=== PATIENT | male | born 1935 | race Caucasian/White ===

== ENCOUNTER → 2016-03-06 | Outpatient (CLI) | payer MEDICARE ==
[~2016-03-06] MED LIST: ASPI81; CLOP75; LIPI80TA16
[2016-03-06 12:04] LABS: BASOPHIL % 0.5 % (0.0-2.0); EOSINOPHIL # 0.1 TH/MM3 (0-0.4); EOSINOPHIL % 1.6 % (0.0-4.0); HEMATOCRIT 49.4 % (39.0-51.0); HEMO FLAGS DIFF FINAL; MEAN CELL VOLUME 90.6 FL (80.0-100.0); MEAN CORPUSCULAR HEMOGLOBIN 30.2 PG (27.0-34.0); MEAN CORPUSCULAR HGB CONC 33.4 % (32.0-36.0); MONO % 7.3 % (0.0-8.0); NEUT % 51.6 % (16.0-70.0); PLATELET COUNT 203 TH/MM3 (150-450); RED BLOOD COUNT 5.46 MIL/MM3 (4.50-5.90); RED CELL DISTRIBUTION WIDTH 15.2 % (11.6-17.2); WHITE BLOOD COUNT 7.8 TH/MM3 (4.0-11.0)
== END ==
LOC: ELAB 10:41
PROVIDERS: ATTEND Ophthalmology
DX: Z01.812 Encounter for preprocedural laboratory examination (principal)
CPT/HCPCS: 36415; 85025

== ENCOUNTER → 2016-04-21 | Outpatient (CLI) | payer MEDICARE ==
[2016-04-21 12:08] LABS: AUTOMATED NEUTROPHIL # 4.3 TH/MM3 (1.8-7.7); BASOPHIL % 0.5 % (0.0-2.0); EOSINOPHIL # 0.1 TH/MM3 (0-0.4); HEMATOCRIT 46.3 % (39.0-51.0); HEMO FLAGS DIFF FINAL; LYMPH % 28.3 % (9.0-44.0); MEAN CELL VOLUME 90.7 FL (80.0-100.0); MEAN CORPUSCULAR HEMOGLOBIN 31.1 PG (27.0-34.0); MEAN CORPUSCULAR HGB CONC 34.3 % (32.0-36.0); MONO % 8.7 % (0.0-8.0); NEUT % 60.5 % (16.0-70.0); PLATELET COUNT 216 TH/MM3 (150-450); RED CELL DISTRIBUTION WIDTH 14.3 % (11.6-17.2); WHITE BLOOD COUNT 7.1 TH/MM3 (4.0-11.0)
[2016-04-21 12:21] LABS: APTT (PATIENT) 28.2 SEC (24.3-30.1); INTERNATIONAL NORMALIZED RATIO 0.9 RATIO; PROTHROMBIN TIME - PATIENT 10.3 SEC (9.8-11.6)
== END ==
LOC: ELAB 11:01
PROVIDERS: ATTEND Ophthalmology
DX: H25.12 Age-related nuclear cataract, left eye (principal); Z01.818 Encounter for other preprocedural examination
CPT/HCPCS: 36415; 85025; 85610; 85730

== ENCOUNTER → 2016-07-29 | Outpatient (CLI) | payer MEDICARE ==
[2016-07-29 11:58] LABS: HEMATOCRIT 44.2 % (39.0-51.0); MEAN CELL VOLUME 90.6 FL (80.0-100.0); MEAN CORPUSCULAR HEMOGLOBIN 29.2 PG (27.0-34.0); MEAN CORPUSCULAR HGB CONC 32.2 % (32.0-36.0); PLATELET COUNT 190 TH/MM3 (150-450); RED BLOOD COUNT 4.88 MIL/MM3 (4.50-5.90); RED CELL DISTRIBUTION WIDTH 13.3 % (11.6-17.2); REVIEW FLAG FINAL; WHITE BLOOD COUNT 6.8 TH/MM3 (4.0-11.0)
== END ==
LOC: ELAB 09:29
PROVIDERS: ATTEND Family Medicine
DX: R04.0 Epistaxis (principal)
CPT/HCPCS: 36415; 85027

== ENCOUNTER → 2016-09-22 | Outpatient (CLI) | payer MEDICARE ==
[2016-09-22 12:34] LABS: AUTOMATED NEUTROPHIL # 3.8 TH/MM3 (1.8-7.7); BASOPHIL % 0.6 % (0.0-2.0); EOSINOPHIL # 0.1 TH/MM3 (0-0.4); EOSINOPHIL % 1.7 % (0.0-4.0); HEMATOCRIT 46.8 % (39.0-51.0); HEMO FLAGS DIFF FINAL; LYMPHOCYTE # 2.6 TH/MM3 (1.0-4.8); MEAN CELL VOLUME 90.5 FL (80.0-100.0); MEAN CORPUSCULAR HEMOGLOBIN 30.4 PG (27.0-34.0); MEAN CORPUSCULAR HGB CONC 33.6 % (32.0-36.0); MONO % 6.9 % (0.0-8.0); NEUT % 53.8 % (16.0-70.0); PLATELET COUNT 207 TH/MM3 (150-450); RED BLOOD COUNT 5.17 MIL/MM3 (4.50-5.90); RED CELL DISTRIBUTION WIDTH 13.6 % (11.6-17.2)
[2016-09-22 12:46] LABS: ANION GAP 4 MEQ/L (5-15); AST (GOT) 17 U/L (15-37); BICARBONATE 31.8 MEQ/L (21.0-32.0); BLOOD UREA NITROGEN 11 MG/DL (7-18); CHLORIDE 104 MEQ/L (98-107); GLOMERULAR FILTRATION RATE 63 ML/MIN (>89); GLUCOSE,FASTING 84 MG/DL (74-99); SODIUM (NA) 140 MEQ/L (136-145)
[2016-09-22 12:47] LABS: ALT (GPT) 18 U/L (12-78)
[2016-09-22 12:50] LABS: ALKALINE PHOSPHATASE 88 U/L (45-117); TOTAL BILIRUBIN ADULT 0.6 MG/DL (0.2-1.0)
[2016-09-22 14:00] LABS: WESTERGREN SEDIMENTATION RATE 5 mm/hr (0-20)
== END ==
LOC: ELAB 10:14
PROVIDERS: ATTEND Family Medicine
DX: I25.9 Chronic ischemic heart disease, unspecified (principal); M06.4 Inflammatory polyarthropathy; I10 Essential (primary) hypertension; M51.37 Other intervertebral disc degeneration, lumbosacral region
CPT/HCPCS: 36415; 80053; 85025; 85652

== ENCOUNTER → 2016-12-29 | Outpatient (CLI) | payer MEDICARE ==
[2016-12-29 12:00] LABS: ALT (GPT) 19 U/L (12-78); ANION GAP 6 MEQ/L (5-15); AST (GOT) 19 U/L (15-37); BICARBONATE 32.1 MEQ/L (21.0-32.0); BLOOD UREA NITROGEN 10 MG/DL (7-18); CHLORIDE 104 MEQ/L (98-107); GLOMERULAR FILTRATION RATE 71 ML/MIN (>89); GLUCOSE,FASTING 88 MG/DL (74-99); POTASSIUM 4.1 MEQ/L (3.5-5.1); SODIUM (NA) 142 MEQ/L (136-145)
[2016-12-29 12:03] LABS: ALKALINE PHOSPHATASE 86 U/L (45-117); HDL CHOLESTEROL 59.7 MG/DL (40.0-60.0); LDL CHOLESTEROL 127 MG/DL (0-99); TOTAL BILIRUBIN ADULT 0.8 MG/DL (0.2-1.0)
== END ==
LOC: ELAB 08:29
PROVIDERS: ATTEND Internal Medicine Cardiovascular Disease
DX: Z79.899 Other long term (current) drug therapy (principal); Z13.220 Encounter for screening for lipoid disorders
CPT/HCPCS: 36415; 80053; 80061

== ENCOUNTER → 2017-01-22 | Outpatient (CLI) | payer MEDICARE ==
[2017-01-22 08:59] LABS: AUTOMATED NEUTROPHIL # 3.3 TH/MM3 (1.8-7.7); BASOPHIL % 0.5 % (0.0-2.0); EOSINOPHIL # 0.2 TH/MM3 (0-0.4); EOSINOPHIL % 2.7 % (0.0-4.0); HEMATOCRIT 48.9 % (39.0-51.0); HEMO FLAGS DIFF FINAL; LYMPH % 41.1 % (9.0-44.0); LYMPHOCYTE # 2.9 TH/MM3 (1.0-4.8); MEAN CELL VOLUME 90.1 FL (80.0-100.0); MEAN CORPUSCULAR HEMOGLOBIN 30.3 PG (27.0-34.0); MEAN CORPUSCULAR HGB CONC 33.6 % (32.0-36.0); MONO % 7.9 % (0.0-8.0); NEUT % 47.8 % (16.0-70.0); PLATELET COUNT 193 TH/MM3 (150-450); RED BLOOD COUNT 5.43 MIL/MM3 (4.50-5.90); RED CELL DISTRIBUTION WIDTH 14.6 % (11.6-17.2)
[2017-01-22 09:33] LABS: WESTERGREN SEDIMENTATION RATE 1 mm/hr (0-20)
[2017-01-22 10:11] LABS: ANION GAP 4 MEQ/L (5-15); AST (GOT) 19 U/L (15-37); BICARBONATE 32.2 MEQ/L (21.0-32.0); BLOOD UREA NITROGEN 12 MG/DL (7-18); CHLORIDE 107 MEQ/L (98-107); GLOMERULAR FILTRATION RATE 60 ML/MIN (>89); GLUCOSE,FASTING 88 MG/DL (74-99); POTASSIUM 3.9 MEQ/L (3.5-5.1); SODIUM (NA) 143 MEQ/L (136-145)
[2017-01-22 10:25] LABS: ALKALINE PHOSPHATASE 93 U/L (45-117); ALT (GPT) 22 U/L (12-78); HDL CHOLESTEROL 65.9 MG/DL (40.0-60.0); LDL CHOLESTEROL 132 MG/DL (0-99); THYROXINE (T4) 5.7 MCG/DL (4.5-12.1); TOTAL BILIRUBIN ADULT 0.7 MG/DL (0.2-1.0)
== END ==
LOC: ELAB 07:25
PROVIDERS: ATTEND Family Medicine
DX: R53.83 Other fatigue (principal); I25.9 Chronic ischemic heart disease, unspecified; M06.4 Inflammatory polyarthropathy
CPT/HCPCS: 36415; 80053; 80061; 84436; 84443; 85025; 85652

== ENCOUNTER → 2017-02-16 | Outpatient (CLI) | payer MEDICARE ==
[2017-02-16 09:32] LABS: ALBUMIN 3.1 GM/DL (3.4-5.0); AST (GOT) 19 U/L (15-37); BICARBONATE 31.5 MEQ/L (21.0-32.0); BLOOD UREA NITROGEN 12 MG/DL (7-18); CALCIUM 8.7 MG/DL (8.5-10.1); CHLORIDE 104 MEQ/L (98-107); CHOLESTEROL 183 MG/DL (120-200); CREATININE 1.14 MG/DL (0.60-1.30); GLOMERULAR FILTRATION RATE 62 ML/MIN (>89); GLUCOSE,FASTING 90 MG/DL (74-99); SODIUM (NA) 140 MEQ/L (136-145)
[2017-02-16 09:36] LABS: ALKALINE PHOSPHATASE 84 U/L (45-117); ALT (GPT) 16 U/L (12-78); CHOLESTEROL/ HDL RATIO 4.05 RATIO; HDL CHOLESTEROL 45.1 MG/DL (40.0-60.0); LDL CHOLESTEROL 119 MG/DL (0-99); TOTAL BILIRUBIN ADULT 0.5 MG/DL (0.2-1.0); TOTAL PROTEIN 6.2 GM/DL (6.4-8.2); TRIGLYCERIDES 95 MG/DL (42-150)
[2017-02-16 09:38] LABS: AUTOMATED NEUTROPHIL # 4.5 TH/MM3 (1.8-7.7); BASOPHIL % 0.4 % (0.0-2.0); EOSINOPHIL # 0.1 TH/MM3 (0-0.4); HEMATOCRIT 47.3 % (39.0-51.0); HEMOGLOBIN 15.8 GM/DL (13.0-17.0); LYMPH % 27.6 % (9.0-44.0); MEAN CELL VOLUME 90.9 FL (80.0-100.0); MEAN CORPUSCULAR HEMOGLOBIN 30.4 PG (27.0-34.0); MEAN CORPUSCULAR HGB CONC 33.5 % (32.0-36.0); MEAN PLATELET VOLUME 9.3 FL (7.0-11.0); MONO % 10.2 % (0.0-8.0); MONOCYTE # 0.7 TH/MM3 (0-0.9); NEUT % 60.8 % (16.0-70.0); PLATELET COUNT 176 TH/MM3 (150-450); RED BLOOD COUNT 5.21 MIL/MM3 (4.50-5.90); RED CELL DISTRIBUTION WIDTH 14.4 % (11.6-17.2); WHITE BLOOD COUNT 7.4 TH/MM3 (4.0-11.0)
== END ==
LOC: ELAB 07:43
DX: I10 Essential (primary) hypertension (principal); I25.2 Old myocardial infarction; I25.10 Atherosclerotic heart disease of native coronary artery without angina pectoris; I73.9 Peripheral vascular disease, unspecified; E78.5 Hyperlipidemia, unspecified
CPT/HCPCS: 36415; 80053; 80061; 85025

== ENCOUNTER → 2017-05-05 | Outpatient (CLI) | payer MEDICARE ==
[2017-05-05 14:09] LABS: BASOPHIL % 0.7 % (0.0-2.0); EOSINOPHIL # 0.2 TH/MM3 (0-0.4); HEMATOCRIT 48.1 % (39.0-51.0); HEMOGLOBIN 15.9 GM/DL (13.0-17.0); LYMPH % 37.9 % (9.0-44.0); LYMPHOCYTE # 2.4 TH/MM3 (1.0-4.8); MEAN CELL VOLUME 91.2 FL (80.0-100.0); MEAN CORPUSCULAR HEMOGLOBIN 30.3 PG (27.0-34.0); MEAN CORPUSCULAR HGB CONC 33.2 % (32.0-36.0); MEAN PLATELET VOLUME 9.7 FL (7.0-11.0); MONO % 9.8 % (0.0-8.0); MONOCYTE # 0.6 TH/MM3 (0-0.9); NEUT % 48.6 % (16.0-70.0); PLATELET COUNT 200 TH/MM3 (150-450); RED BLOOD COUNT 5.27 MIL/MM3 (4.50-5.90); RED CELL DISTRIBUTION WIDTH 14.3 % (11.6-17.2); WHITE BLOOD COUNT 6.3 TH/MM3 (4.0-11.0)
[2017-05-05 14:26] LABS: ALBUMIN 3.2 GM/DL (3.4-5.0); AST (GOT) 19 U/L (15-37); BICARBONATE 31.3 MEQ/L (21.0-32.0); BLOOD UREA NITROGEN 11 MG/DL (7-18); CALCIUM 8.9 MG/DL (8.5-10.1); CHLORIDE 107 MEQ/L (98-107); CREATININE 0.98 MG/DL (0.60-1.30); GLOMERULAR FILTRATION RATE 74 ML/MIN (>89); GLUCOSE,FASTING 85 MG/DL (74-99); SODIUM (NA) 144 MEQ/L (136-145)
[2017-05-05 14:31] LABS: ALKALINE PHOSPHATASE 83 U/L (45-117); ALT (GPT) 17 U/L (12-78); CHOLESTEROL 196 MG/DL (120-200); CHOLESTEROL/ HDL RATIO 4.13 RATIO; HDL CHOLESTEROL 47.4 MG/DL (40.0-60.0); LDL CHOLESTEROL 130 MG/DL (0-99); TOTAL BILIRUBIN ADULT 0.6 MG/DL (0.2-1.0); TOTAL PROTEIN 6.3 GM/DL (6.4-8.2); TRIGLYCERIDES 91 MG/DL (42-150)
== END ==
LOC: ELAB 08:46
PROVIDERS: ATTEND Family Medicine
DX: I25.9 Chronic ischemic heart disease, unspecified (principal); E78.2 Mixed hyperlipidemia; K21.9 Gastro-esophageal reflux disease without esophagitis; I48.0 Paroxysmal atrial fibrillation; M51.37 Other intervertebral disc degeneration, lumbosacral region
CPT/HCPCS: 36415; 80053; 80061; 85025

== ENCOUNTER 2017-12-21 08:40 | Inpatient (IN) ==
[2017-12-21] MEDS ORDERED: Iohexol 350 MG/ML 100 ML Vial (for Cath Lab) IVCONTRAST ONE (08:41)
[2017-12-21] MEDS ORDERED: Heparin 10,000 UNITS/10 ML Vial (for IV use) IV.PUSH STA (08:48)
[2017-12-21] MEDS ORDERED: Heparin/NS PF Inj 1,500 ML ONE (08:55)
--- NOTE | 2017-12-21 08:59 | XR ---
EXAM DATE: 12/21/2017 8:56 AM EST AGE/SEX: 82 years / Male INDICATIONS: Stemi-alert. CLINICAL DATA: This is the patient's initial encounter. Patient reports that signs and symptoms have been present for 1 day and indicates a pain score of Nonresponsive. MEDICAL/SURGICAL HISTORY: Non-responsive. CABG. COMPARISON: No prior exams available for comparison. FINDINGS: The patient is post median sternotomy. The heart is mildly enlarged. There are chronic interstitial c hanges within the pulmonary parenchyma. There is no pneumothorax or overt congestive failure. The bony structures are intact. CONCLUSION: Chronic interstitial changes. The patient is post median sternotomy. Electronically signed by: Wil Lang MD 12/21/2017 8:58 AM EST
[2017-12-21 09:05] LABS: Baso % (Auto) 0.5 % (0.0-2.0); Eos # (Auto) 0.1 th/mm3 (0.0-0.4); Eos % (Auto) 1.3 % (0.0-4.0); Hematocrit 41.4 % (39.0-51.0); Hemoglobin 13.7 gm/dL (13.0-17.0); Lymph # (Auto) 3.6 th/mm3 (1.0-4.8); Lymph % (Auto) 36.7 % (9.0-44.0); Mean Corpuscular HGB Conc 33.1 % (32.0-36.0); Mean Corpuscular Volume 90.6 fL (80.0-100.0); Mean Platelet Volume 9.6 fL (7.0-11.0); Mono # (Auto) 0.7 th/mm3 (0.0-0.9); Mono % (Auto) 6.9 % (0.0-8.0); Neut # (Auto) 5.4 th/mm3 (1.8-7.7); Neut % (Auto) 54.6 % (16.0-70.0); Platelet Count 229 th/mm3 (150-450); Red Blood Count 4.57 mil/mm3 (4.50-5.90); Red Cell Distribution Width 15.4 % (11.6-17.2); White Blood Count 9.8 th/mm3 (4.0-11.0)
[2017-12-21] MEDS ORDERED: fentaNYL Citrate Inj 100 MCG/2 ML Ampul ONE (09:06)
[2017-12-21] MEDS ORDERED: DOPamine 800 MG/500 ML Premix 800 MG/500 ML PLAST..BAG IV.CONT ONE (09:09)
--- NOTE | 2017-12-21 09:10 | ED ---
HPI General Chief Complaint: STEMI Alert Stated Complaint: Stemi Alert Time Seen by Provider: 12/21/17 08:45 History of Present Illness HPI narrative: 82-year-old male with history of coronary disease, presents today as a STEMI alert. Patient states he woke up with substernal chest pain. He reports it radiates to his back. He reports the pain as a pressure-like. He reports that also has a achy pain. He reports it as a 10 out of 10. He reports some nausea. No vomiting. Positive diaphoresis. He reports this feels like his pain and previous KS. Patient took 5 nitroglycerin at home with no improvement of pain. Report was that he had an aspirin en route. Related Data Home Medications Medication Instructions Recorded Confirmed nitroglycerin [Nitrostat] 0.4 mg SUBLINGUAL Q5-15M PRN 12/21/17 12/21/17 Allergies Allergy/AdvReac Type Severity Reaction Status Date / Time No Known Allergies Allergy Verified 12/21/17 08:42 Review of Systems ROS: all other systems reviewed are negative Constitutional Reports system reviewed and no additional complaints, except as docu Eyes Reports system reviewed and no additional complaints, [facility] E[facility] Reports system reviewed and no additional complaints, except as [facility] Cardiovascular Reports chest pain, Reports diaphoresis and Reports dyspnea Respiratory Denies cough and Reports dyspnea Gastrointestinal Denies abdominal pain, Reports nausea and Denies vomiting Genitourinary Reports system reviewed and no additional complaints, except as [facility] Musculoskeletal Reports system reviewed and no additional complaints, except as [facility] Neurologic Reports system reviewed and no additional complaints, except as [facility] PMFSH Medical History Medical History A-fib (Acute) Surgical History Surgical History Hx of heart surgery (Acute) Social History Social History Recent Travel in [facility] within the Last 8 Weeks: No Recent Out of Country Travel within the Last 8 Weeks: No Exam Narrative Exam Narrative: GENERAL: Well developed well-nourished male who appears to be in obvious distress. SKIN: Focused skin assessment warm/dry. HEAD: Atraumatic. Normocephalic. EYES: No scleral icterus. No injection or drainage. ENT: No nasal bleeding or discharge. Mucous membranes pink and moist. NECK: Trachea midline. No JVD. CARDIOVASCULAR: Bradycardic in the 30s. No murmur appreciated. RESPIRATORY: No accessory muscle use. Clear to auscultation. Breath sounds equal bilaterally. GASTROINTESTINAL: Abdomen soft, non-tender, nondistended. No pulsatile masses. MUSCULOSKELETAL: No obvious deformities. No clubbing. No cyanosis. No edema. NEUROLOGICAL: Awake and alert and distress. No obvious cranial nerve deficits. Motor grossly within normal limits. Normal speech. Course Initial Documented Vital Signs Pulse Rate 38 L 12/21/17 08:40 Respiratory Rate 20 12/21/17 08:40 Blood Pressure 91/50 L 12/21/17 08:40 Last Documented Vital Signs Pulse Rate 38 L 12/21/17 08:40 Respiratory Rate 20 12/21/17 08:40 Blood Pressure 91/50 L 12/21/17 08:40 Medical Decision Making MDM Narrative Medical decision making narrative: 82-year-old male presents as a STEMI alert. Patient has minimal ST elevation in the inferior leads. There is greater than [address] depression in the anterior leads. Patient has signs and symptoms consistent with an acute ST elevation KS. Patient was also noted to be bradycardic. He had had an aspirin in the field. He was been given 4500 mg of IV heparin. He will be taken to the [facility] emerg[facility]. Case was discussed with Dr. Herrera, on-call retail loan officer, who will try to touch base with the patient's retail loan officer, . Medical Screen Exam Complete: Yes Emergency Medical Condition: Yes Differential Diagnosis Differential Diagnosis: Acute ST elevation KS versus non-ST elevation KS versus pulmonary embolus versus thoracic aneurysm Lab Data Result diagrams: 12/21/17 08:55 Imaging Data Radiologist's impression: Chest X-Ray 12/21/17 08:47 CONCLUSION: Chronic interstitial changes. The patient is post median sternotomy. Discharge Plan Discharge Disposition Patient Disposition: 30 Still Patient Discharge Details Diagnosis: ST elevation myocardial infarction (STEMI) Physicians Team ED Provider: James Peoples Primary Care Provider: UNKNOWN, Rxs /Orders / Referrals /Forms Prescriptions: No Action nitroglycerin [Nitrostat] 0.4 mg Tablet, Sublingual 0.4 mg SUBLINGUAL Q5-15M PRN (Reason: Pain (Scale Score 4-6)) RF: 0 Status ED Status: With Doctor
[2017-12-21 09:15] LABS: Activated Partial Thrombo Time 27.3 sec (23.4-31.7); INR 1.1 Ratio; Prothrombin Time 10.9 sec (9.8-11.6)
[2017-12-21] MEDS ORDERED: Lidocaine PF 1% Inj 30 ML Vial ONE (09:15)
[2017-12-21] MEDS ORDERED: Atropine Inj 1 MG/10 ML Syringe ONE ×2 (09:17→10:09)
[2017-12-21 09:21] LABS: Calcium 8.6 mg/dL (8.5-10.1)
[2017-12-21 09:30] LABS: Troponin I 0.05 ng/mL (0.02-0.05)
[2017-12-21] MEDS ORDERED: Lidocaine 2% 100 MG/5 ML Syringe ONE (09:30)
[2017-12-21] MEDS ORDERED: Heparin 10,000 UNITS/10 ML Vial (for IV use) ONE (09:33)
[2017-12-21] MEDS ORDERED: Metoprolol Inj 5 MG/5 ML Vial ONE (10:04)
--- NOTE | 2017-12-21 11:03 | CATHPROC ---
Patient Name: Terell Murray Study #: [id number] Initial MD: Scott Maldonado Date of : 1935 Study Date: 12/21/2017 Cardiac Catheterization Report 12/21/2017 11:02:52 AM Financial #: [id number] 1 of 15 Patient Name: Terell Murray Study #: [id number] Initial MD: Scott Maldonado Date of : 1935 Study Date: 12/22/19 18 Entire Case Report Patient Information Patient Name Terell Murray Date of 1935 Age 82 years Financial # [id number] Gender M AlternateID Lab Number 4 Room Number Height (in) 71.0 Height (cm) 180.3 BSA 1.91 Weight (lbs) 158.0 Weight (kg) 71.8 Patient Address/Phone Number Home Address [facility] Home Phone Number [address] [place], [place] [id number] Study Information Study Number Admission Scheduled Start Study Start [id number] Dec 21 2017 8:40AM 12/21/2017 Dec 21 2017 8:58AM [place] [facility] Cardiac Catheterization Admit Source Facility Department Emergency department [facility] - Video Control Operator Physician and Clinical Staff Initial Scott Cervantes Talent Consultant Jaciel Soto,RN Talent Consultant Frederick Cristobal,DONA Other cathlab, cathlab Recorder Awilda Cedeño,STUDIO PRODUCER TECH2 Scrub Wade Bletran RCIS(BS) Procedures Performed Procedure Location (Site) Vessel Name Coronary Angiograms LCA Left Coronary Coronary Angiograms RCA Right Coronary Coronary Angiograms THOMPSON-LAD Left Coronary Drug Eluting Inflatio RCA Dist Right Coronary L Heart Cath PTCA RCA Dist Right Coronary PTCA RCA Mid Right Coronary Wire insertion Fem Art (right) Femoral Art 12/21/2017 11:02:52 AM Financial #: [id number] 2 of 15 Patient Name: Terell Murray Study #: [id number] Initial MD: Scott Maldonado Date of : 1935 Study Date: 12/21/2017 Equipment Time Assayer Helper Description Size Mfg Part Number Used/Scraped [id number] 09:46 [employer] WIRE, SPORT REGULAR 0.14 * Used *[id number] TRANSDUCER, TRUWAVE [id number] 09:09 OVALLE BRUNSON * Used W/STOCKCOCK *[id number] 534-660T *[id number] 534-620T *6742434 534-621T *2272989 670-083-00 *6011084 534-642T *[id number] 09:09 [email or web address] BLANKET,WARM AIR CCL * Used *[id number] 09:09 [email or web address] PACK, CCL CUSTOM * Used *[id number] 09:09 [employer] PACER PEN, SKIN DUAL W/ RULER * Used *[id number] 09:45 MEDTRONIC BALLOON, 2.0 X 15MM EUPHORA 15MM Used *[id number] 10:07 MEDTRONIC STENT, 2.75 12MM ALLISON 2.75 12MM Used *[id number] 10:01 MEDTRONIC STENT, 3.0 34MM ALLISON 3.0 34MM [id number] Used WIRE, WHOLEY .035 MOD-J 145 [id number] 10:10 MEDTRONIC 145CM Used CM *[id number] [id number] 09:54 [employer] MEDICAL 30 FABIO INDEFLATOR Used *[id number] 09:09 [employer] MEDICAL SHEATH, FR6.5 PRELUDE 11CM FR 6.5 038ACT Used *[id number] 09:09 [employer] MEDICAL WIRE, 3MMJ .035 180CM 180CM Used *[id number] 09:09 NAMIC MANIFOLD, 4 PORT * Used *[id number] 09:09 [employer]COMED OMNIPAQUE, 350 MG, 150ML 150ML [id number] Used [id number] 10:25 TERUMO MEDICAL SHEATH, FR5 TERUMO (10CM) FR 5 Used *[id number] Equipment Model, Serial, Lot Number and Expiration Data Description Model Number Serial Number Lot Number Expiration Date STENT, 2.75 12MM ALLISON [id number] 05-26-2019 STENT, 3.0 34MM ALLISON RONYX WIRE, WHOLEY .035 MOD-J 145 [id number] 05-10-2020 CM 12/21/2017 11:02:52 AM Financial #: [id number] 3 of 15 Patient Name: Terell Murray Study #: [id number] Initial MD: Scott Maldonado Date of : 1935 Study Date: 12/21/2017 Insurance Information Insurance Payor Medicare Third Green Party Third Green Party Number MEDICARE A B MCRAB History: Risk Factors Previous MA Previous Heart Failure Yes No Prior Valve Prior PCI Prior CABG Surgery No Yes Yes On Dialysis No History: Stress Tests Stress or Imaging Studies Performed No History: Arrhythmias Selection Items Atrial fibrillation History: Other Disease Selection Items CAD Labs Hgb (g/dl) Hct (%) Platelets (thousands) 11.60-17.00 35.00-51.00 150.00-450.00 13.3 39 229 Glucose (mg/dl) 74.00-106.00 156 Na (meq/l) K (meq/l) Cl (meq/l) Ca (mg/dl) 136.00-145.00 3.50-5.10 98.00-107.00 8.50-10.10 140 3.5 101 8.6 PT (sec) PTT (sec) INR (PTT:PT) 9.80-11.60 24.30-30.10 0.90-1.10 10.9 27.3 1.1 Medication 12/21/2017 11:02:52 AM Financial #: [id number] 4 of 15 Patient Name: Terell Murray Study #: [id number] Initial MD: Scott Maldonado Date of : 1935 Study Date: 2017 Medication Total Dose (Bolus/Oral) Medication Total Dosage/Unit 1% XYLOCAINE 20 mL AMIODARONE 150 mg ATROPINE 2 mg HEPARIN 76872 units LIDOCAINE 50 mg OXYGEN 10 l/min VERSED 4 mg Medications (Bolus/Oral) Medication Time Given Dosage/Unit Administered By Reason HEPARIN 12/21/2017 8:58:45 AM 4300 units Scott Maldonado Patient arrived on 4300 units HEPARIN given by Scott Maldonado in Right Antecubital via Peripheral IV. Ordered by Scott Maldonado. OXYGEN 12/21/2017 9:05:35 AM 4 l/min Patient arrived on 4 l/min OXYGEN via Nasal. ATROPINE 12/21/2017 9:14:43 AM 1 mg Jaciel Soto 1 mg ATROPINE given in lab by Jaciel Soto RN in Right Antecubital via Peripheral IV. Ordered by Scott Lockhart. 1% XYLOCAINE 12/21/2017 9:27:42 AM 20 mL Scott Maldonado 20 mL 1% XYLOCAINE given in lab by Scott Maldonado in Right Groin via Subcutaneous. Ordered by Scott Waters. VERSED 12/21/2017 9:30:23 AM 2 mg Jaciel Soto Patient arrived on 2 mg VERSED given by Jaciel Soto RN in Right Antecubital via Peripheral IV. Orde red by Scott Maldonado. LIDOCAINE 12/21/2017 9:31:33 AM 50 mg Jaciel Soto Patient arrived on 50 mg LIDOCAINE given by Jaciel Soto RN in Left Antecubital via Peripheral IV. O rdered by Scott Maldonado. HEPARIN 12/21/2017 9:34:26 AM 06777 units Frederick [place] [address] [place] HEPARIN given by Frederick Cristobal RN in Right Antecubital via Periphera l IV. Ordered by Scott Maldonado. OXYGEN 12/21/2017 9:41:32 AM 6 l/min Charles, Jaciel Patient arrived on 6 l/min OXYGEN given by Jaciel Soto RN via Nasal. ATROPINE 12/21/2017 9:48:44 AM 1 mg Frederick Cristobal 1 mg ATROPINE given in lab by Frederick Cristobal RN in Right Antecubital via Peripheral IV. Ordered by Scott Talavera. VERSED 12/21/2017 9:52:51 AM 2 mg Jaciel Soto Patient arrived on 2 mg VERSED given by Jaciel Soto RN in Right Antecubital via Peripheral IV. Orde red by Scott Maldonado. 12/21/2017 10:31:45 AMIODARONE 150 mg Frederick Cristobal AM 150 mg AMIODARONE given in lab by Frederick Cristobal RN in Left Antecubital via Peripheral IV. Ordered b Scott Cantu. 12/21/2017 11:02:52 AM Financial #: [id number] Patient Name: Terell Murray Study #: [id number] Initial MD: Scott Maldonado Date of : 1935 Study Date: 2017 Medication (Drip) Medication Time Given Dosage/Unit Concentration/Unit Diluent (ml) Solution DOPAMINE HCL 12/21/2017 9:11:25 AM 3.714 mcg/kg/min 800 mg 500 NaCl .9 3.714 mcg/kg/min DOPAMINE HCL given in lab by Frederick Cristobal RN in Right Antecubital via Peripheral IV. Pump/Drip Flow = 10 ml/hr using NaCl .9 with a concentration of 800 mg in 500 ml. Ordered by Scott Maldonado. DOPAMINE HCL 12/21/2017 9:14:34 AM 6.314 mcg/kg/min 800 mg 500 NaCl .9 6.314 mcg/kg/min DOPAMINE HCL given in lab by Jaciel Soto RN in Right Antecubital via Peripheral IV . Pump/Drip Flow = 17 ml/hr using NaCl .9 with a concentration of 800 mg in 500 ml. Ordered by Scott Maldonado. DOPAMINE HCL 12/21/2017 9:15:27 AM 8.914 mcg/kg/min 800 mg 500 NaCl .9 8.914 mcg/kg/min DOPAMINE HCL given in lab by Frederick Cristobal RN in Right Antecubital via Peripheral IV. Pump/Drip Flow = 24 ml/hr using NaCl .9 with a concentration of 800 mg in 500 ml. Ordered by Scott Maldonado. 12/21/2017 10:05:45 DOPAMINE HCL 4.828 mcg/kg/min 800 mg 500 NaCl .9 AM 4.828 mcg/kg/min DOPAMINE HCL given in lab by Frederick Cristobal RN in Right Antecubital via Peripheral IV. Pump/Drip Flow = 13 ml/hr using NaCl .9 with a concentration of 800 mg in 500 ml. Ordered by Scott Maldonado. IV Solutions 12/21/2017 9:05:25 AM 0 mL (IV) 500 NaCl .9 IV Solutions given in lab by Jaciel Soto RN in Right Antecubital via Peripheral IV. Pump/Drip Flow = 20 ml/hr using NaCl .9. Ordered by Scott Maldonado. REMINGTON-SYNEPHRINE 12/21/2017 9:18:08 AM 200 mcg 200 mcg REMINGTON-SYNEPHRINE given in lab by Frederick Cristobal RN in Right Antecubital via Peripheral IV. Ord ered by Scott Maldonado. REMINGTON-SYNEPHRINE 12/21/2017 9:22:11 AM 200 mcg 200 mcg REMINGTON-SYNEPHRINE given in lab by Frederick Cristobal RN in Right Antecubital via Peripheral IV. Ord ered by Soctt Maldonado. 12/21/2017 11:02:52 AM Financial #: [id number] Patient Name: Terell Murray Study #: [id number] Initial MD: Scott Maldonado Date of : 1935 Study Date: 12/21/2017 Initial Case Assessment Cardiovascular HR NIBP Chest Pain 38 68/33 10 Edema Present Skin color Skin None Normal Warm Dry Circulatory - Right Pulses Dorsalis Pedis Femoral 2 2 Scale (0,1,2,3,4,d) Circulatory - Left Pulses Dorsalis Pedis Femoral 2 2 Scale (0,1,2,3,4,d) Neurological State Oriented to time-place- Alert Moves all extremities person Respiration - General Respiration Rate SpO2 (%) O2 (lpm) (B/min) 16 100 4 12/21/2017 11:02:52 AM Financial #: [id number] Patient Name: Terell Murray Study #: [id number] Initial MD: Scott Maldonado Date of : 1935 Study Date: 12/21/2017 Final Case Assessment Cardiovascular HR NIBP Chest Pain 155 99/55 10 Edema Present Skin color Skin None Normal Warm Dry Circulatory - Right Pulses Dorsalis Pedis Femoral 2 2 Scale (0,1,2,3,4,d) Circulatory - Left Pulses Dorsalis Pedis Femoral 2 2 Scale (0,1,2,3,4,d) Neurological State Oriented to time-place- Alert Moves all extremities person Respiration - General Respiration Rate SpO2 (%) O2 (lpm) (B/min) 16 100 4 12/21/2017 11:02:52 AM Financial #: [id number] 8 of 15 Patient Name: Terell Murray Study #: [id number] Initial MD: Scott Maldonado Date of : 1935 Study Date: 12/21/2017 Vitals Summary Pain Time HR NIBP SpO2 Resp Temp EtCO2 Apnea Jace Kc Comment Level 09:06:16 38 68/33 86.0 16 10 10 2 09:12:49 36 132/39 100.0 17 10 10 2 09:15:43 67 70/48 94.0 12 10 10 2 09:17:25 56 68/45 98.0 17 10 10 2 09:20:11 49 73/49 98.0 16 10 10 2 09:21:35 54 86/67 95.0 15 10 10 2 09:24:01 61 79/44 98.0 18 10 10 2 09:27:32 59 89/26 94.0 9 10 10 2 09:32:31 52 81/58 96.0 14 10 10 2 09:37:58 44 117/86 92.0 15 10 10 2 09:43:08 44 133/77 93.0 18 10 10 2 09:47:40 45 89/66 93.0 15 10 10 2 09:50:22 42 152/107 93.0 15 10 10 2 09:53:45 43 123/30 93.0 12 10 10 2 09:57:38 53 107/68 93.0 12 10 10 2 10:02:33 117 105/74 15.0 93 10 10 2 10:07:34 104 95/72 93.0 15 10 10 2 10:12:33 103 91/65 93.0 12 10 10 2 10:19:49 124 82/56 93.0 12 10 10 2 10:23:45 137 87/48 92.0 15 10 10 2 10:28:48 125 61/31 93.0 15 10 10 2 12/21/2017 11:02:52 AM Financial #: [id number] 9 15 Patient Name: Terell Murray Study #: [id number] Initial MD: Scott Maldonado Date of : 1935 Study Date: 12/21/2017 Jace Score Summary Time Activity Resp Circ LOC Color Total Score 9:06:16 2 2 2 2 2 10 9:12:49 2 2 2 2 2 10 9:15:43 2 2 2 2 2 10 9:17:25 2 2 2 2 2 10 9:20:11 2 2 2 2 2 10 9:21:35 2 2 2 2 2 10 9:24:01 2 2 2 2 2 10 9:27:32 2 2 2 2 2 10 9:32:31 2 2 2 2 2 10 9:37:58 2 2 2 2 2 10 9:43:08 2 2 2 2 2 10 9:47:40 2 2 2 2 2 10 9:50:22 2 2 2 2 2 10 9:53:45 2 2 2 2 2 10 9:57:38 2 2 2 2 2 10 10:02:33 2 2 2 2 2 10 10:07:34 2 2 2 2 2 10 10:12:33 2 2 2 2 2 10 10:19:49 2 2 2 2 2 10 10:23:45 2 2 2 2 2 10 10:28:48 2 2 2 2 2 10 Jace Score Definition Table Activity - 0 Activity - 1 Activity - 2 No Movement to Command Weak Hand Grasp Lift Head, Good Hand Grasp Respiration - 0 Respiration - 1 Respiration - 2 Apneic or Obstructed Shallow Breath, Airway Adjunct Deep Breath, Cough Freely Circulation - 0 Circulation - 1 Circulation - 2 B/P > 50% Admission B/P B/P > 20-50% Admission B/P B/P Stable X3 Level of Consciousness - 0 Level of Consciousness - 1 Level of Consciousness - 2 Not Responding Arousable On Calling Awake and Aware Color - 0 Color- 1 Color - 2 Cyanotic Lips, Nailbed, Skin Pale, Dusky [place] Or Normal Chronological Log 12/21/2017 11:02:52 AM Financial #: [id number] Patient Name: Terell Murray Study #: [id number] Initial MD: Scott Maldonado Date of : 1935 Study Date: 12/21/2017 Time Study Chronological Log Patient arrived on 4300 units HEPARIN given by Scott Maldonado in Right Antecubital via Perip heral IV. Ordered by 8:58:45 Scott Maldonado. 8:58:48 Patient arrived via Bed. 8:58:48 Patient Name, D.O.B, / Armband Verified By R.N. 8:58:50 Consent signed by the physician and the patient and verified by the Video Control Operator staff. Vitals capture started with the following parameters, Patient=Adult, Interval=5 min, Initial Pr qbxiqp=640 mmHg, 9:04:47 Deflation Rate=5 mmHg, Cuff placed on Left Arm 9:05:02 Pre-op and post- op instructions given; patient acknowledges understanding of instructions. 9:05:08 Patient has been NPO for Less than 6Hrs. 9:05:09 NO Skin Breakdown- 9:05:11 Patient Warmer Placed on the Table. 9:05:12 Waylon Prominences Protected 9:05:24 A # 18 IV was noted in the Antecubital (right). Grade = 0 IV Solutions given in lab by Jaciel Soto RN in Right Antecubital via Peripheral IV. Pump/Drip Flow = 20 ml/hr using 9:05:25 NaCl .9. Ordered by Scott Maldonado. 9:05:26 A # 18 IV was noted in the Forearm (left). Grade = 0 9:05:26 History and physical on the chart or being dictated. 9:05:35 Patient arrived on 4 l/min OXYGEN via Nasal. 9:05:55 Reference ECG taken 9:06:16 HR=38 bpm, NIBP=68/33 mmhg, SpO2=86.0 %, Resp=16 B/min, Pain=10, Jace=10, Kc=2 Assessment: Initial Case, HR=38 BPM, NIBP=68/33 mmhg, Chest Pain=10, Edema=None, Color=Normal, Skin = Warm, Dry Right Pulses: Melvin Ped=2, Femoral=2 9:08:36 Left Pulses: Melvin Ped=2, Femoral=2 Neurological: State=Alert, Ox3, ACOSTA Respiration: Resp=16 B/min, AvF4=574 %, O2=4 lpm 9:10:51 Bilateral groins prepped with 2% chlorhexidine, and draped after a 3 minute waiting time. 3.714 mcg/kg/min DOPAMINE HCL given in lab by Frederick Cristobal, RN in Right Antecubital via Perip heral IV. Pump/Drip 9:11:25 Flow = 10 ml/hr using NaCl .9 with a concentration of 800 mg in 500 ml. Ordered by Tripp Maldonado. 9:11:29 Vitals capture stopped. Vitals capture started with the following parameters, Patient=Adult, Interval=5 min, Initial Pr yxyrgo=382 mmHg, 9:12:01 Deflation Rate=5 mmHg, Cuff placed on Left Arm 9:12:49 HR=36 bpm, OXVZ=163/39 mmhg, NwT7=509 %, Resp=17 B/min, Pain=10, Jace=10, Kc=2 9:13:42 Pressure channel 1 zeroed. 6.314 mcg/kg/min DOPAMINE HCL given in lab by Jaciel Soto RN in Right Antecubital via Periphe ral IV. Pump/Drip 9:14:34 Flow = 17 ml/hr using NaCl .9 with a concentration of 800 mg in 500 ml. Ordered by Tripp Maldonado. 9:14:43 1 mg ATROPINE given in lab by Jaciel Soto RN in Right Antecubital via Peripheral IV. Orde red by Scott Maldonado. 9:15:03 NIBP STAT measurement started. 8.914 mcg/kg/min DOPAMINE HCL given in lab by Frederick Cristobal RN in Right Antecubital via Perip heral IV. Pump/Drip 9:15:27 Flow = 24 ml/hr using NaCl .9 with a concentration of 800 mg in 500 ml. Ordered by Tripp Maldonado. 9:15:43 HR=67 bpm, NIBP=70/48 mmhg, SpO2=94 %, Resp=12 B/min, Pain=10, Jace=10, Kc=2 9:17:25 HR=56 bpm, NIBP=68/45 mmhg, SpO2=98.0 %, Resp=17 B/min, Pain=10, Jace=10, Kc=2 200 mcg REMINGTON-SYNEPHRINE given in lab by Frederick Cristobal, DONA in Right Antecubital via Peripheral I V. Ordered by 9:18:08 Scott Maldonado. 12/21/2017 11:02:52 AM Financial #: [id number] 11 15 Patient Name: Terell Murray Study #: [id number] Initial MD: Scott Maldonado Date of : 1935 Study Date: 12/21/2017 9:19:47 NIBP STAT measurement started. 9:20:11 HR=49 bpm, NIBP=73/49 mmhg, SpO2=98 %, Resp=16 B/min, Pain=10, Jace=10, Kc=2 9:20:25 A # 20 IV was noted in the Antecubital (left). Grade = 0 IV STARTED 9:20:48 NIBP STAT measurement started. 9:21:35 HR=54 bpm, NIBP=86/67 mmhg, SpO2=95.0 %, Resp=15 B/min, Pain=10, Jace=10, Kc=2 200 mcg REMINGTON-SYNEPHRINE given in lab by Frederick Cristobal RN in Right Antecubital via Peripheral I V. Ordered by 9:22:11 Scott Maldonado. 9:24:01 HR=61 bpm, NIBP=79/44 mmhg, SpO2=98 %, Resp=18 B/min, Pain=10, Jace=10, Kc=2 9:27:32 HR=59 bpm, NIBP=89/26 mmhg, SpO2=94.0 %, Resp=9 B/min, Pain=10, Jace=10, Kc=2 Time Out. Correct patient, correct procedure, correct physician, labs, allergies, and equipment verified with senior laboratory technician 9:27:37 team present. Fire risk assesment completed (see hard stop sheet for coding). Time Out Conc urred by MD and individual staff in procedure. 9:27:40 Case Start 9:27:42 20 mL 1% XYLOCAINE given in lab by Scott Maldonado in Right Groin via Subcutaneous. Order ed by Scott Maldonado. Patient arrived on 2 mg VERSED given by Jaciel Soto RN in Right Antecubital via Peripheral IV . Ordered by Erica, 9:30:23 Scott. Patient arrived on 50 mg LIDOCAINE given by Jaciel Soto RN in Left Antecubital via Peripheral IV. Ordered by 9:31:33 Scott Maldonado. 9:32:13 Access site was Right Femoral Artery. 9:32:31 HR=52 bpm, NIBP=81/58 mmhg, SpO2=96.0 %, Resp=14 B/min, Pain=10, Jace=10, Kc=2 9:32:35 A SHEATH, FR6.5 PRELUDE 11CM FR 6.5 was advanced into the Fem Art (right) using the Modifie d Seldinger technique. A MPA-2 INFINITI CATHETER FR 6 was advanced over a wire. OMNIPAQUE, 350 MG, 150ML 150ML was use d for 9:32:43 [place] [address] [place] HEPARIN given by Frederick Cristobal RN in Right Antecubital via Per ipheral IV. Ordered by 9:34:26 Scott Maldonado. Recorded Pressure: Ao, HR=52, Condition=Condition 1 9:34:48 (Aorta) Ao 100/34/57 After removing the current catheter a JL 4.0 INFINITI CATHETER FR 6 was advanced over a WIRE, 3 MMJ .035 180CM 9:37:45 180CM. 9:37:50 The LCA was injected and visualized at various angles. contrast used. 9:37:58 HR=44 bpm, BYFE=872/86 mmhg, SpO2=92 %, Resp=15 B/min, Pain=10, Jace=10, Kc=2 After removing the current catheter a JR 4.0 INFINITI CATHETER FR 6 was advanced over a WIRE, 3 MMJ .035 180CM 9:39:41 180CM. 9:41:32 Patient arrived on 6 l/min OXYGEN given by Jaciel Soto RN via Nasal. 9:43:08 HR=44 bpm, OHGS=703/77 mmhg, SpO2=93 %, Resp=18 B/min, Pain=10, Jace=10, Kc=2 9:43:28 The RCA was injected and visualized at various angles. OMNIPAQUE, 350 MG, 150ML 150ML used . After removing the current catheter a JR 4.0 SH GUIDE CATHETER FR 6 was advanced over a WIRE, 3 MMJ .035 180CM 9:47:03 180CM. 9:47:40 HR=45 bpm, NIBP=89/66 mmhg, SpO2=93 %, Resp=15 B/min, Pain=10, Jace=10, Kc=2 9:48:44 1 mg ATROPINE given in lab by Frederick Cristobal, DONA in Right Antecubital via Peripheral IV. Or dered by Scott Maldonado. 9:49:11 NIBP STAT measurement started. 9:49:23 A WIRE, SPORT REGULAR 0.14 * was inserted via Fem Art (right). 9:50:22 HR=42 bpm, FIQT=271/107 mmhg, SpO2=93 %, Resp=15 B/min, Pain=10, Jace=10, Kc=2 9:52:39 Interventional wire has crossed the lesion 12/21/2017 11:02:52 AM Financial #: [id number] Patient Name: Terell Murray Study #: [id number] Initial MD: Scott Maldonado Date of : 1935 Study Date: 12/21/2017 Patient arrived on 2 mg VERSED given by Jaciel Soto RN in Right Antecubital via Peripheral IV . Ordered by Erica, 9:52:51 Scott. 9:52:54 ANESTHESIA AT BEDSIDE TO ASSUME PATIENT CARE 9:52:55 A BALLOON, 2.0 X 15MM EUPHORA 15MM was inserted over WIRE, SPORT REGULAR 0.14 * via the RCA Dist. A BALLOON, 2.0 X 15MM EUPHORA 15MM over a WIRE, SPORT REGULAR 0.14 * in the RCA Mid was inflate d using a 30 9:53:11 FABIO INDEFLATOR at 10 fabio for 30 sec. 9:53:45 HR=43 bpm, AGAS=871/30 mmhg, SpO2=93 %, Resp=12 B/min, Pain=10, Jace=10, Kc=2 A BALLOON, 2.0 X 15MM EUPHORA 15MM over a WIRE, SPORT REGULAR 0.14 * in the RCA Dist was inflat ed using a 9:54:20 30 FABIO INDEFLATOR at 10 fabio for 30 sec. A BALLOON, 2.0 X 15MM EUPHORA 15MM over a WIRE, SPORT REGULAR 0.14 * in the RCA Dist was inflat ed using a 9:55:12 30 FABIO INDEFLATOR at 10 fabio for 30 sec. A BALLOON, 2.0 X 15MM EUPHORA 15MM over a WIRE, SPORT REGULAR 0.14 * in the RCA Dist was inflat ed using a 9:55:46 30 FABIO INDEFLATOR at 10 fabio for 30 sec. A BALLOON, 2.0 X 15MM EUPHORA 15MM over a WIRE, SPORT REGULAR 0.14 * in the RCA Dist was inflat ed using a 9:56:45 30 FABIO INDEFLATOR at 10 fabio for 30 sec. 9:57:38 HR=53 bpm, TGXU=001/68 mmhg, SpO2=93 %, Resp=12 B/min, Pain=10, Jace=10, Kc=2 9:59:50 Balloon Removed. A STENT, 3.0 34MM ALLISON 3.0 34MM was advanced through a JR 4.0 SH GUIDE CATHETER FR 6 over a WIR E, SPORT 10:00:00 REGULAR 0.14 *. A STENT, 3.0 34MM ALLISON 3.0 34MM was deployed using a 30 FABIO INDEFLATOR at 14 atmospheres for 60 seconds in 10:01:02 the RCA Dist. 3.10 10:02:33 OW=071 bpm, JASO=400/74 mmhg, SpO2=15.0 %, Resp=93 B/min, Pain=10, Jace=10, Kc=2 10:04:12 Delivery device removed 4.828 mcg/kg/min DOPAMINE HCL given in lab by Frederick Cristobal, RN in Right Antecubital via Perip heral IV. Pump/Drip 10:05:45 Flow = 13 ml/hr using NaCl .9 with a concentration of 800 mg in 500 ml. Ordered by Tripp Maldonado. A STENT, 2.75 12MM ALLISON 2.75 12MM was advanced through a JR 4.0 SH GUIDE CATHETER FR 6 over a W AJ, 10:06:43 SPORT REGULAR 0.14 *. 10:07:34 DI=505 bpm, NIBP=95/72 mmhg, SpO2=93 %, Resp=15 B/min, Pain=10, Jace=10, Kc=2 A STENT, 2.75 12MM ALLISON 2.75 12MM was deployed using a 30 FABIO INDEFLATOR at 18 atmospheres for 60 seconds 10:08:07 in the RCA Dist. 2.95 10:08:52 Delivery device removed 10:10:39 Wire removed 10:11:23 Catheter was removed A AHSAN INFINITI CATHETER FR 6 was advanced over a wire. OMNIPAQUE, 350 MG, 150ML 150ML was used for 10:11:28 injections. 10:12:33 IX=141 bpm, NIBP=91/65 mmhg, SpO2=93 %, Resp=12 B/min, Pain=10, Jace=10, Kc=2 10:13:14 NIBP STAT measurement started. 10:13:37 A WIRE, WHOLEY .035 MOD-J 145 CM 145CM was inserted via Fem Art (right). 10:15:09 Vitals capture stopped. Vitals capture started with the following parameters, Patient=Adult, Interval=5 min, Initial Pr opehor=338 mmHg, 10:15:14 Deflation Rate=5 mmHg, Cuff placed on Left Arm 10:15:25 The THOMPSON-LAD was injected and visualized at various angles. contrast used. Recorded Pressure: LSCA, FI=893, Condition=Condition 1 10:16:25 (Left Subclavian Artery) LSCA 68/54/60 10:17:30 Vitals capture stopped. Vitals capture started with the following parameters, Patient=Adult, Interval=5 min, Initial Pr hxhcpi=975 mmHg, 10:17:43 Deflation Rate=5 mmHg, Cuff placed on Left Arm 12/21/2017 11:02:52 AM Financial #: [id number] Patient Name: Terell Murray Study #: [id number] Initial MD: Scott Maldonado Date of : 1935 Study Date: 12/21/2017 10:18:10 Vitals capture stopped. Vitals capture started with the following parameters, Patient=Adult, Interval=5 min, Initial Pr puplio=432 mmHg, 10:18:17 Deflation Rate=5 mmHg, Cuff placed on Left Arm 10:19:49 AH=408 bpm, NIBP=82/56 mmhg, SpO2=93 %, Resp=12 B/min, Pain=10, Jace=10, Kc=2 10:20:04 A SHEATH, FR5 TERUMO (10CM) FR 5 was advanced into the Fem Art (right) using the ~TECHNIQUE ~ technique. 10:20:26 Access site was Right Femoral Vein. 10:23:45 GA=424 bpm, NIBP=87/48 mmhg, SpO2=92 %, Resp=15 B/min, Pain=10, Jace=10, Kc=2 10:24:28 Case End (Physician broke scrub) PCI QA completed: Pre-Todd - ~PRE TODD~, Post Todd - ~POST TODD~, Type - ~TYPE~, Length - ~ROMI TH~ mm, 10:25:36 Morphology - ~MORPHOLOGY~, Indications - ~INDICATIONS~, Pre-Stenosis - ~PRESTENOSIS~% and P ost Stenosis - ~POSTSTENOSIS~%. 10:25:37 PCI QA obtained from Dextrine Mixer 10:25:47 Catheter(s) removed without difficulty Recorded Pressure: Ao, DX=271, Condition=Condition 1 10:25:49 (Aorta) Ao 99/55/73 10:25:51 In the Fem Art (right) the SHEATH, FR6.5 PRELUDE 11CM FR 6.[address] by Scott Peralta. 10:25:56 In the Fem Vein (right) the SHEATH, FR5 TERUMO (10CM) FR [address] by Scott Aden. 10:26:30 Sterile dressing applied to site 10::33 Cine recording checked. 10:28:48 ZV=289 bpm, NIBP=61/31 mmhg, SpO2=93 %, Resp=15 B/min, Pain=10, Jace=10, Kc=2 10:29:41 Bedside Report will be given. 10:29:42 A Left Heart Cath was performed. 150 mg AMIODARONE given in lab by Frederick Cristobal, RN in Left Antecubital via Peripheral IV. Ord ered by Erica, 10:31:45 Scott. 10:35:21 Vitals capture stopped. Assessment: Final Case, AT=298 BPM, NIBP=99/55 mmhg, Chest Pain=10, Edema=None, Color=Normal, S kin = Warm, Dry Right Pulses: Melvin Ped=2, Femoral=2 10:35:53 Left Pulses: Melvin Ped=2, Femoral=2 Neurological: State=Alert, Ox3, ACOSTA Respiration: Resp=16 B/min, LbX4=979 %, O2=4 lpm 10:37:44 ACT (Normal Range 90-180) = 314 10:54:01 Patient moved to stretcher Recorded Pressures: Condition 1 Time Chamber Pressure Manual Override (*) 9:34:48 Ao 100/34/57 s/d/m 10:16:25 LSCA 68/54/60 s/d/m 10:25:49 Ao 99/55/73 s/d/m 12/21/2017 11:02:52 AM Financial #: [id number] Patient Name: Terell Murray Study #: [id number] Initial MD: Scott Maldonado Date of : 1935 Study Date: 12/21/2017 End Study - Contrast Media Used In Study Contrast Total Opened (mL) Total Used (mL) Total Wasted (mL) Omnipaque 200 200 0 End Study - Radiation Exposure Fluoro Time (minutes) 13.0 End Study - Patient Disposition Complications Transferred To Interventional Outcome No Telemetry Bed successful 12/21/2017 11:02:52 AM Financial #: [id number]
[2017-12-21] MEDS: DOPamine 400 MG/250 ML Premix 400 MG/250 ML BAG IV.CONT PRN (11:15)
[2017-12-21] MEDS ORDERED: Sodium Bicarbonate 8.4% Inj 50 MEQ/50 ML Syringe ONE (11:36)
[2017-12-21] MEDS ORDERED: Heparin Drip 25,000 UNIT/250 ML BAG IV.CONT PRN (12:11)
[2017-12-21] MEDS ORDERED: Sodium Chloride 0.9% 2 ML Flush PRN IV.FLUSH (12:16)
[2017-12-21] MEDS ORDERED: Sod Chloride 0.9% Inj 1,000 ML IV.SIG SCH (12:30)
[2017-12-21] MEDS ORDERED: Digoxin Inj 500 MCG/2 ML Ampul IV.PUSH ONE (12:30)
[2017-12-21] MEDS: Dexmedetomidine Inj 200 MCG in Sodium Chlor 0.9% Inj 48 ML IV.CONT PRN (12:54)
[2017-12-21] MEDS: ceFAZolin 1 GM Premix Inj 1 GM/50 ML IV.SIG SCH ×2 (12:55→21:00)
[2017-12-21 13:04] LABS: Baso % (Auto) 0.2 % (0.0-2.0); Eos % (Auto) 0.1 % (0.0-4.0); Hemoglobin 13.1 gm/dL (13.0-17.0); Lymph # (Auto) 0.5 th/mm3 (1.0-4.8); Mean Corpuscular HGB Conc 32.8 % (32.0-36.0); Mean Corpuscular Hemoglobin 29.7 pg (27.0-34.0); Mean Corpuscular Volume 90.5 fL (80.0-100.0); Mean Platelet Volume 8.9 fL (7.0-11.0); Mono # (Auto) 0.6 th/mm3 (0.0-0.9); Mono % (Auto) 5.3 % (0.0-8.0); Neut # (Auto) 10.6 th/mm3 (1.8-7.7); Neut % (Auto) 90.4 % (16.0-70.0); Platelet Count 175 th/mm3 (150-450); Red Blood Count 4.43 mil/mm3 (4.50-5.90); White Blood Count 11.8 th/mm3 (4.0-11.0)
[2017-12-21 13:27] LABS: Alanine Aminotransferase 26 U/L (12-78); Albumin 2.5 g/dL (3.4-5.0); Anion Gap 8 meq/L (5-15); Aspartate Aminotransferase 127 U/L (15-37); Blood Urea Nitrogen 10 mg/dL (7-18); Calcium 7.7 mg/dL (8.5-10.1); Carbon Dioxide 29.4 meq/L (21.0-32.0); Chloride 107 meq/L (98-107); Glomerular Filtration Rate 59 mL/min (>89); Glucose,Random 156 mg/dL (74-106); Magnesium 1.9 mg/dL (1.5-2.5); Sodium 144 meq/L (136-145)
[2017-12-21 13:35] LABS: Alkaline Phosphatase 79 U/L (45-117); Creatine Kinase 1229 U/L (39-308); Total Protein 5.4 g/dL (6.4-8.2)
--- NOTE | 2017-12-21 13:51 | MH ---
cc: Janette Sal MD DATE OF ADMISSION: 12/21/2017 HISTORY OF PRESENT ILLNESS: The patient is an 82-year-old male with a past medical history of coronary artery disease, atrial fibrillation, who presented to [facility] ED as a STEMI alert. The patient woke up with substernal chest pain radiating to his back and it was pressure-like in nature. His pain was a 10/10 and associated with nausea. He took 5 nitroglycerin at home with no improvement of his pain. He had aspirin en route. The patient was taken emergently to the label cutter where he underwent a cardiac catheterization by Dr. Maldonado. The patient had a drug-eluting stent x2 in the right CA. In the label cutter, he received Versed 3 mg, Diprivan 50 mcg, amiodarone 150 mg bolus and Lopressor 5 mg. He was transferred to CV ICU where he was very agitated and restless. Critical Care Medicine was consulted for agitation and critical care management. He received Ativan and was started on Precedex drip. ABG was performed, which showed acute hypercapnic respiratory acidosis. He is also on dopamine at 3 mcg. Most of the history was obtained from reviewing medical records as the patient is a poor historian. PAST MEDICAL HISTORY: Significant for coronary artery disease with previous CO, atrial fibrillation. PAST SURGICAL HISTORY: History of cardiac surgery, unknown details. SOCIAL HISTORY: Unknown. ALLERGIES: NO KNOWN DRUG ALLERGIES. FAMILY HISTORY: Unknown. REVIEW OF SYSTEMS: Unobtainable. PHYSICAL EXAMINATION: GENERAL: An 82-year-old male with a STEMI, agitated and restless. VITAL SIGNS: Afebrile, temperature 97.7, pulse in 70s, respiratory rate of 18, blood pressure 90/52 with a MAP 64, saturation 98-99%. HEENT: Atraumatic, normocephalic. Pupils are equal, round, reactive to light and accommodation. Extraocular muscles intact. Conjunctivae pink, anicteric sclerae. Oral mucosa within normal. NECK: Supple. No JVD, adenopathy or thyromegaly. Trachea in the midline. CARDIOVASCULAR: Regular rate and rhythm. Normal S1, S2. No murmurs, rubs or gallops. PULMONARY: Bilateral equal air entry. No rales. Few scattered wheezing. ABDOMEN: Soft, nontender, nondistended, positive bowel sounds. EXTREMITIES: No cyanosis, clubbing, edema. NEUROLOGIC: No focal sensory deficit. LABORATORY DATA: WBC 9.8, hemoglobin 13.7, hematocrit 41, platelet count of 229. Point of care: BMP: Sodium 140, potassium 3.5, chloride 101, BUN 8, creatinine 1.2, glucose 156, magnesium 2. BNP 887. RADIOGRAPHIC STUDIES: Chest x-ray showed chronic interstitial changes. ASSESSMENT AND PLAN: 1. Acute hypoxemic and hypercapnic respiratory insufficiency. 2. ST-elevation myocardial infarction. 3. Atrial fibrillation. 4. Hypokalemia. 5. Questionable congestive heart failure with elevated brain natriuretic peptide (BNP). RECOMMENDATIONS: 1. Monitor neuro status closely and avoid long-term sedatives. 2. The patient was placed on Precedex drip for agitation. We will monitor. 3. Continue oxygen to maintain saturations above 92%. 4. Bronchodilators in the form of DuoNeb every 4 hours plus every 2 hours p.r.n. for shortness of breath. 5. BiPAP p.r.n. We will repeat ABG in 1 hour. If there is any worsening in respiratory status or clinical condition, we will proceed with intubation and mechanical ventilation. M 6. Monitor heart rate and blood pressure closely and maintain MAP greater than 65 mmHg. Wean off dopamine and the patient to start on heparin drip status post cardiac catheterization with a drug-eluting stent x2 in the right CA by Dr. Parks. Continue with aspirin 81 mg daily. 7. Lopressor 25 mg b.i.d. 8. Effient 10 mg daily. 9. The patient for 2D echocardiogram. 10. Monitor renal function, I's and O's, and electrolyte replacement per protocol. We will diurese with Lasix 40 mg IV x1. 11. Keep n.p.o. for now until mental status and respiratory status improves. Place on Protonix 40 mg daily for gastrointestinal prophylaxis. 12. Monitor for signs of infection, which include fever and WBC. Odom culture if spikes a fever. 13. Monitor CBC and coags. 14. As the patient will be on heparin drip. 15. Sliding scale insulin with Accu-Cheks if needed for glycemic control. 16. Gastrointestinal prophylaxis with Protonix 40 mg daily and deep venous thrombosis prophylaxis with sequential compression devices and the patient to start heparin drip. 17. Further recommendations will be based on hospital course. MD Kamlesh Beavers , 12:43 PM , 12:56 PM
[2017-12-21 13:53] LABS: ABG Base Excess 3.1 mmol/L (-2-2); ABG PCO2 55 mmHg (38-42); ABG PO2 146 mmHG (61-120)
[2017-12-21 13:55] LABS: Creatine Kinase MB 169.2 ng/mL (0.5-3.6)
[2017-12-21 14:02] LABS: CKMB Percent 13.8 % (0.0-4.0)
[2017-12-21] MEDS ORDERED: Potassium Chlor 40 mEq Premix 40 MEQ/100 ML PIGGYBACK IV.SIG PRN ×2 (14:02)
[2017-12-21] MEDS ORDERED: Sodium Phosphate Inj 30 MMOL in Sodium Chlor 0.9% Inj 250 ML IV.SIG PRN (14:02)
[2017-12-21] MEDS ORDERED: Magnesium Sulfate Inj 2 GM in Sodium Chlor 0.9% Inj 96 ML IV.SIG PRN (14:02)
[2017-12-21] MEDS ORDERED: Potassium Chlor 20 mEq Premix 20 MEQ/100 ML PIGGYBACK IV.SIG PRN (14:02)
[2017-12-21] MEDS ORDERED: Magnesium Sulfate Inj 4 GM in Sodium Chlor 0.9% Inj 92 ML IV.SIG PRN (14:02)
[2017-12-21] MEDS ORDERED: Potassium Chloride 25 MEQ Effervescent Tablet PO PRN (14:02)
[2017-12-21] MEDS ORDERED: Magnesium Oxide 400 MG Tablet PO PRN (14:02)
[2017-12-21] MEDS ORDERED: Potassium Phosphate 500 MG Soluble Tablet PO PRN ×2 (14:02)
[2017-12-21] MEDS ORDERED: Potassium Phosphate Inj 30 MMOL in Sodium Chlor 0.9% Inj 250 ML IV.SIG PRN (14:02)
[2017-12-21] MEDS ORDERED: Etomidate Inj 20 MG/10 ML Ampul IV.PUSH ONE (14:04)
--- NOTE | 2017-12-21 14:05 | MH ---
cc: Scott Maldonado DO DATE OF ADMISSION: 12/21/2017 IMPRESSIONS: 1. Atherosclerotic heart disease, acute inferior wall myocardial infarction. 2. Advanced chronic obstructive pulmonary disease, still smoking 1/2 to 1 pack per day. 3. Recent onset of atrial fibrillation, unclear whether the patient is taking Xarelto or not. 4. Dyslipidemia. 5. Hypertension. 6. Peripheral vascular disease, abdominal aortic aneurysm. 7. History of chronic kidney disease, relatively mild. 8. Alcohol use. He drinks 3 glasses of sangria per day. 9. Noncompliance. 10. Recent hematuria. PLAN: The patient has been taken directly to the cardiac catheterization laboratory as a STEMI. The patient is an 82-year-old male who woke up about 1 o'clock this morning with chest pain. Apparently, he came to the emergency room. EKG demonstrated inferior wall myocardial infarction. He has history of atherosclerotic heart disease, and he had a history of bypass surgery in the remote past and a history of redo bypass surgery in 1996. He has significant risk factors as noted in the opening remarks including hypertension, dyslipidemia, ongoing tobacco usage, peripheral vascular disease, etc. His medications when he was last in our office in July included Toprol-XL 100 mg daily, acetazolamide 125 daily, sublingual nitroglycerin, fish oil capsules, aspirin, finasteride 5 daily and Pravachol 40 daily. He was in atrial fibrillation and I recommended that he start Xarelto on that office visit. He was subsequently admitted to the hospital with chest pain in October. This pain was quite atypical and he is very difficult patient to talk to. He had a recent stress test demonstrating a relatively fixed inferior basal perfusion defect. He drinks 3 alcoholic drinks per day and smokes 1/2 to 1 pack of cigarettes per day. PAST SURGICAL HISTORY: Includes coronary bypass grafting surgery in 1991 with redo surgery in 1996. He does not really know how many bypasses he has. His primary physician is Dr. Fabian Peoples. ALLERGIES: HE HAS NO ALLERGIES TO MEDICATIONS. PHYSICAL EXAMINATION: GENERAL: At this time, demonstrates an arousable male who is writhing in pain on the film laboratory technician table. VITAL SIGNS: He appears to be in atrial fibrillation with heart rate in the 90s-100s. His blood pressure is in the 80s systolic. I have given verbal orders earlier to start fluid resuscitation, atropine and a dopamine drip. HEENT: Anicteric sclerae. He has a dusky appearance to his face. NECK: Jugular venous pressures are elevated. LUNGS: He has coarse breath sounds. CARDIAC: Demonstrates an irregularly irregular rhythm. Peripheral pulses are diminished. LABORATORY DATA: No labs are available. EKG demonstrates acute posterior inferior wall myocardial infarction. RECOMMENDATIONS: As noted above, the patient was declared a STEMI and taken directly to the film laboratory technician. DO FILI Thompson/hector , 12:52 PM , 01:02 PM
[2017-12-21] MEDS: Pantoprazole Inj 40 MG Vial IV.PUSH SCH (14:08)
[2017-12-21] MEDS ORDERED: Propofol 1000 mg/100 ml Inj 1,000 MG/100 ML BOTTLE ONE (14:18)
[2017-12-21] MEDS ORDERED: Gelatin 12 MM/7 MM Topical Foam ONE (14:38)
[2017-12-21] MEDS: Propofol 1000 mg/100 ml Inj 1,000 MG/100 ML BOTTLE IV.CONT PRN (15:00)
[2017-12-21] MEDS: fentaNYL 10 mcg/mL Premix Drip 2,500 MCG/250 ML BAG IV.SIG PRN (15:01)
[2017-12-21] MEDS ORDERED: Temazepam 15 MG Capsule PO PRN (15:14)
--- NOTE | 2017-12-21 15:30 | XR ---
EXAM DATE: 12/21/2017 3:23 PM EST AGE/SEX: 82 years / Male INDICATIONS: Post intubation. CLINICAL DATA: This is the patient's initial encounter. Patient reports that signs and symptoms have been present for 1 day and indicates a pain score of Nonresponsive. MEDICAL/SURGICAL HISTORY: . none known . cabg. COMPARISON: [facility] [place], CHEST 1V SINGLE AP, 12/21/2017. . FINDINGS: The heart is mildly enlarged. There is diffuse interstitial prominence and bibasilar effusion larger on the left than the right. Exam would suggest congestive failure. The patient is post median sternotomy. The endotracheal tube and nasogastric tube are in satisfactory position. CONCLUSION: Endotracheal tube in good position. Probable CHF. Electronically signed by: Wil Lang MD 12/21/2017 3:29 PM EST
[2017-12-21 15:40] LABS: ABG Base Excess 2.3 mmol/L (-2-2); ABG PCO2 51 mmHg (38-42); ABG PO2 400 mmHG (61-120)
--- NOTE | 2017-12-21 15:40 | ECG ---
Date Performed: 12/21/2017 Time Performed: 08:42:27 PTAGE: 82 years EKG: ATRIAL FIBRILLATION WITH SLOW VENTRICULAR RESPONSE MODERATE INTRAVENTRICULAR CONDUCTION DEL AY MINIMAL VOLTAGE CRITERIA FOR LVH, CONSIDER NORMAL VARIANT MARKED ST DEPRESSION, CONSIDER SUBENDOC ARDIAL INJURY ABNORMAL ECG PREVIOUS TRACING : 09/17/2006 12.46 Compared to previous tracing, atrial fibrillation is new. i ntraventricular conduction delay is more pronounced and ST-T changes is more pronounced. Cannot rule out ischemia. Clinical correlation is recommended DOCTOR: Kyree Grider Interpretating Date/Time 12/21/2017 15:38:48
[2017-12-21] MEDS: Thiamine Inj 100 MG in Sodium Chlor 0.9% Inj 100 ML IV.SIG SCH (17:07)
[2017-12-21] MEDS ORDERED: Heparin 10,000 UNITS/10 ML Vial (for IV use) IV.PUSH PRN ×2 (18:12)
[2017-12-21] MEDS: Insulin NovoLOG Aspart Correctional Sugar Inj SQ SCH (19:36)
[2017-12-21] MEDS: Metoprolol Tartrate 25 MG Tablet PO SCH (21:09)
[2017-12-21] MEDS: Sodium Chloride 0.9% 2 ML Flush BID IV.FLUSH SCH (21:10)
--- NOTE | 2017-12-21 23:08 | MD ---
cc: Scott Maldonado DO DATE OF DISCHARGE: PROCEDURE: 1. Urgent cardiac catheterization. 2. Selective right and left coronary angiography. 3. Selective saphenous vein graft angiography. 4. Left internal mammary angiography. 5. Left subclavian angiography and PCI with placement of 2 drug-eluting stents in the right coronary artery. HOSPITAL COURSE: The patient is an 82-year-old male with known coronary artery disease who woke up with chest pain this morning, presented to the emergency room. EKG suggested an acute posterior inferior wall myocardial infarction. It should be noted that the patient has a history of atherosclerotic heart disease, still smoking, advanced COPD, history of coronary artery bypass grafting surgery, is an extremely poor historian. This case was extremely difficult due to the patient being uncooperative. Indeed, we had to call anesthesia for deep sedation. We were finally able to finish the case. The procedure was performed from the right groin using a modified Seldinger technique. A 6-Croatian arterial sheath was placed with difficulty. A 5-Croatian venous sheath was placed at the end of the procedure for central line access. We used 6-Croatian diagnostic catheters. HEMODYNAMIC DATA: The patient was hemodynamically unstable when I entered the room. His blood pressure was 80/40. He was in sinus rhythm with PACs and subsequently degenerated into atrial fibrillation. He also had wide QRS reperfusion arrhythmias after successful christianity of flow into the right coronary artery. An LV pressure was not measured due to the patient being unstable and uncooperative. CORONARY ANGIOGRAPHY: Coronary angiography was performed in multiple projections. a) The left main coronary artery is totally occluded at its ostium. b) The right coronary artery is totally occluded at the acute margin. c) Saphenous vein graft likely to a circumflex branch is totally occluded at its origin. d) Saphenous vein graft to a diagonal branch is selectively visualized. There is mild nonobstructive disease proximally and distally in the graft. There is RON 3 flow. This appears to fill retrograde in the LAD. There is a septal jewel inserter with a 90+ percent diameter stenosis. There is a 40% diameter stenosis in the vein graft. At this point, the target vessel is extremely small and asthenic. The left internal mammary artery was visualized at the end of the case. The THOMPSON has been utilized as an in situ graft, appears to insert end-to-side into the middle portion of the left anterior descending artery. Selective left subclavian angiogram was performed. There is a 50-60% diameter stenosis proximal to the origin of the left vertebral artery and left internal thoracic artery. There was approximately a 30 mm pressure gradient across this stenosis. Plans for ad hoc angioplasty had been made for this STEMI. We selected a 6-Croatian JR4 guiding catheter with side holes. Control angiograms were taken. We selected an 0.014 BMW wire. We were able to cross the area of total occlusion. The lesion was dilated multiple times with a 2 x 15 Euphora catheter. At this point in time, I elected to stent the vessel we had reestablished flow. The patient was having reperfusion arrhythmias, developed atrial fibrillation at this point in time. The first stent selected was a 3 x 32 Raymundo stent. This was placed with great difficulty across the acute marginal lesion area of total occlusion requiring deep trotting maneuver with the catheter. The stent was deployed using gradually increasing pressures to 12 atmospheres for 60 seconds, yielding a 3.1 MLD. Repeat angiograms demonstrated good position and angiographic result. There was evidence of a dissection distal to the stent. We selected a 2.75 x 12 [place] stent. This was deployed in a non-overlapping fashion in the distal RCA, so as not to prison the posterior descending artery. Repeat angiograms were performed and demonstrated an adequate angiographic result. The patient was extremely uncooperative. I elected to terminate the procedure at this point in time. IMPRESSION: Successful PCI of a totally occluded RCA. The vessel is diffusely diseased. He has a total occluded left main. He has got 2 grafts to the left coronary circulation. The patient will be treated as an acute myocardial infarction. PLAN: On repeating functional testing, potential areas of ischemia are in the distribution of the circumflex system and possibly LAD due to the subclavian stenosis. DO FILI Thompson/katlyn , 10:56 AM , 11:07 AM
[2017-12-22] MEDS: Insulin NovoLOG Aspart Correctional Sugar Inj SQ SCH ×4 (00:16→20:03)
[2017-12-22] MEDS: ceFAZolin 1 GM Premix Inj 1 GM/50 ML IV.SIG SCH ×3 (04:15→22:02)
[2017-12-22 05:46] LABS: Baso % (Auto) 0.3 % (0.0-2.0); Eos % (Auto) 0.1 % (0.0-4.0); Hematocrit 40.7 % (39.0-51.0); Hemoglobin 13.6 gm/dL (13.0-17.0); Lymph # (Auto) 1.5 th/mm3 (1.0-4.8); Lymph % (Auto) 12.5 % (9.0-44.0); Mean Corpuscular HGB Conc 33.5 % (32.0-36.0); Mean Corpuscular Hemoglobin 29.9 pg (27.0-34.0); Mean Corpuscular Volume 89.5 fL (80.0-100.0); Mean Platelet Volume 9.4 fL (7.0-11.0); Mono # (Auto) 1.1 th/mm3 (0.0-0.9); Mono % (Auto) 9.5 % (0.0-8.0); Neut # (Auto) 9.2 th/mm3 (1.8-7.7); Neut % (Auto) 77.6 % (16.0-70.0); Platelet Count 189 th/mm3 (150-450); Red Blood Count 4.54 mil/mm3 (4.50-5.90); Red Cell Distribution Width 15.3 % (11.6-17.2); White Blood Count 11.9 th/mm3 (4.0-11.0)
[2017-12-22 06:26] LABS: Alanine Aminotransferase 39 U/L (12-78); Albumin 2.7 g/dL (3.4-5.0); Alkaline Phosphatase 83 U/L (45-117); Anion Gap 10 meq/L (5-15); Aspartate Aminotransferase 289 U/L (15-37); Blood Urea Nitrogen 19 mg/dL (7-18); Carbon Dioxide 27.3 meq/L (21.0-32.0); Chloride 105 meq/L (98-107); Chol/HDL Ratio 3.88 Ratio; Cholesterol 160 mg/dL (120-200); Glomerular Filtration Rate 40 mL/min (>89); Glucose,Random 130 mg/dL (74-106); HDL Cholesterol 41.2 mg/dL (40.0-60.0); LDL Cholesterol,Calculated 102 mg/dL (0-99); Potassium 3.7 meq/L (3.5-5.1); Sodium 142 meq/L (136-145); Total Protein 5.9 g/dL (6.4-8.2); Triglycerides 83 mg/dL (42-150)
[2017-12-22 06:49] LABS: Creatine Kinase MB 158.7 ng/mL (0.5-3.6)
[2017-12-22] MEDS: Metoprolol Tartrate 25 MG Tablet PO SCH ×2 (08:40→22:03)
[2017-12-22] MEDS: Sodium Chloride 0.9% 2 ML Flush BID IV.FLUSH SCH ×2 (08:43→22:03)
[2017-12-22] MEDS: Thiamine Inj 100 MG in Sodium Chlor 0.9% Inj 100 ML IV.SIG SCH (08:44)
--- NOTE | 2017-12-22 09:40 | P.PNCC ---
Subjective Subjective Remarks/Hospital Course: The patient is an 82-year-old male with a past medical history of coronary artery disease, atrial fibrillation, who presented to [facility] ED as a STEMI alert. The patient woke up with substernal chest pain radiating to his back and it was pressure-like in nature. His pain was a 10/10 and associated with nausea. He took 5 nitroglycerin at home with no improvement of his pain. He had aspirin en route. The patient was taken emergently to the clam bed laborer where he underwent a cardiac catheterization by Dr. Maldonado. The patient had a drug-eluting stent x2 in the right CA. In the clam bed laborer, he received Versed 3 mg, Diprivan 50 mcg, amiodarone 150 mg bolus and Lopressor 5 mg. He was transferred to CV ICU where he was very agitated and restless. Critical Care Medicine was consulted for agitation and critical care management. He received Ativan and was started on Precedex drip. ABGwas performed, which showed acute hypercapnic respiratory acidosis. He is also on dopamine at 3 mcg. Most of the history was obtained from reviewing medical records as the patient is a poor historian SUBJECTIVE: 12/22: Afebrile. Oozing from sheath noted in the right groin area without hematoma. Remains intermittent agitated. On propofol drip at 5 mcg/kg/min. Meet on dopamine at 6 mcg/kg/min. Objective Vital Signs / I&O: Vital Signs 12/21/17 11:15 12/21/17 12:12 12/21/17 12:15 Temperature 94.4 F L Pulse Rate 91 H Respiratory Rate 28 H Pulse Oximetry 97 99 97 12/21/17 14:20 12/21/17 15:00 12/21/17 15:24 Temperature 98.0 F Pulse Rate 55 L Respiratory Rate 14 14 Pulse Oximetry 99 99 98 12/21/17 15:42 12/21/17 15:55 12/21/17 16:00 Temperature Pulse Rate 91 H 58 L 57 L Respiratory Rate 14 14 Pulse Oximetry 99 99 12/21/17 19:00 12/21/17 19:37 12/21/17 20:00 Temperature 97.7 F Pulse Rate 55 L 60 Respiratory Rate 16 16 Pulse Oximetry 99 99 99 12/21/17 23:00 12/21/17 23:36 12/22/17 02:53 Temperature 98.7 F Pulse Rate 56 L 50 L 69 Respiratory Rate 16 16 Pulse Oximetry 99 99 12/22/17 03:00 12/22/17 04:13 12/22/17 07:00 Temperature 97.9 F 98.5 F Pulse Rate 68 83 66 Respiratory Rate 16 16 16 Pulse Oximetry 96 99 98 12/22/17 07:45 12/22/17 08:00 Temperature Pulse Rate 73 Respiratory Rate 16 Pulse Oximetry 99 98 Intake & Output 12/21/17 12/22/17 12/22/17 18:59 06:59 18:59 Intake Total 50 / 50 451 / 451 Output Total 300 / 300 300 / 300 Balance -250 / -250 151 / 151 Weight 71.668 kg 70.5 kg Intake: IV 50 / 50 451 / 451 Cordarone Inj 450 MG In D5W Inj 250 / 250 241 ML @ 0.5 MG/MIN 16.66 mls/ hr IV.CONT TITRATE PRN Rx#: [id number] Thiamine Inj 100 MG In NS Inj 101 / 101 100 ML @ 100 mls/hr IV.SIG DAILY GIANCARLO Rx#:[id number] Ancef 1 GM Premix Inj 1 gm In 50 / 50 100 / 100 50 ml @ 100 mls/hr IV.SIG Q8H GIANCARLO Rx#:[id number] Oral 0 / 0 Output: Urine 300 / 300 Stool 0 / 0 Urine Amount (Catheter) 300 / 300 Condom 300 / 300 Gastric Drainage 0 / 0 0 / 0 Orogastric Tube 0 / 0 0 / 0 Other: # Bowel Movements 0 Weight On Admission 71.668 kg Result Diagrams: 12/22/17 04:55 12/22/17 04:55 Imaging: Chest X-Ray 12/21/17 08:47 CONCLUSION: Chronic interstitial changes. The patient is post median sternotomy. Chest X-Ray 12/21/17 14:27 CONCLUSION: Endotracheal tube in good position. Probable CHF. Objective Remarks: GENERAL: This is a 10-year-old male currently orotracheally intubated SKIN: Warm and dry. HEAD: Normocephalic. EYES: No scleral icterus. No injection or drainage. NECK: Supple, trachea midline. No JVD or lymphadenopathy. CARDIOVASCULAR: Bradycardic, RR. S1, S2. No S4. RESPIRATORY: Breath sounds equal bilaterally. No accessory muscle use. GASTROINTESTINAL: Abdomen soft, non-tender, nondistended. MUSCULOSKELETAL: No cyanosis, or edema. Right angle region with no hematoma with arterial and venous sheaths in place Neuro: Cranial nerves II through XII appear to be grossly intact. Positive gag and cough according with his. On sedation vacation will move all 4 extremities spontaneously but not to command. Assessment and Plan - Assessment and Plan Plan: Neuro/Psych: EtOH abuse Currently on propofol and dexmedetomidine drips for sedation while intubated. Fentanyl drip ordered as well. Morphine 2-4 mg IV every 3 hours as needed pain On thiamine, folate and multivitamin. Monitor for DTs CV: Inferior STEMI -2 KIANNA to RCA Coronary artery disease Peripheral vascular disease Abdominal aortic aneurysm Atrial fibrillation Continue aspirin 81 mg daily, Prasugrel 10 mg daily for drug-eluting stent Currently on dopamine at 6 mg/kg/min to maintain mean arterial pressure greater than equal to 65 A.m. EKG the same revealed continuous T changes indicative of STEMI Follow up on echocardiogram Followed by Dr. Maldonado/cardiology Team the amiodarone drip currently at 0.5 mg/min Resp: Acute respiratory failure COPD Tobacco abuse PRVC ventilation. Albuterol/ipratropium aerosols every 4 hours with albuterol aerosols every 2 hours as needed for dyspnea Budesonide 0.5/2 1 inhalation twice daily Follow-up on chest x-ray/ABG in a.m. 12/23 Spontaneous breathing trials and clinically indicated Tobacco cessation will be encouraged education provided when appropriate GI: Elevated AST -cardiac in origin Hypoalbuminemia Currently n.p.o. NG tube will start tube feeds with Jevity 1.5 goal 50 cc an hour Pantoprazole for GI prophylaxis Docusate sodium/senna 1 tablet twice daily for bowel regimen : Young catheter placed with acute kidney injury Endo: Sliding scale insulin with aspart insulin to maintain euglycemia Check TSH in a.m. Renal: Acute kidney injury Check renal ultrasound/urine creatinine and electrolytes Avoid nephrotoxic medication Did receive dye/contrast for cardiac catheterization Heme: Leukocytosis Monitor CBC daily. Follow trends. Maintain heparin heparin drip see orders ID: Currently on cefazolin 1 g IV every 8 hours. Monitor for signs and symptomatology infection FEN: Replace electrolytes as clinically indicated per ICU electrolyte protocol Receiving 25 mEq of potassium chloride Effient x1 now. On one half normal saline with 75 mEq sodium bicarbonate times 2 L ordered for today. MSK: PT evaluate and treat Access -Utilize peripheral IV. Central line if indicated -Currently utilizing right femoral arterial and venous sheath Prophylaxis -GI-lansoprazole -DVT-SCD/pharmacological prophylaxis with SCDs/heparin drip Critical care time 35 minutes follow-up Code Status: Full code Discussed Condition With: No family available. 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 CARE plan discussed all questions answered
[2017-12-22] MEDS ORDERED: Potassium Chloride 25 MEQ Effervescent Tablet PO ONE (10:20)
[2017-12-22] MEDS ORDERED: Gelatin 12 MM/7 MM Topical Foam ONE ×2 (10:56→16:31)
--- NOTE | 2017-12-22 10:57 | US ---
EXAM DATE: 12/22/2017 10:53 AM EST AGE/SEX: 82 years / Male INDICATIONS: Increased BUN/Creatinine. CLINICAL DATA: This is the patient's initial encounter. Patient reports that signs and symptoms have been present for 1 day and indicates a pain score of 0/10. MEDICAL/SURGICAL HISTORY: Peripheral vascular disease. CAD. STEMI. Afib. Abdominal aortic aneur ysm. COPD. CABG. Cardiac Cath with stent. COMPARISON: No prior exams available for comparison. MEASUREMENTS: Right Kidney:__10.4 x 3.8 x 6.7 cm Left Kidney:__11.0 x 4.4 x 5.5 cm FINDINGS: Right Kidney: The examination demonstrates a 5 mm stone in the collecting system of the right kidney. There is no hydronephrosis. The cortex is otherwise unremarkable. Left Kidney: The examination demonstrates a 3.0 x 2.7 x 2.7 cm cyst in the lower pole the left kidney . There is no hydronephrosis. Cortex otherwise unremarkable. Bladder: The bladder is moderately distended. Other: None. CONCLUSION: 1. 5 mm stone in the collecting system of the right kidney. There is no hydronephrosis. 2. 3 cm simple cyst arising from the left kidney. 3. Distention of the bladder. Electronically signed by: Wil Lang MD 12/22/2017 10:56 AM EST
--- NOTE | 2017-12-22 11:44 | ECHRPT ---
Indication: Chest Pain CONCLUSIONS Normal left ventricular size. Wall thickness is measured at the upper limits of normal. The left ventricular systolic function is normal with an estimated ejection fraction in the range of 50-55%. There is moderate hypokinesis of the mid to basal inferior and posterior recio, possibly of the basa l lateral wall. Mild mitral valve regurgitation. Trileaflet aortic valve. Moderate calcification of the noncoronary cusp, mild calcification of the r ight coronary cusp. Trace aortic valve regurgitation. BP: / HR: Rhythm: MEASUREMENTS (Male / Female) Normal Values Technical Quality:Good 2D ECHO LV Diastolic Diameter PLAX 5.1 cm 4.2 - 5.9 / 3.9 - 5.3 cm LV Systolic Diameter PLAX 3.5 cm IVS Diastolic Thickness 1.1 cm 0.6 - 1.0 / 0.6 - 0.9 cm LVPW Diastolic Thickness 1.1 cm 0.6 - 1.0 / 0.6 - 0.9 cm LV Relative Wall Thickness 0.4 RV Internal Dim ED PLAX 3.1 cm Aortic Root Diameter 3.6 cm LA Systolic Diameter LX 3.9 cm 3.0 - 4.0 / 2.7 - 3.8 cm FINDINGS LEFT VENTRICLE Normal left ventricular size. Wall thickness is measured at the upper limits of normal. The left ventricular systolic function is normal with an estimated ejection fraction in the range of 50-55%. There is moderate hypokinesis of the mid to basal inferior and posterior recio, possibly of the basa l lateral wall. RIGHT VENTRICLE Normal right ventricular size and systolic function. LEFT ATRIUM The left atrial size is normal. RIGHT ATRIUM The right atrial size is normal. ATRIAL SEPTUM Normal atrial septal thickness without atrial level shunting by limited color doppler interrogation. AORTA The aortic root and proximal ascending aorta are normal in size on limited imaging. MITRAL VALVE Mild mitral valve regurgitation. AORTIC VALVE Trileaflet aortic valve. Moderate calcification of the noncoronary cusp, mild calcification of the r ight coronary cusp. Trace aortic valve regurgitation. TRICUSPID VALVE Structurally normal tricuspid valve. No tricuspid valve stenosis or regurgitation. PULMONARY VALVE The pulmonary valve is not well visualized. VESSELS The inferior vena cava is normal in size. PERICARDIUM No pericardial effusion. Dar Lynch MD (Electronically Signed) Final Date:22 December 2017 11:43
--- NOTE | 2017-12-22 11:51 | P.DIET ---
Nutritional Evaluation Type of nutrition evaluation: initial Nutrition consult regarding: Tube Feeding Objective - Diagnosis STEMI Alert - Objective % IBW: 90 (IBW = 172#) Body Weight Used for Calculations: Actual (70.5 kg) Energy Needs - Lower Range (kCal/kg): 25 Energy Needs - Upper Range (kCal/kg): 30 Lower Limit kCal/kg (kCals): 1,763 Upper Limit kCal/kg (kCals): 2,115 Lower Limit Protein Factor (Grams per Kg): 1.0 Upper Limit Protein Factor (Grams per Kg): 1.5 Lower Protein Needs (Protein): 71 Upper Protein Needs (Protein): 106 Dietitian Reviewed in Medical Record: Curent medications, Intake & Output, Labs , Medical history, Tube feeding Diet Order: NPO Objective Comments: GLU 130 Assessment Assessment: Pt is at high nutrition risk 2' to the need for TFing. Current order is for Jevity 1.5 @ 50 mls/hr goal. This will adequately meet needs by providing 1800 kcals, 77 gms protein and 912 mls of free water. Additional kcasl may be provided if propofol is running (1.1 kcal/ml). Elevated glucose noted: monitor for need of formula change to Glucerna 1.5. Recommendations: Jevity 1.5 @ 50 mls/hr goal Dietitian to Monitor: Lab values, Glucose level, Intake & Output, Tube feeding tolerance, Weight change, Medical course
[2017-12-22] MEDS: Pantoprazole Inj 40 MG Vial IV.PUSH SCH (12:25)
[2017-12-22] MEDS: fentaNYL 10 mcg/mL Premix Drip 2,500 MCG/250 ML BAG IV.SIG PRN (12:26)
[2017-12-22] MEDS: Artificial Tears Opth Drops 15 ML Bottle EACH EYE SCH ×2 (12:26→20:05)
--- NOTE | 2017-12-22 12:38 | P.PNCA ---
Medications and Allergies Active Medications: Active Medications Acetaminophen (Tylenol Liq) 650 mg PO Q6H PRN PRN Reason: FEVER Albuterol (Duoneb Neb (Kasandra)) 1 ampul NEB Q4HR NEB [facility] Last Admin: 12/22/17 11:22 Dose: 1 ampul Albuterol (Albuterol Neb (Prn)) 2.5 mg NEB Q2HR NEB PRN PRN Reason: DYSPNEA Alprazolam (Xanax) 0.5 mg PO TID PRN PRN Reason: ANXIETY Artificial Tears (Tears Naturale Opth Drops) 1 drop EACH EYE Q8H [facility] Last Admin: 12/22/17 12:26 Dose: 1 drop Aspirin (Aspirin Chew) 81 mg PO DAILY [facility] Last Admin: 12/22/17 08:43 Dose: 81 mg Budesonide (Pulmocort Respule Neb) 0.5 mg NEB Q12HR [facility] Dextrose (D50w Vial) 50 ml IV.PUSH UNSCH PRN PRN Reason: PER HYPOGLYCEMIA PROTOCOL Folic Acid (Folic Acid) 1 mg PO DAILY [facility] Glucagon (Glucagon Inj) 1 mg OTHER PRN PRN PRN Reason: for Hypoglycemia Protocol Heparin Sodium (Porcine) (Heparin Inj) 5,000 units IV.PUSH UNSCH PRN PRN Reason: aPTT < 25 Heparin Sodium (Porcine) (Heparin Inj) 2,500 units IV.PUSH UNSCH PRN PRN Reason: aPTT 25-59 Dexmedetomidine HCl 200 mcg/ (Sodium Chloride) 50 mls @ 3.58 mls/hr IV.CONT TITRATE PRN; Protocol PRN Reason: Per Protocol Last Titration: 12/21/17 14:15 Dose: 0 mcg/kg/hr, 0 mls/hr Heparin Sodium/Dextrose (Heparin/D5w 25,000 U/250 Ml) 25,000 unit in 250 mls @ 9 mls/hr IV.CONT TITRATE PRN; Protocol PRN Reason: Per Protocol Last Admin: 12/21/17 13:17 Dose: 900 units/hr, 9 mls/hr Cefazolin Sodium/Dextrose (Ancef 1 Gm Premix Inj) 1 gm in 50 mls @ 100 mls/hr IV.SIG Q8H [facility] Last Admin: 12/22/17 12:25 Dose: 100 mls/hr Sodium Chloride (Ns Inj) 1,000 mls @ 100 mls/hr IV.SIG .Q10H [facility] Last Admin: 12/21/17 12:53 Dose: 100 mls/hr Amiodarone HCl 450 mg/ (Dextrose) 250 mls @ 16.66 mls/hr IV.CONT TITRATE PRN; Protocol PRN Reason: Per Protocol Last Admin: 12/22/17 08:42 Dose: 0.5 mg/min, 16.66 mls/hr Magnesium Sulfate 4 gm/ Sodium (Chloride) 100 mls @ 50 mls/hr IV.SIG UNSCH PRN PRN Reason: For Magnesium 0.9 - 1.1 mg/dL Magnesium Sulfate 2 gm/ Sodium (Chloride) 100 mls @ 50 mls/hr IV.SIG UNSCH PRN PRN Reason: For Magnesium 1.2 - 1.6 mg/dL Potassium Chloride (Kcl 20 Meq Premix Inj) 20 meq in 100 mls @ 50 mls/hr IV.SIG Q2H PRN PRN Reason: For Potassium 3.3 - 3.5 mEq/L Potassium Chloride (Kcl 40 Meq Premix Inj) 40 meq in 100 mls @ 25 mls/hr IV.SIG UNSCH PRN PRN Reason: For Potassium 3.3 - 3.5 mEq/L Potassium Chloride (Kcl 20 Meq Premix Inj) 20 meq in 100 mls @ 50 mls/hr IV.SIG Q2H PRN PRN Reason: For Potassium 2.8 - 3.2 mEq/L Potassium Phosphate 30 mmol/ (Sodium Chloride) 260 mls @ 42 mls/hr IV.SIG UNSCH PRN PRN Reason: SEE LABEL COMMENTS Sodium Phosphate 30 mmol/ (Sodium Chloride) 260 mls @ 42 mls/hr IV.SIG UNSCH PRN PRN Reason: For Phosphorus < 2.5 mg/dL Potassium Chloride (Kcl 40 Meq Premix Inj) 40 meq in 100 mls @ 25 mls/hr IV.SIG Q4H PRN PRN Reason: For Potassium 2.8 - 3.2 mEq/L Dopamine HCl/Dextrose (Dopamine 400 Mg/250 Ml Premix) 400 mg in 250 mls @ 8.063 mls/hr IV.CONT TITRATE PRN; Protocol PRN Reason: SEE LABEL COMMENTS Last Admin: 12/21/17 11:15 Dose: 3 mcg/kg/min, 8.06 mls/hr Fentanyl (Fentanyl 10 Mcg/Ml Premix Drip) 2,500 mcg in 250 mls @ 5 mls/hr IV.SIG TITRATE PRN; Protocol PRN Reason: Per Protocol Last Admin: 12/22/17 12:26 Dose: 50 mcg/hr, 5 mls/hr Propofol (Diprivan 1000 Mg/100 Ml Inj) 1,000 mg in 100 mls @ 2.15 mls/hr IV.CONT TITRATE PRN; Protocol PRN Reason: Per Protocol Last Admin: 12/21/17 15:00 Dose: 5 mcg/kg/min, 2.15 mls/hr Thiamine HCl 100 mg/ Sodium (Chloride) 101 mls @ 100 mls/hr IV.SIG DAILY [facility] Last Admin: 12/22/17 08:44 Dose: 100 mls/hr Sodium Bicarbonate 75 meq/ (Sodium Chloride) 1,000 mls @ 84 mls/hr IV.CONT .[id number] [facility] Stop: 12/23/17 09:48 Insulin Aspart (Novolog Insulin Correctional Sugar Inj) 0 unit SQ Q6HR [facility]; Protocol Last Admin: 12/22/17 06:38 Dose: Not Given Magnesium Oxide (Mag-Ox) 800 mg PO UNSCH PRN PRN Reason: For Magnesium 1.2 - 1.6 mg/dL Metoprolol Tartrate (Lopressor) 25 mg PO BID [facility] Last Admin: 12/22/17 08:40 Dose: Not Given Morphine Sulfate (Morphine Inj) 2 mg IV.PUSH Q3H PRN PRN Reason: PAIN SCALE 1 TO 5/AGITATION Morphine Sulfate (Morphine Inj) 4 mg IV.PUSH Q3H PRN PRN Reason: PAIN SCALE 6 TO 10/AGITATION Multivitamins (Theragran) 1 tab PO DAILY [facility] Pantoprazole Sodium (Protonix Inj) 40 mg IV.PUSH Q24H [facility] Last Admin: 12/22/17 12:25 Dose: 40 mg Potassium Bicarb/Potassium Chloride (K-Lyte Cl Eff) 50 meq PO UNSCH PRN PRN Reason: For Potassium 3.3 - 3.5 mEq/L Potassium Phosphate (K-Phos Original) 2,000 mg PO Q4H PRN PRN Reason: Phosphorus Less Than 2.5 mg/dL Potassium Phosphate (K-Phos Original) 2,000 mg PO UNSCH PRN PRN Reason: SEE LABEL COMMENTS Prasugrel (Effient) 10 mg PO DAILY [facility] Last Admin: 12/22/17 08:43 Dose: 10 mg Pravastatin Sodium (Pravachol) 80 mg PO DAILY [facility] Last Admin: 12/22/17 08:43 Dose: 80 mg Senna/Docusate Sodium (Estrella-Colace) 1 tab PO BID [facility] Sodium Chloride (Ns Flush) 2 ml IV.FLUSH BID [facility] Last Admin: 12/22/17 08:43 Dose: 2 ml Sodium Chloride (Ns Flush) 2 ml IV.FLUSH PRN PRN PRN Reason: FLUSH AFTER USING IV ACCESS Temazepam (Restoril) 15 mg PO HS PRN PRN Reason: INSOMNIA Terbutaline Sulfate (Brethine Inj) 1 mg SQ UNSCH PRN PRN Reason: Extravasation Allergies Allergy/AdvReac Type Severity Reaction Status Date / Time No Known Allergies Allergy Verified 12/21/17 08:42 Home Medications Medication Instructions Recorded Confirmed Type nitroglycerin [Nitrostat] 0.4 mg SUBLINGUAL Q5-15M PRN 12/21/17 12/21/17 History Physical Exam Vital signs: Vital Signs 12/21/17 14:20 12/21/17 15:00 12/21/17 15:24 Temperature 98.0 F Pulse Rate 55 L Respiratory Rate 14 14 Pulse Oximetry 99 99 98 12/21/17 15:42 12/21/17 15:55 12/21/17 16:00 Temperature Pulse Rate 91 H 58 L 57 L Respiratory Rate 14 14 Pulse Oximetry 99 99 12/21/17 19:00 12/21/17 19:37 12/21/17 20:00 Temperature 97.7 F Pulse Rate 55 L 60 Respiratory Rate 16 16 Pulse Oximetry 99 99 99 12/21/17 23:00 12/21/17 23:36 12/22/17 02:53 Temperature 98.7 F Pulse Rate 56 L 50 L 69 Respiratory Rate 16 16 Pulse Oximetry 99 99 12/22/17 03:00 12/22/17 04:13 12/22/17 07:00 Temperature 97.9 F 98.5 F Pulse Rate 68 83 66 Respiratory Rate 16 16 16 Pulse Oximetry 96 99 98 12/22/17 07:45 12/22/17 08:00 12/22/17 11:22 Temperature Pulse Rate 73 58 L Respiratory Rate 16 16 Pulse Oximetry 99 98 99 Intake & Output 12/21/17 12/22/17 12/22/17 18:59 06:59 18:59 Intake Total 50 / 50 451 / 451 250 / 250 Output Total 300 / 300 300 / 300 Balance -250 / -250 151 / 151 250 / 250 Weight 71.668 kg 70.5 kg Intake: IV 50 / 50 451 / 451 250 / 250 Cordarone Inj 450 MG In D5W Inj 250 / 250 241 ML @ 0.5 MG/MIN 16.66 mls/ hr IV.CONT TITRATE PRN Rx#: [id number] Thiamine Inj 100 MG In NS Inj 101 / 101 100 ML @ 100 mls/hr IV.SIG DAILY [facility] Rx#:[id number] Ancef 1 GM Premix Inj 1 gm In 50 / 50 100 / 100 50 ml @ 100 mls/hr IV.SIG Q8H [facility] Rx#:[id number] fentaNYL 10 mcg/mL Premix Drip 250 / 250 2,500 mcg In 250 ml @ 50 MCG/HR 5 mls/hr IV.SIG TITRATE PRN Rx #:[id number] Oral 0 / 0 Output: Urine 300 / 300 Stool 0 / 0 Urine Amount (Catheter) 300 / 300 Condom 300 / 300 Gastric Drainage 0 / 0 0 / 0 Orogastric Tube 0 / 0 0 / 0 Other: # Bowel Movements 0 Weight On Admission 71.668 kg - Urinary Catheter Management Condom Cath placed during this visit: no Results 12/22/17 04:55 12/22/17 04:55 Cardiac Enzymes 12/21/17 12/21/17 12/21/17 Range/Units 08:55 08:55 12:40 AST 127 H (15-37) U/L CK-MB (CK-2) 169.2 H (0.5-3.6) ng/mL Troponin I 0.05 (0.02-0.05) ng/mL B-Natriuretic Peptide 887 H (0-100) pg/mL 12/22/17 12/22/17 Range/Units 04:55 04:55 AST 289 H (15-37) U/L CK-MB (CK-2) 158.7 H (0.5-3.6) ng/mL Troponin I (0.02-0.05) ng/mL B-Natriuretic Peptide (0-100) pg/mL Coagulation 12/21/17 12/21/17 12/21/17 Range/Units 08:55 08:55 20:28 PT 10.9 (9.8-11.6) sec APTT 27.3 185.8 H* D (23.4-31.7) sec B-Natriuretic Peptide 887 H (0-100) pg/mL 12/22/17 12/22/17 Range/Units 00:30 07:15 PT (9.8-11.6) sec APTT 64.9 H D 40.2 H D (23.4-31.7) sec B-Natriuretic Peptide (0-100) pg/mL Lipids 12/22/17 Range/Units 04:55 Triglycerides 83 (42-150) mg/dL Cholesterol 160 (120-200) mg/dL HDL Cholesterol 41.2 (40.0-60.0) mg/dL Cholesterol/HDL Ratio 3.88 Ratio CBC 12/21/17 12/21/17 12/22/17 Range/Units 08:55 12:40 04:55 WBC 9.8 11.8 H 11.9 H (4.0-11.0) th/mm3 RBC 4.57 4.43 L 4.54 (4.50-5.90) mil/mm3 Hgb 13.7 13.1 13.6 (13.0-17.0) gm/dL Hct 41.4 40.0 40.7 (39.0-51.0) % Plt Count 229 175 189 (150-450) th/mm3 Neut # (Auto) 5.4 10.6 H 9.2 H (1.8-7.7) th/mm3 Lymph # (Auto) 3.6 0.5 L 1.5 (1.0-4.8) th/mm3 Hopkins # (Auto) 0.7 0.6 1.1 H (0.0-0.9) th/mm3 Eos # (Auto) 0.1 0.0 0.0 (0.0-0.4) th/mm3 Baso # (Auto) 0.0 0.0 0.0 (0.0-0.2) th/mm3 Comprehensive Metabolic Panel 12/21/17 12/21/17 12/22/17 Range/Units 08:55 12:40 04:55 Sodium 144 142 (136-145) meq/L Potassium 4.0 3.7 (3.5-5.1) meq/L Chloride 107 105 (98-107) meq/L Carbon Dioxide 29.4 27.3 (21.0-32.0) meq/L BUN 10 19 H (7-18) mg/dL Creatinine 1.18 1.68 H (0.60-1.30) mg/dL Calcium 8.6 7.7 L D 8.0 L (8.5-10.1) mg/dL AST 127 H 289 H (15-37) U/L ALT 26 39 (12-78) U/L Alkaline Phosphatase 79 83 (45-117) U/L Total Protein 5.4 L 5.9 L (6.4-8.2) g/dL Albumin 2.5 L 2.7 L (3.4-5.0) g/dL Intake and Output 12/21/17 12/22/17 12/22/17 22:59 06:59 14:59 Intake Total 151 / 151 300 / 300 250 / 250 Output Total 300 / 300 300 / 300 Balance -149 / -149 0 / 0 250 / 250 Intake: IV 151 / 151 300 / 300 250 / 250 Cordarone Inj 450 MG In D5W Inj 250 / 250 241 ML @ 0.5 MG/MIN 16.66 mls/ hr IV.CONT TITRATE PRN Rx#: [id number] Thiamine Inj 100 MG In NS Inj 101 / 101 100 ML @ 100 mls/hr IV.SIG DAILY [facility] Rx#:[id number] Ancef 1 GM Premix Inj 1 gm In 50 / 50 50 / 50 50 ml @ 100 mls/hr IV.SIG Q8H [facility] Rx#:[id number] fentaNYL 10 mcg/mL Premix Drip 250 / 250 2,500 mcg In 250 ml @ 50 MCG/HR 5 mls/hr IV.SIG TITRATE PRN Rx #:[id number] Oral 0 / 0 Output: Urine 300 / 300 Stool 0 / 0 Urine Amount (Catheter) 300 / 300 Condom 300 / 300 Gastric Drainage 0 / 0 0 / 0 Orogastric Tube 0 / 0 0 / 0 Other: # Bowel Movements 0 Weight 70.5 kg Weight On Admission 71.668 kg - Imaging and Cardiology Imaging: Impressions Chest X-Ray 12/21/17 08:47 CONCLUSION: Chronic interstitial changes. The patient is post median sternotomy. Chest X-Ray 12/21/17 14:27 CONCLUSION: Endotracheal tube in good position. Probable CHF. Abdomen/Bladder Ultrasound 12/22/17 00:00 CONCLUSION: 1. 5 mm stone in the collecting system of the right kidney. There is no hydronephrosis. 2. 3 cm simple cyst arising from the left kidney. 3. Distention of the bladder. Assessment and Plan - Plan P PCI C 2 NONOVERLAPPING KIANNA IN RCA NOW INTUBATED FOR RESP FAILURE CPKS 1000 RANGE EF ON ECHO 50 C INFBASAL WAMA PT INTUBATED AND SEDATED CREAT /\ 1.68 BACK IN NSR ON IV AMIO RONCHI /\ JVP RRR NO RUB S3 ABD SOFT WILL CONT HEPARIN 214 HRS MORE CHG TO PO MEDS WEAN DOPAMINE NEEDS PIC /CVP LINE PRIOR TO DC SHEATHS
[2017-12-22] MEDS: Sodium Bicarbonate 8.4% Inj 75 MEQ in Sodium Chloride 0.45 % Inj 925 ML IV.CONT SCH (12:48)
[2017-12-22 14:06] LABS: Creatinine,Urine Random 198 mg/dL (27-300); Sodium,Urine Random 12 meq/L
--- NOTE | 2017-12-22 14:44 | ECG ---
Date Performed: 12/21/2017 Time Performed: 12:06:04 PTAGE: 82 years EKG: Sinus rhythm Extensive ST-T changes may be due to myocardial ischemia Baseline artifact Compared to previous trac ing the patient is no longer in atrial fibrillation Abnormal ECG PREVIOUS TRACING : 12/21/17 DOCTOR: Morenita Brantley Interpretating Date/Time 12/22/2017 14:42:29
--- NOTE | 2017-12-22 14:45 | ECG ---
Date Performed: 12/22/2017 Time Performed: 05:06:18 PTAGE: 82 years EKG: Sinus rhythm with PAC(s) Extensive ST-T changes may be due to myocardial ischemia Since the previous tracing, no significant change noted Abnormal ECG PREVIOUS TRACING : 12/22/2017 05.04 DOCTOR: Morenita Brantley Interpretating Date/Time 12/22/2017 14:42:39
[2017-12-22 17:35] LABS: Hematocrit 35.4 % (39.0-51.0); Hemoglobin 12.3 gm/dL (13.0-17.0); Mean Corpuscular HGB Conc 34.7 % (32.0-36.0); Mean Corpuscular Hemoglobin 30.9 pg (27.0-34.0); Mean Corpuscular Volume 89.1 fL (80.0-100.0); Platelet Count 170 th/mm3 (150-450); Red Blood Count 3.97 mil/mm3 (4.50-5.90); White Blood Count 9.8 th/mm3 (4.0-11.0)
[2017-12-22] MEDS ORDERED: Sodium Chlor 0.9% Inj 500 ML IV.SIG SCH (18:00)
[2017-12-22 18:21] LABS: Calcium 7.9 mg/dL (8.5-10.1); Carbon Dioxide 30.4 meq/L (21.0-32.0); Potassium 3.8 meq/L (3.5-5.1)
[2017-12-22] MEDS: DOPamine 400 MG/250 ML Premix 400 MG/250 ML BAG IV.CONT PRN (19:45)
[2017-12-22] MEDS: Amiodarone 200 MG Tablet NG/OG SCH (22:02)
[2017-12-22] MEDS: Senna/Docusate Sodium 8.6/50 MG Tablet PO SCH (22:02)
[2017-12-23] MEDS: Artificial Tears Opth Drops 15 ML Bottle EACH EYE SCH ×3 (01:35→17:50)
[2017-12-23] MEDS: Insulin NovoLOG Aspart Correctional Sugar Inj SQ SCH ×4 (01:35→17:18)
[2017-12-23] MEDS: Sodium Bicarbonate 8.4% Inj 75 MEQ in Sodium Chloride 0.45 % Inj 925 ML IV.CONT SCH (03:13)
--- NOTE | 2017-12-23 04:18 | XR ---
EXAM DATE: 12/23/2017 4:02 AM EST AGE/SEX: 82 years / Male INDICATIONS: Shortness of breath. CLINICAL DATA: This is the patient's subsequent encounter. Patient reports that signs and symptoms h ave been present for 3 days and indicates a pain score of Nonresponsive. MEDICAL/SURGICAL HISTORY: Non-responsive. CABG. COMPARISON: [facility] [place], CHEST 1V SINGLE AP, 12/21/2017. . FINDINGS: A single portable AP semierect view of the chest was obtained and again demonstrates an endotracheal tube in place with the tip approximately 4 cm above the racquel. The nasogastric tube remains in place . The left costophrenic angle remains blunted and there is abnormal density at the left lung base wit h obscuration of the left hemidiaphragm. The right lung remains clear. The heart size is at the upper limits of normal. Patient is again noted to be status post median sternotomy for bypass grafting pro cedure. CONCLUSION: No significant change. A left pleural effusion remains as well as cardiomegaly. Electronically signed by: Duane Joseph MD 12/23/2017 4:17 AM EST
[2017-12-23] MEDS: ceFAZolin 1 GM Premix Inj 1 GM/50 ML IV.SIG SCH ×2 (04:58→12:30)
[2017-12-23] MEDS: fentaNYL 10 mcg/mL Premix Drip 2,500 MCG/250 ML BAG IV.SIG PRN ×2 (05:10→21:10)
[2017-12-23] MEDS: Propofol 1000 mg/100 ml Inj 1,000 MG/100 ML BOTTLE IV.CONT PRN ×2 (05:11→14:47)
[2017-12-23 05:23] LABS: Baso % (Auto) 0.3 % (0.0-2.0); Eos % (Auto) 0.2 % (0.0-4.0); Hematocrit 32.8 % (39.0-51.0); Lymph # (Auto) 1.3 th/mm3 (1.0-4.8); Lymph % (Auto) 12.5 % (9.0-44.0); Mean Corpuscular HGB Conc 33.6 % (32.0-36.0); Mean Corpuscular Hemoglobin 30.3 pg (27.0-34.0); Mean Corpuscular Volume 90.1 fL (80.0-100.0); Mean Platelet Volume 9.4 fL (7.0-11.0); Mono # (Auto) 0.8 th/mm3 (0.0-0.9); Mono % (Auto) 8.4 % (0.0-8.0); Neut # (Auto) 7.9 th/mm3 (1.8-7.7); Neut % (Auto) 78.6 % (16.0-70.0); Platelet Count 155 th/mm3 (150-450); Red Blood Count 3.64 mil/mm3 (4.50-5.90); Red Cell Distribution Width 15.1 % (11.6-17.2)
[2017-12-23 06:06] LABS: Alanine Aminotransferase 21 U/L (12-78); Albumin 2.1 g/dL (3.4-5.0); Alkaline Phosphatase 66 U/L (45-117); Anion Gap 8 meq/L (5-15); Aspartate Aminotransferase 129 U/L (15-37); Blood Urea Nitrogen 25 mg/dL (7-18); Calcium 7.5 mg/dL (8.5-10.1); Carbon Dioxide 30.1 meq/L (21.0-32.0); Chloride 104 meq/L (98-107); Glomerular Filtration Rate 44 mL/min (>89); Glucose,Random 113 mg/dL (74-106); Magnesium 1.7 mg/dL (1.5-2.5); Phosphorus 3.6 mg/dL (2.5-4.9); Potassium 3.7 meq/L (3.5-5.1); Sodium 142 meq/L (136-145); Total Protein 4.9 g/dL (6.4-8.2)
[2017-12-23 06:35] LABS: ABG Base Excess 3.3 mmol/L (-2-2); ABG PCO2 53 mmHg (38-42); ABG PO2 93 mmHG (61-120)
[2017-12-23] MEDS: Folic Acid 1 MG Tablet PO SCH (08:28)
[2017-12-23] MEDS: Senna/Docusate Sodium 8.6/50 MG Tablet PO SCH ×2 (08:28→21:08)
[2017-12-23] MEDS: Amiodarone 200 MG Tablet NG/OG SCH ×2 (08:29→21:08)
[2017-12-23] MEDS: Sodium Chloride 0.9% 2 ML Flush BID IV.FLUSH SCH ×2 (08:29→21:09)
[2017-12-23] MEDS: Thiamine Inj 100 MG in Sodium Chlor 0.9% Inj 100 ML IV.SIG SCH (08:32)
--- NOTE | 2017-12-23 09:32 | P.PCN ---
Date of procedure: 12/23/17 Pre-op diagnosis: Acute cardiac arrest, vasopressor requirements Post-op diagnosis: same Procedure: DATE: 12/23/2017 CENTRAL LINE PLACEMENT: Right internal jugular vein. Ultrasound-guided INDICATION: Central venous access CONSENT Informed consent for procedure was obtained from . DESCRIPTION OF THE PROCEDURE The patient was placed in supine position. The skin was cleansed with Chloraprep. Additional barrier precautions included large sterile drape, sterile gloves, sterile gown, face mask, and hat. 1 % lidocaine was used for local anesthesia. Under direct ultrasound guidance and on initial attempt, the vein was accessed with an introducer needle. The guide wire was advanced and the tract was dilated. Using Seldinger technique a 7 Indonesian 20 cm antimicrobial coated triple-lumen catheter was advanced to a depth of 16 centimeters. The guide wire was removed. All ports had good return of dark venous blood and flushed easily with saline. The central line was secured with 2.0 silk. A sterile dressing with antibiotic disc was applied. StatLock do not adhere to skin. ESTIMATED BLOOD LOSS: Minimal COMPLICATIONS: No apparent complications. STAT chest x-ray pending at time of dictation
[2017-12-23] MEDS: Metoprolol Tartrate 25 MG Tablet PO SCH ×2 (09:50→21:08)
--- NOTE | 2017-12-23 10:01 | XR ---
EXAM DATE: 12/23/2017 9:51 AM EST AGE/SEX: 82 years / Male INDICATIONS: Evaluate central line placement. CLINICAL DATA: This is the patient's subsequent encounter. Patient reports that signs and symptoms h ave been present for 2 days and indicates a pain score of Nonresponsive. MEDICAL/SURGICAL HISTORY: Chronic obstructive pulmonary disease. AAA. AFIB. Coronary artery dis ease. CABG. Cardiac cath with stent. COMPARISON: [facility], CHEST 1V SINGLE AP, 12/23/2017. . FINDINGS: Single view the chest demonstrates the endotracheal tube, nasogastric tube, sternal wires and a new r ight IJ catheter all in good position. There is no visible pneumothorax. Mild pulmonary vascular melvin estion. Small left pleural effusion. CONCLUSION: Right IJ central line in excellent position. Electronically signed by: Haresh Suresh MD 12/23/2017 10:00 AM EST
[2017-12-23] MEDS: Potassium Chlor 20 mEq Premix 20 MEQ/100 ML PIGGYBACK IV.SIG SCH ×2 (10:37→12:27)
[2017-12-23] MEDS ORDERED: Magnesium Sulfate Inj 4 GM in Dextrose 5% in Water Inj 100 ML IV.SIG ONE ×2 (11:00)
--- NOTE | 2017-12-23 11:00 | ECG ---
Date Performed: 12/23/2017 Time Performed: 05:59:22 PTAGE: 82 years EKG: Atrial fibrillation Extensive ST-T changes may be due to myocardial ischemia Abnormal ECG PREVIOUS TRACING : 12/22/2017 05.06 DOCTOR: Haresh Candelario Interpretating Date/Time 12/23/2017 10:59:34
[2017-12-23] MEDS: Pantoprazole Inj 40 MG Vial IV.PUSH SCH (12:30)
--- NOTE | 2017-12-23 12:32 | P.PNCC ---
Subjective Subjective Remarks/Hospital Course: The patient is an 82-year-old male with a past medical history of coronary artery disease, atrial fibrillation, who presented to [facility] ED as a STEMI alert. The patient woke up with substernal chest pain radiating to his back and it was pressure-like in nature. His pain was a 10/10 and associated with nausea. He took 5 nitroglycerin at home with no improvement of his pain. He had aspirin en route. The patient was taken emergently to the laborer pole crew where he underwent a cardiac catheterization by Dr. Maldonado. The patient had a drug-eluting stent x2 in the right CA. In the laborer pole crew, he received Versed 3 mg, Diprivan 50 mcg, amiodarone 150 mg bolus and Lopressor 5 mg. He was transferred to CV ICU where he was very agitated and restless. Critical Care Medicine was consulted for agitation and critical care management. He received Ativan and was started on Precedex drip. ABGwas performed, which showed acute hypercapnic respiratory acidosis. He is also on dopamine at 3 mcg. Most of the history was obtained from reviewing medical records as the patient is a poor historian 12/22: Afebrile. Oozing from sheath noted in the right groin area without hematoma. Remains intermittent agitated. On propofol drip at 5 mcg/kg/min. Meet on dopamine at 6 mcg/kg/min. Subjective 12/23: Central line placed in right IJ, right radial arterial line placed. Heparin currently on hold we will plan on pulling the sheaths today from right inguinal region. Will try CPAP trial later this afternoon. Remains on low- dose dopamine Objective Vital Signs / I&O: Vital Signs 12/22/17 15:00 12/22/17 15:29 12/22/17 19:00 Temperature 99.0 F 98.7 F Pulse Rate 68 67 68 Respiratory Rate 16 16 16 Pulse Oximetry 95 99 97 12/22/17 20:00 12/22/17 20:41 12/22/17 22:30 Temperature Pulse Rate 70 112 H Respiratory Rate 16 Pulse Oximetry 97 97 12/22/17 23:00 12/23/17 00:12 12/23/17 03:00 Temperature 100.1 F H 100.0 F H Pulse Rate 97 H 102 H 88 Respiratory Rate 16 16 16 Pulse Oximetry 98 98 98 12/23/17 04:07 12/23/17 07:00 12/23/17 07:45 Temperature 99.1 F Pulse Rate 100 H 111 H 102 H Respiratory Rate 16 16 16 Pulse Oximetry 98 98 98 12/23/17 10:24 12/23/17 11:00 12/23/17 11:11 Temperature 98.1 F Pulse Rate 92 H 118 H Respiratory Rate 16 16 Pulse Oximetry 98 98 12/23/17 11:14 12/23/17 12:00 Temperature Pulse Rate 103 H Respiratory Rate 16 Pulse Oximetry 99 Intake & Output 12/22/17 12/23/17 12/23/17 18:59 06:59 18:59 Intake Total 987 / 987 4005 / 4005 1051 / 1051 Output Total 1085 / 1085 285 / 285 Balance -98 / -98 3720 / 3720 1051 / 1051 Weight 71.5 kg Intake: IV 651 / 651 3428 / 3428 1051 / 1051 Cordarone Inj 450 MG In D5W Inj 362 / 362 241 ML @ 0.5 MG/MIN 16.66 mls/ hr IV.CONT TITRATE PRN Rx#: [id number] DOPamine 400 MG/250 ML Premix 250 / 250 535 / 535 400 mg In 250 ml @ 3 MCG/KG/MIN 8.063 mls/hr IV.CONT TITRATE PRN Rx#:[id number] Heparin/D5W 25,000 U/250 mL 25, 250 / 250 000 unit In 250 ml @ 900 UNITS/ HR 9 mls/hr IV.CONT TITRATE PRN Rx#:[id number] Diprivan 1000 mg/100 ml Inj 1, 179 / 179 000 mg In 100 ml @ 5 MCG/KG/MIN 2.15 mls/hr IV.CONT TITRATE PRN Rx#:[id number] Sodium Bicarbonate 8.4% Inj 75 1000 / 1000 600 / 600 MEQ In 1/2 Normal Saline Inj 925 ML @ 84 mls/hr IV.CONT . [id number] [facility] Rx#:[id number] KCl 20 mEq Premix Inj 20 meq In 100 / 100 100 ml @ 50 mls/hr IV.SIG Q2H [facility] Rx#:[id number] NS Inj 500 ML @ 1000 mls/hr IV. 500 / 500 SIG BOLUS [facility] Rx#:[id number] Thiamine Inj 100 MG In NS Inj 101 / 101 101 / 101 100 ML @ 100 mls/hr IV.SIG DAILY [facility] Rx#:[id number] Ancef 1 GM Premix Inj 1 gm In 50 / 50 100 / 100 50 ml @ 100 mls/hr IV.SIG Q8H [facility] Rx#:[id number] fentaNYL 10 mcg/mL Premix Drip 250 / 250 752 / 752 2,500 mcg In 250 ml @ 50 MCG/HR 5 mls/hr IV.SIG TITRATE PRN Rx #:[id number] Oral 0 / 0 Tube Feeding 36 / 36 397 / 397 Water Bolus Amount 300 / 300 180 / 180 Output: Urine Amount (Catheter) 1085 / 1085 285 / 285 Indwelling Urethral Catheter 1085 / 1085 285 / 285 Gastric Drainage 0 / 0 Orogastric Tube 0 / 0 Other: # Bowel Movements 0 0 Result Diagrams: 12/23/17 04:45 12/23/17 04:45 Imaging: Chest X-Ray 12/21/17 08:47 CONCLUSION: Chronic interstitial changes. The patient is post median sternotomy. Chest X-Ray 12/21/17 14:27 CONCLUSION: Endotracheal tube in good position. Probable CHF. Abdomen/Bladder Ultrasound 12/22/17 00:00 CONCLUSION: 1. 5 mm stone in the collecting system of the right kidney. There is no hydronephrosis. 2. 3 cm simple cyst arising from the left kidney. 3. Distention of the bladder. Chest X-Ray 12/23/17 06:00 CONCLUSION: No significant change. A left pleural effusion remains as well as cardiomegaly. Chest X-Ray 12/23/17 09:27 CONCLUSION: Right IJ central line in excellent position. Objective Remarks: GENERAL: This is a 10-year-old male currently orotracheally intubated SKIN: Warm and dry. HEAD: Normocephalic. EYES: No scleral icterus. No injection or drainage. NECK: Supple, trachea midline. No JVD or lymphadenopathy. Right IJ is clean dry and intact CARDIOVASCULAR: Tachycardic, IR. S1, S2. No S4. RESPIRATORY: Breath sounds equal bilaterally. No accessory muscle use. GASTROINTESTINAL: Abdomen soft, non-tender, nondistended. MUSCULOSKELETAL: No cyanosis, or edema. Right angle region with no hematoma with arterial and venous sheaths in place Neuro: Cranial nerves II through XII appear to be grossly intact. Positive gag and cough according with his. On sedation vacation will move all 4 extremities spontaneously but not to command. Assessment and Plan - Assessment and Plan Plan: Neuro/Psych: EtOH abuse Currently on propofol and dexmedetomidine drips for sedation while intubated. Fentanyl drip ordered as well. Morphine 2-4 mg IV every 3 hours as needed pain On thiamine, folate and multivitamin. Monitor for DTs CV: Inferior STEMI -2 KIANNA to RCA Coronary artery disease Peripheral vascular disease Abdominal aortic aneurysm Atrial fibrillation Continue aspirin 81 mg daily, Prasugrel 10 mg daily for drug-eluting stent Currently on dopamine at 6 mg/kg/min to maintain mean arterial pressure greater than equal to 65 A.m. EKG the same revealed continuous T changes indicative of STEMI Follow up on echocardiogram -EF 50-55%. Hypokinesis inferior posterior and inferior basal recio. Followed by Dr. Maldonado/cardiology Team the amiodarone drip currently at 0.5 mg/min. Transition to 20 mg twice daily Resp: Acute respiratory failure COPD Tobacco abuse PRVC ventilation. Albuterol/ipratropium aerosols every 4 hours with albuterol aerosols every 2 hours as needed for dyspnea Budesonide 0.5/2 1 inhalation twice daily Follow-up on chest x-ray/ABG in a.m. 12/24 Spontaneous breathing trials and clinically indicated Tobacco cessation will be encouraged education provided when appropriate GI: Elevated AST -cardiac in origin Hypoalbuminemia Hyperammonia NG tube will start tube feeds with Jevity 1.5 goal 50 cc an hour Pantoprazole for GI prophylaxis Docusate sodium/senna 1 tablet twice daily for bowel regimen : Young catheter placed with acute kidney injury Endo: Sliding scale insulin with aspart insulin to maintain euglycemia Check TSH in a.m. Renal: Acute kidney injury Check renal ultrasound/urine creatinine and electrolytes Avoid nephrotoxic medication Did receive dye/contrast for cardiac catheterization Heme: Ascitic anemia Monitor CBC daily. Follow trends. Maintain heparin heparin drip see orders ID: Currently on cefazolin 1 g IV every 8 hours. Monitor for signs and symptomatology infection FEN: Replace electrolytes as clinically indicated per ICU electrolyte protocol Receiving 25 mEq of potassium chloride Effient x1 now. On one half normal saline with 75 mEq sodium bicarbonate times 2 L ordered for today. MSK: PT evaluate and treat Access -Utilize peripheral IV. Central line if indicated -Currently utilizing right femoral arterial and venous sheath Prophylaxis -GI-lansoprazole -DVT-SCD/pharmacological prophylaxis with SCDs/heparin drip Critical care time 35 minutes follow-up
--- NOTE | 2017-12-23 12:35 | P.PNCA ---
Medications and Allergies Active Medications: Active Medications Acetaminophen (Tylenol Liq) 650 mg PO Q6H PRN PRN Reason: FEVER Albuterol (Duoneb Neb (Kasandra)) 1 ampul NEB Q4HR NEB [facility] Last Admin: 12/23/17 11:11 Dose: 1 ampul Albuterol (Albuterol Neb (Prn)) 2.5 mg NEB Q2HR NEB PRN PRN Reason: DYSPNEA Alprazolam (Xanax) 0.5 mg PO TID PRN PRN Reason: ANXIETY Amiodarone HCl (Cordarone) 200 mg NG/OG BID [facility] Last Admin: 12/23/17 08:29 Dose: 200 mg Artificial Tears (Tears Naturale Opth Drops) 1 drop EACH EYE Q8H [facility] Last Admin: 12/23/17 10:37 Dose: 1 drop Aspirin (Aspirin Chew) 81 mg NG/OG DAILY [facility] Last Admin: 12/23/17 08:29 Dose: 81 mg Budesonide (Pulmocort Respule Neb) 0.5 mg NEB Q12HR [facility] Last Admin: 12/23/17 07:45 Dose: 0.5 mg Dextrose (D50w Vial) 50 ml IV.PUSH UNSCH PRN PRN Reason: PER HYPOGLYCEMIA PROTOCOL Folic Acid (Folic Acid) 1 mg PO DAILY [facility] Last Admin: 12/23/17 08:28 Dose: 1 mg Glucagon (Glucagon Inj) 1 mg OTHER PRN PRN PRN Reason: for Hypoglycemia Protocol Heparin Sodium (Porcine) (Heparin Inj) 5,000 units IV.PUSH UNSCH PRN PRN Reason: aPTT < 25 Heparin Sodium (Porcine) (Heparin Inj) 2,500 units IV.PUSH UNSCH PRN PRN Reason: aPTT 25-59 Last Admin: 12/22/17 23:10 Dose: 2,500 units Dexmedetomidine HCl 200 mcg/ (Sodium Chloride) 50 mls @ 3.58 mls/hr IV.CONT TITRATE PRN; Protocol PRN Reason: Per Protocol Last Titration: 12/21/17 14:15 Dose: 0 mcg/kg/hr, 0 mls/hr Cefazolin Sodium/Dextrose (Ancef 1 Gm Premix Inj) 1 gm in 50 mls @ 100 mls/hr IV.SIG Q8H [facility] Stop: 12/23/17 20:05 Last Admin: 12/23/17 12:30 Dose: 100 mls/hr Sodium Chloride (Ns Inj) 1,000 mls @ 100 mls/hr IV.SIG .Q10H [facility] Last Admin: 12/21/17 12:53 Dose: 100 mls/hr Amiodarone HCl 450 mg/ (Dextrose) 250 mls @ 16.66 mls/hr IV.CONT TITRATE PRN; Protocol PRN Reason: Per Protocol Last Titration: 12/23/17 06:41 Dose: Infused Magnesium Sulfate 4 gm/ Sodium (Chloride) 100 mls @ 50 mls/hr IV.SIG UNSCH PRN PRN Reason: For Magnesium 0.9 - 1.1 mg/dL Magnesium Sulfate 2 gm/ Sodium (Chloride) 100 mls @ 50 mls/hr IV.SIG UNSCH PRN PRN Reason: For Magnesium 1.2 - 1.6 mg/dL Potassium Chloride (Kcl 20 Meq Premix Inj) 20 meq in 100 mls @ 50 mls/hr IV.SIG Q2H PRN PRN Reason: For Potassium 3.3 - 3.5 mEq/L Potassium Chloride (Kcl 40 Meq Premix Inj) 40 meq in 100 mls @ 25 mls/hr IV.SIG UNSCH PRN PRN Reason: For Potassium 3.3 - 3.5 mEq/L Potassium Chloride (Kcl 20 Meq Premix Inj) 20 meq in 100 mls @ 50 mls/hr IV.SIG Q2H PRN PRN Reason: For Potassium 2.8 - 3.2 mEq/L Potassium Phosphate 30 mmol/ (Sodium Chloride) 260 mls @ 42 mls/hr IV.SIG UNSCH PRN PRN Reason: SEE LABEL COMMENTS Sodium Phosphate 30 mmol/ (Sodium Chloride) 260 mls @ 42 mls/hr IV.SIG UNSCH PRN PRN Reason: For Phosphorus < 2.5 mg/dL Potassium Chloride (Kcl 40 Meq Premix Inj) 40 meq in 100 mls @ 25 mls/hr IV.SIG Q4H PRN PRN Reason: For Potassium 2.8 - 3.2 mEq/L Dopamine HCl/Dextrose (Dopamine 400 Mg/250 Ml Premix) 400 mg in 250 mls @ 8.063 mls/hr IV.CONT TITRATE PRN; Protocol PRN Reason: SEE LABEL COMMENTS Last Titration: 12/23/17 06:00 Dose: Infused Fentanyl (Fentanyl 10 Mcg/Ml Premix Drip) 2,500 mcg in 250 mls @ 5 mls/hr IV.SIG TITRATE PRN; Protocol PRN Reason: Per Protocol Last Titration: 12/23/17 06:36 Dose: Infused Propofol (Diprivan 1000 Mg/100 Ml Inj) 1,000 mg in 100 mls @ 2.15 mls/hr IV.CONT TITRATE PRN; Protocol PRN Reason: Per Protocol Last Titration: 12/23/17 06:42 Dose: 10 mcg/kg/min, 4.3 mls/hr Thiamine HCl 100 mg/ Sodium (Chloride) 101 mls @ 100 mls/hr IV.SIG DAILY [facility] Last Infusion: 12/23/17 09:54 Dose: Infused Magnesium Sulfate 4 gm/ (Dextrose) 108 mls @ 25 mls/hr IV.SIG ONCE ONE Stop: 12/23/17 15:19 Last Admin: 12/23/17 11:19 Dose: 25 mls/hr Potassium Chloride (Kcl 20 Meq Premix Inj) 20 meq in 100 mls @ 50 mls/hr IV.SIG Q2H [facility] Stop: 12/23/17 13:59 Last Admin: 12/23/17 12:27 Dose: 50 mls/hr Insulin Aspart (Novolog Insulin Correctional Sugar Inj) 0 unit SQ Q6HR [facility]; Protocol Last Admin: 12/23/17 12:23 Dose: Not Given Magnesium Oxide (Mag-Ox) 800 mg PO UNSCH PRN PRN Reason: For Magnesium 1.2 - 1.6 mg/dL Metoprolol Tartrate (Lopressor) 25 mg PO BID [facility] Last Admin: 12/23/17 09:50 Dose: Not Given Morphine Sulfate (Morphine Inj) 2 mg IV.PUSH Q3H PRN PRN Reason: PAIN SCALE 1 TO 5/AGITATION Morphine Sulfate (Morphine Inj) 4 mg IV.PUSH Q3H PRN PRN Reason: PAIN SCALE 6 TO 10/AGITATION Multivitamins (Theragran) 1 tab PO DAILY [facility] Last Admin: 12/23/17 08:28 Dose: 1 tab Pantoprazole Sodium (Protonix Inj) 40 mg IV.PUSH Q24H [facility] Last Admin: 12/23/17 12:30 Dose: 40 mg Potassium Bicarb/Potassium Chloride (K-Lyte Cl Eff) 50 meq PO UNSCH PRN PRN Reason: For Potassium 3.3 - 3.5 mEq/L Potassium Phosphate (K-Phos Original) 2,000 mg PO Q4H PRN PRN Reason: Phosphorus Less Than 2.5 mg/dL Potassium Phosphate (K-Phos Original) 2,000 mg PO UNSCH PRN PRN Reason: SEE LABEL COMMENTS Prasugrel (Effient) 10 mg PO DAILY [facility] Last Admin: 12/23/17 08:31 Dose: 10 mg Pravastatin Sodium (Pravachol) 80 mg PO HS [facility] Last Admin: 12/22/17 22:04 Dose: Not Given Senna/Docusate Sodium (Estrella-Colace) 1 tab PO BID [facility] Last Admin: 12/23/17 08:28 Dose: 1 tab Sodium Chloride (Ns Flush) 2 ml IV.FLUSH BID [facility] Last Admin: 12/23/17 08:29 Dose: 2 ml Sodium Chloride (Ns Flush) 2 ml IV.FLUSH PRN PRN PRN Reason: FLUSH AFTER USING IV ACCESS Sodium Chloride (Ns Flush) 0 ml IV.FLUSH DAILY [facility] Temazepam (Restoril) 15 mg PO HS PRN PRN Reason: INSOMNIA Terbutaline Sulfate (Brethine Inj) 1 mg SQ UNSCH PRN PRN Reason: Extravasation Allergies Allergy/AdvReac Type Severity Reaction Status Date / Time No Known Allergies Allergy Verified 12/21/17 08:42 Home Medications Medication Instructions Recorded Confirmed Type nitroglycerin [Nitrostat] 0.4 mg SUBLINGUAL Q5-15M PRN 12/21/17 12/21/17 History Physical Exam Vital signs: Vital Signs 12/22/17 15:00 12/22/17 15:29 12/22/17 19:00 Temperature 99.0 F 98.7 F Pulse Rate 68 67 68 Respiratory Rate 16 16 16 Pulse Oximetry 95 99 97 12/22/17 20:00 12/22/17 20:41 12/22/17 22:30 Temperature Pulse Rate 70 112 H Respiratory Rate 16 Pulse Oximetry 97 97 12/22/17 23:00 12/23/17 00:12 12/23/17 03:00 Temperature 100.1 F H 100.0 F H Pulse Rate 97 H 102 H 88 Respiratory Rate 16 16 16 Pulse Oximetry 98 98 98 12/23/17 04:07 12/23/17 07:00 12/23/17 07:45 Temperature 99.1 F Pulse Rate 100 H 111 H 102 H Respiratory Rate 16 16 16 Pulse Oximetry 98 98 98 12/23/17 10:24 12/23/17 11:00 12/23/17 11:11 Temperature 98.1 F Pulse Rate 92 H 118 H Respiratory Rate 16 16 Pulse Oximetry 98 98 12/23/17 11:14 12/23/17 12:00 Temperature Pulse Rate 103 H Respiratory Rate 16 Pulse Oximetry 99 Intake & Output 12/22/17 12/23/17 12/23/17 18:59 06:59 18:59 Intake Total 987 / 987 4005 / 4005 1051 / 1051 Output Total 1085 / 1085 285 / 285 Balance -98 / -98 3720 / 3720 1051 / 1051 Weight 71.5 kg Intake: IV 651 / 651 3428 / 3428 1051 / 1051 Cordarone Inj 450 MG In D5W Inj 362 / 362 241 ML @ 0.5 MG/MIN 16.66 mls/ hr IV.CONT TITRATE PRN Rx#: [id number] DOPamine 400 MG/250 ML Premix 250 / 250 535 / 535 400 mg In 250 ml @ 3 MCG/KG/MIN 8.063 mls/hr IV.CONT TITRATE PRN Rx#:[id number] Heparin/D5W 25,000 U/250 mL 25, 250 / 250 000 unit In 250 ml @ 900 UNITS/ HR 9 mls/hr IV.CONT TITRATE PRN Rx#:[id number] Diprivan 1000 mg/100 ml Inj 1, 179 / 179 000 mg In 100 ml @ 5 MCG/KG/MIN 2.15 mls/hr IV.CONT TITRATE PRN Rx#:[id number] Sodium Bicarbonate 8.4% Inj 75 1000 / 1000 600 / 600 MEQ In 1/2 Normal Saline Inj 925 ML @ 84 mls/hr IV.CONT . [id number] [facility] Rx#:[id number] KCl 20 mEq Premix Inj 20 meq In 100 / 100 100 ml @ 50 mls/hr IV.SIG Q2H [facility] Rx#:[id number] NS Inj 500 ML @ 1000 mls/hr IV. 500 / 500 SIG BOLUS [facility] Rx#:[id number] Thiamine Inj 100 MG In NS Inj 101 / 101 101 / 101 100 ML @ 100 mls/hr IV.SIG DAILY [facility] Rx#:[id number] Ancef 1 GM Premix Inj 1 gm In 50 / 50 100 / 100 50 ml @ 100 mls/hr IV.SIG Q8H [facility] Rx#:[id number] fentaNYL 10 mcg/mL Premix Drip 250 / 250 752 / 752 2,500 mcg In 250 ml @ 50 MCG/HR 5 mls/hr IV.SIG TITRATE PRN Rx #:[id number] Oral 0 / 0 Tube Feeding 36 / 36 397 / 397 Water Bolus Amount 300 / 300 180 / 180 Output: Urine Amount (Catheter) 1085 / 1085 285 / 285 Indwelling Urethral Catheter 1085 / 1085 285 / 285 Gastric Drainage 0 / 0 Orogastric Tube 0 / 0 Other: # Bowel Movements 0 0 - Urinary Catheter Management Condom Cath placed during this visit: no Indwelling Urethral Catheter Cath placed during this visit: yes Reason for continuing: Hourly intake/output Insertion date: 12/22/17 Insertion time: 11:00 Results 12/23/17 04:45 12/23/17 04:45 Cardiac Enzymes 12/21/17 12/22/17 12/22/17 Range/Units 12:40 04:55 04:55 AST 127 H 289 H (15-37) U/L CK-MB (CK-2) 169.2 H 158.7 H (0.5-3.6) ng/mL 12/23/17 Range/Units 04:45 AST 129 H (15-37) U/L CK-MB (CK-2) (0.5-3.6) ng/mL Coagulation 12/21/17 12/22/17 12/22/17 Range/Units 20:28 00:30 07:15 APTT 185.8 H* D 64.9 H D 40.2 H D (23.4-31.7) sec 12/22/17 12/22/17 12/23/17 Range/Units 12:40 21:28 04:45 APTT 31.1 D 38.4 H D 56.9 H D (23.4-31.7) sec Lipids 12/22/17 Range/Units 04:55 Triglycerides 83 (42-150) mg/dL Cholesterol 160 (120-200) mg/dL HDL Cholesterol 41.2 (40.0-60.0) mg/dL Cholesterol/HDL Ratio 3.88 Ratio CBC 12/21/17 12/22/17 12/22/17 Range/Units 12:40 04:55 17:13 WBC 11.8 H 11.9 H 9.8 (4.0-11.0) th/mm3 RBC 4.43 L 4.54 3.97 L (4.50-5.90) mil/mm3 Hgb 13.1 13.6 12.3 L (13.0-17.0) gm/dL Hct 40.0 40.7 35.4 L (39.0-51.0) % Plt Count 175 189 170 (150-450) th/mm3 Neut # (Auto) 10.6 H 9.2 H (1.8-7.7) th/mm3 Lymph # (Auto) 0.5 L 1.5 (1.0-4.8) th/mm3 Butts # (Auto) 0.6 1.1 H (0.0-0.9) th/mm3 Eos # (Auto) 0.0 0.0 (0.0-0.4) th/mm3 Baso # (Auto) 0.0 0.0 (0.0-0.2) th/mm3 12/23/17 Range/Units 04:45 WBC 10.0 (4.0-11.0) th/mm3 RBC 3.64 L (4.50-5.90) mil/mm3 Hgb 11.0 L (13.0-17.0) gm/dL Hct 32.8 L (39.0-51.0) % Plt Count 155 (150-450) th/mm3 Neut # (Auto) 7.9 H (1.8-7.7) th/mm3 Lymph # (Auto) 1.3 (1.0-4.8) th/mm3 Butts # (Auto) 0.8 (0.0-0.9) th/mm3 Eos # (Auto) 0.0 (0.0-0.4) th/mm3 Baso # (Auto) 0.0 (0.0-0.2) th/mm3 Comprehensive Metabolic Panel 12/21/17 12/22/17 12/22/17 Range/Units 12:40 04:55 17:42 Sodium 144 142 142 (136-145) meq/L Potassium 4.0 3.7 3.8 (3.5-5.1) meq/L Chloride 107 105 105 (98-107) meq/L Carbon Dioxide 29.4 27.3 30.4 (21.0-32.0) meq/L BUN 10 19 H 23 H (7-18) mg/dL Creatinine 1.18 1.68 H 1.51 H (0.60-1.30) mg/dL Calcium 7.7 L D 8.0 L 7.9 L (8.5-10.1) mg/dL AST 127 H 289 H (15-37) U/L ALT 26 39 (12-78) U/L Alkaline Phosphatase 79 83 (45-117) U/L Total Protein 5.4 L 5.9 L (6.4-8.2) g/dL Albumin 2.5 L 2.7 L (3.4-5.0) g/dL 12/23/17 Range/Units 04:45 Sodium 142 (136-145) meq/L Potassium 3.7 (3.5-5.1) meq/L Chloride 104 (98-107) meq/L Carbon Dioxide 30.1 (21.0-32.0) meq/L BUN 25 H (7-18) mg/dL Creatinine 1.52 H (0.60-1.30) mg/dL Calcium 7.5 L (8.5-10.1) mg/dL AST 129 H (15-37) U/L ALT 21 (12-78) U/L Alkaline Phosphatase 66 (45-117) U/L Total Protein 4.9 L D (6.4-8.2) g/dL Albumin 2.1 L D (3.4-5.0) g/dL Intake and Output 12/22/17 12/23/17 12/23/17 22:59 06:59 14:59 Intake Total 1237 / 1237 3455 / 3455 1051 / 1051 Output Total 1085 / 1085 285 / 285 Balance 152 / 152 3170 / 3170 1051 / 1051 Intake: IV 901 / 901 2878 / 2878 1051 / 1051 Cordarone Inj 450 MG In D5W Inj 362 / 362 241 ML @ 0.5 MG/MIN 16.66 mls/ hr IV.CONT TITRATE PRN Rx#: [id number] DOPamine 400 MG/250 ML Premix 250 / 250 535 / 535 400 mg In 250 ml @ 3 MCG/KG/MIN 8.063 mls/hr IV.CONT TITRATE PRN Rx#:[id number] Heparin/D5W 25,000 U/250 mL 25, 250 / 250 000 unit In 250 ml @ 900 UNITS/ HR 9 mls/hr IV.CONT TITRATE PRN Rx#:[id number] Diprivan 1000 mg/100 ml Inj 1, 179 / 179 000 mg In 100 ml @ 5 MCG/KG/MIN 2.15 mls/hr IV.CONT TITRATE PRN Rx#:[id number] Sodium Bicarbonate 8.4% Inj 75 1000 / 1000 600 / 600 MEQ In 1/2 Normal Saline Inj 925 ML @ 84 mls/hr IV.CONT . [id number] [facility] Rx#:[id number] KCl 20 mEq Premix Inj 20 meq In 100 / 100 100 ml @ 50 mls/hr IV.SIG Q2H [facility] Rx#:[id number] NS Inj 500 ML @ 1000 mls/hr IV. 500 / 500 SIG BOLUS [facility] Rx#:[id number] Thiamine Inj 100 MG In NS Inj 101 / 101 101 / 101 100 ML @ 100 mls/hr IV.SIG DAILY [facility] Rx#:[id number] Ancef 1 GM Premix Inj 1 gm In 50 / 50 50 / 50 50 ml @ 100 mls/hr IV.SIG Q8H [facility] Rx#:[id number] fentaNYL 10 mcg/mL Premix Drip 752 / 752 2,500 mcg In 250 ml @ 50 MCG/HR 5 mls/hr IV.SIG TITRATE PRN Rx #:[id number] Oral 0 / 0 Tube Feeding 36 / 36 397 / 397 Water Bolus Amount 300 / 300 180 / 180 Output: Urine Amount (Catheter) 1085 / 1085 285 / 285 Indwelling Urethral Catheter 1085 / 1085 285 / 285 Gastric Drainage 0 / 0 Orogastric Tube 0 / 0 Other: # Bowel Movements 0 0 Weight 71.5 kg - Imaging and Cardiology Imaging: Impressions Chest X-Ray 12/21/17 14:27 CONCLUSION: Endotracheal tube in good position. Probable CHF. Abdomen/Bladder Ultrasound 12/22/17 00:00 CONCLUSION: 1. 5 mm stone in the collecting system of the right kidney. There is no hydronephrosis. 2. 3 cm simple cyst arising from the left kidney. 3. Distention of the bladder. Chest X-Ray 12/23/17 06:00 CONCLUSION: No significant change. A left pleural effusion remains as well as cardiomegaly. Chest X-Ray 12/23/17 09:27 CONCLUSION: Right IJ central line in excellent position. Assessment and Plan - Plan P PCI C 2 NONOVERLAPPING KIANNA IN RCA NOW INTUBATED FOR RESP FAILURE CPKS 1000 RANGE EF ON ECHO 50 C INFBASAL WAMA PT INTUBATED AND SEDATED CREAT /\ 1.68 BACK IN NSR ON IV AMIO RONCHI /\ JVP RRR NO RUB S3 ABD SOFT WILL CONT HEPARIN 214 HRS MORE CHG TO PO MEDS WEAN DOPAMINE NEEDS PIC /CVP LINE PRIOR TO DC SHEATHS
--- NOTE | 2017-12-23 12:38 | P.PNCA ---
Subjective Interval history: PT STILL INTUBATED FEMORAL LINES OUT HEPARIN DC'D ON DAPT BACK IN AFIB REQUIRING NDOPAMINE FOR HYPOTENSION 2 RVR CREAT/\ING HAS CVP PE SAME JVP NL RONCHI A F NO S3 WILL RESUME IV AMIO LOVENOX WEAN VENT Medications and Allergies Active Medications: Active Medications Acetaminophen (Tylenol Liq) 650 mg PO Q6H PRN PRN Reason: FEVER Albuterol (Duoneb Neb (Kasandra)) 1 ampul NEB Q4HR NEB [facility] Last Admin: 12/23/17 11:11 Dose: 1 ampul Albuterol (Albuterol Neb (Prn)) 2.5 mg NEB Q2HR NEB PRN PRN Reason: DYSPNEA Alprazolam (Xanax) 0.5 mg PO TID PRN PRN Reason: ANXIETY Amiodarone HCl (Cordarone) 200 mg NG/OG BID [facility] Last Admin: 12/23/17 08:29 Dose: 200 mg Artificial Tears (Tears Naturale Opth Drops) 1 drop EACH EYE Q8H [facility] Last Admin: 12/23/17 10:37 Dose: 1 drop Aspirin (Aspirin Chew) 81 mg NG/OG DAILY [facility] Last Admin: 12/23/17 08:29 Dose: 81 mg Budesonide (Pulmocort Respule Neb) 0.5 mg NEB Q12HR NEB [facility] Last Admin: 12/23/17 07:45 Dose: 0.5 mg Dextrose (D50w Vial) 50 ml IV.PUSH UNSCH PRN PRN Reason: PER HYPOGLYCEMIA PROTOCOL Folic Acid (Folic Acid) 1 mg PO DAILY [facility] Last Admin: 12/23/17 08:28 Dose: 1 mg Glucagon (Glucagon Inj) 1 mg OTHER PRN PRN PRN Reason: for Hypoglycemia Protocol Heparin Sodium (Porcine) (Heparin Inj) 5,000 units IV.PUSH UNSCH PRN PRN Reason: aPTT < 25 Heparin Sodium (Porcine) (Heparin Inj) 2,500 units IV.PUSH UNSCH PRN PRN Reason: aPTT 25-59 Last Admin: 12/22/17 23:10 Dose: 2,500 units Dexmedetomidine HCl 200 mcg/ (Sodium Chloride) 50 mls @ 3.58 mls/hr IV.CONT TITRATE PRN; Protocol PRN Reason: Per Protocol Last Titration: 12/21/17 14:15 Dose: 0 mcg/kg/hr, 0 mls/hr Cefazolin Sodium/Dextrose (Ancef 1 Gm Premix Inj) 1 gm in 50 mls @ 100 mls/hr IV.SIG Q8H [facility] Stop: 12/23/17 20:05 Last Admin: 12/23/17 12:30 Dose: 100 mls/hr Sodium Chloride (Ns Inj) 1,000 mls @ 100 mls/hr IV.SIG .Q10H [facility] Last Admin: 12/21/17 12:53 Dose: 100 mls/hr Amiodarone HCl 450 mg/ (Dextrose) 250 mls @ 16.66 mls/hr IV.CONT TITRATE PRN; Protocol PRN Reason: Per Protocol Last Titration: 12/23/17 06:41 Dose: Infused Magnesium Sulfate 4 gm/ Sodium (Chloride) 100 mls @ 50 mls/hr IV.SIG UNSCH PRN PRN Reason: For Magnesium 0.9 - 1.1 mg/dL Magnesium Sulfate 2 gm/ Sodium (Chloride) 100 mls @ 50 mls/hr IV.SIG UNSCH PRN PRN Reason: For Magnesium 1.2 - 1.6 mg/dL Potassium Chloride (Kcl 20 Meq Premix Inj) 20 meq in 100 mls @ 50 mls/hr IV.SIG Q2H PRN PRN Reason: For Potassium 3.3 - 3.5 mEq/L Potassium Chloride (Kcl 40 Meq Premix Inj) 40 meq in 100 mls @ 25 mls/hr IV.SIG UNSCH PRN PRN Reason: For Potassium 3.3 - 3.5 mEq/L Potassium Chloride (Kcl 20 Meq Premix Inj) 20 meq in 100 mls @ 50 mls/hr IV.SIG Q2H PRN PRN Reason: For Potassium 2.8 - 3.2 mEq/L Potassium Phosphate 30 mmol/ (Sodium Chloride) 260 mls @ 42 mls/hr IV.SIG UNSCH PRN PRN Reason: SEE LABEL COMMENTS Sodium Phosphate 30 mmol/ (Sodium Chloride) 260 mls @ 42 mls/hr IV.SIG UNSCH PRN PRN Reason: For Phosphorus < 2.5 mg/dL Potassium Chloride (Kcl 40 Meq Premix Inj) 40 meq in 100 mls @ 25 mls/hr IV.SIG Q4H PRN PRN Reason: For Potassium 2.8 - 3.2 mEq/L Dopamine HCl/Dextrose (Dopamine 400 Mg/250 Ml Premix) 400 mg in 250 mls @ 8.063 mls/hr IV.CONT TITRATE PRN; Protocol PRN Reason: SEE LABEL COMMENTS Last Titration: 12/23/17 06:00 Dose: Infused Fentanyl (Fentanyl 10 Mcg/Ml Premix Drip) 2,500 mcg in 250 mls @ 5 mls/hr IV.SIG TITRATE PRN; Protocol PRN Reason: Per Protocol Last Titration: 12/23/17 06:36 Dose: Infused Propofol (Diprivan 1000 Mg/100 Ml Inj) 1,000 mg in 100 mls @ 2.15 mls/hr IV.CONT TITRATE PRN; Protocol PRN Reason: Per Protocol Last Titration: 12/23/17 06:42 Dose: 10 mcg/kg/min, 4.3 mls/hr Thiamine HCl 100 mg/ Sodium (Chloride) 101 mls @ 100 mls/hr IV.SIG DAILY [facility] Last Infusion: 12/23/17 09:54 Dose: Infused Magnesium Sulfate 4 gm/ (Dextrose) 108 mls @ 25 mls/hr IV.SIG ONCE ONE Stop: 12/23/17 15:19 Last Admin: 12/23/17 11:19 Dose: 25 mls/hr Potassium Chloride (Kcl 20 Meq Premix Inj) 20 meq in 100 mls @ 50 mls/hr IV.SIG Q2H [facility] Stop: 12/23/17 13:59 Last Admin: 12/23/17 12:27 Dose: 50 mls/hr Insulin Aspart (Novolog Insulin Correctional Sugar Inj) 0 unit SQ Q6HR [facility]; Protocol Last Admin: 12/23/17 12:23 Dose: Not Given Magnesium Oxide (Mag-Ox) 800 mg PO UNSCH PRN PRN Reason: For Magnesium 1.2 - 1.6 mg/dL Metoprolol Tartrate (Lopressor) 25 mg PO BID [facility] Last Admin: 12/23/17 09:50 Dose: Not Given Morphine Sulfate (Morphine Inj) 2 mg IV.PUSH Q3H PRN PRN Reason: PAIN SCALE 1 TO 5/AGITATION Morphine Sulfate (Morphine Inj) 4 mg IV.PUSH Q3H PRN PRN Reason: PAIN SCALE 6 TO 10/AGITATION Multivitamins (Theragran) 1 tab PO DAILY [facility] Last Admin: 12/23/17 08:28 Dose: 1 tab Pantoprazole Sodium (Protonix Inj) 40 mg IV.PUSH Q24H [facility] Last Admin: 12/23/17 12:30 Dose: 40 mg Potassium Bicarb/Potassium Chloride (K-Lyte Cl Eff) 50 meq PO UNSCH PRN PRN Reason: For Potassium 3.3 - 3.5 mEq/L Potassium Phosphate (K-Phos Original) 2,000 mg PO Q4H PRN PRN Reason: Phosphorus Less Than 2.5 mg/dL Potassium Phosphate (K-Phos Original) 2,000 mg PO UNSCH PRN PRN Reason: SEE LABEL COMMENTS Prasugrel (Effient) 10 mg PO DAILY [facility] Last Admin: 12/23/17 08:31 Dose: 10 mg Pravastatin Sodium (Pravachol) 80 mg PO HS [facility] Last Admin: 12/22/17 22:04 Dose: Not Given Senna/Docusate Sodium (Estrella-Colace) 1 tab PO BID [facility] Last Admin: 12/23/17 08:28 Dose: 1 tab Sodium Chloride (Ns Flush) 2 ml IV.FLUSH BID [facility] Last Admin: 12/23/17 08:29 Dose: 2 ml Sodium Chloride (Ns Flush) 2 ml IV.FLUSH PRN PRN PRN Reason: FLUSH AFTER USING IV ACCESS Sodium Chloride (Ns Flush) 0 ml IV.FLUSH DAILY [facility] Temazepam (Restoril) 15 mg PO HS PRN PRN Reason: INSOMNIA Terbutaline Sulfate (Brethine Inj) 1 mg SQ UNSCH PRN PRN Reason: Extravasation Allergies Allergy/AdvReac Type Severity Reaction Status Date / Time No Known Allergies Allergy Verified 12/21/17 08:42 Home Medications Medication Instructions Recorded Confirmed Type nitroglycerin [Nitrostat] 0.4 mg SUBLINGUAL Q5-15M PRN 12/21/17 12/21/17 History Physical Exam Vital signs: Vital Signs 12/22/17 15:00 12/22/17 15:29 12/22/17 19:00 Temperature 99.0 F 98.7 F Pulse Rate 68 67 68 Respiratory Rate 16 16 16 Pulse Oximetry 95 99 97 12/22/17 20:00 12/22/17 20:41 12/22/17 22:30 Temperature Pulse Rate 70 112 H Respiratory Rate 16 Pulse Oximetry 97 97 12/22/17 23:00 12/23/17 00:12 12/23/17 03:00 Temperature 100.1 F H 100.0 F H Pulse Rate 97 H 102 H 88 Respiratory Rate 16 16 16 Pulse Oximetry 98 98 98 12/23/17 04:07 12/23/17 07:00 12/23/17 07:45 Temperature 99.1 F Pulse Rate 100 H 111 H 102 H Respiratory Rate 16 16 16 Pulse Oximetry 98 98 98 12/23/17 10:24 12/23/17 11:00 12/23/17 11:11 Temperature 98.1 F Pulse Rate 92 H 118 H Respiratory Rate 16 16 Pulse Oximetry 98 98 12/23/17 11:14 12/23/17 12:00 Temperature Pulse Rate 103 H Respiratory Rate 16 Pulse Oximetry 99 Intake & Output 12/22/17 12/23/17 12/23/17 18:59 06:59 18:59 Intake Total 987 / 987 4005 / 4005 1051 / 1051 Output Total 1085 / 1085 285 / 285 Balance -98 / -98 3720 / 3720 1051 / 1051 Weight 71.5 kg Intake: IV 651 / 651 3428 / 3428 1051 / 1051 Cordarone Inj 450 MG In D5W Inj 362 / 362 241 ML @ 0.5 MG/MIN 16.66 mls/ hr IV.CONT TITRATE PRN Rx#: [id number] DOPamine 400 MG/250 ML Premix 250 / 250 535 / 535 400 mg In 250 ml @ 3 MCG/KG/MIN 8.063 mls/hr IV.CONT TITRATE PRN Rx#:[id number] Heparin/D5W 25,000 U/250 mL 25, 250 / 250 000 unit In 250 ml @ 900 UNITS/ HR 9 mls/hr IV.CONT TITRATE PRN Rx#:[id number] Diprivan 1000 mg/100 ml Inj 1, 179 / 179 000 mg In 100 ml @ 5 MCG/KG/MIN 2.15 mls/hr IV.CONT TITRATE PRN Rx#:[id number] Sodium Bicarbonate 8.4% Inj 75 1000 / 1000 600 / 600 MEQ In 1/2 Normal Saline Inj 925 ML @ 84 mls/hr IV.CONT . [id number] [facility] Rx#:[id number] KCl 20 mEq Premix Inj 20 meq In 100 / 100 100 ml @ 50 mls/hr IV.SIG Q2H [facility] Rx#:[id number] NS Inj 500 ML @ 1000 mls/hr IV. 500 / 500 SIG BOLUS [facility] Rx#:[id number] Thiamine Inj 100 MG In NS Inj 101 / 101 101 / 101 100 ML @ 100 mls/hr IV.SIG DAILY [facility] Rx#:[id number] Ancef 1 GM Premix Inj 1 gm In 50 / 50 100 / 100 50 ml @ 100 mls/hr IV.SIG Q8H [facility] Rx#:[id number] fentaNYL 10 mcg/mL Premix Drip 250 / 250 752 / 752 2,500 mcg In 250 ml @ 50 MCG/HR 5 mls/hr IV.SIG TITRATE PRN Rx #:[id number] Oral 0 / 0 Tube Feeding 36 / 36 397 / 397 Water Bolus Amount 300 / 300 180 / 180 Output: Urine Amount (Catheter) 1085 / 1085 285 / 285 Indwelling Urethral Catheter 1085 / 1085 285 / 285 Gastric Drainage 0 / 0 Orogastric Tube 0 / 0 Other: # Bowel Movements 0 0 - Urinary Catheter Management Condom Cath placed during this visit: no Indwelling Urethral Catheter Cath placed during this visit: yes Reason for continuing: Hourly intake/output Insertion date: 12/22/17 Insertion time: 11:00 Results 12/23/17 04:45 12/23/17 04:45 Cardiac Enzymes 12/21/17 12/22/17 12/22/17 Range/Units 12:40 04:55 04:55 AST 127 H 289 H (15-37) U/L CK-MB (CK-2) 169.2 H 158.7 H (0.5-3.6) ng/mL 12/23/17 Range/Units 04:45 AST 129 H (15-37) U/L CK-MB (CK-2) (0.5-3.6) ng/mL Coagulation 12/21/17 12/22/17 12/22/17 Range/Units 20:28 00:30 07:15 APTT 185.8 H* D 64.9 H D 40.2 H D (23.4-31.7) sec 12/22/17 12/22/17 12/23/17 Range/Units 12:40 21:28 04:45 APTT 31.1 D 38.4 H D 56.9 H D (23.4-31.7) sec Lipids 12/22/17 Range/Units 04:55 Triglycerides 83 (42-150) mg/dL Cholesterol 160 (120-200) mg/dL HDL Cholesterol 41.2 (40.0-60.0) mg/dL Cholesterol/HDL Ratio 3.88 Ratio CBC 12/21/17 12/22/17 12/22/17 Range/Units 12:40 04:55 17:13 WBC 11.8 H 11.9 H 9.8 (4.0-11.0) th/mm3 RBC 4.43 L 4.54 3.97 L (4.50-5.90) mil/mm3 Hgb 13.1 13.6 12.3 L (13.0-17.0) gm/dL Hct 40.0 40.7 35.4 L (39.0-51.0) % Plt Count 175 189 170 (150-450) th/mm3 Neut # (Auto) 10.6 H 9.2 H (1.8-7.7) th/mm3 Lymph # (Auto) 0.5 L 1.5 (1.0-4.8) th/mm3 Mcdonough # (Auto) 0.6 1.1 H (0.0-0.9) th/mm3 Eos # (Auto) 0.0 0.0 (0.0-0.4) th/mm3 Baso # (Auto) 0.0 0.0 (0.0-0.2) th/mm3 12/23/17 Range/Units 04:45 WBC 10.0 (4.0-11.0) th/mm3 RBC 3.64 L (4.50-5.90) mil/mm3 Hgb 11.0 L (13.0-17.0) gm/dL Hct 32.8 L (39.0-51.0) % Plt Count 155 (150-450) th/mm3 Neut # (Auto) 7.9 H (1.8-7.7) th/mm3 Lymph # (Auto) 1.3 (1.0-4.8) th/mm3 Mcdonough # (Auto) 0.8 (0.0-0.9) th/mm3 Eos # (Auto) 0.0 (0.0-0.4) th/mm3 Baso # (Auto) 0.0 (0.0-0.2) th/mm3 Comprehensive Metabolic Panel 12/21/17 12/22/17 12/22/17 Range/Units 12:40 04:55 17:42 Sodium 144 142 142 (136-145) meq/L Potassium 4.0 3.7 3.8 (3.5-5.1) meq/L Chloride 107 105 105 (98-107) meq/L Carbon Dioxide 29.4 27.3 30.4 (21.0-32.0) meq/L BUN 10 19 H 23 H (7-18) mg/dL Creatinine 1.18 1.68 H 1.51 H (0.60-1.30) mg/dL Calcium 7.7 L D 8.0 L 7.9 L (8.5-10.1) mg/dL AST 127 H 289 H (15-37) U/L ALT 26 39 (12-78) U/L Alkaline Phosphatase 79 83 (45-117) U/L Total Protein 5.4 L 5.9 L (6.4-8.2) g/dL Albumin 2.5 L 2.7 L (3.4-5.0) g/dL 12/23/17 Range/Units 04:45 Sodium 142 (136-145) meq/L Potassium 3.7 (3.5-5.1) meq/L Chloride 104 (98-107) meq/L Carbon Dioxide 30.1 (21.0-32.0) meq/L BUN 25 H (7-18) mg/dL Creatinine 1.52 H (0.60-1.30) mg/dL Calcium 7.5 L (8.5-10.1) mg/dL AST 129 H (15-37) U/L ALT 21 (12-78) U/L Alkaline Phosphatase 66 (45-117) U/L Total Protein 4.9 L D (6.4-8.2) g/dL Albumin 2.1 L D (3.4-5.0) g/dL Intake and Output 12/22/17 12/23/17 12/23/17 22:59 06:59 14:59 Intake Total 1237 / 1237 3455 / 3455 1051 / 1051 Output Total 1085 / 1085 285 / 285 Balance 152 / 152 3170 / 3170 1051 / 1051 Intake: IV 901 / 901 2878 / 2878 1051 / 1051 Cordarone Inj 450 MG In D5W Inj 362 / 362 241 ML @ 0.5 MG/MIN 16.66 mls/ hr IV.CONT TITRATE PRN Rx#: [id number] DOPamine 400 MG/250 ML Premix 250 / 250 535 / 535 400 mg In 250 ml @ 3 MCG/KG/MIN 8.063 mls/hr IV.CONT TITRATE PRN Rx#:[id number] Heparin/D5W 25,000 U/250 mL 25, 250 / 250 000 unit In 250 ml @ 900 UNITS/ HR 9 mls/hr IV.CONT TITRATE PRN Rx#:[id number] Diprivan 1000 mg/100 ml Inj 1, 179 / 179 000 mg In 100 ml @ 5 MCG/KG/MIN 2.15 mls/hr IV.CONT TITRATE PRN Rx#:[id number] Sodium Bicarbonate 8.4% Inj 75 1000 / 1000 600 / 600 MEQ In 1/2 Normal Saline Inj 925 ML @ 84 mls/hr IV.CONT . [id number] [facility] Rx#:[id number] KCl 20 mEq Premix Inj 20 meq In 100 / 100 100 ml @ 50 mls/hr IV.SIG Q2H [facility] Rx#:[id number] NS Inj 500 ML @ 1000 mls/hr IV. 500 / 500 SIG BOLUS [facility] Rx#:[id number] Thiamine Inj 100 MG In NS Inj 101 / 101 101 / 101 100 ML @ 100 mls/hr IV.SIG DAILY [facility] Rx#:[id number] Ancef 1 GM Premix Inj 1 gm In 50 / 50 50 / 50 50 ml @ 100 mls/hr IV.SIG Q8H [facility] Rx#:[id number] fentaNYL 10 mcg/mL Premix Drip 752 / 752 2,500 mcg In 250 ml @ 50 MCG/HR 5 mls/hr IV.SIG TITRATE PRN Rx #:[id number] Oral 0 / 0 Tube Feeding 36 / 36 397 / 397 Water Bolus Amount 300 / 300 180 / 180 Output: Urine Amount (Catheter) 1085 / 1085 285 / 285 Indwelling Urethral Catheter 1085 / 1085 285 / 285 Gastric Drainage 0 / 0 Orogastric Tube 0 / 0 Other: # Bowel Movements 0 0 Weight 71.5 kg - Imaging and Cardiology Imaging: Impressions Chest X-Ray 12/21/17 14:27 CONCLUSION: Endotracheal tube in good position. Probable CHF. Abdomen/Bladder Ultrasound 12/22/17 00:00 CONCLUSION: 1. 5 mm stone in the collecting system of the right kidney. There is no hydronephrosis. 2. 3 cm simple cyst arising from the left kidney. 3. Distention of the bladder. Chest X-Ray 12/23/17 06:00 CONCLUSION: No significant change. A left pleural effusion remains as well as cardiomegaly. Chest X-Ray 12/23/17 09:27 CONCLUSION: Right IJ central line in excellent position. Assessment and Plan - Plan P PCI C 2 NONOVERLAPPING KIANNA IN RCA NOW INTUBATED FOR RESP FAILURE CPKS 1000 RANGE EF ON ECHO 50 C INFBASAL WAMA PT INTUBATED AND SEDATED CREAT /\ 1.68 BACK IN NSR ON IV AMIO RONCHI /\ JVP RRR NO RUB S3 ABD SOFT WILL CONT HEPARIN 214 HRS MORE CHG TO PO MEDS WEAN DOPAMINE NEEDS PIC /CVP LINE PRIOR TO DC SHEATHS
[2017-12-23] MEDS: DOPamine 400 MG/250 ML Premix 400 MG/250 ML BAG IV.CONT PRN (14:47)
--- NOTE | 2017-12-23 15:16 | OTSOAPIP ---
RECEIVED OCCUPATIONAL THERAPY CONSULT. ATTEMPTED TO SEE PATIENT, HOWEVER RN REQUESTS TO HOLD EVALUATION UNTIL AT LEAST TOMORROW PATIENT RECENTLY HAD SHEATH PULLED AND PATIENT NEEDS LOW STIMULATION. WILL PLAN TO REATTEMPT NEXT DAY. INTERDISCIPLINARY COMMUNICATION: REVIEWED ELECTRONIC MEDICAL RECORD, SPOKE WITH DONA JOHNSON Therapist: Narda Palacios OTR/L Signature on file
[2017-12-23] MEDS: Enoxaparin Inj 40 MG/0.4 ML Syringe SQ SCH (17:50)
[2017-12-24] MEDS: Insulin NovoLOG Aspart Correctional Sugar Inj SQ SCH ×4 (01:24→18:12)
[2017-12-24] MEDS: Artificial Tears Opth Drops 15 ML Bottle EACH EYE SCH ×3 (04:00→18:14)
--- NOTE | 2017-12-24 05:08 | XR ---
EXAM DATE: 12/24/2017 4:37 AM EST AGE/SEX: 82 years / Male INDICATIONS: Shortness of breath, possible pulmonary disease. CLINICAL DATA: This is the patient's subsequent encounter. Patient reports that signs and symptoms h ave been present for 4 - 6 days and indicates a pain score of Nonresponsive. MEDICAL/SURGICAL HISTORY: . Chronic obstructive pulmonary disease. AAA. AFIB. Coronary artery d isease CABG. COMPARISON: [facility], CHEST 1V SINGLE AP, 12/23/2017. . FINDINGS: 2 AP supine views of the chest were obtained and demonstrate the patient status post median sternotom y. The endotracheal tube, nasogastric tube and right internal jugular line remain in place. The Heart size is mildly enlarged. Hazy opacity remains at the lung bases. There is questionable mild blunting of the costophrenic angles. Atherosclerotic changes are present in the aorta. The bony thorax is int act. CONCLUSION: No significant interval change. Electronically signed by: Duane Joseph MD 12/24/2017 5:07 AM EST
[2017-12-24] MEDS: Enoxaparin Inj 40 MG/0.4 ML Syringe SQ SCH ×2 (05:40→18:12)
[2017-12-24] MEDS: DOPamine 400 MG/250 ML Premix 400 MG/250 ML BAG IV.CONT PRN ×2 (05:41→06:42)
[2017-12-24 06:00] LABS: Baso % (Auto) 0.4 % (0.0-2.0); Eos # (Auto) 0.1 th/mm3 (0.0-0.4); Eos % (Auto) 0.7 % (0.0-4.0); Lymph # (Auto) 1.2 th/mm3 (1.0-4.8); Lymph % (Auto) 14.2 % (9.0-44.0); Mean Corpuscular HGB Conc 33.5 % (32.0-36.0); Mean Corpuscular Hemoglobin 30.3 pg (27.0-34.0); Mean Corpuscular Volume 90.6 fL (80.0-100.0); Mean Platelet Volume 9.7 fL (7.0-11.0); Mono # (Auto) 0.8 th/mm3 (0.0-0.9); Mono % (Auto) 9.5 % (0.0-8.0); Neut # (Auto) 6.6 th/mm3 (1.8-7.7); Neut % (Auto) 75.2 % (16.0-70.0); Platelet Count 150 th/mm3 (150-450); Red Blood Count 3.64 mil/mm3 (4.50-5.90); Red Cell Distribution Width 15.2 % (11.6-17.2); White Blood Count 8.8 th/mm3 (4.0-11.0)
[2017-12-24 06:17] LABS: Albumin 1.9 g/dL (3.4-5.0); Anion Gap 8 meq/L (5-15); Aspartate Aminotransferase 80 U/L (15-37); Blood Urea Nitrogen 24 mg/dL (7-18); Calcium 7.8 mg/dL (8.5-10.1); Carbon Dioxide 29.1 meq/L (21.0-32.0); Chloride 102 meq/L (98-107); Glomerular Filtration Rate 58 mL/min (>89); Glucose,Random 132 mg/dL (74-106); Magnesium 2.3 mg/dL (1.5-2.5); Potassium 3.9 meq/L (3.5-5.1); Sodium 139 meq/L (136-145)
[2017-12-24 06:18] LABS: Alanine Aminotransferase 14 U/L (12-78); Phosphorus 2.7 mg/dL (2.5-4.9)
[2017-12-24 06:20] LABS: Alkaline Phosphatase 74 U/L (45-117); Total Protein 5.2 g/dL (6.4-8.2)
[2017-12-24] MEDS: Metoprolol Tartrate 25 MG Tablet PO SCH ×2 (08:28→21:39)
[2017-12-24] MEDS: Thiamine Inj 100 MG in Sodium Chlor 0.9% Inj 100 ML IV.SIG SCH (08:34)
[2017-12-24] MEDS: Folic Acid 1 MG Tablet PO SCH (08:35)
[2017-12-24] MEDS: Senna/Docusate Sodium 8.6/50 MG Tablet PO SCH ×2 (08:35→21:40)
[2017-12-24] MEDS: Sodium Chloride 0.9% 2 ML Flush BID IV.FLUSH SCH ×2 (08:35→21:39)
[2017-12-24] MEDS: Amiodarone 200 MG Tablet NG/OG SCH ×2 (08:35→21:39)
[2017-12-24] MEDS: Dexmedetomidine Inj 200 MCG in Sodium Chlor 0.9% Inj 48 ML IV.CONT PRN (08:50)
[2017-12-24] MEDS: Pantoprazole Inj 40 MG Vial IV.PUSH SCH (12:29)
--- NOTE | 2017-12-24 13:32 | P.PNCC ---
Subjective Subjective Remarks/Hospital Course: The patient is an 82-year-old male with a past medical history of coronary artery disease, atrial fibrillation, who presented to [facility] ED as a STEMI alert. The patient woke up with substernal chest pain radiating to his back and it was pressure-like in nature. His pain was a 10/10 and associated with nausea. He took 5 nitroglycerin at home with no improvement of his pain. He had aspirin en route. The patient was taken emergently to the labor arbitrator where he underwent a cardiac catheterization by Dr. Maldonado. The patient had a drug-eluting stent x2 in the right CA. In the labor arbitrator, he received Versed 3 mg, Diprivan 50 mcg, amiodarone 150 mg bolus and Lopressor 5 mg. He was transferred to CV ICU where he was very agitated and restless. Critical Care Medicine was consulted for agitation and critical care management. He received Ativan and was started on Precedex drip. ABGwas performed, which showed acute hypercapnic respiratory acidosis. He is also on dopamine at 3 mcg. Most of the history was obtained from reviewing medical records as the patient is a poor historian 12/22: Afebrile. Oozing from sheath noted in the right groin area without hematoma. Remains intermittent agitated. On propofol drip at 5 mcg/kg/min. Meet on dopamine at 6 mcg/kg/min. 12/23: Central line placed in right IJ, right radial arterial line placed. Heparin currently on hold we will plan on pulling the sheaths today from right inguinal region. Will try CPAP trial later this afternoon. Remains on low- dose dopamine Subjective 12/24: Resting comfortably in bed in no acute distress. Attempting CPAP trials and attempt extubate. Remains hemodynamic is stable on low-dose dopamine drip at 6 mg/kg/min. Meet on amiodarone drip. Currently normal sinus rhythm. Objective Vital Signs / I&O: Vital Signs 12/23/17 15:00 12/23/17 15:55 12/23/17 16:00 Temperature 98.7 F Pulse Rate 98 H 98 H 86 Respiratory Rate 18 18 Pulse Oximetry 99 99 12/23/17 20:00 12/23/17 20:05 12/24/17 00:00 Temperature 99.0 F 98.4 F Pulse Rate 103 H 118 H 69 Respiratory Rate 18 18 18 Pulse Oximetry 99 96 12/24/17 00:55 12/24/17 00:57 12/24/17 03:27 Temperature Pulse Rate 61 74 Respiratory Rate 18 18 18 Pulse Oximetry 99 12/24/17 03:29 12/24/17 04:00 12/24/17 07:00 Temperature 98.8 F 99.0 F Pulse Rate 93 H 102 H Respiratory Rate 18 18 18 Pulse Oximetry 99 99 98 12/24/17 10:45 12/24/17 11:00 12/24/17 11:05 Temperature Pulse Rate 78 82 Respiratory Rate 18 18 Pulse Oximetry 99 99 12/24/17 12:00 Temperature Pulse Rate 82 Respiratory Rate Pulse Oximetry Intake & Output 12/23/17 12/24/17 12/24/17 18:59 06:59 18:59 Intake Total 2335 / 2335 1430 / 1430 101 / 101 Output Total 470 / 470 375 / 375 Balance 1865 / 1865 1055 / 1055 101 / 101 Weight 72 kg Intake: IV 1911 / 1911 1000 / 1000 101 / 101 Cordarone Inj 450 MG In D5W Inj 64 / 64 250 / 250 241 ML @ 0.5 MG/MIN 16.66 mls/ hr IV.CONT TITRATE PRN Rx#: [id number] DOPamine 400 MG/250 ML Premix 203 / 203 500 / 500 400 mg In 250 ml @ 3 MCG/KG/MIN 8.063 mls/hr IV.CONT TITRATE PRN Rx#:[id number] Precedex Inj 200 MCG In NS Inj 0 / 0 48 ML @ 0.2 MCG/KG/HR 3.58 mls/ hr IV.CONT TITRATE PRN Rx#: [id number] Heparin/D5W 25,000 U/250 mL 25, 250 / 250 000 unit In 250 ml @ 900 UNITS/ HR 9 mls/hr IV.CONT TITRATE PRN Rx#:[id number] Diprivan 1000 mg/100 ml Inj 1, 86 / 86 000 mg In 100 ml @ 5 MCG/KG/MIN 2.15 mls/hr IV.CONT TITRATE PRN Rx#:[id number] Sodium Bicarbonate 8.4% Inj 75 600 / 600 MEQ In 1/2 Normal Saline Inj 925 ML @ 84 mls/hr IV.CONT . [id number] [facility] Rx#:[id number] Magnesium Sulfate Inj 4 GM In 108 / 108 D5W Inj 100 ML @ 25 mls/hr IV. SIG ONCE ONE Rx#:[id number] KCl 20 mEq Premix Inj 20 meq In 200 / 200 100 ml @ 50 mls/hr IV.SIG Q2H [facility] Rx#:[id number] Thiamine Inj 100 MG In NS Inj 101 / 101 101 / 101 100 ML @ 100 mls/hr IV.SIG DAILY [facility] Rx#:[id number] Ancef 1 GM Premix Inj 1 gm In 50 / 50 50 ml @ 100 mls/hr IV.SIG Q8H [facility] Rx#:[id number] fentaNYL 10 mcg/mL Premix Drip 250 / 250 2,500 mcg In 250 ml @ 50 MCG/HR 5 mls/hr IV.SIG TITRATE PRN Rx #:[id number] Oral 0 / 0 Tube Feeding 363 / 363 430 / 430 Tube Irrigant 60 / 60 Output: Urine Amount (Catheter) 470 / 470 375 / 375 Indwelling Urethral Catheter 470 / 470 375 / 375 Other: # Bowel Movements 0 Result Diagrams: 12/24/17 16:08 12/24/17 05:10 Imaging: Chest X-Ray 12/21/17 08:47 CONCLUSION: Chronic interstitial changes. The patient is post median sternotomy. Chest X-Ray 12/21/17 14:27 CONCLUSION: Endotracheal tube in good position. Probable CHF. Abdomen/Bladder Ultrasound 12/22/17 00:00 CONCLUSION: 1. 5 mm stone in the collecting system of the right kidney. There is no hydronephrosis. 2. 3 cm simple cyst arising from the left kidney. 3. Distention of the bladder. Chest X-Ray 12/23/17 06:00 CONCLUSION: No significant change. A left pleural effusion remains as well as cardiomegaly. Chest X-Ray 12/23/17 09:27 CONCLUSION: Right IJ central line in excellent position. Chest X-Ray 12/24/17 06:00 CONCLUSION: No significant interval change. Objective Remarks: GENERAL: This is an 82-year-old male currently orotracheally intubated SKIN: Warm and dry. HEAD: Normocephalic. EYES: No scleral icterus. No injection or drainage. NECK: Supple, trachea midline. No JVD or lymphadenopathy. Right IJ is clean dry and intact CARDIOVASCULAR: RRR. S1, S2. No S4. RESPIRATORY: Breath sounds equal bilaterally. No accessory muscle use. GASTROINTESTINAL: Abdomen soft, non-tender, nondistended. MUSCULOSKELETAL: No cyanosis, or edema. Right angle region with no hematoma with arterial and venous sheaths in place Neuro: Cranial nerves II through XII appear to be grossly intact. Positive gag and cough according with his. On sedation vacation will move all 4 extremities spontaneously this a.m. does squeeze hands Assessment and Plan - Assessment and Plan Plan: Neuro/Psych: EtOH abuse Currently on propofol and dexmedetomidine drips for sedation while intubated. Fentanyl drip ordered as well. Morphine 2-4 mg IV every 3 hours as needed pain On thiamine, folate and multivitamin. Monitor for DTs CV: Inferior STEMI -2 KIANNA to RCA Coronary artery disease Peripheral vascular disease Abdominal aortic aneurysm Atrial fibrillation Continue aspirin 81 mg daily, Prasugrel 10 mg daily for drug-eluting stent Currently on dopamine at 6 mg/kg/min to maintain mean arterial pressure greater than equal to 65 A.m. EKG the same revealed continuous T changes indicative of STEMI Follow up on echocardiogram -EF 50-55%. Hypokinesis inferior posterior and inferior basal recio. Followed by Dr. Maldonado/cardiology Team the amiodarone drip currently at 0.5 mg/min. Management per cardiology Resp: Acute respiratory failure COPD Tobacco abuse PRVC ventilation. Currently on CPAP trials Albuterol/ipratropium aerosols every 4 hours with albuterol aerosols every 2 hours as needed for dyspnea Budesonide 0.5/2 1 inhalation twice daily Follow-up on chest x-ray/ABG in a.m. 12/25 Spontaneous breathing trials and clinically indicated Tobacco cessation will be encouraged education provided when appropriate GI: Elevated AST -cardiac in origin Hypoalbuminemia Hyperammonia NG tube will start tube feeds with Jevity 1.5 goal 50 cc an hour Pantoprazole for GI prophylaxis Docusate sodium/senna 1 tablet twice daily for bowel regimen : Young catheter placed with acute kidney injury Endo: Sliding scale insulin with aspart insulin to maintain euglycemia Check TSH in a.m. Renal: Acute kidney injury -resolved Check renal ultrasound/urine creatinine and electrolytes Avoid nephrotoxic medication Did receive dye/contrast for cardiac catheterization Heme: Normocytic anemia Monitor CBC daily. Follow trends. Maintain heparin heparin drip see orders ID: Currently on cefazolin 1 g IV every 8 hours. Monitor for signs and symptomatology infection FEN: Replace electrolytes as clinically indicated per ICU electrolyte protocol Discontinued supplemental fluids MSK: PT evaluate and treat Access -Right IJ CVL day #2 placed 12/23 and right radial arterial line day #2 placed 12/23 -Currently utilizing right femoral arterial and venous sheath Prophylaxis -GI-lansoprazole -DVT-SCD/pharmacological prophylaxis with SCDs/enoxaparin 40 mg twice daily Critical care time 35 minutes follow-up Addendum Patient extubated earlier today. Patient was also assessed with weakness of the left upper extremity. Stroke alert was called. CT brain revealed bilateral infarcts subacute likely embolic. CT angiogram brain revealed no high -grade stenosis. 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 Noted cardiology aware.
[2017-12-24 16:43] LABS: Baso % (Auto) 0.3 % (0.0-2.0); Eos % (Auto) 0.1 % (0.0-4.0); Hematocrit 31.7 % (39.0-51.0); Hemoglobin 11.1 gm/dL (13.0-17.0); Lymph # (Auto) 0.5 th/mm3 (1.0-4.8); Lymph % (Auto) 5.5 % (9.0-44.0); Mean Corpuscular HGB Conc 34.9 % (32.0-36.0); Mean Corpuscular Hemoglobin 31.3 pg (27.0-34.0); Mean Corpuscular Volume 89.7 fL (80.0-100.0); Mean Platelet Volume 9.5 fL (7.0-11.0); Mono # (Auto) 0.8 th/mm3 (0.0-0.9); Mono % (Auto) 8.3 % (0.0-8.0); Neut % (Auto) 85.8 % (16.0-70.0); Platelet Count 152 th/mm3 (150-450); Red Blood Count 3.54 mil/mm3 (4.50-5.90); Red Cell Distribution Width 15.1 % (11.6-17.2); White Blood Count 9.3 th/mm3 (4.0-11.0)
--- NOTE | 2017-12-24 16:49 | XR ---
EXAM DATE: 12/24/2017 4:44 PM EST AGE/SEX: 82 years / Male INDICATIONS: MRI clearance. CLINICAL DATA: This is the patient's initial encounter. Patient reports that signs and symptoms have been present for 1 day and indicates a pain score of Nonresponsive. MEDICAL/SURGICAL HISTORY: . Chronic obstructive pulmonary disease. AAA. AFIB. Coronary artery d isease. CABG. COMPARISON: No prior exams available for comparison. FINDINGS: The abdominal bowel gas pattern is normal. No abnormal masses, calcifications, or organomegaly is s een. The osseous structures are unremarkable. No foreign implements identified to contraindicate MRI CONCLUSION: No foreign implements identified to contraindicate MRI Electronically signed by: Suman Mcgrath MD 12/24/2017 4:47 PM EST
--- NOTE | 2017-12-24 16:50 | CT ---
EXAM DATE: 12/24/2017 4:31 PM EST AGE/SEX: 82 years / Male INDICATIONS: Stroke alert, visual disturbances, unresponsiveness. CLINICAL DATA: This is the patient's initial encounter. Patient reports that signs and symptoms have been present for 1 day and indicates a pain score of Nonresponsive. MEDICAL/SURGICAL HISTORY: Non-responsive. Non-responsive. RADIATION DOSE: 56.35 CTDI (mGy) COMPARISON: No prior exams available for comparison. TECHNIQUE: CT of the head without contrast. Using automated exposure control and adjustment of the mA and/or kV according to patient size, radiation dose was kept as low as reasonably achievable to ob tain optimal diagnostic quality images. DICOM format image data is available electronically for revi ew and comparison. FINDINGS: There are cortical hypodensities in the right parietal, right occipital, left frontal, left occipital regions as well as central left cerebellar hemisphere indicating acute to subacute infarcts in multi ple vascular distributions. No evidence of midline shift or herniation. No acute intracranial hemorrh age. CONCLUSION: Multiple acute to subacute infarcts in multiple vascular distributions bilaterally. Pattern suggests embolic infarcts. Results were discussed with Dr. Prince at 1635. . Electronically signed by: Angel Russo MD 12/24/2017 4:49 PM EST
[2017-12-24 17:01] LABS: Activated Partial Thrombo Time 36.5 sec (23.4-31.7); INR 1.1 Ratio; Prothrombin Time 10.9 sec (9.8-11.6)
[2017-12-24 17:16] LABS: Troponin I 27.3 ng/mL (0.02-0.05)
--- NOTE | 2017-12-24 17:27 | P.PNCA ---
Subjective Interval history: PT STABLE ? OF [facility] HE HAD A CVA 2 CONTRAST STUDIES DONE BACK IN NSR ON AMIO CREAT V TO 1.2 FROM 1.5 YESTERDAY PT IS RESPONSIVE THOUGH [facility] PENDING KARMA RRR NO RUB OR S3 NO EDEMA ABDOMEN BENIGN CONTINUE SAME CV RX Medications and Allergies Active Medications: Active Medications Acetaminophen (Tylenol Liq) 650 mg PO Q6H PRN PRN Reason: FEVER Albuterol (Duoneb Neb (Kasandra)) 1 ampul NEB Q4HR NEB [facility] Last Admin: 12/24/17 15:48 Dose: 1 ampul Albuterol (Albuterol Neb (Prn)) 2.5 mg NEB Q2HR NEB PRN PRN Reason: DYSPNEA Alprazolam (Xanax) 0.5 mg PO TID PRN PRN Reason: ANXIETY Amiodarone HCl (Cordarone) 200 mg NG/OG BID [facility] Last Admin: 12/24/17 08:35 Dose: 200 mg Artificial Tears (Tears Naturale Opth Drops) 1 drop EACH EYE Q8H [facility] Last Admin: 12/24/17 09:56 Dose: 1 drop Aspirin (Aspirin Chew) 81 mg NG/OG DAILY [facility] Last Admin: 12/24/17 08:35 Dose: 81 mg Budesonide (Pulmocort Respule Neb) 0.5 mg NEB Q12HR [facility] Last Admin: 12/24/17 11:02 Dose: 0.5 mg Dextrose (D50w Vial) 50 ml IV.PUSH UNSCH PRN PRN Reason: PER HYPOGLYCEMIA PROTOCOL Enoxaparin Sodium (Lovenox Inj) 40 mg SQ Q12H [facility] Last Admin: 12/24/17 05:40 Dose: 40 mg Folic Acid (Folic Acid) 1 mg PO DAILY [facility] Last Admin: 12/24/17 08:35 Dose: 1 mg Glucagon (Glucagon Inj) 1 mg OTHER PRN PRN PRN Reason: for Hypoglycemia Protocol Dexmedetomidine HCl 200 mcg/ (Sodium Chloride) 50 mls @ 3.58 mls/hr IV.CONT TITRATE PRN; Protocol PRN Reason: Per Protocol Last Admin: 12/24/17 08:50 Dose: 0.2 mcg/kg/hr, 3.58 mls/hr Sodium Chloride (Ns Inj) 1,000 mls @ 100 mls/hr IV.SIG .Q10H [facility] Last Infusion: 12/24/17 14:55 Dose: Infused Amiodarone HCl 450 mg/ (Dextrose) 250 mls @ 16.66 mls/hr IV.CONT TITRATE PRN; Protocol PRN Reason: Per Protocol Last Admin: 12/24/17 05:40 Dose: 0.5 mg/min, 16.66 mls/hr Magnesium Sulfate 4 gm/ Sodium (Chloride) 100 mls @ 50 mls/hr IV.SIG UNSCH PRN PRN Reason: For Magnesium 0.9 - 1.1 mg/dL Magnesium Sulfate 2 gm/ Sodium (Chloride) 100 mls @ 50 mls/hr IV.SIG UNSCH PRN PRN Reason: For Magnesium 1.2 - 1.6 mg/dL Potassium Chloride (Kcl 20 Meq Premix Inj) 20 meq in 100 mls @ 50 mls/hr IV.SIG Q2H PRN PRN Reason: For Potassium 3.3 - 3.5 mEq/L Potassium Chloride (Kcl 40 Meq Premix Inj) 40 meq in 100 mls @ 25 mls/hr IV.SIG UNSCH PRN PRN Reason: For Potassium 3.3 - 3.5 mEq/L Potassium Chloride (Kcl 20 Meq Premix Inj) 20 meq in 100 mls @ 50 mls/hr IV.SIG Q2H PRN PRN Reason: For Potassium 2.8 - 3.2 mEq/L Potassium Phosphate 30 mmol/ (Sodium Chloride) 260 mls @ 42 mls/hr IV.SIG UNSCH PRN PRN Reason: SEE LABEL COMMENTS Sodium Phosphate 30 mmol/ (Sodium Chloride) 260 mls @ 42 mls/hr IV.SIG UNSCH PRN PRN Reason: For Phosphorus < 2.5 mg/dL Potassium Chloride (Kcl 40 Meq Premix Inj) 40 meq in 100 mls @ 25 mls/hr IV.SIG Q4H PRN PRN Reason: For Potassium 2.8 - 3.2 mEq/L Dopamine HCl/Dextrose (Dopamine 400 Mg/250 Ml Premix) 400 mg in 250 mls @ 8.063 mls/hr IV.CONT TITRATE PRN; Protocol PRN Reason: SEE LABEL COMMENTS Last Titration: 12/24/17 14:00 Dose: 0 mcg/kg/min, 0 mls/hr Fentanyl (Fentanyl 10 Mcg/Ml Premix Drip) 2,500 mcg in 250 mls @ 5 mls/hr IV.SIG TITRATE PRN; Protocol PRN Reason: Per Protocol Last Titration: 12/23/17 21:13 Dose: Infused Propofol (Diprivan 1000 Mg/100 Ml Inj) 1,000 mg in 100 mls @ 2.15 mls/hr IV.CONT TITRATE PRN; Protocol PRN Reason: Per Protocol Last Titration: 12/24/17 09:00 Dose: 0 mcg/kg/min, 0 mls/hr Thiamine HCl 100 mg/ Sodium (Chloride) 101 mls @ 100 mls/hr IV.SIG DAILY [facility] Last Infusion: 12/24/17 10:25 Dose: Infused Insulin Aspart (Novolog Insulin Correctional Sugar Inj) 0 unit SQ Q6HR [facility]; Protocol Last Admin: 12/24/17 12:23 Dose: Not Given Magnesium Oxide (Mag-Ox) 800 mg PO UNSCH PRN PRN Reason: For Magnesium 1.2 - 1.6 mg/dL Metoprolol Tartrate (Lopressor) 25 mg PO BID [facility] Last Admin: 12/24/17 08:28 Dose: Not Given Morphine Sulfate (Morphine Inj) 2 mg IV.PUSH Q3H PRN PRN Reason: PAIN SCALE 1 TO 5/AGITATION Morphine Sulfate (Morphine Inj) 4 mg IV.PUSH Q3H PRN PRN Reason: PAIN SCALE 6 TO 10/AGITATION Multivitamins (Theragran) 1 tab PO DAILY [facility] Last Admin: 12/24/17 08:35 Dose: 1 tab Pantoprazole Sodium (Protonix Inj) 40 mg IV.PUSH Q24H [facility] Last Admin: 12/24/17 12:29 Dose: 40 mg Potassium Bicarb/Potassium Chloride (K-Lyte Cl Eff) 50 meq PO UNSCH PRN PRN Reason: For Potassium 3.3 - 3.5 mEq/L Potassium Phosphate (K-Phos Original) 2,000 mg PO Q4H PRN PRN Reason: Phosphorus Less Than 2.5 mg/dL Potassium Phosphate (K-Phos Original) 2,000 mg PO UNSCH PRN PRN Reason: SEE LABEL COMMENTS Prasugrel (Effient) 10 mg PO DAILY [facility] Last Admin: 12/24/17 08:35 Dose: 10 mg Pravastatin Sodium (Pravachol) 80 mg PO HS [facility] Last Admin: 12/23/17 21:09 Dose: 80 mg Senna/Docusate Sodium (Estrella-Colace) 1 tab PO BID [facility] Last Admin: 12/24/17 08:35 Dose: 1 tab Sodium Chloride (Ns Flush) 2 ml IV.FLUSH BID [facility] Last Admin: 12/24/17 08:35 Dose: 2 ml Sodium Chloride (Ns Flush) 2 ml IV.FLUSH PRN PRN PRN Reason: FLUSH AFTER USING IV ACCESS Sodium Chloride (Ns Flush) 0 ml IV.FLUSH DAILY [facility] Last Admin: 12/24/17 08:35 Dose: 10 ml Temazepam (Restoril) 15 mg PO HS PRN PRN Reason: INSOMNIA Terbutaline Sulfate (Brethine Inj) 1 mg SQ UNSCH PRN PRN Reason: Extravasation Allergies Allergy/AdvReac Type Severity Reaction Status Date / Time No Known Allergies Allergy Verified 12/21/17 08:42 Home Medications Medication Instructions Recorded Confirmed Type nitroglycerin [Nitrostat] 0.4 mg SUBLINGUAL Q5-15M PRN 12/21/17 12/21/17 History Physical Exam Vital signs: Vital Signs 12/23/17 20:00 12/23/17 20:05 12/24/17 00:00 Temperature 99.0 F 98.4 F Pulse Rate 103 H 118 H 69 Respiratory Rate 18 18 18 Pulse Oximetry 99 96 12/24/17 00:55 12/24/17 00:57 12/24/17 03:27 Temperature Pulse Rate 61 74 Respiratory Rate 18 18 18 Pulse Oximetry 99 12/24/17 03:29 12/24/17 04:00 12/24/17 07:00 Temperature 98.8 F 99.0 F Pulse Rate 93 H 102 H Respiratory Rate 18 18 18 Pulse Oximetry 99 99 98 12/24/17 10:45 12/24/17 11:00 12/24/17 11:05 Temperature Pulse Rate 78 82 Respiratory Rate 18 18 Pulse Oximetry 99 99 12/24/17 12:00 12/24/17 14:20 12/24/17 15:00 Temperature 98.7 F Pulse Rate 82 94 H Respiratory Rate 18 Pulse Oximetry 96 98 12/24/17 15:51 12/24/17 16:52 Temperature Pulse Rate 102 H Respiratory Rate 20 Pulse Oximetry 99 Intake & Output 12/23/17 12/24/17 12/24/17 18:59 06:59 18:59 Intake Total 2335 / 2335 1430 / 1430 101 / 101 Output Total 470 / 470 375 / 375 Balance 1865 / 1865 1055 / 1055 101 / 101 Weight 72 kg Intake: IV 1911 / 1911 1000 / 1000 / 101 Cordarone Inj 450 MG In D5W Inj 64 / 64 250 / 250 241 ML @ 0.5 MG/MIN 16.66 mls/ hr IV.CONT TITRATE PRN Rx#: [id number] DOPamine 400 MG/250 ML Premix 203 / 203 500 / 500 400 mg In 250 ml @ 3 MCG/KG/MIN 8.063 mls/hr IV.CONT TITRATE PRN Rx#:[id number] Precedex Inj 200 MCG In NS Inj 0 / 0 48 ML @ 0.2 MCG/KG/HR 3.58 mls/ hr IV.CONT TITRATE PRN Rx#: [id number] Heparin/D5W 25,000 U/250 mL 25, 250 / 250 000 unit In 250 ml @ 900 UNITS/ HR 9 mls/hr IV.CONT TITRATE PRN Rx#:[id number] Diprivan 1000 mg/100 ml Inj 1, 86 / 86 000 mg In 100 ml @ 5 MCG/KG/MIN 2.15 mls/hr IV.CONT TITRATE PRN Rx#:[id number] Sodium Bicarbonate 8.4% Inj 75 600 / 600 MEQ In 1/2 Normal Saline Inj 925 ML @ 84 mls/hr IV.CONT . [id number] [facility] Rx#:[id number] Magnesium Sulfate Inj 4 GM In 108 / 108 D5W Inj 100 ML @ 25 mls/hr IV. SIG ONCE ONE Rx#:[id number] KCl 20 mEq Premix Inj 20 meq In 200 / 200 100 ml @ 50 mls/hr IV.SIG Q2H [facility] Rx#:[id number] Thiamine Inj 100 MG In NS Inj 101 / 101 101 / 101 100 ML @ 100 mls/hr IV.SIG DAILY [facility] Rx#:[id number] Ancef 1 GM Premix Inj 1 gm In 50 / 50 50 ml @ 100 mls/hr IV.SIG Q8H [facility] Rx#:[id number] fentaNYL 10 mcg/mL Premix Drip 250 / 250 2,500 mcg In 250 ml @ 50 MCG/HR 5 mls/hr IV.SIG TITRATE PRN Rx #:[id number] Oral 0 / 0 Tube Feeding 363 / 363 430 / 430 Tube Irrigant 60 / 60 Output: Urine Amount (Catheter) 470 / 470 375 / 375 Indwelling Urethral Catheter 470 / 470 375 / 375 Other: # Bowel Movements 0 - Urinary Catheter Management Condom Cath placed during this visit: no Indwelling Urethral Catheter Cath placed during this visit: yes Reason for continuing: Hourly intake/output Insertion date: 12/22/17 Insertion time: 11:00 Results 12/24/17 16:08 12/24/17 05:10 Cardiac Enzymes 12/23/17 12/24/17 12/24/17 Range/Units 04:45 05:10 16:08 AST 129 H 80 H (15-37) U/L Troponin I 27.30 H* (0.02-0.05) ng/mL Coagulation 12/22/17 12/23/17 12/24/17 Range/Units 21:28 04:45 16:08 PT 10.9 (9.8-11.6) sec APTT 38.4 H D 56.9 H D 36.5 H D (23.4-31.7) sec CBC 12/22/17 12/23/17 12/24/17 Range/Units 17:13 04:45 05:10 WBC 9.8 10.0 8.8 (4.0-11.0) th/mm3 RBC 3.97 L 3.64 L 3.64 L (4.50-5.90) mil/mm3 Hgb 12.3 L 11.0 L 11.0 L (13.0-17.0) gm/dL Hct 35.4 L 32.8 L 33.0 L (39.0-51.0) % Plt Count 170 155 150 (150-450) th/mm3 Neut # (Auto) 7.9 H 6.6 (1.8-7.7) th/mm3 Lymph # (Auto) 1.3 1.2 (1.0-4.8) th/mm3 [place] # (Auto) 0.8 0.8 (0.0-0.9) th/mm3 Eos # (Auto) 0.0 0.1 (0.0-0.4) th/mm3 Baso # (Auto) 0.0 0.0 (0.0-0.2) th/mm3 12/24/17 Range/Units 16:08 WBC 9.3 (4.0-11.0) th/mm3 RBC 3.54 L (4.50-5.90) mil/mm3 Hgb 11.1 L (13.0-17.0) gm/dL Hct 31.7 L (39.0-51.0) % Plt Count 152 (150-450) th/mm3 Neut # (Auto) 8.0 H (1.8-7.7) th/mm3 Lymph # (Auto) 0.5 L (1.0-4.8) th/mm3 [place] # (Auto) 0.8 (0.0-0.9) th/mm3 Eos # (Auto) 0.0 (0.0-0.4) th/mm3 Baso # (Auto) 0.0 (0.0-0.2) th/mm3 Comprehensive Metabolic Panel 12/22/17 12/23/17 12/24/17 Range/Units 17:42 04:45 05:10 Sodium 142 142 139 (136-145) meq/L Potassium 3.8 3.7 3.9 (3.5-5.1) meq/L Chloride 105 104 102 (98-107) meq/L Carbon Dioxide 30.4 30.1 29.1 (21.0-32.0) meq/L BUN 23 H 25 H 24 H (7-18) mg/dL Creatinine 1.51 H 1.52 H 1.21 (0.60-1.30) mg/dL Calcium 7.9 L 7.5 L 7.8 L (8.5-10.1) mg/dL AST 129 H 80 H (15-37) U/L ALT 21 14 (12-78) U/L Alkaline Phosphatase 66 74 (45-117) U/L Total Protein 4.9 L D 5.2 L (6.4-8.2) g/dL Albumin 2.1 L D 1.9 L (3.4-5.0) g/dL Intake and Output 12/24/17 12/24/17 12/24/17 06:59 14:59 22:59 Intake Total 930 / 930 101 / 101 Output Total 375 / 375 Balance 555 / 555 101 / 101 Intake: IV 500 / 500 101 / 101 Cordarone Inj 450 MG In D5W Inj 250 / 250 241 ML @ 0.5 MG/MIN 16.66 mls/ hr IV.CONT TITRATE PRN Rx#: [id number] DOPamine 400 MG/250 ML Premix 250 / 250 400 mg In 250 ml @ 3 MCG/KG/MIN 8.063 mls/hr IV.CONT TITRATE PRN Rx#:[id number] Precedex Inj 200 MCG In NS Inj 0 / 0 48 ML @ 0.2 MCG/KG/HR 3.58 mls/ hr IV.CONT TITRATE PRN Rx#: [id number] Thiamine Inj 100 MG In NS Inj 101 / 101 100 ML @ 100 mls/hr IV.SIG DAILY [facility] Rx#:[id number] Oral 0 / 0 Tube Feeding 430 / 430 Output: Urine Amount (Catheter) 375 / 375 Indwelling Urethral Catheter 375 / 375 Other: # Bowel Movements 0 Weight 72 kg - Imaging and Cardiology Imaging: Impressions Chest X-Ray 12/23/17 06:00 CONCLUSION: No significant change. A left pleural effusion remains as well as cardiomegaly. Chest X-Ray 12/23/17 09:27 CONCLUSION: Right IJ central line in excellent position. Abdomen X-Ray 12/24/17 00:00 CONCLUSION: No foreign implements identified to contraindicate MRI Chest X-Ray 12/24/17 06:00 CONCLUSION: No significant interval change. Head CT 12/24/17 16:12 CONCLUSION: Multiple acute to subacute infarcts in multiple vascular distributions bilaterally. Pattern suggests embolic infarcts. Results were discussed with Dr. Prince at 1635. . Assessment and Plan - Plan P PCI C 2 NONOVERLAPPING KIANNA IN RCA NOW INTUBATED FOR RESP FAILURE CPKS 1000 RANGE EF ON ECHO 50 C INFBASAL WAMA PT INTUBATED AND SEDATED CREAT /\ 1.68 BACK IN NSR ON IV AMIO RONCHI /\ JVP RRR NO RUB S3 ABD SOFT WILL CONT HEPARIN 214 HRS MORE CHG TO PO MEDS WEAN DOPAMINE NEEDS PIC /CVP LINE PRIOR TO DC SHEATHS
[2017-12-24 17:28] LABS: CKMB Percent 1.1 % (0.0-4.0); Creatine Kinase MB 4.9 ng/mL (0.5-3.6)
[2017-12-24] MEDS ORDERED: Etomidate Inj 40 MG/20 ML Vial IV.PUSH ONE ×2 (17:38)
--- NOTE | 2017-12-24 17:38 | CT ---
EXAM DATE: 12/24/2017 5:21 PM EST AGE/SEX: 82 years / Male INDICATIONS: Stroke alert, Visual disturbances, unresponsiveness. CLINICAL DATA: This is the patient's initial encounter. Patient reports that signs and symptoms have been present for 1 day and indicates a pain score of Nonresponsive. MEDICAL/SURGICAL HISTORY: Non-responsive. Non-responsive. RADIATION DOSE: 9.87 CTDI (mGy) ; Combined studies COMPARISON: [facility] – [place], CT CEREBRAL PERF W CONTRAST W 3D, 12/24/2017. . TECHNIQUE: Volumetric scanning was performed using a multi-row detector CT scanner during bolus infu renae of 60 ml Visipaque 320 (iodixanol) nonionic water-soluble contrast as a cumulative dose for mul tiple exams. The data was post processed with a variety of visualization algorithms including full volume maximum intensity projection, multi-planar sliding thin slab reformation, curved planar reform ation, and surface rendering techniques. Using automated exposure control and adjustment of the mA a nd/or kV according to patient size, radiation dose was kept as low as reasonably achievable to obtain optimal diagnostic quality images. DICOM format image data is available electronically for review a nd comparison. FINDINGS: There is excellent visualization of the major intracranial arteries out to the second-order branch ve ssels. There is no evidence for aneurysm. There is atherosclerotic disease of the middle cerebral ar teries bilaterally with mild narrowing of the mid M1 segments bilaterally. No high-grade stenosis or occlusion identified. CONCLUSION: Atherosclerotic disease of the MCAs but no evidence of high-grade stenosis or occlusion. Report was called by [Dr. Russo to Dr. Prince at [phone] ] Electronically signed by: Angel Russo MD 12/24/2017 5:37 PM EST
--- NOTE | 2017-12-24 17:52 | CT ---
EXAM DATE: 12/24/2017 5:28 PM EST AGE/SEX: 82 years / Male INDICATIONS: Stroke alert, visual disturbances, unresponsiveness. CLINICAL DATA: This is the patient's initial encounter. Patient reports that signs and symptoms have been present for 1 day and indicates a pain score of Nonresponsive. MEDICAL/SURGICAL HISTORY: Non-responsive. Non-responsive. RADIATION DOSE: 218.01 CTDI (mGy) COMPARISON: [facility], CTA HEAD W CONTRAST W 3D, 12/24/2017. . TECHNIQUE: CT of the head after intravenous administration of 40 ml Visipaque 320 (iodixanol) nonio driss water-soluble contrast as a single exam dose. Using automated exposure control and adjustment of the mA and/or kV according to patient size, radiation dose was kept as low as reasonably achievable to obtain optimal diagnostic quality images. DICOM format image data is available electronically for review and comparison. FINDINGS: 1. CBF (<30%) Volume (ml): 0 2. Perfusion (Tmax>6.0s) Volume (ml): 21 3. Mismatch Volume (ml) (Tmax>6.0 - CBF): 21 CONCLUSION: Physiological brain perfusion parameters with RAPID analysis as above. The decision for consideration of therapy is multi factorial and multi disciplinary relying on subjec tive and objective clinical data. This data is not construed or intended to be the sole determinant of treatment eligibility. Electronically signed by: Angel Russo MD 12/24/2017 5:50 PM EST
--- NOTE | 2017-12-24 17:56 | P.PCN ---
Date of procedure: 12/24/17 Pre-op diagnosis: Acute respiratory failure Post-op diagnosis: same Procedure: DATE: 12/24/2017 PROCEDURE: Orotracheal intubation INDICATION: Acute respiratory failure DETAILS OF PROCEDURE The patient was placed in optimal position and preoxygenated with 100% FiO2 via bag valve mask. At the start oxygen saturation was 95%. The patient was administered 20 milligrams etomidate IV and 50 milligrams rocuronium IV. I entered the oropharynx with a size 4 laryngoscope blade and obtained a grade 2 view of the airway. On single attempt a size 8.0 cuffed endotracheal tube was passed through the vocal cords. Correct tube location was confirmed with end tidal CO2 detector and by auscultating over bilateral lung barnett. The endotracheal tube was secured with adhesive tape at a depth of 24 cm at the lips. The patient was connected to the ventilator. The patient tolerated the procedure well without any apparent complications. Oxygen saturations were maintained greater than 95% all times. STAT chest x-ray pending at time of dictation.
--- NOTE | 2017-12-24 18:14 | CT ---
EXAM DATE: 12/24/2017 6:01 PM EST AGE/SEX: 82 years / Male INDICATIONS: Stroke alert, visual disturbances, unresponsiveness. CLINICAL DATA: This is the patient's initial encounter. Patient reports that signs and symptoms have been present for 1 day and indicates a pain score of Nonresponsive. MEDICAL/SURGICAL HISTORY: Non-responsive. Non-responsive. RADIATION DOSE: 9.87 CTDI (mGy) ; Combined studies COMPARISON: No prior exams available for comparison. TECHNIQUE: Volumetric scanning was performed using a multirow detector CT scanner during bolus infus ion of 60 ml Visipaque 320 (iodixanol) nonionic water-soluble contrast as a cumulative dose for mult iple exams. The data was postprocessed with a variety of visualization algorithms including full-vo lume maximum intensity projection, multiplanar sliding thin-slab reformation, curved-planar reformati on, and surface-rendering techniques. Using automated exposure control and adjustment of the mA and/ or kV according to patient size, radiation dose was kept as low as reasonably achievable to obtain op timal diagnostic quality images. DICOM format image data is available electronically for review and comparison. Percent stenosis is calculated using the diameter of the stenotic region over the diameter of the nor mal distal internal carotid artery. FINDINGS: Severe calcified plaque at the left carotid bulb/proximal left internal carotid artery resulting in a pproximately 70% stenosis focally. Moderate calcified plaque at the right carotid bulb resulting in a pproximately 50% stenosis at the origin of the ICA. There is circumferential plaque with approximately 50% stenosis of the proximal left subclavian arter y measuring approximately 3 cm in length. Left vertebral artery is dominant. Proximal calcification of the proximal vertebral arteries bilatera lly. No evidence of high-grade stenosis on the left. The proximal right vertebral artery is not well evaluated due to the degree of calcification. CONCLUSION: 1. Prominent atherosclerotic disease at the carotid bulbs bilaterally left greater than right with a pproximately 70% focal stenosis at the origin of the left ICA and 50% stenosis on the right. 2. 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 Electronically signed by: Angel Russo MD 12/24/2017 6:12 PM EST
--- NOTE | 2017-12-24 18:30 | XR ---
EXAM DATE: 12/24/2017 6:10 PM EST AGE/SEX: 82 years / Male INDICATIONS: ET tube placement. CLINICAL DATA: This is the patient's subsequent encounter. Patient reports that signs and symptoms h ave been present for 1 day and indicates a pain score of Nonresponsive. MEDICAL/SURGICAL HISTORY: . Chronic obstructive pulmonary disease. AAA. AFIB. Coronary artery d isease. CABG. [place] [facility] [place] 1[place] S[place]24/2017. . FINDINGS: ET tube tip well above the racquel. Interval removal of gastric tube. Right internal jugular catheter tip projects just inferior to the clavicle. Hazy opacities in the infrahilar region similar to prior and new hazy opacity in the central right upper lung; no areas of consolidation seen. Both hemidiaphr agms well delineated. Evidence of prior median sternotomy. The heart is mildly enlarged. CONCLUSION: 1. ET tube in good position. 2. Persistent lower lung nonconsolidative opacities and new nonconsolidative infiltrate in the right upper. Electronically signed by: Papo Rosales MD 12/24/2017 6:28 PM EST
--- NOTE | 2017-12-24 18:47 | MB ---
cc: Emmie Menchaca MD DATE: 12/24/2017 REASON FOR CONSULT: Stroke alert. HISTORY OF PRESENT ILLNESS: This is an 82-year-old man admitted to the hospital on 12/21/2017 with a history of heart disease, atrial fibrillation, came in as a STEMI alert. Woke up with some chest pain. Critical Care Medicine admitted the patient. He has been seen also by Cardiology. Patient had 2 stents yesterday in RCA. He had an echo with inferior basal wall motion abnormalities. He had atrial fibrillation earlier on amiodarone; back in sinus rhythm. He was extubated and started acting confused, not responding well. Stroke alert was called. The patient had a CT of the head done which showed multiple acute subacute infarcts in multiple vascular distributions suggesting embolic hypodensities noted right parietal, right occipital, left frontal, left occipital, as well as central left cerebellar. No shift or herniation. The patient is now back, intubated again for airway protection. He is paralyzed and I do not have an exam. Vitals are recorded: Temperature is 98.7, heart rate 102, respiratory rate 20, and blood pressure 140/56. Pupils are pinpoint. Intubated on the ventilator, paralyzed. No movement noted due to paralytic. LABORATORY DATA: Labs were reviewed and imaging studies. He had a head CT, as stated, and had a head CTA WHICH shows some atherosclerotic disease in the MCA, but nothing occluding or high-grade stenosis. I do not have the report of the perfusion yet, nor the carotids. 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 We will continue him at this point on his current medications of Lovenox, Effient, baby aspirin. He is also on amiodarone. I would go ahead and get an MRI of the brain in the morning, just to better delineate acute-subacute infarcts. He will need to be anticoagulated at some point in time depending on the size of the stroke, and we need to verify his carotids, if there is any high-grade stenosis or not of any concern. Continue current care. Defer to cardiology for further treatment of his heart and extubate when feasible and stable. Of note, the patient is not a TPA candidate due to findings on CT. Some of the strokes are not new. Concern for embolic phenomenon has been ongoing. MD Saji Laws , 06:03 PM , 06:14 PM
[2017-12-24] MEDS ORDERED: Sodium Chlor 0.9% Inj 500 ML IV.CONT SCH (19:00)
[2017-12-24 20:41] LABS: ABG Base Excess 1.8 mmol/L (-2-2); ABG PCO2 37 mmHg (38-42); ABG PO2 214 mmHG (61-120)
[2017-12-24] MEDS: Chlorhexidine 0.12% Oral Kit 15 ML UDC OROPHARYNG SCH (21:39)
[2017-12-24] MEDS: fentaNYL 10 mcg/mL Premix Drip 2,500 MCG/250 ML BAG IV.SIG PRN (21:40)
[2017-12-24] MEDS: Propofol 1000 mg/100 ml Inj 1,000 MG/100 ML BOTTLE IV.CONT PRN (21:42)
[2017-12-25] MEDS: Oral Hygiene Kit OROPHARYNG SCH ×3 (00:35→17:05)
[2017-12-25] MEDS: Insulin NovoLOG Aspart Correctional Sugar Inj SQ SCH ×4 (01:19→17:04)
[2017-12-25] MEDS: Artificial Tears Opth Drops 15 ML Bottle EACH EYE SCH ×3 (01:19→17:05)
--- NOTE | 2017-12-25 04:43 | XR ---
EXAM DATE: 12/25/2017 4:22 AM EST AGE/SEX: 82 years / Male INDICATIONS: Respiratory Failure. CLINICAL DATA: This is the patient's subsequent encounter. Patient reports that signs and symptoms h ave been present for 2 days and indicates a pain score of Nonresponsive. MEDICAL/SURGICAL HISTORY: . Chronic obstructive pulmonary disease. AAA. AFIB. Coronary artery d isease. CABG. [place] [facility] [place] 1V SINGLE AP, 12/24/2017. . FINDINGS: There is parenchymal consolidation again seen in the bilateral lung zones, right more so than left. N o significant change in the interim. No large effusion seen. No pneumothorax. Heart size stable, within normal limits. Patient has had previous median sternotomy and CABG. Endotracheal tube tip is approximately 5 cm above the racquel. Nasogastric tube courses into the stoma ch. There is a right internal jugular central venous catheter with tip in the superior vena cava. CONCLUSION: No significant change. Right greater than left basilar consolidation again noted. Electronically signed by: Suman Morales MD 12/25/2017 4:42 AM EST
[2017-12-25 05:40] LABS: Baso # (Auto) 0.1 th/mm3 (0.0-0.2); Eos # (Auto) 0.1 th/mm3 (0.0-0.4); Eos % (Auto) 0.9 % (0.0-4.0); Hematocrit 30.3 % (39.0-51.0); Hemoglobin 10.5 gm/dL (13.0-17.0); Lymph # (Auto) 1.3 th/mm3 (1.0-4.8); Lymph % (Auto) 17.6 % (9.0-44.0); Mean Corpuscular HGB Conc 34.7 % (32.0-36.0); Mean Corpuscular Hemoglobin 30.6 pg (27.0-34.0); Mean Corpuscular Volume 88.1 fL (80.0-100.0); Mean Platelet Volume 9.7 fL (7.0-11.0); Mono # (Auto) 0.6 th/mm3 (0.0-0.9); Mono % (Auto) 8.2 % (0.0-8.0); Neut # (Auto) 5.3 th/mm3 (1.8-7.7); Neut % (Auto) 72.3 % (16.0-70.0); Platelet Count 160 th/mm3 (150-450); Red Blood Count 3.44 mil/mm3 (4.50-5.90); Red Cell Distribution Width 14.6 % (11.6-17.2); White Blood Count 7.3 th/mm3 (4.0-11.0)
[2017-12-25 06:05] LABS: Carbon Dioxide 30.3 meq/L (21.0-32.0); Phosphorus 2.6 mg/dL (2.5-4.9); Potassium 3.5 meq/L (3.5-5.1)
[2017-12-25] MEDS: Enoxaparin Inj 40 MG/0.4 ML Syringe SQ SCH ×2 (06:09→17:05)
[2017-12-25] MEDS: Potassium Chlor 20 mEq Premix 20 MEQ/100 ML PIGGYBACK IV.SIG PRN ×2 (06:56→09:23)
[2017-12-25] MEDS ORDERED: Potassium Chlor 40 mEq Premix 40 MEQ/100 ML PIGGYBACK IV.SIG ONE (09:05)
--- NOTE | 2017-12-25 09:08 | P.PNCC ---
Subjective Subjective Remarks/Hospital Course: The patient is an 82-year-old male with a past medical history of coronary artery disease, atrial fibrillation, who presented to [facility] ED as a STEMI alert. The patient woke up with substernal chest pain radiating to his back and it was pressure-like in nature. His pain was a 10/10 and associated with nausea. He took 5 nitroglycerin at home with no improvement of his pain. He had aspirin en route. The patient was taken emergently to the [facility] where he underwent a cardiac catheterization by Dr. Maldonado. The patient had a drug-eluting stent x2 in the right CA. In the [facility], he received Versed 3 mg, Diprivan 50 mcg, amiodarone 150 mg bolus and Lopressor 5 mg. He was transferred to CV ICU where he was very agitated and restless. Critical Care Medicine was consulted for agitation and critical care management. He received Ativan and was started on Precedex drip. ABGwas performed, which showed acute hypercapnic respiratory acidosis. He is also on dopamine at 3 mcg. Most of the history was obtained from reviewing medical records as the patient is a poor historian 12/22: Afebrile. Oozing from sheath noted in the right groin area without hematoma. Remains intermittent agitated. On propofol drip at 5 mcg/kg/min. Meet on dopamine at 6 mcg/kg/min. 12/23: Central line placed in right IJ, right radial arterial line placed. Heparin currently on hold we will plan on pulling the sheaths today from right inguinal region. Will try CPAP trial later this afternoon. Remains on low- dose dopamine 12/24: Resting comfortably in bed in no acute distress. Attempting CPAP trials and attempt extubate. Remains hemodynamic is stable on low-dose dopamine drip at 6 mg/kg/min. Meet on amiodarone drip. Currently normal sinus rhythm. Subjective 12/25: Afebrile. Events noted to be last night due to extreme hypertension, tachypnea and acute hypoxia. Stabilized. Plan for MRI brain today. Replace potassium. Objective Vital Signs / I&O: Vital Signs 12/24/17 10:45 12/24/17 11:00 12/24/17 11:05 Temperature Pulse Rate 78 82 Respiratory Rate 18 18 Pulse Oximetry 99 99 12/24/17 12:00 12/24/17 14:20 12/24/17 15:00 Temperature 98.7 F Pulse Rate 82 94 H Respiratory Rate 18 Pulse Oximetry 96 98 12/24/17 15:51 12/24/17 16:00 12/24/17 16:52 Temperature Pulse Rate 102 H 92 H Respiratory Rate 20 Pulse Oximetry 99 12/24/17 17:45 12/24/17 20:00 12/24/17 20:48 Temperature 98.2 F Pulse Rate 80 94 H Respiratory Rate 16 16 Pulse Oximetry 94 L 95 99 12/25/17 00:00 12/25/17 00:25 12/25/17 04:00 Temperature 98.1 F 98.2 F Pulse Rate 76 75 76 Respiratory Rate 16 17 16 Pulse Oximetry 99 99 99 12/25/17 04:58 12/25/17 05:25 12/25/17 08:34 Temperature Pulse Rate 80 43 L 57 L Respiratory Rate 16 16 Pulse Oximetry 99 12/25/17 08:39 Temperature Pulse Rate Respiratory Rate 16 Pulse Oximetry Intake & Output 12/24/17 12/25/17 12/25/17 18:59 06:59 18:59 Intake Total 161 / 161 535 / 535 Output Total 800 / 800 2475 / 2475 Balance -639 / -639 -1940 / -1940 Weight 70.5 kg Intake: IV 101 / 101 535 / 535 Cordarone Inj 450 MG In D5W Inj 250 / 250 241 ML @ 0.5 MG/MIN 16.66 mls/ hr IV.CONT TITRATE PRN Rx#: [id number] Precedex Inj 200 MCG In NS Inj 0 / 0 48 ML @ 0.2 MCG/KG/HR 3.58 mls/ hr IV.CONT TITRATE PRN Rx#: [id number] Diprivan 1000 mg/100 ml Inj 1, 35 / 35 000 mg In 100 ml @ 5 MCG/KG/MIN 2.15 mls/hr IV.CONT TITRATE PRN Rx#:[id number] Thiamine Inj 100 MG In NS Inj 101 / 101 100 ML @ 100 mls/hr IV.SIG DAILY GIANCARLO Rx#:[id number] fentaNYL 10 mcg/mL Premix Drip 250 / 250 2,500 mcg In 250 ml @ 50 MCG/HR 5 mls/hr IV.SIG TITRATE PRN Rx #:[id number] Oral 0 / 0 Tube Feeding 60 / 60 Output: Urine Amount (Catheter) 400 / 400 2375 / 2375 Indwelling Urethral Catheter 400 / 400 2375 / 2375 Gastric Drainage 400 / 400 100 / 100 Orogastric Tube 400 / 400 100 / 100 Other: # Bowel Movements 0 Result Diagrams: 12/25/17 05:20 12/25/17 05:20 Imaging: Chest X-Ray 12/21/17 08:47 CONCLUSION: Chronic interstitial changes. The patient is post median sternotomy. Chest X-Ray 12/21/17 14:27 CONCLUSION: Endotracheal tube in good position. Probable CHF. Abdomen/Bladder Ultrasound 12/22/17 00:00 CONCLUSION: 1. 5 mm stone in the collecting system of the right kidney. There is no hydronephrosis. 2. 3 cm simple cyst arising from the left kidney. 3. Distention of the bladder. Chest X-Ray 12/23/17 06:00 CONCLUSION: No significant change. A left pleural effusion remains as well as cardiomegaly. Chest X-Ray 12/23/17 09:27 CONCLUSION: Right IJ central line in excellent position. Abdomen X-Ray 12/24/17 00:00 CONCLUSION: No foreign implements identified to contraindicate MRI CT CAD 12/24/17 00:00 CONCLUSION: Physiological brain perfusion parameters with RAPID analysis as above. The decision for consideration of therapy is multi factorial and multi disciplinary relying on subjective and objective clinical data. This data is not construed or intended to be the sole determinant of treatment eligibility. Chest X-Ray 12/24/17 00:00 CONCLUSION: 1. ET tube in good position. 2. Persistent lower lung nonconsolidative opacities and new nonconsolidative infiltrate in the right upper. Head CTA 12/24/17 00:00 CONCLUSION: Atherosclerotic disease of the MCAs but no evidence of high-grade stenosis or occlusion. Report was called by [Dr. Russo to Dr. Prince at [phone] ] Neck CTA 12/24/17 00:00 CONCLUSION: 1. Prominent atherosclerotic disease at the carotid bulbs bilaterally left greater than right with approximately 70% focal stenosis at the origin of the left ICA and 50% stenosis on the right. 2. 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 Chest X-Ray 12/24/17 06:00 CONCLUSION: No significant interval change. Head CT 12/24/17 16:12 CONCLUSION: Multiple acute to subacute infarcts in multiple vascular distributions bilaterally. Pattern suggests embolic infarcts. Results were discussed with Dr. Prince at 1635. . Chest X-Ray 12/25/17 06:00 CONCLUSION: No significant change. Right greater than left basilar consolidation again noted. Objective Remarks: GENERAL: This is an 82-year-old male currently orotracheally intubated SKIN: Warm and dry. HEAD: Normocephalic. EYES: No scleral icterus. No injection or drainage. NECK: Supple, trachea midline. No JVD or lymphadenopathy. Right IJ is clean dry and intact CARDIOVASCULAR: RRR. S1, S2. No S4. RESPIRATORY: Breath sounds equal bilaterally. No accessory muscle use. GASTROINTESTINAL: Abdomen soft, non-tender, nondistended. MUSCULOSKELETAL: No cyanosis, or edema. Right angle region with no hematoma with arterial and venous sheaths in place Neuro: Cranial nerves II through XII appear to be grossly intact. Positive gag and cough. Inconsistent examination. Does move left upper extremity and lower extreme the same. Decreased movement right upper and lower extremity. Varies with timing. I seen him move his right upper extremity spontaneously but not to command. 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 Fentanyl drip ordered as well. Morphine 2-4 mg IV every 3 hours as needed pain On thiamine, folate and multivitamin. Monitor for DTs CT brain revealed right parietal/occipital, left frontal/occipital and left cerebellar CVA. Likely embolic. CT angiogram revealed atherosclerosis MCA bilaterally. No stenosis. CTA neck revealed bilateral subclavian stenosis 70% left, right 50%. Evaluated by neurology. Plan for MRI brain today for acuity. CV: Inferior STEMI -2 KIANNA to RCA Coronary artery disease Peripheral vascular disease Abdominal aortic aneurysm Atrial fibrillation Bilateral carotid stenosis with left 70% greater than right percent Elevated troponin Continue aspirin 81 mg daily, Prasugrel 10 mg daily for drug-eluting stent Currently on dopamine at 6 mg/kg/min to maintain mean arterial pressure greater than equal to 65 A.m. EKG the same revealed continuous T changes indicative of STEMI Follow up on echocardiogram -EF 50-55%. Hypokinesis inferior posterior and inferior basal recio. Followed by Dr. Maldonado/cardiology Team the amiodarone drip currently at 0.5 mg/min. Management per cardiology Resp: Acute respiratory failure COPD Tobacco abuse PRVC ventilation. Currently on CPAP trials Albuterol/ipratropium aerosols every 4 hours with albuterol aerosols every 2 hours as needed for dyspnea Budesonide 0.5/2 1 inhalation twice daily Follow-up on chest x-ray 12/26 Spontaneous breathing trials and clinically indicated Tobacco cessation will be encouraged education provided when appropriate GI: Elevated AST -cardiac in origin Hypoalbuminemia Hyperammonia NG tube will start tube feeds with Jevity 1.5 goal 50 cc an hour Pantoprazole for GI prophylaxis Docusate sodium/senna 1 tablet twice daily for bowel regimen : Young catheter placed with acute kidney injury Endo: Sliding scale insulin with aspart insulin to maintain euglycemia TSH - 0.635 Renal: Acute kidney injury -resolved Check renal ultrasound/urine creatinine and electrolytes Avoid nephrotoxic medication Did receive dye/contrast for cardiac catheterization Heme: Normocytic anemia Monitor CBC daily. Follow trends. Maintain heparin heparin drip see orders ID: Completed treatment with prophylaxis cefazolin 1 g IV every 8 hours. Monitor for signs and symptomatology infection FEN: Replace electrolytes as clinically indicated per ICU electrolyte protocol Discontinued supplemental fluids MSK: PT evaluate and treat Access -Right IJ CVL day #3 placed 12/23 and right radial arterial line day #3 placed 12/23 -Currently utilizing right femoral arterial and venous sheath Prophylaxis -GI-lansoprazole -DVT-SCD/pharmacological prophylaxis with SCDs/enoxaparin 40 mg twice daily Critical care time 35 minutes follow-up
[2017-12-25] MEDS: Propofol 1000 mg/100 ml Inj 1,000 MG/100 ML BOTTLE IV.CONT PRN ×2 (09:22→20:05)
[2017-12-25] MEDS: Sodium Chloride 0.9% 2 ML Flush BID IV.FLUSH SCH ×2 (09:26→22:01)
[2017-12-25] MEDS: Folic Acid 1 MG Tablet PO SCH (09:28)
[2017-12-25] MEDS: Metoprolol Tartrate 25 MG Tablet PO SCH ×2 (09:28→22:02)
[2017-12-25] MEDS: Senna/Docusate Sodium 8.6/50 MG Tablet PO SCH ×2 (09:28→22:00)
[2017-12-25] MEDS: Thiamine Inj 100 MG in Sodium Chlor 0.9% Inj 100 ML IV.SIG SCH (09:30)
[2017-12-25] MEDS ORDERED: Atropine Inj 1 MG/10 ML Syringe ONE (12:29)
--- NOTE | 2017-12-25 13:45 | MR ---
EXAM DATE: 12/25/2017 1:31 PM EST AGE/SEX: 82 years / Male INDICATIONS: CVA. CLINICAL DATA: This is the patient's initial encounter. Patient reports that signs and symptoms have been present for 2 days and indicates a pain score of Nonresponsive. MEDICAL/SURGICAL HISTORY: Non-responsive. CABG. COMPARISON: [facility], CT CEREBRAL PERF W CONTRAST W 3D, 12/24/2017. . TECHNIQUE: Multiplanar, multisequence examination of the brain was performed without contrast. FINDINGS: Cerebrum: Significant periventricular white matter changes are evident with scattered areas of restr icted diffusion involving both hemispheres, worse in both occipital lobes. Largest area of restricted diffusion is on the right that does involve the motor strip. There is no associated parenchymal hemo rrhage. Posterior Fossa: Scattered areas restricted diffusion are seen in both cerebellar hemispheres largest 1 cm left hemisphere Extracranial: The visualized portions of the orbits and paranasal sinuses are unremarkable. CONCLUSION: 1. Significant areas of restricted diffusion as above. Findings would be consistent with an embolic process at the level of the aortic arch. Electronically signed by: Oren Lang MD 12/25/2017 1:43 PM EST
--- NOTE | 2017-12-25 15:47 | ECG ---
Date Performed: 12/24/2017 Time Performed: 18:18:56 PTAGE: 82 years EKG: Sinus rhythm . Extensive ST-T changes may be due to myocardial ischemia Possible Left ventricular hypertrophy Abno rmal ECG PREVIOUS TRACING : 12/23/2017 05.59 Compared to previous tracing, the atrial fibrillation has r esolved, but otherwise no significant serial change. DOCTOR: Mackenzie Martinez Interpretating Date/Time 12/25/2017 15:45:50
[2017-12-25] MEDS: Amiodarone 200 MG Tablet NG/OG SCH ×2 (17:03→22:00)
[2017-12-25] MEDS: Chlorhexidine 0.12% Oral Kit 15 ML UDC OROPHARYNG SCH ×2 (17:03→20:05)
[2017-12-25] MEDS: Pantoprazole Inj 40 MG Vial IV.PUSH SCH (17:08)
[2017-12-26] MEDS: Oral Hygiene Kit OROPHARYNG SCH ×4 (00:01→18:02)
[2017-12-26] MEDS: Dextrose 50% in Water 50 ML Vial IV.PUSH PRN (00:07)
--- NOTE | 2017-12-26 04:47 | XR ---
EXAM DATE: 12/26/2017 4:30 AM EST AGE/SEX: 82 years / Male INDICATIONS: Shortness of breath, possible pulmonary disease. CLINICAL DATA: This is the patient's subsequent encounter. Patient reports that signs and symptoms h ave been present for 3 days and indicates a pain score of Nonresponsive. MEDICAL/SURGICAL HISTORY: Chronic obstructive pulmonary disease. Aneurysm, abdominal. CAD. A-f ib. CABG. COMPARISON: [facility] – [place], CHEST 1V SINGLE AP, 12/25/2017. . FINDINGS: Single view the chest some. There are numerous sternal wires and clips suggesting CABG. The endotrach eal tube, nasogastric tube and right IJ central line are in good position. There is a small right ple ural effusion. There is no visible pneumothorax. CONCLUSION: Stable single view the chest with bibasilar areas of consolidation right greater than left. Tubes and catheters in good position Electronically signed by: Haresh Suresh MD 12/26/2017 4:45 AM EST
[2017-12-26 05:13] LABS: Baso # (Auto) 0.1 th/mm3 (0.0-0.2); Baso % (Auto) 0.9 % (0.0-2.0); Eos # (Auto) 0.3 th/mm3 (0.0-0.4); Eos % (Auto) 3.8 % (0.0-4.0); Hematocrit 31.1 % (39.0-51.0); Hemoglobin 10.8 gm/dL (13.0-17.0); Lymph # (Auto) 0.8 th/mm3 (1.0-4.8); Lymph % (Auto) 11.4 % (9.0-44.0); Mean Corpuscular HGB Conc 34.7 % (32.0-36.0); Mean Corpuscular Hemoglobin 30.5 pg (27.0-34.0); Mean Corpuscular Volume 87.9 fL (80.0-100.0); Mean Platelet Volume 9.2 fL (7.0-11.0); Mono # (Auto) 0.6 th/mm3 (0.0-0.9); Mono % (Auto) 8.5 % (0.0-8.0); Neut % (Auto) 75.4 % (16.0-70.0); Platelet Count 196 th/mm3 (150-450); Red Blood Count 3.54 mil/mm3 (4.50-5.90); Red Cell Distribution Width 14.8 % (11.6-17.2); White Blood Count 6.7 th/mm3 (4.0-11.0)
[2017-12-26 05:41] LABS: Albumin 1.9 g/dL (3.4-5.0); Anion Gap 7 meq/L (5-15); Aspartate Aminotransferase 76 U/L (15-37); Blood Urea Nitrogen 19 mg/dL (7-18); Calcium 8.1 mg/dL (8.5-10.1); Chloride 106 meq/L (98-107); Glomerular Filtration Rate 69 mL/min (>89); Glucose,Random 87 mg/dL (74-106); Magnesium 1.9 mg/dL (1.5-2.5); Potassium 4.1 meq/L (3.5-5.1); Sodium 143 meq/L (136-145)
[2017-12-26 05:44] LABS: Alanine Aminotransferase 16 U/L (12-78); Alkaline Phosphatase 88 U/L (45-117); Phosphorus 2.6 mg/dL (2.5-4.9); Total Protein 5.4 g/dL (6.4-8.2)
[2017-12-26] MEDS: Enoxaparin Inj 40 MG/0.4 ML Syringe SQ SCH ×2 (06:09→18:02)
[2017-12-26] MEDS: Artificial Tears Opth Drops 15 ML Bottle EACH EYE SCH ×3 (06:09→18:03)
[2017-12-26] MEDS: Insulin NovoLOG Aspart Correctional Sugar Inj SQ SCH ×4 (07:14→18:04)
[2017-12-26] MEDS: Folic Acid 1 MG Tablet PO SCH (08:51)
[2017-12-26] MEDS: Thiamine Inj 100 MG in Sodium Chlor 0.9% Inj 100 ML IV.SIG SCH (08:52)
[2017-12-26] MEDS: Amiodarone 200 MG Tablet NG/OG SCH ×2 (08:53→22:31)
[2017-12-26] MEDS: Senna/Docusate Sodium 8.6/50 MG Tablet PO SCH ×2 (08:53→22:31)
[2017-12-26] MEDS: Dexmedetomidine Inj 200 MCG in Sodium Chlor 0.9% Inj 48 ML IV.CONT PRN ×2 (10:15→13:50)
[2017-12-26] MEDS: Sodium Chloride 0.9% 2 ML Flush BID IV.FLUSH SCH ×2 (10:29→22:32)
[2017-12-26] MEDS: Chlorhexidine 0.12% Oral Kit 15 ML UDC OROPHARYNG SCH ×2 (10:36→22:32)
--- NOTE | 2017-12-26 11:26 | P.PNNEU ---
Subjective Subjective Comments: Cross cover. No acute events Active Medications: Active Medications Acetaminophen (Tylenol Liq) 650 mg PO Q6H PRN PRN Reason: FEVER Albuterol (Albuterol Neb (Prn)) 2.5 mg NEB Q2HR NEB PRN PRN Reason: DYSPNEA Alprazolam (Xanax) 0.5 mg PO TID PRN PRN Reason: ANXIETY Amiodarone HCl (Cordarone) 200 mg NG/OG BID [facility] Last Admin: 12/26/17 08:53 Dose: 200 mg Artificial Tears (Tears Naturale Opth Drops) 1 drop EACH EYE Q8H [facility] Last Admin: 12/26/17 10:29 Dose: 1 drop Aspirin (Aspirin Chew) 81 mg NG/OG DAILY [facility] Last Admin: 12/26/17 08:51 Dose: 81 mg Budesonide (Pulmocort Respule Neb) 0.5 mg NEB Q12HR NEB [facility] Last Admin: 12/26/17 07:34 Dose: 0.5 mg Chlorhexidine Gluconate (Peridex 0.12% Oral Kit) 15 ml OROPHARYNG BID@0800, 2000 [facility] Last Admin: 12/26/17 10:36 Dose: 15 ml Dextrose (D50w Vial) 50 ml IV.PUSH UNSCH PRN PRN Reason: PER HYPOGLYCEMIA PROTOCOL Last Admin: 12/26/17 00:07 Dose: 50 ml Enoxaparin Sodium (Lovenox Inj) 40 mg SQ Q12H [facility] Last Admin: 12/26/17 06:09 Dose: 40 mg Folic Acid (Folic Acid) 1 mg PO DAILY [facility] Last Admin: 12/26/17 08:51 Dose: 1 mg Glucagon (Glucagon Inj) 1 mg OTHER PRN PRN PRN Reason: for Hypoglycemia Protocol Dexmedetomidine HCl 200 mcg/ (Sodium Chloride) 50 mls @ 3.58 mls/hr IV.CONT TITRATE PRN; Protocol PRN Reason: Per Protocol Last Admin: 12/26/17 10:15 Dose: 0.2 mcg/kg/hr, 3.58 mls/hr Sodium Chloride (Ns Inj) 1,000 mls @ 100 mls/hr IV.SIG .Q10H [facility] Last Infusion: 12/24/17 14:55 Dose: Infused Amiodarone HCl 450 mg/ (Dextrose) 250 mls @ 16.66 mls/hr IV.CONT TITRATE PRN; Protocol PRN Reason: Per Protocol Last Titration: 12/25/17 17:15 Dose: Infused Magnesium Sulfate 4 gm/ Sodium (Chloride) 100 mls @ 50 mls/hr IV.SIG UNSCH PRN PRN Reason: For Magnesium 0.9 - 1.1 mg/dL Magnesium Sulfate 2 gm/ Sodium (Chloride) 100 mls @ 50 mls/hr IV.SIG UNSCH PRN PRN Reason: For Magnesium 1.2 - 1.6 mg/dL Potassium Chloride (Kcl 20 Meq Premix Inj) 20 meq in 100 mls @ 50 mls/hr IV.SIG Q2H PRN PRN Reason: For Potassium 3.3 - 3.5 mEq/L Last Infusion: 12/25/17 17:15 Dose: Infused Potassium Chloride (Kcl 40 Meq Premix Inj) 40 meq in 100 mls @ 25 mls/hr IV.SIG UNSCH PRN PRN Reason: For Potassium 3.3 - 3.5 mEq/L Potassium Chloride (Kcl 20 Meq Premix Inj) 20 meq in 100 mls @ 50 mls/hr IV.SIG Q2H PRN PRN Reason: For Potassium 2.8 - 3.2 mEq/L Potassium Phosphate 30 mmol/ (Sodium Chloride) 260 mls @ 42 mls/hr IV.SIG UNSCH PRN PRN Reason: SEE LABEL COMMENTS Sodium Phosphate 30 mmol/ (Sodium Chloride) 260 mls @ 42 mls/hr IV.SIG UNSCH PRN PRN Reason: For Phosphorus < 2.5 mg/dL Potassium Chloride (Kcl 40 Meq Premix Inj) 40 meq in 100 mls @ 25 mls/hr IV.SIG Q4H PRN PRN Reason: For Potassium 2.8 - 3.2 mEq/L Fentanyl (Fentanyl 10 Mcg/Ml Premix Drip) 2,500 mcg in 250 mls @ 5 mls/hr IV.SIG TITRATE PRN; Protocol PRN Reason: Per Protocol Last Titration: 12/24/17 21:43 Dose: Infused Propofol (Diprivan 1000 Mg/100 Ml Inj) 1,000 mg in 100 mls @ 2.15 mls/hr IV.CONT TITRATE PRN; Protocol PRN Reason: Per Protocol Last Admin: 12/25/17 20:05 Dose: 20 mcg/kg/min, 8.6 mls/hr Thiamine HCl 100 mg/ Sodium (Chloride) 101 mls @ 100 mls/hr IV.SIG DAILY [facility] Last Admin: 12/26/17 08:52 Dose: 100 mls/hr Dopamine HCl 400 mg/ Dextrose 250 mls @ 8.06 mls/hr IV.CONT TITRATE PRN; Protocol PRN Reason: PER PROTOCOL Last Admin: 12/26/17 09:46 Dose: 3 mcg/kg/min, 8.06 mls/hr Insulin Aspart (Novolog Insulin Correctional Sugar Inj) 0 unit SQ Q6HR [facility]; Protocol Last Admin: 12/26/17 07:14 Dose: Not Given Magnesium Oxide (Mag-Ox) 800 mg PO UNSCH PRN PRN Reason: For Magnesium 1.2 - 1.6 mg/dL Metoprolol Tartrate (Lopressor) 25 mg PO BID [facility] Last Admin: 12/25/17 22:02 Dose: Not Given Miscellaneous Medication () 1 each OROPHARYNG 0000,0400,1200,1600 [facility] Last Admin: 12/26/17 06:09 Dose: 1 each Morphine Sulfate (Morphine Inj) 2 mg IV.PUSH Q3H PRN PRN Reason: PAIN SCALE 1 TO 5/AGITATION Morphine Sulfate (Morphine Inj) 4 mg IV.PUSH Q3H PRN PRN Reason: PAIN SCALE 6 TO 10/AGITATION Multivitamins (Theragran) 1 tab PO DAILY [facility] Last Admin: 12/26/17 08:51 Dose: 1 tab Pantoprazole Sodium (Protonix Inj) 40 mg IV.PUSH Q24H [facility] Last Admin: 12/25/17 17:08 Dose: 40 mg Potassium Bicarb/Potassium Chloride (K-Lyte Cl Eff) 50 meq PO UNSCH PRN PRN Reason: For Potassium 3.3 - 3.5 mEq/L Potassium Phosphate (K-Phos Original) 2,000 mg PO Q4H PRN PRN Reason: Phosphorus Less Than 2.5 mg/dL Potassium Phosphate (K-Phos Original) 2,000 mg PO UNSCH PRN PRN Reason: SEE LABEL COMMENTS Prasugrel (Effient) 10 mg PO DAILY [facility] Last Admin: 12/26/17 08:51 Dose: 10 mg Pravastatin Sodium (Pravachol) 80 mg PO HS [facility] Last Admin: 12/25/17 22:00 Dose: 80 mg Senna/Docusate Sodium (Estrella-Colace) 1 tab PO BID [facility] Last Admin: 12/26/17 08:53 Dose: 1 tab Sodium Chloride (Ns Flush) 2 ml IV.FLUSH BID [facility] Last Admin: 12/26/17 10:29 Dose: 2 ml Sodium Chloride (Ns Flush) 2 ml IV.FLUSH PRN PRN PRN Reason: FLUSH AFTER USING IV ACCESS Sodium Chloride (Ns Flush) 0 ml IV.FLUSH DAILY [facility] Last Admin: 12/26/17 10:29 Dose: 2 ml Temazepam (Restoril) 15 mg PO HS PRN PRN Reason: INSOMNIA Terbutaline Sulfate (Brethine Inj) 1 mg SQ UNSCH PRN PRN Reason: Extravasation Allergies/Adverse Reactions: Allergies Allergy/AdvReac Type Severity Reaction Status Date / Time No Known Allergies Allergy Verified 12/21/17 08:42 Review of Systems unobtainable due to endotracheal tube, unobtainable due to mental status Physical Exam Vital signs: Vital Signs 12/25/17 12:00 12/25/17 13:22 12/25/17 13:27 Temperature Pulse Rate Respiratory Rate 16 Blood Pressure 155/87 H Pulse Oximetry 100 100 12/25/17 13:38 12/25/17 15:00 12/25/17 16:00 Temperature 98.2 F Pulse Rate 61 65 Respiratory Rate 16 16 Blood Pressure 119/67 119/67 Pulse Oximetry 99 12/25/17 19:00 12/25/17 19:47 12/25/17 20:00 Temperature 98.4 F Pulse Rate 58 L 77 Respiratory Rate 16 16 Blood Pressure 121/66 93/58 L Pulse Oximetry 99 98 12/25/17 23:00 12/25/17 23:23 12/26/17 00:00 Temperature 98 F Pulse Rate 64 Respiratory Rate 16 16 Blood Pressure 93/53 L 91/49 L Pulse Oximetry 99 99 12/26/17 03:00 12/26/17 04:00 12/26/17 07:00 Temperature 98.9 F 100.2 F H Pulse Rate 71 76 Respiratory Rate 16 16 Blood Pressure 140/74 140/77 88/50 L Pulse Oximetry 99 97 12/26/17 07:34 12/26/17 08:00 12/26/17 10:49 Temperature Pulse Rate 75 76 Respiratory Rate 16 20 Blood Pressure 88/57 L Pulse Oximetry 99 99 Intake & Output 12/25/17 12/26/17 12/26/17 18:59 06:59 18:59 Intake Total 898 / 898 650 / 650 Output Total 830 / 830 1000 / 1000 Balance 68 / 68 -350 / -350 Weight 73 kg Intake: IV 719 / 719 70 / 70 Cordarone Inj 450 MG In D5W Inj 250 / 250 241 ML @ 0.5 MG/MIN 16.66 mls/ hr IV.CONT TITRATE PRN Rx#: [id number] DOPamine 400 MG/250 ML Premix 38 / 38 400 mg In 250 ml @ 3 MCG/KG/MIN 8.063 mls/hr IV.CONT TITRATE PRN Rx#:[id number] Diprivan 1000 mg/100 ml Inj 1, 131 / 131 69 / 69 000 mg In 100 ml @ 5 MCG/KG/MIN 2.15 mls/hr IV.CONT TITRATE PRN Rx#:[id number] KCl 20 mEq Premix Inj 20 meq In 200 / 200 100 ml @ 50 mls/hr IV.SIG Q2H PRN Rx#:[id number] Thiamine Inj 100 MG In NS Inj 100 / 100 1 / 1 100 ML @ 100 mls/hr IV.SIG DAILY [facility]LO Rx#:[id number] Tube Feeding 179 / 179 500 / 500 Tube Irrigant 80 / 80 Output: Urine Amount (Catheter) 830 / 830 1000 / 1000 Indwelling Urethral Catheter 830 / 830 1000 / 1000 Other: # Bowel Movements 0 0 Narrative: GENERAL: in NAD, SKIN: Warm and dry. HEAD: Atraumatic. Normocephalic. ENT: No nasal bleeding or discharge. NECK: Trachea midline. No JVD. CARDIOVASCULAR: Regular rate and rhythm. RESPIRATORY: Intubated GASTROINTESTINAL: Abdomen soft, non-tender, nondistended. 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, wiggles toes right greater than left further examination limited as patient's intubated and on sedation PSYCHIATRIC: Calm - Constitutional no acute distress - Routine HEENT Exam Head: Present: normocephalic - Urinary Catheter Management Condom Cath placed during this visit: no Indwelling Urethral Catheter Cath placed during this visit: yes Reason for continuing: Hourly intake/output Insertion date: 12/22/17 Insertion time: 11:00 Objective Laboratory Results - last 24 hr 12/25/17 12/25/17 12/25/17 12:23 16:31 17:39 WBC RBC Hgb Hct MCV MCH MCHC RDW Plt Count MPV Neut % (Auto) Lymph % (Auto) [place] % (Auto) Eos % (Auto) Baso % (Auto) Neut # (Auto) Lymph # (Auto) [place] # (Auto) Eos # (Auto) Baso # (Auto) WBC Differential Differential Comment Sodium Potassium Chloride Carbon Dioxide Anion Gap BUN Creatinine Estimated GFR POC Glucose 79 65 L 71 Random Glucose Calcium Phosphorus Magnesium Total Bilirubin AST ALT Alkaline Phosphatase Ammonia Total Protein Albumin 12/25/17 12/26/17 12/26/17 22:55 00:04 00:41 WBC RBC Hgb Hct MCV MCH MCHC RDW Plt Count MPV Neut % (Auto) Lymph % (Auto) [place] % (Auto) Eos % (Auto) Baso % (Auto) Neut # (Auto) Lymph # (Auto) [place] # (Auto) Eos # (Auto) Baso # (Auto) WBC Differential Differential Comment Sodium Potassium Chloride Carbon Dioxide Anion Gap BUN Creatinine Estimated GFR POC Glucose 64 L 55 L 63 L Random Glucose Calcium Phosphorus Magnesium Total Bilirubin AST ALT Alkaline Phosphatase Ammonia Total Protein Albumin 12/26/17 12/26/17 12/26/17 01:03 04:50 04:50 WBC 6.7 RBC 3.54 L Hgb 10.8 L Hct 31.1 L MCV 87.9 MCH 30.5 MCHC 34.7 RDW 14.8 Plt Count 196 MPV 9.2 Neut % (Auto) 75.4 H Lymph % (Auto) 11.4 [place] % (Auto) 8.5 H Eos % (Auto) 3.8 Baso % (Auto) 0.9 Neut # (Auto) 5.0 Lymph # (Auto) 0.8 L [place] # (Auto) 0.6 Eos # (Auto) 0.3 Baso # (Auto) 0.1 WBC Differential . Differential Comment Auto diff final Sodium 143 Potassium 4.1 Chloride 106 Carbon Dioxide 30.0 Anion Gap 7 BUN 19 H Creatinine 1.04 Estimated GFR 69 L POC Glucose 100 Random Glucose 87 Calcium 8.1 L Phosphorus 2.6 Magnesium 1.9 Total Bilirubin 0.6 AST 76 H ALT 16 Alkaline Phosphatase 88 Ammonia Total Protein 5.4 L Albumin 1.9 L 12/26/17 12/26/17 04:50 04:56 WBC RBC Hgb Hct MCV MCH MCHC RDW Plt Count MPV Neut % (Auto) Lymph % (Auto) [place] % (Auto) Eos % (Auto) Baso % (Auto) Neut # (Auto) Lymph # (Auto) [place] # (Auto) Eos # (Auto) Baso # (Auto) WBC Differential Differential Comment Sodium Potassium Chloride Carbon Dioxide Anion Gap BUN Creatinine Estimated GFR POC Glucose 93 Random Glucose Calcium Phosphorus Magnesium Total Bilirubin AST ALT Alkaline Phosphatase Ammonia 16 Total Protein Albumin Review/Management - Diagnosis (1) Embolic stroke Code(s): I63.9 - Cerebral infarction, unspecified Status: Acute Current Visit: Yes (2) A-fib Code(s): I48.91 - Unspecified atrial fibrillation Status: Acute Current Visit: Yes (3) Respiratory failure Code(s): J96.90 - Respiratory failure, unspecified, unspecified whether with hypoxia or hypercapnia Status: Acute Current Visit: Yes (4) ST elevation myocardial infarction (STEMI) Code(s): I21.3 - ST elevation (STEMI) myocardial infarction of unspecified site Status: Acute Current Visit: Yes - Review/Management Plan: 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 Full neuro exam limited based on intubated status multiple drips Recommendation Continue antiplatelets. On aspirin and Effient status post stent placement. On DVT dose Lovenox Follow-up echo for any active clots Is at high risk for hemorrhagic transformation based on the size of some of the strokes and therefore initiation of full dose anticoagulation would be precarious (4) ST elevation myocardial infarction (STEMI) Qualifiers: Involved coronary artery: unspecified coronary artery Qualified Code(s): I21.3 - ST elevation (STEMI) myocardial infarction of unspecified site
[2017-12-26] MEDS: Pantoprazole Inj 40 MG Vial IV.PUSH SCH (12:21)
--- NOTE | 2017-12-26 13:10 | P.PNCC ---
Subjective Subjective Remarks/Hospital Course: The patient is an 82-year-old male with a past medical history of coronary artery disease, atrial fibrillation, who presented to [facility] ED as a STEMI alert. The patient woke up with substernal chest pain radiating to his back and it was pressure-like in nature. His pain was a 10/10 and associated with nausea. He took 5 nitroglycerin at home with no improvement of his pain. He had aspirin en route. The patient was taken emergently to the warehouse laborer where he underwent a cardiac catheterization by Dr. Maldonado. The patient had a drug-eluting stent x2 in the right CA. In the warehouse lab[facility], he received Versed 3 mg, Diprivan 50 mcg, amiodarone 150 mg bolus and Lopressor 5 mg. He was transferred to CV ICU where he was very agitated and restless. Critical Care Medicine was consulted for agitation and critical care management. He received Ativan and was started on Precedex drip. ABGwas performed, which showed acute hypercapnic respiratory acidosis. He is also on dopamine at 3 mcg. Most of the history was obtained from reviewing medical records as the patient is a poor historian 12/22: Afebrile. Oozing from sheath noted in the right groin area without hematoma. Remains intermittent agitated. On propofol drip at 5 mcg/kg/min. Meet on dopamine at 6 mcg/kg/min. 12/23: Central line placed in right IJ, right radial arterial line placed. Heparin currently on hold we will plan on pulling the sheaths today from right inguinal region. Will try CPAP trial later this afternoon. Remains on low- dose dopamine 12/24: Resting comfortably in bed in no acute distress. Attempting CPAP trials and attempt extubate. Remains hemodynamic is stable on low-dose dopamine drip at 6 mg/kg/min. Meet on amiodarone drip. Currently normal sinus rhythm. 12/25: Afebrile. Events noted to be last night due to extreme hypertension, tachypnea and acute hypoxia. Stabilized. Plan for MRI brain today. Replace potassium. Subjective 12/26: T-max 100.2. MRI results noted. Attempting to wean to extubate. Arousable but currently not following commands. Will start dexmedetomidine drip and attempt to wean from ventilator. Objective Vital Signs / I&O: Vital Signs 12/25/17 13:22 12/25/17 13:27 12/25/17 13:38 Temperature Pulse Rate 61 Respiratory Rate 16 16 Blood Pressure Pulse Oximetry 100 100 12/25/17 15:00 12/25/17 16:00 12/25/17 19:00 Temperature 98.2 F 98.4 F Pulse Rate 65 58 L Respiratory Rate 16 16 Blood Pressure 119/67 119/67 121/66 Pulse Oximetry 99 99 12/25/17 19:47 12/25/17 20:00 12/25/17 23:00 Temperature 98 F Pulse Rate 77 64 Respiratory Rate 16 16 Blood Pressure 93/58 L 93/53 L Pulse Oximetry 98 99 12/25/17 23:23 12/26/17 00:00 12/26/17 03:00 Temperature 98.9 F Pulse Rate 71 Respiratory Rate 16 16 Blood Pressure 91/49 L 140/74 Pulse Oximetry 99 99 12/26/17 04:00 12/26/17 07:00 12/26/17 07:34 Temperature 100.2 F H Pulse Rate 76 75 Respiratory Rate 16 16 Blood Pressure 140/77 88/50 L Pulse Oximetry 97 99 12/26/17 08:00 12/26/17 10:49 Temperature Pulse Rate 76 Respiratory Rate 20 Blood Pressure 88/57 L Pulse Oximetry 99 Intake & Output 12/25/17 12/26/17 12/26/17 18:59 06:59 18:59 Intake Total 898 / 898 650 / 650 Output Total 830 / 830 1000 / 1000 Balance 68 / 68 -350 / -350 Weight 73 kg Intake: IV 719 / 719 70 / 70 Cordarone Inj 450 MG In D5W Inj 250 / 250 241 ML @ 0.5 MG/MIN 16.66 mls/ hr IV.CONT TITRATE PRN Rx#: [id number] DOPamine 400 MG/250 ML Premix 38 / 38 400 mg In 250 ml @ 3 MCG/KG/MIN 8.063 mls/hr IV.CONT TITRATE PRN Rx#:[id number] Diprivan 1000 mg/100 ml Inj 1, 131 / 131 69 / 69 000 mg In 100 ml @ 5 MCG/KG/MIN 2.15 mls/hr IV.CONT TITRATE PRN Rx#:[id number] KCl 20 mEq Premix Inj 20 meq In 200 / 200 100 ml @ 50 mls/hr IV.SIG Q2H PRN Rx#:[id number] Thiamine Inj 100 MG In NS Inj 100 / 100 1 / 1 100 ML @ 100 mls/hr IV.SIG DAILY GIANCARLO Rx#:[id number] Tube Feeding 179 / 179 500 / 500 Tube Irrigant 80 / 80 Output: Urine Amount (Catheter) 830 / 830 1000 / 1000 Indwelling Urethral Catheter 830 / 830 1000 / 1000 Other: # Bowel Movements 0 0 Result Diagrams: 12/26/17 04:50 12/26/17 04:50 Imaging: Chest X-Ray 12/21/17 08:47 CONCLUSION: Chronic interstitial changes. The patient is post median sternotomy. Chest X-Ray 12/21/17 14:27 CONCLUSION: Endotracheal tube in good position. Probable CHF. Abdomen/Bladder Ultrasound 12/22/17 00:00 CONCLUSION: 1. 5 mm stone in the collecting system of the right kidney. There is no hydronephrosis. 2. 3 cm simple cyst arising from the left kidney. 3. Distention of the bladder. Chest X-Ray 12/23/17 06:00 CONCLUSION: No significant change. A left pleural effusion remains as well as cardiomegaly. Chest X-Ray 12/23/17 09:27 CONCLUSION: Right IJ central line in excellent position. Abdomen X-Ray 12/24/17 00:00 CONCLUSION: No foreign implements identified to contraindicate MRI CT CAD 12/24/17 00:00 CONCLUSION: Physiological brain perfusion parameters with RAPID analysis as above. The decision for consideration of therapy is multi factorial and multi disciplinary relying on subjective and objective clinical data. This data is not construed or intended to be the sole determinant of treatment eligibility. Chest X-Ray 12/24/17 00:00 CONCLUSION: 1. ET tube in good position. 2. Persistent lower lung nonconsolidative opacities and new nonconsolidative infiltrate in the right upper. Head CTA 12/24/17 00:00 CONCLUSION: Atherosclerotic disease of the MCAs but no evidence of high-grade stenosis or occlusion. Report was called by [Dr. Russo to Dr. Prince at [id number] ] Neck CTA 12/24/17 00:00 CONCLUSION: 1. Prominent atherosclerotic disease at the carotid bulbs bilaterally left greater than right with approximately 70% focal stenosis at the origin of the left ICA and 50% stenosis on the right. 2. 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 Chest X-Ray 12/24/17 06:00 CONCLUSION: No significant interval change. Head CT 12/24/17 16:12 CONCLUSION: Multiple acute to subacute infarcts in multiple vascular distributions bilaterally. Pattern suggests embolic infarcts. Results were discussed with Dr. Prince at 1635. . Chest X-Ray 12/25/17 06:00 CONCLUSION: No significant change. Right greater than left basilar consolidation again noted. Head MRI 12/25/17 06:57 CONCLUSION: 1. Significant areas of restricted diffusion as above. Findings would be consistent with an embolic process at the level of the aortic arch. Chest X-Ray 12/26/17 06:00 CONCLUSION: Stable single view the chest with bibasilar areas of consolidation right greater than left. Tubes and catheters in good position Objective Remarks: GENERAL: This is an 82-year-old male currently orotracheally intubated SKIN: Warm and dry. HEAD: Normocephalic. EYES: No scleral icterus. No injection or drainage. NECK: Supple, trachea midline. No JVD or lymphadenopathy. Right IJ is clean dry and intact CARDIOVASCULAR: RRR. S1, S2. No S4. RESPIRATORY: Breath sounds equal bilaterally. No accessory muscle use. GASTROINTESTINAL: Abdomen soft, non-tender, nondistended. MUSCULOSKELETAL: No cyanosis, or edema. Right angle region with no hematoma with arterial and venous sheaths in place Neuro: Cranial nerves II through XII appear to be grossly intact. Positive gag and cough. Inconsistent examination. Does move left upper extremity and lower extreme the same. Decreased movement right upper and lower extremity. Varies with timing. I seen him move his right upper extremity spontaneously but not to command. 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 Fentanyl drip ordered as well. Morphine 2-4 mg IV every 3 hours as needed pain On thiamine, folate and multivitamin. Monitor for DTs CT brain revealed right parietal/occipital, left frontal/occipital and left cerebellar CVA. Likely embolic. CT angiogram revealed atherosclerosis MCA bilaterally. No stenosis. CTA neck revealed bilateral subclavian stenosis 70% left, right 50%. Evaluated by neurology. Plan for MRI brain - Cerebrum: Significant periventricular white matter changes are evident with scattered areas of restricted diffusion involving both hemispheres, worse in both occipital lobes. Largest area of restricted diffusion is on the right that does involve the motor strip. There is no associated parenchymal hemorrhage. Posterior Fossa: Scattered areas restricted diffusion are seen in both cerebellar hemispheres largest 1 cm left hemisphere Neurology recommends no systemic anticoagulation due to high risk of hemorrhagic conversion. CV: Inferior STEMI -2 KIANNA to RCA Coronary artery disease Peripheral vascular disease Abdominal aortic aneurysm Atrial fibrillation Bilateral carotid stenosis with left 70% greater than right percent Elevated troponin Continue aspirin 81 mg daily, Prasugrel 10 mg daily for drug-eluting stent Currently on dopamine at 6 mg/kg/min to maintain mean arterial pressure greater than equal to 65 Admission. EKG the same revealed continuous T changes indicative of STEMI Follow up on echocardiogram -EF 50-55%. Hypokinesis inferior posterior and inferior basal recio. Followed by Dr. Maldonado/cardiology Team the amiodarone drip currently at 0.5 mg/min. 200 mg twice daily oral. Management per cardiology Resp: Acute respiratory failure COPD Tobacco abuse PRVC ventilation. Currently on CPAP trials Albuterol/ipratropium aerosols every 4 hours with albuterol aerosols every 2 hours as needed for dyspnea Budesonide 0.5/2 1 inhalation twice daily Follow-up on chest x-ray 12/27 Spontaneous breathing trials and clinically indicated Tobacco cessation will be encouraged education provided when appropriate GI: Elevated AST -cardiac in origin Hypoalbuminemia Hyperammonia NG tube will start tube feeds with Jevity 1.5 goal 50 cc an hour Pantoprazole for GI prophylaxis Docusate sodium/senna 1 tablet twice daily for bowel regimen : Young catheter placed with acute kidney injury Endo: Sliding scale insulin with aspart insulin to maintain euglycemia TSH - 0.635 Renal: Acute kidney injury -resolved Check renal ultrasound/urine creatinine and electrolytes Avoid nephrotoxic medication Did receive dye/contrast for cardiac catheterization Heme: Normocytic anemia Monitor CBC daily. Follow trends. Maintain heparin heparin drip see orders ID: Completed treatment with prophylaxis cefazolin 1 g IV every 8 hours. Monitor for signs and symptomatology infection FEN: Replace electrolytes as clinically indicated per ICU electrolyte protocol Discontinued supplemental fluids MSK: PT evaluate and treat Access -Right IJ CVL day #4 placed 12/23 and right radial arterial line day #4 placed 12/23 -Currently utilizing right femoral arterial and venous sheath Prophylaxis -GI-lansoprazole -DVT-SCD/pharmacological prophylaxis with SCDs/enoxaparin 40 mg twice daily Critical care time 35 minutes follow-up
[2017-12-26] MEDS: Metoprolol Tartrate 25 MG Tablet PO SCH ×2 (14:54→22:33)
[2017-12-26] MEDS ORDERED: Mineral Oil 55% Emulsion 480 ML PO ONE (15:00)
[2017-12-26] MEDS ORDERED: Magnesium Citrate Liq 300 ML Bottle PO ONE (15:00)
[2017-12-26] MEDS ORDERED: Mineral Oil 55% Emulsion 30 ML UDC PO ONE (15:00)
[2017-12-26] MEDS ORDERED: Methylnaltrexone Inj 12 MG/0.6 ML Vial SQ ONE (15:00)
[2017-12-26] MEDS: Sod Chloride 0.9% Inj 1,000 ML IV.CONT SCH (15:02)
--- NOTE | 2017-12-26 15:42 | XR ---
EXAM DATE: 12/26/2017 3:33 PM EST AGE/SEX: 82 years / Male INDICATIONS: Abdominal distention. CLINICAL DATA: This is the patient's initial encounter. Patient reports that signs and symptoms have been present for 1 day and indicates a pain score of Nonresponsive. MEDICAL/SURGICAL HISTORY: . Chronic obstructive pulmonary disease. Aneurysm, abdominal. CAD. A- fib. CABG. . COMPARISON: [facility] – [place] 1V KUB, 12/24/2017. . FINDINGS: The abdominal bowel gas pattern is normal. No abnormal masses, calcifications, or organomegaly is s een. Degenerative changes and scoliosis of the thoracolumbar spine are noted. Nasogastric tube is coi led in the stomach. CONCLUSION: 1. No bowel obstruction, ileus or perforation. 2. Degenerative changes and scoliosis of the thoracolumbar spine. Electronically signed by: Pierre Lawton MD 12/26/2017 3:41 PM EST
[2017-12-26] MEDS: Propofol 1000 mg/100 ml Inj 1,000 MG/100 ML BOTTLE IV.CONT PRN (18:03)
[2017-12-26] MEDS: fentaNYL 10 mcg/mL Premix Drip 2,500 MCG/250 ML BAG IV.SIG PRN (18:18)
[2017-12-26] MEDS: Polyethylene Glycol 3350 17 GM Packet PO SCH (22:31)
[2017-12-27] MEDS: Amiodarone 200 MG Tablet NG/OG SCH ×3 (00:07→22:09)
[2017-12-27] MEDS: Oral Hygiene Kit OROPHARYNG SCH ×4 (02:27→16:24)
[2017-12-27] MEDS: Artificial Tears Opth Drops 15 ML Bottle EACH EYE SCH ×3 (02:27→17:44)
[2017-12-27] MEDS: Insulin NovoLOG Aspart Correctional Sugar Inj SQ SCH ×4 (02:27→17:44)
[2017-12-27] MEDS: Propofol 1000 mg/100 ml Inj 1,000 MG/100 ML BOTTLE IV.CONT PRN ×3 (02:28→17:45)
--- NOTE | 2017-12-27 03:49 | XR ---
EXAM DATE: 12/27/2017 3:47 AM EST AGE/SEX: 82 years / Male INDICATIONS: Shortness of breath, possible pulmonary disease. CLINICAL DATA: This is the patient's subsequent encounter. Patient reports that signs and symptoms h ave been present for 4 - 6 days and indicates a pain score of Nonresponsive. MEDICAL/SURGICAL HISTORY: Chronic obstructive pulmonary disease. Aneurysm, abdominal. CAD. A-f ib. CABG. COMPARISON: [facility], CHEST 1V SINGLE AP, 12/26/2017. . FINDINGS: Single view the chest demonstrates the endotracheal tube, nasogastric tube and right IJ central line are in good position. There is a moderate size left pleural effusion. There is no visible pneumothora x. CONCLUSION: Right IJ central line is tip overlying the SVC behind the medial right clavicular head. Left pleural effusion with some left basilar consolidation Electronically signed by: Haresh Suresh MD 12/27/2017 3:48 AM EST
[2017-12-27 04:58] LABS: Baso % (Auto) 0.7 % (0.0-2.0); Eos # (Auto) 0.3 th/mm3 (0.0-0.4); Hematocrit 29.8 % (39.0-51.0); Lymph # (Auto) 1.3 th/mm3 (1.0-4.8); Lymph % (Auto) 28.1 % (9.0-44.0); Mean Corpuscular HGB Conc 33.6 % (32.0-36.0); Mean Corpuscular Hemoglobin 30.2 pg (27.0-34.0); Mean Corpuscular Volume 89.9 fL (80.0-100.0); Mono # (Auto) 0.5 th/mm3 (0.0-0.9); Mono % (Auto) 10.4 % (0.0-8.0); Neut # (Auto) 2.5 th/mm3 (1.8-7.7); Neut % (Auto) 54.8 % (16.0-70.0); Platelet Count 201 th/mm3 (150-450); Red Blood Count 3.31 mil/mm3 (4.50-5.90); Red Cell Distribution Width 14.9 % (11.6-17.2); White Blood Count 4.5 th/mm3 (4.0-11.0)
[2017-12-27] MEDS: Sod Chloride 0.9% Inj 1,000 ML IV.CONT SCH ×2 (05:10→16:18)
[2017-12-27] MEDS: Enoxaparin Inj 40 MG/0.4 ML Syringe SQ SCH ×2 (05:11→17:44)
[2017-12-27 05:21] LABS: Albumin 1.8 g/dL (3.4-5.0); Anion Gap 8 meq/L (5-15); Aspartate Aminotransferase 57 U/L (15-37); Blood Urea Nitrogen 18 mg/dL (7-18); Carbon Dioxide 27.2 meq/L (21.0-32.0); Chloride 108 meq/L (98-107); Glomerular Filtration Rate 69 mL/min (>89); Glucose,Random 75 mg/dL (74-106); Magnesium 1.9 mg/dL (1.5-2.5); Sodium 143 meq/L (136-145)
[2017-12-27 05:22] LABS: Alanine Aminotransferase 19 U/L (12-78); Phosphorus 2.8 mg/dL (2.5-4.9)
[2017-12-27 05:25] LABS: Alkaline Phosphatase 94 U/L (45-117); Total Protein 5.3 g/dL (6.4-8.2)
[2017-12-27] MEDS: Thiamine Inj 100 MG in Sodium Chlor 0.9% Inj 100 ML IV.SIG SCH (09:28)
[2017-12-27] MEDS: Polyethylene Glycol 3350 17 GM Packet PO SCH ×2 (09:28→22:10)
[2017-12-27] MEDS: Senna/Docusate Sodium 8.6/50 MG Tablet PO SCH ×2 (09:29→22:11)
[2017-12-27] MEDS: Metoprolol Tartrate 25 MG Tablet PO SCH ×2 (09:30→22:10)
[2017-12-27] MEDS: Sodium Chloride 0.9% 2 ML Flush BID IV.FLUSH SCH ×2 (09:30→22:10)
[2017-12-27] MEDS: Chlorhexidine 0.12% Oral Kit 15 ML UDC OROPHARYNG SCH ×2 (09:31→22:09)
[2017-12-27] MEDS: Folic Acid 1 MG Tablet PO SCH (09:35)
[2017-12-27] MEDS ORDERED: DOPamine 400 MG/250 ML Premix 400 MG/250 ML BAG IV.CONT PRN (09:56)
--- NOTE | 2017-12-27 10:41 | P.PNNEU ---
Subjective Subjective Comments: No acute events. Restarted on sedation overnight Active Medications: Active Medications Acetaminophen (Tylenol Liq) 650 mg PO Q6H PRN PRN Reason: FEVER Albuterol (Albuterol Neb (Prn)) 2.5 mg NEB Q2HR NEB PRN PRN Reason: DYSPNEA Albuterol (Duoneb Neb (Kasandra)) 1 ampul NEB Q4HR NEB [facility] Last Admin: 12/27/17 07:37 Dose: 1 ampul Alprazolam (Xanax) 0.5 mg PO TID PRN PRN Reason: ANXIETY Amiodarone HCl (Cordarone) 200 mg NG/OG BID [facility] Last Admin: 12/27/17 09:30 Dose: Not Given Artificial Tears (Tears Naturale Opth Drops) 1 drop EACH EYE Q8H [facility] Last Admin: 12/27/17 09:31 Dose: 1 drop Aspirin (Aspirin Chew) 81 mg NG/OG DAILY [facility] Last Admin: 12/27/17 09:29 Dose: 81 mg Budesonide (Pulmocort Respule Neb) 0.5 mg NEB Q12HR NEB [facility] Last Admin: 12/27/17 07:37 Dose: 0.5 mg Chlorhexidine Gluconate (Peridex 0.12% Oral Kit) 15 ml OROPHARYNG BID@0800, 2000 [facility] Last Admin: 12/27/17 09:31 Dose: 15 ml Dextrose (D50w Vial) 50 ml IV.PUSH UNSCH PRN PRN Reason: PER HYPOGLYCEMIA PROTOCOL Last Admin: 12/26/17 00:07 Dose: 50 ml Enoxaparin Sodium (Lovenox Inj) 40 mg SQ Q12H [facility] Last Admin: 12/27/17 05:11 Dose: 40 mg Folic Acid (Folic Acid) 1 mg PO DAILY [facility] Last Admin: 12/27/17 09:35 Dose: 1 mg Glucagon (Glucagon Inj) 1 mg OTHER PRN PRN PRN Reason: for Hypoglycemia Protocol Dexmedetomidine HCl 200 mcg/ (Sodium Chloride) 50 mls @ 3.58 mls/hr IV.CONT TITRATE PRN; Protocol PRN Reason: Per Protocol Last Titration: 12/26/17 18:19 Dose: 0 mcg/kg/hr, 0 mls/hr Sodium Chloride (Ns Inj) 1,000 mls @ 100 mls/hr IV.SIG .Q10H [facility] Last Infusion: 12/24/17 14:55 Dose: Infused Amiodarone HCl 450 mg/ (Dextrose) 250 mls @ 16.66 mls/hr IV.CONT TITRATE PRN; Protocol PRN Reason: Per Protocol Last Titration: 12/25/17 17:15 Dose: Infused Magnesium Sulfate 4 gm/ Sodium (Chloride) 100 mls @ 50 mls/hr IV.SIG UNSCH PRN PRN Reason: For Magnesium 0.9 - 1.1 mg/dL Magnesium Sulfate 2 gm/ Sodium (Chloride) 100 mls @ 50 mls/hr IV.SIG UNSCH PRN PRN Reason: For Magnesium 1.2 - 1.6 mg/dL Potassium Chloride (Kcl 20 Meq Premix Inj) 20 meq in 100 mls @ 50 mls/hr IV.SIG Q2H PRN PRN Reason: For Potassium 3.3 - 3.5 mEq/L Last Infusion: 12/25/17 17:15 Dose: Infused Potassium Chloride (Kcl 40 Meq Premix Inj) 40 meq in 100 mls @ 25 mls/hr IV.SIG UNSCH PRN PRN Reason: For Potassium 3.3 - 3.5 mEq/L Potassium Chloride (Kcl 20 Meq Premix Inj) 20 meq in 100 mls @ 50 mls/hr IV.SIG Q2H PRN PRN Reason: For Potassium 2.8 - 3.2 mEq/L Potassium Phosphate 30 mmol/ (Sodium Chloride) 260 mls @ 42 mls/hr IV.SIG UNSCH PRN PRN Reason: SEE LABEL COMMENTS Sodium Phosphate 30 mmol/ (Sodium Chloride) 260 mls @ 42 mls/hr IV.SIG UNSCH PRN PRN Reason: For Phosphorus < 2.5 mg/dL Potassium Chloride (Kcl 40 Meq Premix Inj) 40 meq in 100 mls @ 25 mls/hr IV.SIG Q4H PRN PRN Reason: For Potassium 2.8 - 3.2 mEq/L Fentanyl (Fentanyl 10 Mcg/Ml Premix Drip) 2,500 mcg in 250 mls @ 5 mls/hr IV.SIG TITRATE PRN; Protocol PRN Reason: Per Protocol Last Titration: 12/26/17 18:19 Dose: 50 mcg/hr, 5 mls/hr Propofol (Diprivan 1000 Mg/100 Ml Inj) 1,000 mg in 100 mls @ 2.15 mls/hr IV.CONT TITRATE PRN; Protocol PRN Reason: Per Protocol Last Admin: 12/27/17 09:27 Dose: 40 mcg/kg/min, 17.2 mls/hr Thiamine HCl 100 mg/ Sodium (Chloride) 101 mls @ 100 mls/hr IV.SIG DAILY [facility] Last Admin: 12/27/17 09:28 Dose: 100 mls/hr Sodium Chloride (Ns Inj) 1,000 mls @ 84 mls/hr IV.CONT .[id number] [facility] Last Admin: 12/27/17 05:10 Dose: 84 mls/hr Dopamine HCl/Dextrose (Dopamine 400 Mg/250 Ml Premix) 400 mg in 250 mls @ 8.063 mls/hr IV.CONT TITRATE PRN; Protocol PRN Reason: PRN PROTOCOL Insulin Aspart (Novolog Insulin Correctional Sugar Inj) 0 unit SQ Q6HR [facility]; Protocol Last Admin: 12/27/17 07:06 Dose: Not Given Lactulose (Lactulose Liq) 30 ml PO BID [facility] Last Admin: 12/27/17 09:28 Dose: 30 ml Magnesium Oxide (Mag-Ox) 800 mg PO UNSCH PRN PRN Reason: For Magnesium 1.2 - 1.6 mg/dL Methylnaltrexone [place] (Relistor) 12 mg SQ ONCE ONE Stop: 12/27/17 09:52 Metoclopramide HCl (Reglan Inj) 5 mg IV.PUSH Q8HR [facility]; Protocol Last Admin: 12/27/17 05:11 Dose: 5 mg Metoprolol Tartrate (Lopressor) 25 mg PO BID [facility] Last Admin: 12/27/17 09:30 Dose: Not Given Mineral Oil (Kondremul Susp) 30 ml PO ONCE ONE Stop: 12/27/17 09:52 Miscellaneous Medication () 1 each OROPHARYNG 0000,0400,1200,1600 [facility] Last Admin: 12/27/17 05:11 Dose: 1 each Morphine Sulfate (Morphine Inj) 2 mg IV.PUSH Q3H PRN PRN Reason: PAIN SCALE 1 TO 5/AGITATION Morphine Sulfate (Morphine Inj) 4 mg IV.PUSH Q3H PRN PRN Reason: PAIN SCALE 6 TO 10/AGITATION Multivitamins (Theragran) 1 tab PO DAILY [facility] Last Admin: 12/27/17 09:29 Dose: 1 tab Pantoprazole Sodium (Protonix Inj) 40 mg IV.PUSH Q24H [facility] Last Admin: 12/26/17 12:21 Dose: 40 mg Polyethylene Glycol (Miralax) 17 gm PO BID [facility] Last Admin: 12/27/17 09:28 Dose: 17 gm Polyethylene Glycol/Electrolytes (Colyte Liq) 2,000 ml PO ONCE ONE Stop: 12/27/17 09:53 Potassium Bicarb/Potassium Chloride (K-Lyte Cl Eff) 50 meq PO UNSCH PRN PRN Reason: For Potassium 3.3 - 3.5 mEq/L Potassium Phosphate (K-Phos Original) 2,000 mg PO Q4H PRN PRN Reason: Phosphorus Less Than 2.5 mg/dL Potassium Phosphate (K-Phos Original) 2,000 mg PO UNSCH PRN PRN Reason: SEE LABEL COMMENTS Prasugrel (Effient) 10 mg PO DAILY [facility] Last Admin: 12/27/17 09:29 Dose: 10 mg Pravastatin Sodium (Pravachol) 80 mg PO HS [facility] Last Admin: 12/26/17 22:31 Dose: 80 mg Senna/Docusate Sodium (Estrella-Colace) 1 tab PO BID [facility] Last Admin: 12/27/17 09:29 Dose: 1 tab Sodium Chloride (Ns Flush) 2 ml IV.FLUSH BID [facility] Last Admin: 12/27/17 09:30 Dose: 2 ml Sodium Chloride (Ns Flush) 2 ml IV.FLUSH PRN PRN PRN Reason: FLUSH AFTER USING IV ACCESS Sodium Chloride (Ns Flush) 0 ml IV.FLUSH DAILY [facility] Last Admin: 12/27/17 09:30 Dose: 2 ml Temazepam (Restoril) 15 mg PO HS PRN PRN Reason: INSOMNIA Terbutaline Sulfate (Brethine Inj) 1 mg SQ UNSCH PRN PRN Reason: Extravasation Allergies/Adverse Reactions: Allergies Allergy/AdvReac Type Severity Reaction Status Date / Time No Known Allergies Allergy Verified 12/21/17 08:42 Review of Systems unobtainable due to endotracheal tube, unobtainable due to mental condition Physical Exam Vital signs: Vital Signs 12/26/17 10:49 12/26/17 11:00 12/26/17 12:00 Temperature 98.2 F Pulse Rate 106 H 106 H Respiratory Rate 20 16 Blood Pressure 172/72 H Pulse Oximetry 99 97 12/26/17 14:40 12/26/17 15:00 12/26/17 16:00 Temperature 98.2 F Pulse Rate 75 68 Respiratory Rate 17 16 Blood Pressure 132/69 117/49 L Pulse Oximetry 99 99 12/26/17 16:06 12/26/17 16:55 12/26/17 19:50 Temperature Pulse Rate 75 69 Respiratory Rate 20 24 16 Blood Pressure Pulse Oximetry 99 12/26/17 19:51 12/26/17 20:00 12/26/17 23:11 Temperature 98.8 F Pulse Rate 79 Respiratory Rate 16 16 16 Blood Pressure 99/69 L Pulse Oximetry 99 99 99 12/26/17 23:13 12/27/17 00:00 12/27/17 04:00 Temperature 98.4 F 98.3 F Pulse Rate 76 73 68 Respiratory Rate 16 16 16 Blood Pressure 92/59 L Pulse Oximetry 99 99 12/27/17 04:05 12/27/17 04:08 12/27/17 07:00 Temperature 97.8 F Pulse Rate 61 57 L Respiratory Rate 16 17 17 Blood Pressure Pulse Oximetry 99 100 12/27/17 07:39 12/27/17 08:00 Temperature Pulse Rate 55 L 57 L Respiratory Rate 16 Blood Pressure Pulse Oximetry 100 Intake & Output 12/26/17 12/27/17 12/27/17 18:59 06:59 18:59 Intake Total 1149 / 1149 909 / 909 101 / 101 Output Total 715 / 715 825 / 825 Balance 434 / 434 84 / 84 101 / 101 Weight 72 kg Intake: IV 699 / 699 909 / 909 101 / 101 Intropin Inj 400 MG In D5W Inj / 86 240 ML @ 3 MCG/KG/MIN 8.06 mls/ hr IV.CONT TITRATE PRN Rx#: [id number] Precedex Inj 200 MCG In NS Inj 59 / 59 48 ML @ 0.2 MCG/KG/HR 3.58 mls/ hr IV.CONT TITRATE PRN Rx#: [id number] Diprivan 1000 mg/100 ml Inj 1, 118 / 118 69 / 69 100 / 100 000 mg In 100 ml @ 5 MCG/KG/MIN 2.15 mls/hr IV.CONT TITRATE PRN Rx#:[id number] NS Inj 1,000 ML @ 84 mls/hr IV. 160 / 160 840 / 840 CONT .[id number] [facility] Rx#:[id number] Thiamine Inj 100 MG In NS Inj 100 / 100 1 / 1 100 ML @ 100 mls/hr IV.SIG DAILY [facility] Rx#:[id number] fentaNYL 10 mcg/mL Premix Drip 176 / 176 2,500 mcg In 250 ml @ 50 MCG/HR 5 mls/hr IV.SIG TITRATE PRN Rx #:[id number] Oral 0 / 0 Tube Feeding 150 / 150 Tube Irrigant 300 / 300 Output: Urine Amount (Catheter) 515 / 515 525 / 525 Indwelling Urethral Catheter 515 / 515 525 / 525 Gastric Drainage 200 / 200 300 / 300 Orogastric Tube 200 / 200 300 / 300 Other: # Bowel Movements 0 0 Narrative: GENERAL: in NAD, SKIN: Warm and dry. HEAD: Atraumatic. Normocephalic. ENT: No nasal bleeding or discharge. NECK: Trachea midline. No JVD. CARDIOVASCULAR: Regular rate and rhythm. RESPIRATORY: Intubated GASTROINTESTINAL: Abdomen soft, non-tender, nondistended. NEUROLOGICAL: Intubated on propofol and fentanyl drips, coma state nonverbal not wakening up pinpoint pupils Limited exam PSYCHIATRIC: Calm - Constitutional no acute distress - Routine HEENT Exam Head: Present: normocephalic - Urinary Catheter Management Condom Cath placed during this visit: no Indwelling Urethral Catheter Cath placed during this visit: yes Reason for continuing: Hourly intake/output Insertion date: 12/22/17 Insertion time: 11:00 Objective Laboratory Results - last 24 hr 12/26/17 12/26/17 12/27/17 11:48 17:41 02:25 WBC RBC Hgb Hct MCV MCH MCHC RDW Plt Count MPV Neut % (Auto) Lymph % (Auto) [place] % (Auto) Eos % (Auto) Baso % (Auto) Neut # (Auto) Lymph # (Auto) [place] # (Auto) Eos # (Auto) Baso # (Auto) WBC Differential Differential Comment Sodium Potassium Chloride Carbon Dioxide Anion Gap BUN Creatinine Estimated GFR POC Glucose 140 H 96 203 H Random Glucose Calcium Phosphorus Magnesium Total Bilirubin AST ALT Alkaline Phosphatase Ammonia Total Protein Albumin 12/27/17 12/27/17 12/27/17 04:35 04:35 04:35 WBC 4.5 RBC 3.31 L Hgb 10.0 L Hct 29.8 L MCV 89.9 MCH 30.2 MCHC 33.6 RDW 14.9 Plt Count 201 MPV 9.0 Neut % (Auto) 54.8 Lymph % (Auto) 28.1 [place] % (Auto) 10.4 H Eos % (Auto) 6.0 H Baso % (Auto) 0.7 Neut # (Auto) 2.5 Lymph # (Auto) 1.3 [place] # (Auto) 0.5 Eos # (Auto) 0.3 Baso # (Auto) 0.0 WBC Differential . Differential Comment Auto diff final Sodium 143 Potassium 4.0 Chloride 108 H Carbon Dioxide 27.2 Anion Gap 8 BUN 18 Creatinine 1.04 Estimated GFR 69 L POC Glucose Random Glucose 75 Calcium 8.0 L Phosphorus 2.8 Magnesium 1.9 Total Bilirubin 0.4 AST 57 H ALT 19 Alkaline Phosphatase 94 Ammonia 13 Total Protein 5.3 L Albumin 1.8 L Review/Management - Diagnosis (1) Embolic stroke Code(s): I63.9 - Cerebral infarction, unspecified Status: Acute Current Visit: Yes (2) A-fib Code(s): I48.91 - Unspecified atrial fibrillation Status: Acute Current Visit: Yes (3) Respiratory failure Code(s): J96.90 - Respiratory failure, unspecified, unspecified whether with hypoxia or hypercapnia Status: Acute Current Visit: Yes (4) ST elevation myocardial infarction (STEMI) Code(s): I21.3 - ST elevation (STEMI) myocardial infarction of unspecified site Status: Acute Current Visit: Yes - Review/Management Plan: 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 Full neuro exam limited as he is intubated and on sedative drips Recommendation Continue antiplatelets. On aspirin and Effient status post stent placement. On DVT dose Lovenox Follow-up echo for any active clots; pending Follow exam Dr. Menchaca to follow Discussed with RN (4) ST elevation myocardial infarction (STEMI) Qualifiers: Involved coronary artery: unspecified coronary artery Qualified Code(s): I21.3 - ST elevation (STEMI) myocardial infarction of unspecified site
[2017-12-27] MEDS: Dextrose 50% in Water 50 ML Vial IV.PUSH PRN ×2 (11:57→12:31)
--- NOTE | 2017-12-27 11:59 | P.PNCC ---
Subjective Subjective Remarks/Hospital Course: The patient is an 82-year-old male with a past medical history of coronary artery disease, atrial fibrillation, who presented to [facility] ED as a STEMI alert. The patient woke up with substernal chest pain radiating to his back and it was pressure-like in nature. His pain was a 10/10 and associated with nausea. He took 5 nitroglycerin at home with no improvement of his pain. He had aspirin en route. The patient was taken emergently to the laboratory animal care veterinarian where he underwent a cardiac catheterization by Dr. Maldonado. The patient had a drug-eluting stent x2 in the right CA. In the laboratory animal care veterinarian, he received Versed 3 mg, Diprivan 50 mcg, amiodarone 150 mg bolus and Lopressor 5 mg. He was transferred to CV ICU where he was very agitated and restless. Critical Care Medicine was consulted for agitation and critical care management. He received Ativan and was started on Precedex drip. ABGwas performed, which showed acute hypercapnic respiratory acidosis. He is also on dopamine at 3 mcg. Most of the history was obtained from reviewing medical records as the patient is a poor historian 12/22: Afebrile. Oozing from sheath noted in the right groin area without hematoma. Remains intermittent agitated. On propofol drip at 5 mcg/kg/min. Meet on dopamine at 6 mcg/kg/min. 12/23: Central line placed in right IJ, right radial arterial line placed. Heparin currently on hold we will plan on pulling the sheaths today from right inguinal region. Will try CPAP trial later this afternoon. Remains on low- dose dopamine 12/24: Resting comfortably in bed in no acute distress. Attempting CPAP trials and attempt extubate. Remains hemodynamic is stable on low-dose dopamine drip at 6 mg/kg/min. Meet on amiodarone drip. Currently normal sinus rhythm. 12/25: Afebrile. Events noted to be last night due to extreme hypertension, tachypnea and acute hypoxia. Stabilized. Plan for MRI brain today. Replace potassium. 12/26: T-max 100.2. MRI results noted. Attempting to wean to extubate. Arousable but currently not following commands. Will start dexmedetomidine drip and attempt to wean from ventilator. Subjective 12/27: Will reattempt to wean to extubate. 2D echocardiogram pending. Tolerating tube feeds. Still no bowel movement today. Will attempt soapsuds enema. Abdominal x-ray revealed no signs of obstruction. Objective Vital Signs / I&O: Vital Signs 12/26/17 12:00 12/26/17 14:40 12/26/17 15:00 Temperature 98.2 F Pulse Rate 106 H 75 Respiratory Rate 17 16 Blood Pressure 172/72 H 132/69 Pulse Oximetry 99 99 12/26/17 16:00 12/26/17 16:06 12/26/17 16:55 Temperature Pulse Rate 68 75 Respiratory Rate 20 24 Blood Pressure 117/49 L Pulse Oximetry 99 12/26/17 19:50 12/26/17 19:51 12/26/17 20:00 Temperature 98.8 F Pulse Rate 69 79 Respiratory Rate 16 16 16 Blood Pressure 99/69 L Pulse Oximetry 99 99 12/26/17 23:11 12/26/17 23:13 12/27/17 00:00 Temperature 98.4 F Pulse Rate 76 73 Respiratory Rate 16 16 16 Blood Pressure 92/59 L Pulse Oximetry 99 99 12/27/17 04:00 12/27/17 04:05 12/27/17 04:08 Temperature 98.3 F Pulse Rate 68 61 Respiratory Rate 16 16 17 Blood Pressure Pulse Oximetry 99 99 12/27/17 07:00 12/27/17 07:39 12/27/17 08:00 Temperature 97.8 F Pulse Rate 57 L 55 L 57 L Respiratory Rate 17 16 Blood Pressure Pulse Oximetry 100 100 12/27/17 11:00 12/27/17 11:10 Temperature 97.7 F Pulse Rate 48 L 53 L Respiratory Rate 16 16 Blood Pressure Pulse Oximetry 99 Intake & Output 12/26/17 12/27/17 12/27/17 18:59 06:59 18:59 Intake Total 1149 / 1149 909 / 909 101 / 101 Output Total 715 / 715 825 / 825 Balance 434 / 434 84 / 84 101 / 101 Weight 72 kg Intake: IV 699 / 699 909 / 909 101 / 101 Intropin Inj 400 MG In D5W Inj / 86 240 ML @ 3 MCG/KG/MIN 8.06 mls/ hr IV.CONT TITRATE PRN Rx#: [id number] Precedex Inj 200 MCG In NS Inj 59 / 59 48 ML @ 0.2 MCG/KG/HR 3.58 mls/ hr IV.CONT TITRATE PRN Rx#: [id number] Diprivan 1000 mg/100 ml Inj 1, 118 / 118 69 / 69 100 / 100 000 mg In 100 ml @ 5 MCG/KG/MIN 2.15 mls/hr IV.CONT TITRATE PRN Rx#:[id number] NS Inj 1,000 ML @ 84 mls/hr IV. 160 / 160 840 / 840 CONT .[id number] [facility] Rx#:[id number] Thiamine Inj 100 MG In NS Inj 100 / 100 1 / 1 100 ML @ 100 mls/hr IV.SIG DAILY [facility] Rx#:[id number] fentaNYL 10 mcg/mL Premix Drip 176 / 176 2,500 mcg In 250 ml @ 50 MCG/HR 5 mls/hr IV.SIG TITRATE PRN Rx #:[id number] Oral 0 / 0 Tube Feeding 150 / 150 Tube Irrigant 300 / 300 Output: Urine Amount (Catheter) 515 / 515 525 / 525 Indwelling Urethral Catheter 515 / 515 525 / 525 Gastric Drainage 200 / 200 300 / 300 Orogastric Tube 200 / 200 300 / 300 Other: # Bowel Movements 0 0 Result Diagrams: 12/27/17 04:35 12/27/17 04:35 Imaging: Chest X-Ray 12/21/17 08:47 CONCLUSION: Chronic interstitial changes. The patient is post median sternotomy. Chest X-Ray 12/21/17 14:27 CONCLUSION: Endotracheal tube in good position. Probable CHF. Abdomen/Bladder Ultrasound 12/22/17 00:00 CONCLUSION: 1. 5 mm stone in the collecting system of the right kidney. There is no hydronephrosis. 2. 3 cm simple cyst arising from the left kidney. 3. Distention of the bladder. Chest X-Ray 12/23/17 06:00 CONCLUSION: No significant change. A left pleural effusion remains as well as cardiomegaly. Chest X-Ray 12/23/17 09:27 CONCLUSION: Right IJ central line in excellent position. Abdomen X-Ray 12/24/17 00:00 CONCLUSION: No foreign implements identified to contraindicate MRI CT CAD 12/24/17 00:00 CONCLUSION: Physiological brain perfusion parameters with RAPID analysis as above. The decision for consideration of therapy is multi factorial and multi disciplinary relying on subjective and objective clinical data. This data is not construed or intended to be the sole determinant of treatment eligibility. Chest X-Ray 12/24/17 00:00 CONCLUSION: 1. ET tube in good position. 2. Persistent lower lung nonconsolidative opacities and new nonconsolidative infiltrate in the right upper. Head CTA 12/24/17 00:00 CONCLUSION: Atherosclerotic disease of the MCAs but no evidence of high-grade stenosis or occlusion. Report was called by [Dr. Russo to Dr. Prince at [id number] ] Neck CTA 12/24/17 00:00 CONCLUSION: 1. Prominent atherosclerotic disease at the carotid bulbs bilaterally left greater than right with approximately 70% focal stenosis at the origin of the left ICA and 50% stenosis on the right. 2. 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 Chest X-Ray 12/24/17 06:00 CONCLUSION: No significant interval change. Head CT 12/24/17 16:12 CONCLUSION: Multiple acute to subacute infarcts in multiple vascular distributions bilaterally. Pattern suggests embolic infarcts. Results were discussed with Dr. Prince at 4266. . Chest X-Ray 12/25/17 06:00 CONCLUSION: No significant change. Right greater than left basilar consolidation again noted. Head MRI 12/25/17 06:57 CONCLUSION: 1. Significant areas of restricted diffusion as above. Findings would be consistent with an embolic process at the level of the aortic arch. Abdomen X-Ray 12/26/17 00:00 CONCLUSION: 1. No bowel obstruction, ileus or perforation. 2. Degenerative changes and scoliosis of the thoracolumbar spine. Chest X-Ray 12/26/17 06:00 CONCLUSION: Stable single view the chest with bibasilar areas of consolidation right greater than left. Tubes and catheters in good position Chest X-Ray 12/27/17 06:00 CONCLUSION: Right IJ central line is tip overlying the SVC behind the medial right clavicular head. Left pleural effusion with some left basilar consolidation Objective Remarks: GENERAL: This is an 82-year-old male currently orotracheally intubated SKIN: Warm and dry. HEAD: Normocephalic. EYES: No scleral icterus. No injection or drainage. NECK: Supple, trachea midline. No JVD or lymphadenopathy. Right IJ is clean dry and intact CARDIOVASCULAR: RRR. S1, S2. No S4. RESPIRATORY: Breath sounds equal bilaterally. No accessory muscle use. GASTROINTESTINAL: Abdomen soft, non-tender, nondistended. MUSCULOSKELETAL: No cyanosis, or edema. Right inguinal region with no hematoma with arterial and venous sheaths in place Neuro: Cranial nerves II through XII appear to be grossly intact. Positive gag and cough. Inconsistent examination persist. Does move left upper extremity and lower extreme the same. Decreased movement right upper and lower extremity. Varies with timing. I seen him move his right upper extremity spontaneously but not to command. 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 Fentanyl drip ordered as well. Dexmedetomidine drip for weaning Morphine 2-4 mg IV every 3 hours as needed pain On thiamine, folate and multivitamin. Monitor for DTs CT brain revealed right parietal/occipital, left frontal/occipital and left cerebellar CVA. Likely embolic. CT angiogram revealed atherosclerosis MCA bilaterally. No stenosis. CTA neck revealed bilateral subclavian stenosis 70% left, right 50%. Evaluated by neurology. At high risk of hemorrhagic conversion. MRI brain - Cerebrum: Significant periventricular white matter changes are evident with scattered areas of restricted diffusion involving both hemispheres , worse in both occipital lobes. Largest area of restricted diffusion is on the right that does involve the motor strip. There is no associated parenchymal hemorrhage. Posterior Fossa: Scattered areas restricted diffusion are seen in both cerebellar hemispheres largest 1 cm left hemisphere Neurology recommends no systemic anticoagulation due to high risk of hemorrhagic conversion. CV: Inferior STEMI -2 KIANNA to RCA Coronary artery disease Peripheral vascular disease Abdominal aortic aneurysm Atrial fibrillation Bilateral carotid stenosis with left 70% greater than right percent Elevated troponin Continue aspirin 81 mg daily, Prasugrel 10 mg daily for drug-eluting stent Currently on dopamine at 2.5 mg/kg/min to maintain mean arterial pressure greater than equal to 65 Admission. EKG the same revealed continuous T changes indicative of STEMI Follow up on echocardiogram -EF 50-55%. Hypokinesis inferior posterior and inferior basal recio. Followed by Dr. Maldonado/cardiology Team the amiodarone drip currently at 0.5 mg/min. 200 mg twice daily oral. Management per cardiology Resp: Acute respiratory failure COPD Tobacco abuse PRVC ventilation. Currently on CPAP trials Albuterol/ipratropium aerosols every 4 hours with albuterol aerosols every 2 hours as needed for dyspnea Budesonide 0.5/2 1 inhalation twice daily Follow-up on chest x-ray 12/28 Spontaneous breathing trials and clinically indicated Tobacco cessation will be encouraged education provided when appropriate GI: Elevated AST -cardiac in origin Hypoalbuminemia Hyperammonia NG tube will start tube feeds with Jevity 1.5 goal 50 cc an hour Pantoprazole for GI prophylaxis Docusate sodium/senna 1 tablet twice daily for bowel regimen : Young catheter placed with acute kidney injury Endo: Sliding scale insulin with aspart insulin to maintain euglycemia TSH - 0.635 Renal: Acute kidney injury -resolved Check renal ultrasound/urine creatinine and electrolytes Avoid nephrotoxic medication Did receive dye/contrast for cardiac catheterization Heme: Normocytic anemia Monitor CBC daily. Follow trends. Maintain heparin heparin drip see orders ID: Completed treatment with prophylaxis cefazolin 1 g IV every 8 hours. Monitor for signs and symptomatology infection FEN: Replace electrolytes as clinically indicated per ICU electrolyte protocol Discontinued supplemental fluids MSK: PT evaluate and treat Access -Right IJ CVL day #5 placed 12/23 and right radial arterial line day #5 placed 12/23 -Currently utilizing right femoral arterial and venous sheath Prophylaxis -GI-lansoprazole -DVT-SCD/pharmacological prophylaxis with SCDs/enoxaparin 40 mg twice daily Critical care time 35 minutes follow-up
[2017-12-27] MEDS ORDERED: Methylnaltrexone Inj 12 MG/0.6 ML Vial SQ ONE (12:00)
[2017-12-27] MEDS ORDERED: PEG 3350/E-Lyte Soln 4000 ML Bottle PO ONE (12:00)
[2017-12-27] MEDS ORDERED: Mineral Oil 55% Emulsion 30 ML UDC PO ONE (12:00)
[2017-12-27] MEDS: Pantoprazole Inj 40 MG Vial IV.PUSH SCH (13:30)
--- NOTE | 2017-12-27 14:46 | ECHRPT ---
Indication: EVAL FOR CLOTS/VEGETATIONS, NEW CVA CONCLUSIONS Normal left ventricular size. Mild concentric left ventricular hypertrophy. The left ventricular systolic function is severely reduced with an estimated ejection fraction in th e range of 30-35%. Inferior akinesis [id number] mitral valve regurgitation. Aortic valve sclerosis is present. There is trace tricuspid valve regurgitation. BP: / HR: Rhythm: Sinus MEASUREMENTS (Male / Female) Normal Values Technical Quality:Fair 2D ECHO LV Diastolic Diameter PLAX 5.1 cm 4.2 - 5.9 / 3.9 - 5.3 cm LV Systolic Diameter PLAX 4.5 cm IVS Diastolic Thickness 1.4 cm 0.6 - 1.0 / 0.6 - 0.9 cm LVPW Diastolic Thickness 1.4 cm 0.6 - 1.0 / 0.6 - 0.9 cm LV Relative Wall Thickness 0.5 RV Internal Dim ED PLAX 2.6 cm LVOT Diameter 2.0 cm Aortic Root Diameter 3.1 cm LA Systolic Diameter LX 3.7 cm 3.0 - 4.0 / 2.7 - 3.8 cm DOPPLER AV Peak Velocity 142.0 cm/s AV Peak Gradient 8.1 mmHg AV Mean Gradient 5.0 mmHg AV Velocity Time Integral 30.1 cm FINDINGS LEFT VENTRICLE Normal left ventricular size. Mild concentric left ventricular hypertrophy. The left ventricular systolic function is severely reduced with an estimated ejection fraction in th e range of 30-35%. Inferior Akinesis RIGHT VENTRICLE Normal right ventricular size and systolic function. LEFT ATRIUM The left atrial size is normal. RIGHT ATRIUM The right atrial size is normal. ATRIAL SEPTUM No atrial level shunt is demonstrated by color flow Doppler interrogation. AORTA The aortic root and proximal ascending aorta are not well visualized. MITRAL VALVE [id number] mitral valve regurgitation. AORTIC VALVE Aortic valve sclerosis is present. TRICUSPID VALVE There is trace tricuspid valve regurgitation. PULMONARY VALVE The pulmonary valve is not well visualized. VESSELS The inferior vena cava is normal in size. PERICARDIUM No pericardial effusion. Jose Carbajal MD (Electronically Signed) Final Date:27 December 2017 14:45
[2017-12-27] MEDS: Famotidine PF Inj 20 MG/2 ML Vial IV.PUSH SCH ×2 (16:00→22:11)
--- NOTE | 2017-12-27 17:12 | P.PNCA ---
Subjective Interval history: Remains on vent support. Trouble weaning. Follows some commands. Presodex drip. Dopamine off. Medications and Allergies Active Medications: Active Medications Acetaminophen (Tylenol Liq) 650 mg PO Q6H PRN PRN Reason: FEVER Albuterol (Albuterol Neb (Prn)) 2.5 mg NEB Q2HR NEB PRN PRN Reason: DYSPNEA Albuterol (Duoneb Neb (Kasandra)) 1 ampul NEB Q4HR NEB [facility] Last Admin: 12/27/17 15:18 Dose: 1 ampul Alprazolam (Xanax) 0.5 mg PO TID PRN PRN Reason: ANXIETY Amiodarone HCl (Cordarone) 200 mg NG/OG BID [facility] Last Admin: 12/27/17 09:30 Dose: Not Given Artificial Tears (Tears Naturale Opth Drops) 1 drop EACH EYE Q8H [facility] Last Admin: 12/27/17 09:31 Dose: 1 drop Aspirin (Aspirin Chew) 81 mg NG/OG DAILY [facility] Last Admin: 12/27/17 09:29 Dose: 81 mg Budesonide (Pulmocort Respule Neb) 0.5 mg NEB Q12HR NEB [facility] Last Admin: 12/27/17 07:37 Dose: 0.5 mg Chlorhexidine Gluconate (Peridex 0.12% Oral Kit) 15 ml OROPHARYNG BID@0800, 2000 [facility] Last Admin: 12/27/17 09:31 Dose: 15 ml Dextrose (D50w Vial) 50 ml IV.PUSH UNSCH PRN PRN Reason: PER HYPOGLYCEMIA PROTOCOL Last Admin: 12/27/17 12:31 Dose: 50 ml Enoxaparin Sodium (Lovenox Inj) 40 mg SQ Q12H [facility] Last Admin: 12/27/17 05:11 Dose: 40 mg Famotidine (Pepcid Pf Inj) 20 mg IV.PUSH Q12HR [facility] Last Admin: 12/27/17 16:00 Dose: 20 mg Folic Acid (Folic Acid) 1 mg PO DAILY [facility] Last Admin: 12/27/17 09:35 Dose: 1 mg Glucagon (Glucagon Inj) 1 mg OTHER PRN PRN PRN Reason: for Hypoglycemia Protocol Dexmedetomidine HCl 200 mcg/ (Sodium Chloride) 50 mls @ 3.58 mls/hr IV.CONT TITRATE PRN; Protocol PRN Reason: Per Protocol Last Titration: 12/26/17 18:19 Dose: 0 mcg/kg/hr, 0 mls/hr Sodium Chloride (Ns Inj) 1,000 mls @ 100 mls/hr IV.SIG .Q10H [facility] Last Infusion: 12/24/17 14:55 Dose: Infused Magnesium Sulfate 4 gm/ Sodium (Chloride) 100 mls @ 50 mls/hr IV.SIG UNSCH PRN PRN Reason: For Magnesium 0.9 - 1.1 mg/dL Magnesium Sulfate 2 gm/ Sodium (Chloride) 100 mls @ 50 mls/hr IV.SIG UNSCH PRN PRN Reason: For Magnesium 1.2 - 1.6 mg/dL Potassium Chloride (Kcl 20 Meq Premix Inj) 20 meq in 100 mls @ 50 mls/hr IV.SIG Q2H PRN PRN Reason: For Potassium 3.3 - 3.5 mEq/L Last Infusion: 12/25/17 17:15 Dose: Infused Potassium Chloride (Kcl 40 Meq Premix Inj) 40 meq in 100 mls @ 25 mls/hr IV.SIG UNSCH PRN PRN Reason: For Potassium 3.3 - 3.5 mEq/L Potassium Chloride (Kcl 20 Meq Premix Inj) 20 meq in 100 mls @ 50 mls/hr IV.SIG Q2H PRN PRN Reason: For Potassium 2.8 - 3.2 mEq/L Potassium Phosphate 30 mmol/ (Sodium Chloride) 260 mls @ 42 mls/hr IV.SIG UNSCH PRN PRN Reason: SEE LABEL COMMENTS Sodium Phosphate 30 mmol/ (Sodium Chloride) 260 mls @ 42 mls/hr IV.SIG UNSCH PRN PRN Reason: For Phosphorus < 2.5 mg/dL Potassium Chloride (Kcl 40 Meq Premix Inj) 40 meq in 100 mls @ 25 mls/hr IV.SIG Q4H PRN PRN Reason: For Potassium 2.8 - 3.2 mEq/L Fentanyl (Fentanyl 10 Mcg/Ml Premix Drip) 2,500 mcg in 250 mls @ 5 mls/hr IV.SIG TITRATE PRN; Protocol PRN Reason: Per Protocol Last Titration: 12/26/17 18:19 Dose: 50 mcg/hr, 5 mls/hr Propofol (Diprivan 1000 Mg/100 Ml Inj) 1,000 mg in 100 mls @ 2.15 mls/hr IV.CONT TITRATE PRN; Protocol PRN Reason: Per Protocol Last Admin: 12/27/17 09:27 Dose: 40 mcg/kg/min, 17.2 mls/hr Thiamine HCl 100 mg/ Sodium (Chloride) 101 mls @ 100 mls/hr IV.SIG DAILY [facility] Last Admin: 12/27/17 09:28 Dose: 100 mls/hr Sodium Chloride (Ns Inj) 1,000 mls @ 84 mls/hr IV.CONT .[id number] [facility] Last Admin: 12/27/17 16:18 Dose: 84 mls/hr Dopamine HCl/Dextrose (Dopamine 400 Mg/250 Ml Premix) 400 mg in 250 mls @ 8.063 mls/hr IV.CONT TITRATE PRN; Protocol PRN Reason: PRN PROTOCOL Insulin Aspart (Novolog Insulin Correctional Sugar Inj) 0 unit SQ Q6HR [facility]; Protocol Last Admin: 12/27/17 12:50 Dose: Not Given Lactulose (Lactulose Liq) 30 ml PO BID [facility] Last Admin: 12/27/17 09:28 Dose: 30 ml Magnesium Oxide (Mag-Ox) 800 mg PO UNSCH PRN PRN Reason: For Magnesium 1.2 - 1.6 mg/dL Metoclopramide HCl (Reglan Inj) 5 mg IV.PUSH Q8HR [facility]; Protocol Last Admin: 12/27/17 13:29 Dose: 5 mg Metoprolol Tartrate (Lopressor) 25 mg PO BID [facility] Last Admin: 12/27/17 09:30 Dose: Not Given Miscellaneous Medication () 1 each OROPHARYNG 0000,0400,1200,1600 [facility] Last Admin: 12/27/17 16:24 Dose: 1 each Morphine Sulfate (Morphine Inj) 2 mg IV.PUSH Q3H PRN PRN Reason: PAIN SCALE 1 TO 5/AGITATION Morphine Sulfate (Morphine Inj) 4 mg IV.PUSH Q3H PRN PRN Reason: PAIN SCALE 6 TO 10/AGITATION Multivitamins (Theragran) 1 tab PO DAILY [facility] Last Admin: 12/27/17 09:29 Dose: 1 tab Polyethylene Glycol (Miralax) 17 gm PO BID [facility] Last Admin: 12/27/17 09:28 Dose: 17 gm Potassium Bicarb/Potassium Chloride (K-Lyte Cl Eff) 50 meq PO UNSCH PRN PRN Reason: For Potassium 3.3 - 3.5 mEq/L Potassium Phosphate (K-Phos Original) 2,000 mg PO Q4H PRN PRN Reason: Phosphorus Less Than 2.5 mg/dL Potassium Phosphate (K-Phos Original) 2,000 mg PO UNSCH PRN PRN Reason: SEE LABEL COMMENTS Prasugrel (Effient) 10 mg PO DAILY [facility] Last Admin: 12/27/17 09:29 Dose: 10 mg Pravastatin Sodium (Pravachol) 80 mg PO HS [facility] Last Admin: 12/26/17 22:31 Dose: 80 mg Senna/Docusate Sodium (Estrella-Colace) 1 tab PO BID [facility] Last Admin: 12/27/17 09:29 Dose: 1 tab Sodium Chloride (Ns Flush) 2 ml IV.FLUSH BID [facility] Last Admin: 12/27/17 09:30 Dose: 2 ml Sodium Chloride (Ns Flush) 2 ml IV.FLUSH PRN PRN PRN Reason: FLUSH AFTER USING IV ACCESS Sodium Chloride (Ns Flush) 0 ml IV.FLUSH DAILY [facility] Last Admin: 12/27/17 09:30 Dose: 2 ml Temazepam (Restoril) 15 mg PO HS PRN PRN Reason: INSOMNIA Terbutaline Sulfate (Brethine Inj) 1 mg SQ UNSCH PRN PRN Reason: Extravasation Allergies Allergy/AdvReac Type Severity Reaction Status Date / Time No Known Allergies Allergy Verified 12/21/17 08:42 Home Medications Medication Instructions Recorded Confirmed Type nitroglycerin [Nitrostat] 0.4 mg SUBLINGUAL Q5-15M PRN 12/21/17 12/21/17 History Physical Exam Vital signs: Vital Signs 12/26/17 19:50 12/26/17 19:51 12/26/17 20:00 Temperature 98.8 F Pulse Rate 69 79 Respiratory Rate 16 16 16 Blood Pressure 99/69 L Pulse Oximetry 99 99 12/26/17 23:11 12/26/17 23:13 12/27/17 00:00 Temperature 98.4 F Pulse Rate 76 73 Respiratory Rate 16 16 16 Blood Pressure 92/59 L Pulse Oximetry 99 99 12/27/17 04:00 12/27/17 04:05 12/27/17 04:08 Temperature 98.3 F Pulse Rate 68 61 Respiratory Rate 16 16 17 Blood Pressure Pulse Oximetry 99 99 12/27/17 07:00 12/27/17 07:39 12/27/17 08:00 Temperature 97.8 F Pulse Rate 57 L 55 L 57 L Respiratory Rate 17 16 Blood Pressure Pulse Oximetry 100 100 12/27/17 11:00 12/27/17 11:10 12/27/17 15:00 Temperature 97.7 F 98.5 F Pulse Rate 48 L 53 L 61 Respiratory Rate 16 16 16 Blood Pressure Pulse Oximetry 99 99 12/27/17 15:18 12/27/17 15:50 Temperature Pulse Rate 61 Respiratory Rate 19 15 Blood Pressure Pulse Oximetry 99 96 Intake & Output 12/26/17 12/27/17 12/27/17 18:59 06:59 18:59 Intake Total 1149 / 1149 909 / 909 941 / 941 Output Total 715 / 715 825 / 825 Balance 434 / 434 84 / 84 941 / 941 Weight 72 kg Intake: IV 699 / 699 909 / 909 941 / 941 Intropin Inj 400 MG In D5W Inj 86 / 86 240 ML @ 3 MCG/KG/MIN 8.06 mls/ hr IV.CONT TITRATE PRN Rx#: [id number] Precedex Inj 200 MCG In NS Inj 59 / 59 48 ML @ 0.2 MCG/KG/HR 3.58 mls/ hr IV.CONT TITRATE PRN Rx#: [id number] Diprivan 1000 mg/100 ml Inj 1, 118 / 118 69 / 69 100 / 100 000 mg In 100 ml @ 5 MCG/KG/MIN 2.15 mls/hr IV.CONT TITRATE PRN Rx#:[id number] NS Inj 1,000 ML @ 84 mls/hr IV. 160 / 160 840 / 840 840 / 840 CONT .[id number] [facility] Rx#:[id number] Thiamine Inj 100 MG In NS Inj 100 / 100 1 / 1 100 ML @ 100 mls/hr IV.SIG DAILY [facility] Rx#:[id number] fentaNYL 10 mcg/mL Premix Drip 176 / 176 2,500 mcg In 250 ml @ 50 MCG/HR 5 mls/hr IV.SIG TITRATE PRN Rx #:[id number] Oral 0 / 0 Tube Feeding 150 / 150 Tube Irrigant 300 / 300 Output: Urine Amount (Catheter) 515 / 515 525 / 525 Indwelling Urethral Catheter 515 / 515 525 / 525 Gastric Drainage 200 / 200 300 / 300 Orogastric Tube 200 / 200 300 / 300 Other: Date of Last Bowel Movement 12/27/17 # Bowel Movements 0 0 - Constitutional mild distress - Routine Respiratory Exam Present: decreased breath sounds, rhonchi - Routine Cardiovascular Exam Present: RRR, S1, S2. Absent: murmur - Routine Extremities Exam Present: pulses intact, normal capillary refill - Routine Skin Exam Present: intact - Urinary Catheter Management Condom Cath placed during this visit: no Indwelling Urethral Catheter Cath placed during this visit: yes Reason for continuing: Hourly intake/output Insertion date: 12/22/17 Insertion time: 11:00 Results 12/27/17 04:35 12/27/17 04:35 Cardiac Enzymes 12/26/17 12/27/17 Range/Units 04:50 04:35 AST 76 H 57 H (15-37) U/L CBC 12/26/17 12/27/17 Range/Units 04:50 04:35 WBC 6.7 4.5 (4.0-11.0) th/mm3 RBC 3.54 L 3.31 L (4.50-5.90) mil/mm3 Hgb 10.8 L 10.0 L (13.0-17.0) gm/dL Hct 31.1 L 29.8 L (39.0-51.0) % Plt Count 196 201 (150-450) th/mm3 Neut # (Auto) 5.0 2.5 (1.8-7.7) th/mm3 Lymph # (Auto) 0.8 L 1.3 (1.0-4.8) th/mm3 [place] # (Auto) 0.6 0.5 (0.0-0.9) th/mm3 Eos # (Auto) 0.3 0.3 (0.0-0.4) th/mm3 Baso # (Auto) 0.1 0.0 (0.0-0.2) th/mm3 Comprehensive Metabolic Panel 12/26/17 12/27/17 Range/Units 04:50 04:35 Sodium 143 143 (136-145) meq/L Potassium 4.1 4.0 (3.5-5.1) meq/L Chloride 106 108 H (98-107) meq/L Carbon Dioxide 30.0 27.2 (21.0-32.0) meq/L BUN 19 H 18 (7-18) mg/dL Creatinine 1.04 1.04 (0.60-1.30) mg/dL Calcium 8.1 L 8.0 L (8.5-10.1) mg/dL AST 76 H 57 H (15-37) U/L ALT 16 19 (12-78) U/L Alkaline Phosphatase 88 94 (45-117) U/L Total Protein 5.4 L 5.3 L (6.4-8.2) g/dL Albumin 1.9 L 1.8 L (3.4-5.0) g/dL Intake and Output 12/27/17 12/27/17 12/27/17 06:59 14:59 22:59 Intake Total 909 / 909 101 / 101 840 / 840 Output Total 825 / 825 Balance 84 / 84 101 / 101 840 / 840 Intake: IV 909 / 909 101 / 101 840 / 840 Diprivan 1000 mg/100 ml Inj 1, 69 / 69 100 / 100 000 mg In 100 ml @ 5 MCG/KG/MIN 2.15 mls/hr IV.CONT TITRATE PRN Rx#:[id number] NS Inj 1,000 ML @ 84 mls/hr IV. 840 / 840 840 / 840 CONT .[id number] [facility] Rx#:[id number] Thiamine Inj 100 MG In NS Inj 1 / 1 100 ML @ 100 mls/hr IV.SIG DAILY [facility] Rx#:[id number] Oral 0 / 0 Output: Urine Amount (Catheter) 525 / 525 Indwelling Urethral Catheter 525 / 525 Gastric Drainage 300 / 300 Orogastric Tube 300 / 300 Other: Date of Last Bowel Movement 12/27/17 # Bowel Movements 0 Weight 72 kg ECHO 12/27/17 Normal left ventricular size. Mild concentric left ventricular hypertrophy. The left ventricular systolic function is severely reduced with an estimated ejection fraction in the range of 30-35%. Inferior akinesis [id number] mitral valve regurgitation. Aortic valve sclerosis is present. There is trace tricuspid valve regurgitation. No thrombi or intracardiac masses identified on report. - Imaging and Cardiology Imaging: Impressions Abdomen X-Ray 12/26/17 00:00 CONCLUSION: 1. No bowel obstruction, ileus or perforation. 2. Degenerative changes and scoliosis of the thoracolumbar spine. Chest X-Ray 12/26/17 06:00 CONCLUSION: Stable single view the chest with bibasilar areas of consolidation right greater than left. Tubes and catheters in good position Chest X-Ray 12/27/17 06:00 CONCLUSION: Right IJ central line is tip overlying the SVC behind the medial right clavicular head. 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 Labile BP improving Paroxysmal atrial fib, currently in NSR. Amiodarone on hold for bradycardia. 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 On Enox heparin now will need oral anticoagulant later. Continue maximal support and attempt to wean vent. Discussed plans with rn staff. Dr. Maldonado will be back on Thursday.
[2017-12-28] MEDS: Dextrose 50% in Water 50 ML Vial IV.PUSH PRN (00:38)
[2017-12-28] MEDS: Propofol 1000 mg/100 ml Inj 1,000 MG/100 ML BOTTLE IV.CONT PRN ×2 (00:38→05:15)
[2017-12-28] MEDS: Insulin NovoLOG Aspart Correctional Sugar Inj SQ SCH ×4 (00:39→17:49)
[2017-12-28] MEDS: Oral Hygiene Kit OROPHARYNG SCH ×4 (00:39→16:28)
[2017-12-28] MEDS: Sod Chloride 0.9% Inj 1,000 ML IV.CONT SCH ×2 (05:16→16:13)
[2017-12-28] MEDS: Artificial Tears Opth Drops 15 ML Bottle EACH EYE SCH ×3 (05:17→17:49)
[2017-12-28] MEDS: Enoxaparin Inj 40 MG/0.4 ML Syringe SQ SCH ×2 (05:18→17:49)
[2017-12-28 05:23] LABS: Baso % (Auto) 0.5 % (0.0-2.0); Eos # (Auto) 0.2 th/mm3 (0.0-0.4); Hematocrit 28.6 % (39.0-51.0); Hemoglobin 9.8 gm/dL (13.0-17.0); Lymph # (Auto) 1.1 th/mm3 (1.0-4.8); Lymph % (Auto) 22.6 % (9.0-44.0); Mean Corpuscular HGB Conc 34.4 % (32.0-36.0); Mean Corpuscular Hemoglobin 30.4 pg (27.0-34.0); Mean Corpuscular Volume 88.5 fL (80.0-100.0); Mono # (Auto) 0.5 th/mm3 (0.0-0.9); Neut # (Auto) 3.1 th/mm3 (1.8-7.7); Neut % (Auto) 62.9 % (16.0-70.0); Platelet Count 218 th/mm3 (150-450); Red Blood Count 3.23 mil/mm3 (4.50-5.90); Red Cell Distribution Width 15.4 % (11.6-17.2)
[2017-12-28 05:36] LABS: Alanine Aminotransferase 24 U/L (12-78); Albumin 1.8 g/dL (3.4-5.0); Alkaline Phosphatase 90 U/L (45-117); Anion Gap 8 meq/L (5-15); Aspartate Aminotransferase 60 U/L (15-37); Blood Urea Nitrogen 14 mg/dL (7-18); Calcium 7.8 mg/dL (8.5-10.1); Carbon Dioxide 25.8 meq/L (21.0-32.0); Chloride 109 meq/L (98-107); Glomerular Filtration Rate 72 mL/min (>89); Glucose,Random 93 mg/dL (74-106); Magnesium 2.1 mg/dL (1.5-2.5); Phosphorus 3.1 mg/dL (2.5-4.9); Potassium 3.8 meq/L (3.5-5.1); Sodium 143 meq/L (136-145); Total Protein 5.2 g/dL (6.4-8.2)
--- NOTE | 2017-12-28 05:43 | XR ---
EXAM DATE: 12/28/2017 5:29 AM EST AGE/SEX: 82 years / Male INDICATIONS: Follow-up abdominal distention from previous day exam. CLINICAL DATA: This is the patient's subsequent encounter. Patient reports that signs and symptoms h ave been present for 1 week and indicates a pain score of Nonresponsive. MEDICAL/SURGICAL HISTORY: Chronic obstructive pulmonary disease. Aneurysm, abdominal. CAD. 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 CABG. COMPARISON: [facility], ABDOMEN 1V KUB, 12/26/2017. . FINDINGS: Single AP supine view of the abdomen. Nasogastric tube is again seen with the tip in the region of th e stomach. Scattered gas throughout the mildly distended colon. Maximum diameter is now 7.4 cm compar ed to 9.5 cm on the prior study. No other significant interval change. CONCLUSION: Decrease in gaseous distention of the colon. Electronically signed by: Angel Russo MD 12/28/2017 5:42 AM EST
--- NOTE | 2017-12-28 05:46 | XR ---
EXAM DATE: 12/28/2017 5:30 AM EST AGE/SEX: 82 years / Male INDICATIONS: Shortness of breath, possible pulmonary disease. CLINICAL DATA: This is the patient's subsequent encounter. Patient reports that signs and symptoms h ave been present for 1 week and indicates a pain score of Nonresponsive. MEDICAL/SURGICAL HISTORY: Chronic obstructive pulmonary disease. Aneurysm, abdominal. CAD. A-f ib. CABG. COMPARISON: [facility], CHEST 1V SINGLE AP, 12/27/2017. . FINDINGS: Endotracheal tube, nasogastric tube, right IJ central venous catheter remain in place. Mild bilateral lower lung zone opacity unchanged. No evidence of pneumothorax. CONCLUSION: No significant interval change with persistent mild bilateral lower lung zone opacity. Electronically signed by: Angel Russo MD 12/28/2017 5:44 AM EST
[2017-12-28] MEDS: Amiodarone 200 MG Tablet NG/OG SCH ×2 (11:12→21:17)
[2017-12-28] MEDS: Senna/Docusate Sodium 8.6/50 MG Tablet PO SCH ×2 (11:12→21:17)
[2017-12-28] MEDS: Chlorhexidine 0.12% Oral Kit 15 ML UDC OROPHARYNG SCH ×2 (11:12→21:27)
[2017-12-28] MEDS: Folic Acid 1 MG Tablet PO SCH (11:13)
[2017-12-28] MEDS: Metoprolol Tartrate 25 MG Tablet PO SCH ×2 (11:13→21:17)
[2017-12-28] MEDS: Polyethylene Glycol 3350 17 GM Packet PO SCH ×2 (11:13→21:19)
[2017-12-28] MEDS: Famotidine PF Inj 20 MG/2 ML Vial IV.PUSH SCH ×2 (11:14→21:17)
[2017-12-28] MEDS: Sodium Chloride 0.9% 2 ML Flush BID IV.FLUSH SCH ×2 (11:14→21:22)
[2017-12-28] MEDS: Thiamine Inj 100 MG in Sodium Chlor 0.9% Inj 100 ML IV.SIG SCH (11:17)
[2017-12-28] MEDS: fentaNYL 10 mcg/mL Premix Drip 2,500 MCG/250 ML BAG IV.SIG PRN (14:18)
--- NOTE | 2017-12-28 16:05 | P.PN ---
Subjective Interval history: intubated vent Physical Exam Vital signs: Vital Signs 12/27/17 17:10 12/27/17 20:00 12/27/17 20:06 Temperature 98.5 F Pulse Rate 67 71 Respiratory Rate 34 H 16 16 Blood Pressure Pulse Oximetry 92 L 98 98 12/27/17 23:00 12/27/17 23:57 12/28/17 00:00 Temperature 97.6 F Pulse Rate 73 71 73 Respiratory Rate 16 17 Blood Pressure Pulse Oximetry 99 99 12/28/17 04:00 12/28/17 04:13 12/28/17 07:00 Temperature 98.7 F 97.8 F Pulse Rate 69 71 64 Respiratory Rate 16 16 16 Blood Pressure 101/37 L Pulse Oximetry 99 12/28/17 07:12 12/28/17 10:20 12/28/17 11:00 Temperature 98.2 F Pulse Rate 63 63 Respiratory Rate 16 16 16 Blood Pressure 122/44 L Pulse Oximetry 100 100 99 12/28/17 11:40 12/28/17 12:49 12/28/17 13:07 Temperature Pulse Rate 67 Respiratory Rate 16 26 H 17 Blood Pressure Pulse Oximetry 99 99 12/28/17 14:08 12/28/17 15:07 Temperature Pulse Rate 58 L Respiratory Rate 19 16 Blood Pressure Pulse Oximetry 99 99 Intake & Output 12/27/17 12/28/17 12/28/17 18:59 06:59 18:59 Intake Total 1545 / 1545 1237 / 1237 Output Total 850 / 850 Balance 1545 / 1545 387 / 387 Weight 73 kg Intake: IV 1185 / 1185 1169 / 1169 Diprivan 1000 mg/100 ml Inj 1, 169 / 169 169 / 169 000 mg In 100 ml @ 5 MCG/KG/MIN 2.15 mls/hr IV.CONT TITRATE PRN Rx#:[id number] NS Inj 1,000 ML @ 84 mls/hr IV. 840 / 840 1000 / 1000 CONT .[id number] [facility] Rx#:[id number] Thiamine Inj 100 MG In NS Inj 102 / 102 100 ML @ 100 mls/hr IV.SIG DAILY [facility] Rx#:[id number] fentaNYL 10 mcg/mL Premix Drip 74 / 74 2,500 mcg In 250 ml @ 50 MCG/HR 5 mls/hr IV.SIG TITRATE PRN Rx #:[id number] Oral 0 / 0 Tube Feeding 68 / 68 Water Bolus Amount 360 / 360 Output: Urine Amount (Catheter) 850 / 850 Indwelling Urethral Catheter 850 / 850 Other: Date of Last Bowel Movement 12/27/17 12/27/17 12/27/17 # Incontinent Bowel Movements 3 0 Narrative: opens eyes to verbal perrla not crossing midline to the right ?right facial droop. follows commands with left side spontaneous on right - Urinary Catheter Management Condom Cath placed during this visit: no Indwelling Urethral Catheter Cath placed during this visit: yes Reason for continuing: Hourly intake/output Insertion date: 12/22/17 Insertion time: 11:00 Results - Labs CBC & Chem 7: 12/28/17 05:05 12/28/17 05:05 Laboratory Results - last 24 hr 12/27/17 12/28/17 12/28/17 17:31 00:28 00:45 WBC RBC Hgb Hct MCV MCH MCHC RDW Plt Count MPV Neut % (Auto) Lymph % (Auto) [place] % (Auto) Eos % (Auto) Baso % (Auto) Neut # (Auto) Lymph # (Auto) [place] # (Auto) Eos # (Auto) Baso # (Auto) WBC Differential Differential Comment Sodium Potassium Chloride Carbon Dioxide Anion Gap BUN Creatinine Estimated GFR POC Glucose 91 36 L* Random Glucose 203 H D Calcium Phosphorus Magnesium Total Bilirubin AST ALT Alkaline Phosphatase Ammonia Total Protein Albumin 12/28/17 12/28/17 12/28/17 02:37 05:05 05:05 WBC 5.0 RBC 3.23 L Hgb 9.8 L Hct 28.6 L MCV 88.5 MCH 30.4 MCHC 34.4 RDW 15.4 Plt Count 218 MPV 9.0 Neut % (Auto) 62.9 Lymph % (Auto) 22.6 [place] % (Auto) 9.0 H Eos % (Auto) 5.0 H Baso % (Auto) 0.5 Neut # (Auto) 3.1 Lymph # (Auto) 1.1 [place] # (Auto) 0.5 Eos # (Auto) 0.2 Baso # (Auto) 0.0 WBC Differential . Differential Comment Auto diff final Sodium 143 Potassium 3.8 Chloride 109 H Carbon Dioxide 25.8 Anion Gap 8 BUN 14 Creatinine 1.00 Estimated GFR 72 L POC Glucose 125 H Random Glucose 93 D Calcium 7.8 L Phosphorus 3.1 Magnesium 2.1 Total Bilirubin 0.3 AST 60 H ALT 24 Alkaline Phosphatase 90 Ammonia Total Protein 5.2 L Albumin 1.8 L 12/28/17 12/28/17 05:05 11:56 WBC RBC Hgb Hct MCV MCH MCHC RDW Plt Count MPV Neut % (Auto) Lymph % (Auto) [place] % (Auto) Eos % (Auto) Baso % (Auto) Neut # (Auto) Lymph # (Auto) [place] # (Auto) Eos # (Auto) Baso # (Auto) WBC Differential Differential Comment Sodium Potassium Chloride Carbon Dioxide Anion Gap BUN Creatinine Estimated GFR POC Glucose 89 Random Glucose Calcium Phosphorus Magnesium Total Bilirubin AST ALT Alkaline Phosphatase Ammonia 15 Total Protein Albumin - Imaging Impressions Abdomen X-Ray 12/28/17 00:00 CONCLUSION: Decrease in gaseous distention of the colon. Chest X-Ray 12/28/17 06:00 CONCLUSION: No significant interval change with persistent mild bilateral lower lung zone opacity. Assessment and Plan - Assessment (1) Embolic stroke Code(s): I63.9 - Cerebral infarction, unspecified Status: Acute (2) A-fib Code(s): I48.91 - Unspecified atrial fibrillation Status: Acute (3) Respiratory failure Code(s): J96.90 - Respiratory failure, unspecified, unspecified whether with hypoxia or hypercapnia Status: Acute (4) ST elevation myocardial infarction (STEMI) Code(s): I21.3 - ST elevation (STEMI) myocardial infarction of unspecified site Status: Acute - Plan wean as able pt-ot asa/effient and sq lovenox if stable neurologically might be able to fully anticoagulate at the end of the week but would get a f/u ct prior to make sure no hemorrhagic conversion. cont current care. (4) ST elevation myocardial infarction (STEMI) Qualifiers: Involved coronary artery: unspecified coronary artery Qualified Code(s): I21.3 - ST elevation (STEMI) myocardial infarction of unspecified site
--- NOTE | 2017-12-28 17:18 | P.PNCC ---
Subjective Subjective Remarks/Hospital Course: The patient is an 82-year-old male with a past medical history of coronary artery disease, atrial fibrillation, who presented to [facility] ED as a STEMI alert. The patient woke up with substernal chest pain radiating to his back and it was pressure-like in nature. His pain was a 10/10 and associated with nausea. He took 5 nitroglycerin at home with no improvement of his pain. He had aspirin en route. The patient was taken emergently to the label remover where he underwent a cardiac catheterization by Dr. Maldonado. The patient had a drug-eluting stent x2 in the right CA. In the label remover, he received Versed 3 mg, Diprivan 50 mcg, amiodarone 150 mg bolus and Lopressor 5 mg. He was transferred to CV ICU where he was very agitated and restless. Critical Care Medicine was consulted for agitation and critical care management. He received Ativan and was started on Precedex drip. ABGwas performed, which showed acute hypercapnic respiratory acidosis. He is also on dopamine at 3 mcg. Most of the history was obtained from reviewing medical records as the patient is a poor historian 12/22: Afebrile. Oozing from sheath noted in the right groin area without hematoma. Remains intermittent agitated. On propofol drip at 5 mcg/kg/min. Meet on dopamine at 6 mcg/kg/min. 12/23: Central line placed in right IJ, right radial arterial line placed. Heparin currently on hold we will plan on pulling the sheaths today from right inguinal region. Will try CPAP trial later this afternoon. Remains on low- dose dopamine 12/24: Resting comfortably in bed in no acute distress. Attempting CPAP trials and attempt extubate. Remains hemodynamic is stable on low-dose dopamine drip at 6 mg/kg/min. Meet on amiodarone drip. Currently normal sinus rhythm. 12/25: Afebrile. Events noted to be last night due to extreme hypertension, tachypnea and acute hypoxia. Stabilized. Plan for MRI brain today. Replace potassium. 12/26: T-max 100.2. MRI results noted. Attempting to wean to extubate. Arousable but currently not following commands. Will start dexmedetomidine drip and attempt to wean from ventilator. 12/27: Will reattempt to wean to extubate. 2D echocardiogram pending. Tolerating tube feeds. Still no bowel movement today. Will attempt soapsuds enema. Abdominal x-ray revealed no signs of obstruction. Subjective 12/28: Afebrile. Failed CPAP trials. Echocardiogram revealed no evidence of embolic phenomenon. Positive BM x2. Objective Vital Signs / I&O: Vital Signs 12/27/17 20:00 12/27/17 20:06 12/27/17 23:00 Temperature 98.5 F 97.6 F Pulse Rate 67 71 73 Respiratory Rate 16 16 16 Blood Pressure Pulse Oximetry 98 98 99 12/27/17 23:57 12/28/17 00:00 12/28/17 04:00 Temperature 98.7 F Pulse Rate 71 73 69 Respiratory Rate 17 16 Blood Pressure Pulse Oximetry 99 99 12/28/17 04:13 12/28/17 07:00 12/28/17 07:12 Temperature 97.8 F Pulse Rate 71 64 63 Respiratory Rate 16 16 16 Blood Pressure 101/37 L Pulse Oximetry 100 12/28/17 10:20 12/28/17 11:00 12/28/17 11:40 Temperature 98.2 F Pulse Rate 63 67 Respiratory Rate 16 16 16 Blood Pressure 122/44 L Pulse Oximetry 100 99 12/28/17 12:49 12/28/17 13:07 12/28/17 14:08 Temperature Pulse Rate Respiratory Rate 26 H 17 19 Blood Pressure Pulse Oximetry 99 99 99 12/28/17 15:00 12/28/17 15:07 Temperature 98.5 F Pulse Rate 58 L 58 L Respiratory Rate 16 16 Blood Pressure 113/44 L Pulse Oximetry 99 Intake & Output 12/27/17 12/28/17 12/28/17 18:59 06:59 18:59 Intake Total 1545 / 1545 1237 / 1237 1000 / 1000 Output Total 850 / 850 Balance 1545 / 1545 387 / 387 1000 / 1000 Weight 73 kg Intake: IV 1185 / 1185 1169 / 1169 1000 / 1000 Diprivan 1000 mg/100 ml Inj 1, 169 / 169 169 / 169 000 mg In 100 ml @ 5 MCG/KG/MIN 2.15 mls/hr IV.CONT TITRATE PRN Rx#:[id number] NS Inj 1,000 ML @ 84 mls/hr IV. 840 / 840 1000 / 1000 1000 / 1000 CONT .[id number] [facility] Rx#:[id number] Thiamine Inj 100 MG In NS Inj 102 / 102 100 ML @ 100 mls/hr IV.SIG DAILY [facility] Rx#:[id number] fentaNYL 10 mcg/mL Premix Drip 74 / 74 2,500 mcg In 250 ml @ 50 MCG/HR 5 mls/hr IV.SIG TITRATE PRN Rx #:[id number] Oral 0 / 0 Tube Feeding 68 / 68 Water Bolus Amount 360 / 360 Output: Urine Amount (Catheter) 850 / 850 Indwelling Urethral Catheter 850 / 850 Other: Date of Last Bowel Movement 12/27/17 12/27/17 12/27/17 # Incontinent Bowel Movements 3 0 Result Diagrams: 12/28/17 05:05 12/28/17 05:05 Imaging: Chest X-Ray 12/21/17 08:47 CONCLUSION: Chronic interstitial changes. The patient is post median sternotomy. Chest X-Ray 12/21/17 14:27 CONCLUSION: Endotracheal tube in good position. Probable CHF. Abdomen/Bladder Ultrasound 12/22/17 00:00 CONCLUSION: 1. 5 mm stone in the collecting system of the right kidney. There is no hydronephrosis. 2. 3 cm simple cyst arising from the left kidney. 3. Distention of the bladder. Chest X-Ray 12/23/17 06:00 CONCLUSION: No significant change. A left pleural effusion remains as well as cardiomegaly. Chest X-Ray 12/23/17 09:27 CONCLUSION: Right IJ central line in excellent position. Abdomen X-Ray 12/24/17 00:00 CONCLUSION: No foreign implements identified to contraindicate MRI CT CAD 12/24/17 00:00 CONCLUSION: Physiological brain perfusion parameters with RAPID analysis as above. The decision for consideration of therapy is multi factorial and multi disciplinary relying on subjective and objective clinical data. This data is not construed or intended to be the sole determinant of treatment eligibility. Chest X-Ray 12/24/17 00:00 CONCLUSION: 1. ET tube in good position. 2. Persistent lower lung nonconsolidative opacities and new nonconsolidative infiltrate in the right upper. Head CTA 12/24/17 00:00 CONCLUSION: Atherosclerotic disease of the MCAs but no evidence of high-grade stenosis or occlusion. Report was called by [Dr. Russo to Dr. Prince at 1735 ] Neck CTA 12/24/17 00:00 CONCLUSION: 1. Prominent atherosclerotic disease at the carotid bulbs bilaterally left greater than right with approximately 70% focal stenosis at the origin of the left ICA and 50% stenosis on the right. 2. 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 Chest X-Ray 12/24/17 06:00 CONCLUSION: No significant interval change. Head CT 12/24/17 16:12 CONCLUSION: Multiple acute to subacute infarcts in multiple vascular distributions bilaterally. Pattern suggests embolic infarcts. Results were discussed with Dr. Prince at 1635. . Chest X-Ray 12/25/17 06:00 CONCLUSION: No significant change. Right greater than left basilar consolidation again noted. Head MRI 12/25/17 06:57 CONCLUSION: 1. Significant areas of restricted diffusion as above. Findings would be consistent with an embolic process at the level of the aortic arch. Abdomen X-Ray 12/26/17 00:00 CONCLUSION: 1. No bowel obstruction, ileus or perforation. 2. Degenerative changes and scoliosis of the thoracolumbar spine. Chest X-Ray 12/26/17 06:00 CONCLUSION: Stable single view the chest with bibasilar areas of consolidation right greater than left. Tubes and catheters in good position Chest X-Ray 12/27/17 06:00 CONCLUSION: Right IJ central line is tip overlying the SVC behind the medial right clavicular head. Left pleural effusion with some left basilar consolidation Abdomen X-Ray 12/28/17 00:00 CONCLUSION: Decrease in gaseous distention of the colon. Chest X-Ray 12/28/17 06:00 CONCLUSION: No significant interval change with persistent mild bilateral lower lung zone opacity. Objective Remarks: GENERAL: This is an 82-year-old male currently orotracheally intubated SKIN: Warm and dry. HEAD: Normocephalic. EYES: No scleral icterus. No injection or drainage. NECK: Supple, trachea midline. No JVD or lymphadenopathy. Right IJ is clean dry and intact CARDIOVASCULAR: RRR. S1, S2. No S4. RESPIRATORY: Breath sounds equal bilaterally. No accessory muscle use. GASTROINTESTINAL: Abdomen soft, non-tender, nondistended. MUSCULOSKELETAL: No cyanosis, or edema. Right inguinal region with no hematoma with arterial and venous sheaths in place Neuro: Cranial nerves II through XII appear to be grossly intact. Positive gag and cough. Inconsistent examination persist. Does move left upper extremity and lower extreme the same. Following commands on left side today. Decreased movement right upper and lower extremity. Varies with timing. I seen him move his right upper extremity spontaneously but not to command. 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 Morphine 2-4 mg IV every 3 hours as needed pain On thiamine, folate and multivitamin. Monitor for DTs CT brain revealed right parietal/occipital, left frontal/occipital and left cerebellar CVA. Likely embolic. CT angiogram revealed atherosclerosis MCA bilaterally. No stenosis. CTA neck revealed bilateral subclavian stenosis 70% left, right 50%. Evaluated by neurology. At high risk of hemorrhagic conversion. MRI brain - Cerebrum: Significant periventricular white matter changes are evident with scattered areas of restricted diffusion involving both hemispheres , worse in both occipital lobes. Largest area of restricted diffusion is on the right that does involve the motor strip. There is no associated parenchymal hemorrhage. Posterior Fossa: Scattered areas restricted diffusion are seen in both cerebellar hemispheres largest 1 cm left hemisphere Neurology recommends no systemic anticoagulation at this time due to high risk of hemorrhagic conversion. Possible fully anticoagulate later this week and if CT brain stable. CV: Inferior STEMI -2 KIANNA to RCA Coronary artery disease Peripheral vascular disease Abdominal aortic aneurysm Atrial fibrillation Bilateral carotid stenosis with left 70% greater than right percent Elevated troponin Continue aspirin 81 mg daily, Prasugrel 10 mg daily for drug-eluting stent Currently on dopamine at 2.5 mg/kg/min to maintain mean arterial pressure greater than equal to 65 Admission. EKG the same revealed continuous T changes indicative of STEMI Follow up on echocardiogram -EF 50-55%. Hypokinesis inferior posterior and inferior basal recio. Followed by Dr. Maldonado/cardiology Currently on amiodarone 200 mg twice daily oral. Management per cardiology Resp: Acute respiratory failure COPD Tobacco abuse PRVC ventilation. Currently on CPAP trials Albuterol/ipratropium aerosols every 4 hours with albuterol aerosols every 2 hours as needed for dyspnea Budesonide 0.5/2 1 inhalation twice daily Follow-up on chest x-ray 12/29 Spontaneous breathing trials and clinically indicated Tobacco cessation will be encouraged education provided when appropriate GI: Elevated AST -cardiac in origin Hypoalbuminemia Hyperammonia NG tube will start tube feeds with Jevity 1.5 goal 50 cc an hour Pantoprazole for GI prophylaxis Docusate sodium/senna 1 tablet twice daily for bowel regimen-polyethylene glycol 17 g twice daily and lactulose 30 cc twice daily : Young catheter placed with acute kidney injury Endo: Sliding scale insulin with aspart insulin to maintain euglycemia TSH - 0.635 Renal: Acute kidney injury -resolved Check renal ultrasound/urine creatinine and electrolytes Avoid nephrotoxic medication Did receive dye/contrast for cardiac catheterization Heme: Normocytic anemia Monitor CBC daily. Follow trends. Maintain heparin heparin drip see orders ID: Completed treatment with prophylaxis cefazolin 1 g IV every 8 hours. Monitor for signs and symptomatology infection FEN: Replace electrolytes as clinically indicated per ICU electrolyte protocol Discontinued supplemental fluids MSK: PT evaluate and treat Access -Right IJ CVL day #6 placed 12/23 and right radial arterial line day #6 placed 12/23 -Currently utilizing right femoral arterial and venous sheath Prophylaxis -GI-lansoprazole -DVT-SCD/pharmacological prophylaxis with SCDs/enoxaparin 40 mg twice daily Critical care time 35 minutes follow-up
[2017-12-28] MEDS: Dexmedetomidine Inj 200 MCG in Sodium Chlor 0.9% Inj 48 ML IV.CONT PRN (22:50)
[2017-12-29] MEDS: Insulin NovoLOG Aspart Correctional Sugar Inj SQ SCH ×5 (00:16→23:23)
[2017-12-29] MEDS: Oral Hygiene Kit OROPHARYNG SCH ×5 (00:17→23:23)
[2017-12-29 05:01] LABS: Baso % (Auto) 0.4 % (0.0-2.0); Eos # (Auto) 0.3 th/mm3 (0.0-0.4); Hematocrit 28.8 % (39.0-51.0); Hemoglobin 10.1 gm/dL (13.0-17.0); Lymph # (Auto) 1.2 th/mm3 (1.0-4.8); Lymph % (Auto) 22.7 % (9.0-44.0); Mean Corpuscular HGB Conc 34.9 % (32.0-36.0); Mean Corpuscular Hemoglobin 31.2 pg (27.0-34.0); Mean Corpuscular Volume 89.4 fL (80.0-100.0); Mean Platelet Volume 9.3 fL (7.0-11.0); Mono # (Auto) 0.5 th/mm3 (0.0-0.9); Mono % (Auto) 9.6 % (0.0-8.0); Neut # (Auto) 3.2 th/mm3 (1.8-7.7); Neut % (Auto) 62.3 % (16.0-70.0); Platelet Count 206 th/mm3 (150-450); Red Blood Count 3.23 mil/mm3 (4.50-5.90); Red Cell Distribution Width 14.9 % (11.6-17.2); White Blood Count 5.1 th/mm3 (4.0-11.0)
[2017-12-29 05:27] LABS: Albumin 1.9 g/dL (3.4-5.0); Anion Gap 8 meq/L (5-15); Aspartate Aminotransferase 71 U/L (15-37); Blood Urea Nitrogen 14 mg/dL (7-18); Calcium 7.8 mg/dL (8.5-10.1); Carbon Dioxide 24.5 meq/L (21.0-32.0); Chloride 112 meq/L (98-107); Glomerular Filtration Rate 72 mL/min (>89); Glucose,Random 121 mg/dL (74-106); Magnesium 2.1 mg/dL (1.5-2.5); Potassium 3.6 meq/L (3.5-5.1); Sodium 144 meq/L (136-145)
[2017-12-29 05:28] LABS: Alanine Aminotransferase 31 U/L (12-78); Phosphorus 3.2 mg/dL (2.5-4.9)
[2017-12-29 05:30] LABS: Alkaline Phosphatase 100 U/L (45-117); Total Protein 5.3 g/dL (6.4-8.2)
[2017-12-29] MEDS: Enoxaparin Inj 40 MG/0.4 ML Syringe SQ SCH ×2 (05:38→17:24)
[2017-12-29] MEDS: Artificial Tears Opth Drops 15 ML Bottle EACH EYE SCH ×3 (05:38→17:22)
--- NOTE | 2017-12-29 06:14 | XR ---
EXAM DATE: 12/29/2017 6:02 AM EST AGE/SEX: 82 years / Male INDICATIONS: Respiratory failure. CLINICAL DATA: This is the patient's subsequent encounter. Patient reports that signs and symptoms h ave been present for 1 week and indicates a pain score of Nonresponsive. MEDICAL/SURGICAL HISTORY: . Coronary artery disease. A-fib. CABG. COMPARISON: [facility], CHEST 1V SINGLE AP, 12/28/2017. . FINDINGS: 2 AP views of the chest. Endotracheal tube, nasogastric tube, right IJ central venous catheter remain in place. Slight increase in bilateral hazy mid to lower lung zone opacity. Cardiomediastinal silhou ette unchanged. No evidence of pneumothorax. CONCLUSION: Slight increase in bilateral pulmonary opacity likely representing pulmonary edema. Electronically signed by: Angel Russo MD 12/29/2017 6:12 AM EST
[2017-12-29] MEDS: Dexmedetomidine Inj 200 MCG in Sodium Chlor 0.9% Inj 48 ML IV.CONT PRN ×2 (07:35→23:22)
[2017-12-29] MEDS: Sod Chloride 0.9% Inj 1,000 ML IV.CONT SCH ×2 (07:44→13:58)
[2017-12-29] MEDS: Chlorhexidine 0.12% Oral Kit 15 ML UDC OROPHARYNG SCH ×2 (07:52→21:19)
[2017-12-29] MEDS: Folic Acid 1 MG Tablet PO SCH (08:01)
[2017-12-29] MEDS: Senna/Docusate Sodium 8.6/50 MG Tablet PO SCH ×2 (08:01→21:22)
[2017-12-29] MEDS: Metoprolol Tartrate 25 MG Tablet PO SCH ×2 (08:01→21:21)
[2017-12-29] MEDS: Amiodarone 200 MG Tablet NG/OG SCH ×2 (08:01→21:21)
[2017-12-29] MEDS: Famotidine PF Inj 20 MG/2 ML Vial IV.PUSH SCH ×2 (08:01→21:21)
[2017-12-29] MEDS: Polyethylene Glycol 3350 17 GM Packet PO SCH ×2 (08:01→21:21)
[2017-12-29] MEDS: Sodium Chloride 0.9% 2 ML Flush BID IV.FLUSH SCH ×2 (08:02→21:20)
[2017-12-29] MEDS: Thiamine Inj 100 MG in Sodium Chlor 0.9% Inj 100 ML IV.SIG SCH (08:05)
--- NOTE | 2017-12-29 08:16 | P.PNCC ---
Subjective Subjective Remarks/Hospital Course: The patient is an 82-year-old male with a past medical history of coronary artery disease, atrial fibrillation, who presented to [facility] ED as a STEMI alert. The patient woke up with substernal chest pain radiating to his back and it was pressure-like in nature. His pain was a 10/10 and associated with nausea. He took 5 nitroglycerin at home with no improvement of his pain. He had aspirin en route. The patient was taken emergently to the metallurgical lab technician where he underwent a cardiac catheterization by Dr. Maldonado. The patient had a drug-eluting stent x2 in the right CA. In the metallurgical lab technician, he received Versed 3 mg, Diprivan 50 mcg, amiodarone 150 mg bolus and Lopressor 5 mg. He was transferred to CV ICU where he was very agitated and restless. Critical Care Medicine was consulted for agitation and critical care management. He received Ativan and was started on Precedex drip. ABGwas performed, which showed acute hypercapnic respiratory acidosis. He is also on dopamine at 3 mcg. Most of the history was obtained from reviewing medical records as the patient is a poor historian 12/22: Afebrile. Oozing from sheath noted in the right groin area without hematoma. Remains intermittent agitated. On propofol drip at 5 mcg/kg/min. Meet on dopamine at 6 mcg/kg/min. 12/23: Central line placed in right IJ, right radial arterial line placed. Heparin currently on hold we will plan on pulling the sheaths today from right inguinal region. Will try CPAP trial later this afternoon. Remains on low- dose dopamine 12/24: Resting comfortably in bed in no acute distress. Attempting CPAP trials and attempt extubate. Remains hemodynamic is stable on low-dose dopamine drip at 6 mg/kg/min. Meet on amiodarone drip. Currently normal sinus rhythm. 12/25: Afebrile. Events noted to be last night due to extreme hypertension, tachypnea and acute hypoxia. Stabilized. Plan for MRI brain today. Replace potassium. 12/26: T-max 100.2. MRI results noted. Attempting to wean to extubate. Arousable but currently not following commands. Will start dexmedetomidine drip and attempt to wean from ventilator. 12/27: Will reattempt to wean to extubate. 2D echocardiogram pending. Tolerating tube feeds. Still no bowel movement today. Will attempt soapsuds enema. Abdominal x-ray revealed no signs of obstruction. Subjective 12/28: Afebrile. Failed CPAP trials. Echocardiogram revealed no evidence of embolic phenomenon. Positive BM x2. 12/29: Afebrile. Chest x-ray revealing pulmonary edema. Lasix x1 dose given. CPAP trials continued. Objective Vital Signs / I&O: Vital Signs 12/28/17 10:20 12/28/17 11:00 12/28/17 11:40 Temperature 98.2 F Pulse Rate 63 67 Respiratory Rate 16 16 16 Blood Pressure 122/44 L Pulse Oximetry 100 99 12/28/17 12:49 12/28/17 13:07 12/28/17 14:08 Temperature Pulse Rate Respiratory Rate 26 H 17 19 Blood Pressure Pulse Oximetry 99 99 99 12/28/17 15:00 12/28/17 15:07 12/28/17 19:00 Temperature 98.5 F 98.6 F Pulse Rate 57 L 58 L 55 L Respiratory Rate 16 16 16 Blood Pressure 113/44 L 88/55 L Pulse Oximetry 99 99 12/28/17 20:08 12/28/17 20:09 12/28/17 23:00 Temperature 98.1 F Pulse Rate 57 L 50 L Respiratory Rate 16 16 16 Blood Pressure 106/57 L Pulse Oximetry 99 97 12/28/17 23:52 12/28/17 23:55 12/29/17 01:56 Temperature Pulse Rate 52 L 50 L Respiratory Rate 16 16 Blood Pressure Pulse Oximetry 99 12/29/17 03:00 12/29/17 03:41 12/29/17 03:44 Temperature 97.9 F Pulse Rate 53 L 51 L Respiratory Rate 16 16 16 Blood Pressure 87/48 L Pulse Oximetry 99 98 Intake & Output 12/28/17 12/29/17 12/29/17 18:59 06:59 18:59 Intake Total 1106 / 1106 1506 / 1506 101 / 101 Output Total 550 / 550 250 / 250 Balance 556 / 556 1256 / 1256 101 / 101 Weight 75 kg Intake: IV 1000 / 1000 1071 / 1071 101 / 101 Precedex Inj 200 MCG In NS Inj 71 / 71 48 ML @ 0.2 MCG/KG/HR 3.58 mls/ hr IV.CONT TITRATE PRN Rx#: [id number] NS Inj 1,000 ML @ 84 mls/hr IV. 1000 / 1000 1000 / 1000 CONT .[id number] [facility] Rx#:[id number] Thiamine Inj 100 MG In NS Inj 101 / 101 100 ML @ 100 mls/hr IV.SIG DAILY [facility] Rx#:[id number] Tube Feeding 106 / 106 375 / 375 Tube Irrigant 60 / 60 Output: Urine Amount (Catheter) 550 / 550 250 / 250 Indwelling Urethral Catheter 550 / 550 250 / 250 Other: Date of Last Bowel Movement 12/27/17 12/27/17 Result Diagrams: 12/29/17 04:15 12/29/17 04:15 Objective Remarks: GENERAL: This is an 82-year-old male currently orotracheally intubated SKIN: Warm and dry. HEAD: Normocephalic. EYES: Pupils equal round, reactive to light. no scleral icterus. No injection or drainage. NECK: Supple, trachea midline. No JVD or lymphadenopathy. Right IJ is clean dry and intact. Day 7 CARDIOVASCULAR: RRR. S1, S2. No S4. RESPIRATORY: Breath sounds equal bilaterally. No accessory muscle use. GASTROINTESTINAL: Abdomen soft, non-tender, nondistended. MUSCULOSKELETAL: No cyanosis, or edema. Right inguinal region with no hematoma with arterial and venous sheaths in place Neuro: Cranial nerves II through XII appear to be grossly intact. Positive gag and cough. Inconsistent examination persist. Does move left upper extremity and lower extreme the same. Following commands on left side today. Decreased movement right upper and lower extremity. Varies with timing. Moves his right upper extremity spontaneously intermittently to commands. 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 Monitor for DTs CT brain revealed right parietal/occipital, left frontal/occipital and left cerebellar CVA. Likely embolic. CT angiogram revealed atherosclerosis MCA bilaterally. No stenosis. CTA neck revealed bilateral subclavian stenosis 70% left, right 50%. Evaluated by neurology. At high risk of hemorrhagic conversion. MRI brain - Cerebrum: Significant periventricular white matter changes are evident with scattered areas of restricted diffusion involving both hemispheres , worse in both occipital lobes. Largest area of restricted diffusion is on the right that does involve the motor strip. There is no associated parenchymal hemorrhage. Posterior Fossa: Scattered areas restricted diffusion are seen in both cerebellar hemispheres largest 1 cm left hemisphere Neurology recommends no systemic anticoagulation at this time due to high risk of hemorrhagic conversion. Possible fully anticoagulate later this week and if CT brain stable. CV: Inferior STEMI -2 KIANNA to RCA Coronary artery disease Peripheral vascular disease Abdominal aortic aneurysm Atrial fibrillation Bilateral carotid stenosis with left 70% greater than right percent Elevated troponin Continue aspirin 81 mg daily, Prasugrel 10 mg daily for drug-eluting stent Currently on dopamine at 2.5 mg/kg/min to maintain mean arterial pressure greater than equal to 65 Admission. EKG the same revealed continuous T changes indicative of STEMI Follow up on echocardiogram -EF 50-55%. Hypokinesis inferior posterior and inferior basal recio. Followed by Dr. Maldonado/cardiology Currently on amiodarone 200 mg twice daily oral. Management per cardiology Resp: Acute respiratory failure COPD Tobacco abuse PRVC ventilation. Currently on CPAP trials Albuterol/ipratropium aerosols every 4 hours with albuterol aerosols every 2 hours as needed for dyspnea Budesonide 0.5/2 1 inhalation twice daily Chest x-ray 12/29-pulmonary edema, Lasix 20 mg IV x1 dose Continue spontaneous breathing trials Tobacco cessation will be encouraged education provided when appropriate GI: Elevated AST -cardiac in origin Hypoalbuminemia Severe protein calorie malnutrition Hyperammonia NG tube will start tube feeds with Jevity 1.5 goal 50 cc an hour Pantoprazole for GI prophylaxis Docusate sodium/senna 1 tablet twice daily for bowel regimen-polyethylene glycol 17 g twice daily and lactulose 30 cc twice daily : Young catheter placed with acute kidney injury Endo: Sliding scale insulin with aspart insulin to maintain euglycemia TSH - 0.635 Renal: Acute kidney injury -resolved Check renal ultrasound/urine creatinine and electrolytes Avoid nephrotoxic medication Did receive dye/contrast for cardiac catheterization Heme: Normocytic anemia Monitor CBC daily. Follow trends. Maintain heparin heparin drip see orders ID: Completed treatment with prophylaxis cefazolin 1 g IV every 8 hours. Monitor for signs and symptomatology infection FEN: Replace electrolytes as clinically indicated per ICU electrolyte protocol Discontinued supplemental fluids MSK: PT evaluate and treat Access -Right IJ CVL day #7 placed 12/23 and right radial arterial line day #7 placed / -Currently utilizing right femoral arterial and venous sheath Prophylaxis -GI-lansoprazole -DVT-SCD/pharmacological prophylaxis with SCDs/enoxaparin 40 mg twice daily Critical care time 33 minutes follow-up
--- NOTE | 2017-12-29 12:32 | P.PNCA ---
Subjective Interval history: PT MORE ALERT ON T PIECE MAY BE EXTUBATED TODAY MRI SUGGEST EMBOLIC CVA'S HE HAS HX OF AF HAD BEEN ON XARELTO BUT IS NONCOMPLIANT CV HAN HE IS HEMODYNAMICALLY STABLE ON DAPT NSR ON AMIODARONE 400/D AND METOPROLOL HE HAS RONCHI CV RRR NO RUB OR GALOP NO EDEMA LABS ARE STABLE HE WILL NEED ANTICOAGULANT RX WOULD DC ASA AND CONTINUE PRASUGREL AND START ELIQUIS OR XARELTO FULL DOSE HE WILL NEED PT/OT/REHAB HIS FAMILY SITUATION IS DIFFICULT HE HAS TOLD ME HIS HAS DEMENTIA AND IS ABUSIVE MENTALLY AND PHYSICALLY TOWARDS HIM Medications and Allergies Active Medications: Active Medications Acetaminophen (Tylenol Liq) 650 mg PO Q6H PRN PRN Reason: FEVER Albuterol (Albuterol Neb (Prn)) 2.5 mg NEB Q2HR NEB PRN PRN Reason: DYSPNEA Albuterol (Duoneb Neb (Kasandra)) 1 ampul NEB Q4HR NEB [facility] Last Admin: 12/29/17 11:30 Dose: 1 ampul Alprazolam (Xanax) 0.5 mg PO TID PRN PRN Reason: ANXIETY Amiodarone HCl (Cordarone) 200 mg NG/OG BID [facility] Last Admin: 12/29/17 08:01 Dose: 200 mg Artificial Tears (Tears Naturale Opth Drops) 1 drop EACH EYE Q8H [facility] Last Admin: 12/29/17 10:28 Dose: 1 drop Aspirin (Aspirin Chew) 81 mg NG/OG DAILY [facility] Last Admin: 12/29/17 08:01 Dose: 81 mg Budesonide (Pulmocort Respule Neb) 0.5 mg NEB Q12HR NEB [facility] Last Admin: 12/29/17 07:20 Dose: 0.5 mg Chlorhexidine Gluconate (Peridex 0.12% Oral Kit) 15 ml OROPHARYNG BID@0800, 2000 [facility] Last Admin: 12/29/17 07:52 Dose: 15 ml Dextrose (D50w Vial) 50 ml IV.PUSH UNSCH PRN PRN Reason: PER HYPOGLYCEMIA PROTOCOL Last Admin: 12/28/17 00:38 Dose: 50 ml Enoxaparin Sodium (Lovenox Inj) 40 mg SQ Q12H [facility] Last Admin: 12/29/17 05:38 Dose: 40 mg Famotidine (Pepcid Pf Inj) 20 mg IV.PUSH Q12HR [facility] Last Admin: 12/29/17 08:01 Dose: 20 mg Folic Acid (Folic Acid) 1 mg PO DAILY [facility] Last Admin: 12/29/17 08:01 Dose: 1 mg Glucagon (Glucagon Inj) 1 mg OTHER PRN PRN PRN Reason: for Hypoglycemia Protocol Dexmedetomidine HCl 200 mcg/ (Sodium Chloride) 50 mls @ 3.58 mls/hr IV.CONT TITRATE PRN; Protocol PRN Reason: Per Protocol Last Titration: 12/29/17 09:30 Dose: 0 mcg/kg/hr, 0 mls/hr Sodium Chloride (Ns Inj) 1,000 mls @ 100 mls/hr IV.SIG .Q10H [facility] Last Infusion: 12/24/17 14:55 Dose: Infused Magnesium Sulfate 4 gm/ Sodium (Chloride) 100 mls @ 50 mls/hr IV.SIG UNSCH PRN PRN Reason: For Magnesium 0.9 - 1.1 mg/dL Magnesium Sulfate 2 gm/ Sodium (Chloride) 100 mls @ 50 mls/hr IV.SIG UNSCH PRN PRN Reason: For Magnesium 1.2 - 1.6 mg/dL Potassium Chloride (Kcl 20 Meq Premix Inj) 20 meq in 100 mls @ 50 mls/hr IV.SIG Q2H PRN PRN Reason: For Potassium 3.3 - 3.5 mEq/L Last Infusion: 12/25/17 17:15 Dose: Infused Potassium Chloride (Kcl 40 Meq Premix Inj) 40 meq in 100 mls @ 25 mls/hr IV.SIG UNSCH PRN PRN Reason: For Potassium 3.3 - 3.5 mEq/L Potassium Chloride (Kcl 20 Meq Premix Inj) 20 meq in 100 mls @ 50 mls/hr IV.SIG Q2H PRN PRN Reason: For Potassium 2.8 - 3.2 mEq/L Potassium Phosphate 30 mmol/ (Sodium Chloride) 260 mls @ 42 mls/hr IV.SIG UNSCH PRN PRN Reason: SEE LABEL COMMENTS Sodium Phosphate 30 mmol/ (Sodium Chloride) 260 mls @ 42 mls/hr IV.SIG UNSCH PRN PRN Reason: For Phosphorus < 2.5 mg/dL Potassium Chloride (Kcl 40 Meq Premix Inj) 40 meq in 100 mls @ 25 mls/hr IV.SIG Q4H PRN PRN Reason: For Potassium 2.8 - 3.2 mEq/L Fentanyl (Fentanyl 10 Mcg/Ml Premix Drip) 2,500 mcg in 250 mls @ 5 mls/hr IV.SIG TITRATE PRN; Protocol PRN Reason: Per Protocol Last Admin: 12/28/17 14:18 Dose: 50 mcg/hr, 5 mls/hr Propofol (Diprivan 1000 Mg/100 Ml Inj) 1,000 mg in 100 mls @ 2.15 mls/hr IV.CONT TITRATE PRN; Protocol PRN Reason: Per Protocol Last Titration: 12/28/17 14:24 Dose: 0 mcg/kg/min, 0 mls/hr Thiamine HCl 100 mg/ Sodium (Chloride) 101 mls @ 100 mls/hr IV.SIG DAILY [facility] Last Infusion: 12/29/17 10:26 Dose: Infused Sodium Chloride (Ns Inj) 1,000 mls @ 84 mls/hr IV.CONT .[id number] [facility] Last Admin: 12/29/17 07:44 Dose: 84 mls/hr Dopamine HCl/Dextrose (Dopamine 400 Mg/250 Ml Premix) 400 mg in 250 mls @ 8.063 mls/hr IV.CONT TITRATE PRN; Protocol PRN Reason: PRN PROTOCOL Last Titration: 12/29/17 08:00 Dose: 1 mcg/kg/min, 2.69 mls/hr Insulin Aspart (Novolog Insulin Correctional Sugar Inj) 0 unit SQ Q6HR [facility]; Protocol Last Admin: 12/29/17 06:51 Dose: Not Given Lactulose (Lactulose Liq) 30 ml PO BID [facility] Last Admin: 12/29/17 08:03 Dose: Not Given Magnesium Oxide (Mag-Ox) 800 mg PO UNSCH PRN PRN Reason: For Magnesium 1.2 - 1.6 mg/dL Metoclopramide HCl (Reglan Inj) 5 mg IV.PUSH Q8HR [facility]; Protocol Last Admin: 12/29/17 05:39 Dose: 5 mg Metoprolol Tartrate (Lopressor) 25 mg PO BID [facility] Last Admin: 12/29/17 08:01 Dose: 25 mg Miscellaneous Medication () 1 each OROPHARYNG 0000,0400,1200,1600 [facility] Last Admin: 12/29/17 05:38 Dose: 1 each Morphine Sulfate (Morphine Inj) 2 mg IV.PUSH Q3H PRN PRN Reason: PAIN SCALE 1 TO 5/AGITATION Morphine Sulfate (Morphine Inj) 4 mg IV.PUSH Q3H PRN PRN Reason: PAIN SCALE 6 TO 10/AGITATION Multivitamins (Theragran) 1 tab PO DAILY [facility] Last Admin: 12/29/17 08:01 Dose: 1 tab Polyethylene Glycol (Miralax) 17 gm PO BID [facility] Last Admin: 12/29/17 08:01 Dose: 17 gm Potassium Bicarb/Potassium Chloride (K-Lyte Cl Eff) 50 meq PO UNSCH PRN PRN Reason: For Potassium 3.3 - 3.5 mEq/L Potassium Phosphate (K-Phos Original) 2,000 mg PO Q4H PRN PRN Reason: Phosphorus Less Than 2.5 mg/dL Potassium Phosphate (K-Phos Original) 2,000 mg PO UNSCH PRN PRN Reason: SEE LABEL COMMENTS Prasugrel (Effient) 10 mg PO DAILY [facility] Last Admin: 12/29/17 08:01 Dose: 10 mg Pravastatin Sodium (Pravachol) 80 mg PO HS [facility] Last Admin: 12/28/17 21:17 Dose: 80 mg Senna/Docusate Sodium (Estrella-Colace) 1 tab PO BID [facility] Last Admin: 12/29/17 08:01 Dose: 1 tab Sodium Chloride (Ns Flush) 2 ml IV.FLUSH BID [facility] Last Admin: 12/29/17 08:02 Dose: 2 ml Sodium Chloride (Ns Flush) 2 ml IV.FLUSH PRN PRN PRN Reason: FLUSH AFTER USING IV ACCESS Sodium Chloride (Ns Flush) 0 ml IV.FLUSH DAILY [facility] Last Admin: 12/29/17 08:02 Dose: Not Given Temazepam (Restoril) 15 mg PO HS PRN PRN Reason: INSOMNIA Terbutaline Sulfate (Brethine Inj) 1 mg SQ UNSCH PRN PRN Reason: Extravasation Allergies Allergy/AdvReac Type Severity Reaction Status Date / Time No Known Allergies Allergy Verified 12/21/17 08:42 Home Medications Medication Instructions Recorded Confirmed Type nitroglycerin [Nitrostat] 0.4 mg SUBLINGUAL Q5-15M PRN 12/21/17 12/21/17 History Physical Exam Vital signs: Vital Signs 12/28/17 12:49 12/28/17 13:07 12/28/17 14:08 Temperature Pulse Rate Respiratory Rate 26 H 17 19 Blood Pressure Pulse Oximetry 99 99 99 12/28/17 15:00 12/28/17 15:07 12/28/17 19:00 Temperature 98.5 F 98.6 F Pulse Rate 57 L 58 L 55 L Respiratory Rate 16 16 16 Blood Pressure 113/44 L 88/55 L Pulse Oximetry 99 99 12/28/17 20:08 12/28/17 20:09 12/28/17 23:00 Temperature 98.1 F Pulse Rate 57 L 50 L Respiratory Rate 16 16 16 Blood Pressure 106/57 L Pulse Oximetry 99 97 12/28/17 23:52 12/28/17 23:55 12/29/17 01:56 Temperature Pulse Rate 52 L 50 L Respiratory Rate 16 16 Blood Pressure Pulse Oximetry 99 12/29/17 03:00 12/29/17 03:41 12/29/17 03:44 Temperature 97.9 F Pulse Rate 53 L 51 L Respiratory Rate 16 16 16 Blood Pressure 87/48 L Pulse Oximetry 99 98 12/29/17 07:00 12/29/17 07:20 12/29/17 09:30 Temperature 98.3 F Pulse Rate 57 L 52 L Respiratory Rate 16 16 8 L Blood Pressure 124/67 Pulse Oximetry 100 99 99 12/29/17 11:00 12/29/17 11:33 12/29/17 11:34 Temperature 98.5 F Pulse Rate 57 L 59 L Respiratory Rate 21 23 23 Blood Pressure 104/51 L Pulse Oximetry 99 99 Intake & Output 12/28/17 12/29/17 12/29/17 18:59 06:59 18:59 Intake Total 1106 / 1106 1506 / 1506 Output Total 550 / 550 250 / 250 Balance 556 / 556 1256 / 1256 Weight 75 kg Intake: IV 1000 / 1000 1071 / 1071 Precedex Inj 200 MCG In NS Inj 71 / 71 48 ML @ 0.2 MCG/KG/HR 3.58 mls/ hr IV.CONT TITRATE PRN Rx#: [id number] NS Inj 1,000 ML @ 84 mls/hr IV. 1000 / 1000 1000 / 1000 CONT .[id number] [facility] Rx#:[id number] Thiamine Inj 100 MG In NS Inj 100 ML @ 100 mls/hr IV.SIG DAILY [facility] Rx#:[id number] Tube Feeding 106 / 106 375 / 375 Tube Irrigant 60 / 60 Output: Urine Amount (Catheter) 550 / 550 250 / 250 Indwelling Urethral Catheter 550 / 550 250 / 250 Other: Date of Last Bowel Movement 12/27/17 12/27/17 12/27/17 - Urinary Catheter Management Condom Cath placed during this visit: no Indwelling Urethral Catheter Cath placed during this visit: yes Reason for continuing: Hourly intake/output Insertion date: 12/22/17 Insertion time: 11:00 Results 12/29/17 04:15 12/29/17 04:15 Cardiac Enzymes 12/28/17 12/29/17 Range/Units 05:05 04:15 AST 60 H 71 H (15-37) U/L CBC 12/28/17 12/29/17 Range/Units 05:05 04:15 WBC 5.0 5.1 (4.0-11.0) th/mm3 RBC 3.23 L 3.23 L (4.50-5.90) mil/mm3 Hgb 9.8 L 10.1 L (13.0-17.0) gm/dL Hct 28.6 L 28.8 L (39.0-51.0) % Plt Count 218 206 (150-450) th/mm3 Neut # (Auto) 3.1 3.2 (1.8-7.7) th/mm3 Lymph # (Auto) 1.1 1.2 (1.0-4.8) th/mm3 [place] # (Auto) 0.5 0.5 (0.0-0.9) th/mm3 Eos # (Auto) 0.2 0.3 (0.0-0.4) th/mm3 Baso # (Auto) 0.0 0.0 (0.0-0.2) th/mm3 Comprehensive Metabolic Panel 12/28/17 12/29/17 Range/Units 05:05 04:15 Sodium 143 144 (136-145) meq/L Potassium 3.8 3.6 (3.5-5.1) meq/L Chloride 109 H 112 H (98-107) meq/L Carbon Dioxide 25.8 24.5 (21.0-32.0) meq/L BUN 14 14 (7-18) mg/dL Creatinine 1.00 1.00 (0.60-1.30) mg/dL Calcium 7.8 L 7.8 L (8.5-10.1) mg/dL AST 60 H 71 H (15-37) U/L ALT 24 31 (12-78) U/L Alkaline Phosphatase 90 100 (45-117) U/L Total Protein 5.2 L 5.3 L (6.4-8.2) g/dL Albumin 1.8 L 1.9 L (3.4-5.0) g/dL Intake and Output 12/28/17 12/29/17 12/29/17 22:59 06:59 14:59 Intake Total 1127 / 1127 1485 / 1485 Output Total 550 / 550 250 / 250 Balance 577 / 577 1235 / 1235 Intake: IV 1021 / 1021 1050 / 1050 Precedex Inj 200 MCG In NS Inj 50 / 50 48 ML @ 0.2 MCG/KG/HR 3.58 mls/ hr IV.CONT TITRATE PRN Rx#: [id number] NS Inj 1,000 ML @ 84 mls/hr IV. 1000 / 1000 1000 / 1000 CONT .[id number] [facility] Rx#:[id number] Thiamine Inj 100 MG In NS Inj 100 ML @ 100 mls/hr IV.SIG DAILY [facility] Rx#:[id number] Tube Feeding 106 / 106 375 / 375 Tube Irrigant 60 / 60 Output: Urine Amount (Catheter) 550 / 550 250 / 250 Indwelling Urethral Catheter 550 / 550 250 / 250 Other: Date of Last Bowel Movement 12/27/17 12/27/17 12/27/17 Weight 75 kg - Imaging and Cardiology Imaging: Impressions Abdomen X-Ray 12/28/17 00:00 CONCLUSION: Decrease in gaseous distention of the colon. Chest X-Ray 12/28/17 06:00 CONCLUSION: No significant interval change with persistent mild bilateral lower lung zone opacity. Chest X-Ray 12/29/17 06:00 CONCLUSION: Slight increase in bilateral pulmonary opacity likely representing pulmonary edema. Assessment and Plan - Plan STEMI s/p KIANNA X 2 RCA COPD with respiratory failure on vent support. Labile BP improving Paroxysmal atrial fib, currently in NSR. Amiodarone on hold for bradycardia. 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 On Enox heparin now will need oral anticoagulant later. Continue maximal support and attempt to wean vent. Discussed plans with staff internist office based only. Dr. Maldonado will be back on Thursday.
[2017-12-29] MEDS ORDERED: Labetalol HCl Inj 100 MG/20 ML Vial ONE (20:43)
[2017-12-29] MEDS ORDERED: Labetalol HCl Inj 100 MG/20 ML Vial IV.PUSH ONE (20:44)
[2017-12-30] MEDS: Dexmedetomidine Inj 200 MCG in Sodium Chlor 0.9% Inj 48 ML IV.CONT PRN ×2 (02:27→06:25)
[2017-12-30] MEDS: Artificial Tears Opth Drops 15 ML Bottle EACH EYE SCH ×3 (02:27→17:45)
[2017-12-30] MEDS: Sod Chloride 0.9% Inj 1,000 ML IV.CONT SCH ×3 (02:32→16:40)
[2017-12-30 04:44] LABS: Baso % (Auto) 0.4 % (0.0-2.0); Eos # (Auto) 0.1 th/mm3 (0.0-0.4); Eos % (Auto) 1.6 % (0.0-4.0); Hematocrit 28.1 % (39.0-51.0); Hemoglobin 9.7 gm/dL (13.0-17.0); Mean Corpuscular HGB Conc 34.6 % (32.0-36.0); Mean Corpuscular Hemoglobin 30.6 pg (27.0-34.0); Mean Corpuscular Volume 88.6 fL (80.0-100.0); Mean Platelet Volume 8.9 fL (7.0-11.0); Mono # (Auto) 0.5 th/mm3 (0.0-0.9); Mono % (Auto) 9.1 % (0.0-8.0); Neut % (Auto) 70.9 % (16.0-70.0); Platelet Count 235 th/mm3 (150-450); Red Blood Count 3.17 mil/mm3 (4.50-5.90); Red Cell Distribution Width 14.9 % (11.6-17.2); White Blood Count 5.6 th/mm3 (4.0-11.0)
[2017-12-30 05:07] LABS: Calcium 8.2 mg/dL (8.5-10.1); Carbon Dioxide 23.5 meq/L (21.0-32.0); Magnesium 1.9 mg/dL (1.5-2.5); Phosphorus 3.2 mg/dL (2.5-4.9); Potassium 3.5 meq/L (3.5-5.1)
[2017-12-30] MEDS: Oral Hygiene Kit OROPHARYNG SCH ×3 (05:09→17:31)
--- NOTE | 2017-12-30 05:32 | XR ---
EXAM DATE: 12/30/2017 5:29 AM EST AGE/SEX: 82 years / Male INDICATIONS: Short of breath. CLINICAL DATA: This is the patient's subsequent encounter. Patient reports that signs and symptoms h ave been present for 2 days and indicates a pain score of 0/10. MEDICAL/SURGICAL HISTORY: . Coronary artery disease. A-fib. CABG. COMPARISON: [facility], CHEST 1V SINGLE AP, 12/29/2017. . FINDINGS: Single AP view the chest. Endotracheal tube and nasogastric tube no longer seen. Right IJ central suni ous catheter remains in place. Bilateral mid to lower lung zone opacity unchanged. Cardiomediastinal silhouette unchanged. No evidence of pneumothorax. CONCLUSION: Endotracheal tube and nasogastric tube no longer seen. No significant interval change in bilateral mi d to lower lung zone hazy opacity. Electronically signed by: Angel Russo MD 12/30/2017 5:31 AM EST
[2017-12-30] MEDS: Insulin NovoLOG Aspart Correctional Sugar Inj SQ SCH ×3 (06:14→17:48)
[2017-12-30] MEDS: Enoxaparin Inj 40 MG/0.4 ML Syringe SQ SCH ×2 (06:14→17:45)
[2017-12-30] MEDS: Famotidine PF Inj 20 MG/2 ML Vial IV.PUSH SCH ×2 (08:31→20:18)
[2017-12-30] MEDS: Sodium Chloride 0.9% 2 ML Flush BID IV.FLUSH SCH ×2 (08:33→20:19)
[2017-12-30] MEDS: Morphine Sulfate Inj 2 MG/ML Vial IV.PUSH PRN ×3 (08:41→22:20)
--- NOTE | 2017-12-30 09:14 | P.PNCC ---
Subjective Subjective Remarks/Hospital Course: The patient is an 82-year-old male with a past medical history of coronary artery disease, atrial fibrillation, who presented to [facility] ED as a STEMI alert. The patient woke up with substernal chest pain radiating to his back and it was pressure-like in nature. His pain was a 10/10 and associated with nausea. He took 5 nitroglycerin at home with no improvement of his pain. He had aspirin en route. The patient was taken emergently to the dairy and food laboratory assistant where he underwent a cardiac catheterization by Dr. Maldonado. The patient had a drug-eluting stent x2 in the right CA. In the dairy and food laboratory assistant, he received Versed 3 mg, Diprivan 50 mcg, amiodarone 150 mg bolus and Lopressor 5 mg. He was transferred to CV ICU where he was very agitated and restless. Critical Care Medicine was consulted for agitation and critical care management. He received Ativan and was started on Precedex drip. ABGwas performed, which showed acute hypercapnic respiratory acidosis. He is also on dopamine at 3 mcg. Most of the history was obtained from reviewing medical records as the patient is a poor historian 12/22: Afebrile. Oozing from sheath noted in the right groin area without hematoma. Remains intermittent agitated. On propofol drip at 5 mcg/kg/min. Meet on dopamine at 6 mcg/kg/min. 12/23: Central line placed in right IJ, right radial arterial line placed. Heparin currently on hold we will plan on pulling the sheaths today from right inguinal region. Will try CPAP trial later this afternoon. Remains on low- dose dopamine 12/24: Resting comfortably in bed in no acute distress. Attempting CPAP trials and attempt extubate. Remains hemodynamic is stable on low-dose dopamine drip at 6 mg/kg/min. Meet on amiodarone drip. Currently normal sinus rhythm. 12/25: Afebrile. Events noted to be last night due to extreme hypertension, tachypnea and acute hypoxia. Stabilized. Plan for MRI brain today. Replace potassium. 12/26: T-max 100.2. MRI results noted. Attempting to wean to extubate. Arousable but currently not following commands. Will start dexmedetomidine drip and attempt to wean from ventilator. 12/27: Will reattempt to wean to extubate. 2D echocardiogram pending. Tolerating tube feeds. Still no bowel movement today. Will attempt soapsuds enema. Abdominal x-ray revealed no signs of obstruction. Subjective 12/28: Afebrile. Failed CPAP trials. Echocardiogram revealed no evidence of embolic phenomenon. Positive BM x2. 12/29: Afebrile. Chest x-ray revealing pulmonary edema. Lasix x1 dose given. CPAP trials continued. 12/30: Extubated yesterday afternoon. During the night the patient was noted to have respiratory insufficiency and hypertension. The patient received Lasix , labetalol, and Vasotec. The patient diuresed 2300 cc, with resolution of symptoms. The patient remained on BiPAP till 5 AM. Patient continues on 5 L nasal cannula humidified oxygen . Awaiting formal swallow from speech pathology to resume diet. Objective Vital Signs / I&O: Vital Signs 12/29/17 09:30 12/29/17 11:00 12/29/17 11:33 Temperature 98.5 F Pulse Rate 57 L 59 L Respiratory Rate 8 L 21 23 Blood Pressure 104/51 L Pulse Oximetry 99 99 12/29/17 11:34 12/29/17 14:50 12/29/17 15:00 Temperature 98.3 F Pulse Rate 73 85 Respiratory Rate 23 17 20 Blood Pressure 148/56 H Pulse Oximetry 99 98 12/29/17 19:00 12/29/17 20:17 12/29/17 20:55 Temperature 98.2 F Pulse Rate 76 81 Respiratory Rate 22 36 H Blood Pressure 135/80 Pulse Oximetry 99 97 99 12/29/17 22:00 12/29/17 22:10 12/29/17 23:00 Temperature 98.6 F 98.0 F Pulse Rate 64 Respiratory Rate 24 Blood Pressure 101/34 L Pulse Oximetry 99 99 12/29/17 23:35 12/29/17 23:37 12/30/17 00:00 Temperature Pulse Rate 61 Respiratory Rate 31 H 14 Blood Pressure Pulse Oximetry 99 12/30/17 03:00 12/30/17 03:25 12/30/17 03:45 Temperature 97.9 F Pulse Rate 49 L 58 L Respiratory Rate 11 L 18 Blood Pressure 127/59 L Pulse Oximetry 99 98 12/30/17 07:31 Temperature Pulse Rate 54 L Respiratory Rate 18 Blood Pressure Pulse Oximetry 97 Intake & Output 11/20/18 11/21/18 11/21/18 18:59 06:59 18:59 Intake Total 1702 / 1702 100 / 100 Output Total 350 / 350 2315 / 2315 Balance 1352 / 1352 -2215 / -2215 Weight 73 kg Intake: IV 1672 / 1672 100 / 100 DOPamine 400 MG/250 ML Premix 200 / 200 400 mg In 250 ml @ 3 MCG/KG/MIN 8.063 mls/hr IV.CONT TITRATE PRN Rx#:[id number] Precedex Inj 200 MCG In NS Inj 20 / 20 100 / 100 48 ML @ 0.2 MCG/KG/HR 3.58 mls/ hr IV.CONT TITRATE PRN Rx#: [id number] Diprivan 1000 mg/100 ml Inj 1, 100 / 100 000 mg In 100 ml @ 5 MCG/KG/MIN 2.15 mls/hr IV.CONT TITRATE PRN Rx#:[id number] NS Inj 1,000 ML @ 84 mls/hr IV. 1000 / 1000 CONT .[id number] [facility] Rx#:[id number] Thiamine Inj 100 MG In NS Inj 202 / 202 100 ML @ 100 mls/hr IV.SIG DAILY [facility] Rx#:[id number] fentaNYL 10 mcg/mL Premix Drip 100 / 100 2,500 mcg In 250 ml @ 50 MCG/HR 5 mls/hr IV.SIG TITRATE PRN Rx #:[id number] Oral 30 / 30 Output: Urine Amount (Catheter) 350 / 350 2315 / 2315 Indwelling Urethral Catheter 350 / 350 2315 / 2315 Other: Date of Last Bowel Movement 12/27/17 Result Diagrams: 12/30/17 04:25 12/30/17 04:25 Objective Remarks: GENERAL: This is an 82-year-old male awake, minimally responsive, in no acute distress SKIN: Warm and dry. HEAD: Normocephalic. EYES: Pupils equal round, reactive to light. no scleral icterus. No injection or drainage. NECK: Supple, trachea midline. No JVD or lymphadenopathy. Right IJ is clean dry and intact. CARDIOVASCULAR: RRR. S1, S2. No S4. RESPIRATORY: Breath sounds equal bilaterally. No accessory muscle use. GASTROINTESTINAL: Abdomen soft, non-tender, nondistended. MUSCULOSKELETAL: No cyanosis, or edema. Right inguinal region with no hematoma. Neuro: Cranial nerves II through XII appear to be grossly intact. Positive gag and cough. Inconsistent examination persist. Does move left upper extremity and lower extreme the same. Following commands on left side today. Decreased movement right upper and lower extremity. Varies with timing. Moves his right upper extremity spontaneously intermittently to commands. 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 Monitor for DTs/seizure precautions CT brain revealed right parietal/occipital, left frontal/occipital and left cerebellar CVA. Likely embolic. CT angiogram revealed atherosclerosis MCA bilaterally. No stenosis. CTA neck revealed bilateral subclavian stenosis 70% left, right 50%. Evaluated by neurology. At high risk of hemorrhagic conversion. MRI brain - Cerebrum: Significant periventricular white matter changes are evident with scattered areas of restricted diffusion involving both hemispheres , worse in both occipital lobes. Largest area of restricted diffusion is on the right that does involve the motor strip. There is no associated parenchymal hemorrhage. Posterior Fossa: Scattered areas restricted diffusion are seen in both cerebellar hemispheres largest 1 cm left hemisphere Neurology recommends no systemic anticoagulation at this time due to high risk of hemorrhagic conversion. Possible fully anticoagulate later this week and if CT brain stable. CV: Inferior STEMI -2 KIANNA to RCA Coronary artery disease Peripheral vascular disease Abdominal aortic aneurysm Atrial fibrillation Bilateral carotid stenosis with left 70% greater than right percent Elevated troponin Continue aspirin 81 mg daily, Prasugrel 10 mg daily for drug-eluting stent Currently on dopamine at 2.5 mg/kg/min to maintain mean arterial pressure greater than equal to 65 Admission. EKG the same revealed continuous T changes indicative of STEMI Follow up on echocardiogram -EF 50-55%. Hypokinesis inferior posterior and inferior basal recio. Followed by Dr. Maldonado/cardiology Currently on amiodarone 200 mg twice daily oral. Management per cardiology Resp: Acute respiratory failure COPD Tobacco abuse Currently nasal cannula 5 L/min O2 saturation 98% Albuterol/ipratropium aerosols every 4 hours with albuterol aerosols every 2 hours as needed for dyspnea Budesonide 0.5/2 1 inhalation twice daily F/U Chest x-ray Extubated 12/29-continue aggressive pulmonary toileting Tobacco cessation will be encouraged education provided when appropriate GI: Elevated AST -cardiac in origin Hypoalbuminemia Severe protein calorie malnutrition Hyperammonia Obtain formal swallow evaluation by speech therapy and initiate diet Pantoprazole for GI prophylaxis Docusate sodium/senna 1 tablet twice daily for bowel regimen : Young catheter placed with acute kidney injury Endo: Sliding scale insulin with aspart insulin to maintain euglycemia TSH - 0.635 Renal: Acute kidney injury -resolved Check renal ultrasound/urine creatinine and electrolytes Avoid nephrotoxic medication Did receive dye/contrast for cardiac catheterization Heme: Normocytic anemia Monitor CBC daily. Follow trends. Currently on Lovenox twice daily-planned transition to [facility] , cardiology to manage ID: Completed treatment with prophylaxis cefazolin 1 g IV every 8 hours. Monitor for signs and symptomatology infection FEN: Replace electrolytes as clinically indicated per ICU electrolyte protocol Discontinued supplemental fluids MSK: PT evaluate and treat Access -Right IJ CVL day #8 placed 12/23 and right radial arterial line day #8 placed 12/23 Prophylaxis -GI-lansoprazole -DVT-SCD/pharmacological prophylaxis with SCDs/enoxaparin 40 mg twice daily Level 2 . Plan transfer to [facility] am. Thank you for the consult.
[2017-12-30] MEDS: Amiodarone 200 MG Tablet NG/OG SCH ×2 (10:08→20:18)
[2017-12-30] MEDS: Folic Acid 1 MG Tablet PO SCH (10:08)
[2017-12-30] MEDS: Metoprolol Tartrate 25 MG Tablet PO SCH ×2 (10:08→20:18)
[2017-12-30] MEDS: Polyethylene Glycol 3350 17 GM Packet PO SCH ×2 (10:11→22:19)
[2017-12-30] MEDS: Thiamine Inj 100 MG in Sodium Chlor 0.9% Inj 100 ML IV.SIG SCH (10:11)
[2017-12-30] MEDS: Chlorhexidine 0.12% Oral Kit 15 ML UDC OROPHARYNG SCH ×2 (10:12→22:19)
[2017-12-30] MEDS: Dextrose 50% in Water 50 ML Vial IV.PUSH PRN ×2 (12:32→13:45)
--- NOTE | 2017-12-30 15:27 | P.DIET ---
Nutritional Evaluation Type of nutrition evaluation: follow-up Nutrition consult regarding: Tube Feeding (TFing stopped 12/29) Objective - Diagnosis STEMI Alert - Objective % IBW: 90 (IBW = 172#) Body Weight Used for Calculations: Actual (70.5 kg) Energy Needs - Lower Range (kCal/kg): 25 Energy Needs - Upper Range (kCal/kg): 30 Lower Limit kCal/kg (kCals): 1,763 Upper Limit kCal/kg (kCals): 2,115 Lower Limit Protein Factor (Grams per Kg): 1.0 Upper Limit Protein Factor (Grams per Kg): 1.5 Lower Protein Needs (Protein): 71 Upper Protein Needs (Protein): 106 Dietitian Reviewed in Medical Record: Current diet, Curent medications, Intake & Output, Labs, Medical history Diet Order: Cardiac, Mechanical Soft w/chopped meat Speech Therapy Recommendations: Yes (12/30) Assessment Assessment: Pt extubated and TFing stopped 12/29. Diet just advanced. RD will monitor po intake and assess for the need of supplements. Recommendations: Diet as ordered RD following Dietitian to Monitor: Lab values, Glucose level, Intake & Output, Diet tolerance , Weight change, PO Intake, Swallow recommendations, Medical course
--- NOTE | 2017-12-30 15:37 | ECG ---
Date Performed: 12/29/2017 Time Performed: 20:54:54 PTAGE: 82 years EKG: Normal Sinus rhythm . Baseline artifact makes this substandard for interpretation. Nonspecific ST abnormalities, which do n't appear significantly different from prior. Abnormal ECG PREVIOUS TRACING : 12/24/2017 18.18 DOCTOR: Forrest Leon Interpretating Date/Time 12/30/2017 15:36:43
[2017-12-30] MEDS: Morphine Inj 4 MG/ML Vial IV.PUSH PRN ×2 (16:50→23:05)
[2017-12-30] MEDS ORDERED: Labetalol HCl Inj 100 MG/20 ML Vial ONE (23:34)
[2017-12-30] MEDS ORDERED: Mag Sulf 1 gm/100 ml Premix 200 ML IV.SIG ONE (23:36)
--- NOTE | 2017-12-31 | P.PNADD ---
Addendum to Inpatient Note Reason for Addendum: Additional Documentation Additional information: called to bedside emergently for instability. patient severely hypertensive with sbp 280, agitated, tachycardic with HR 130s. in respiratory distress. significant expiratory wheezing. given labetalol 40mg iv x 1, magnesium sulfate 2gm iv, and inhaled duoneb. placed back on BiPAP. hemodynamics began to improve. On my exam: elderly male in acute severe distress. sbp 280s, hr 130s. tachypneic, using accessory muscles. severe expiratory wheezing agitated, not following commands. RASS +2. ab.25/52/218/22.3 Active Problems: Hypertensive Emergency Agitated Delirium Acute hypoxic respiratory failure Plan: - labetalol prn for goal sbp < 140, HR < 110 - magnesium 2gm iv x 1 - prn and scheduled nebs - stat abg - keep on BiPAP 15/5, wean fio2 for goal spo2 > 90% - cancel transfer to hospitalist service. will remain on the ICU service. Patient very critically ill. actively managed hemodynamics and respiratory status which was actively decompensating. Critical care time: 31 minutes, exclusive of separately billable procedures.
[2017-12-31 00:02] LABS: ABG Base Excess -3.8 mmol/L (-2-2); ABG PCO2 53 mmHg (38-42); ABG PO2 218 mmHG (61-120)
[2017-12-31] MEDS: Oral Hygiene Kit OROPHARYNG SCH ×5 (01:52→23:42)
[2017-12-31] MEDS: Insulin NovoLOG Aspart Correctional Sugar Inj SQ SCH ×5 (01:53→23:42)
[2017-12-31] MEDS: Artificial Tears Opth Drops 15 ML Bottle EACH EYE SCH ×3 (02:13→17:31)
[2017-12-31 04:57] LABS: Baso % (Auto) 0.6 % (0.0-2.0); Eos # (Auto) 0.1 th/mm3 (0.0-0.4); Eos % (Auto) 1.3 % (0.0-4.0); Hematocrit 30.7 % (39.0-51.0); Hemoglobin 10.5 gm/dL (13.0-17.0); Lymph # (Auto) 0.9 th/mm3 (1.0-4.8); Lymph % (Auto) 10.9 % (9.0-44.0); Mean Corpuscular HGB Conc 34.2 % (32.0-36.0); Mean Corpuscular Hemoglobin 30.3 pg (27.0-34.0); Mean Corpuscular Volume 88.7 fL (80.0-100.0); Mean Platelet Volume 9.2 fL (7.0-11.0); Mono # (Auto) 0.6 th/mm3 (0.0-0.9); Mono % (Auto) 7.6 % (0.0-8.0); Neut # (Auto) 6.3 th/mm3 (1.8-7.7); Neut % (Auto) 79.6 % (16.0-70.0); Platelet Count 311 th/mm3 (150-450); Red Blood Count 3.46 mil/mm3 (4.50-5.90); Red Cell Distribution Width 14.4 % (11.6-17.2); White Blood Count 7.9 th/mm3 (4.0-11.0)
[2017-12-31] MEDS: Sod Chloride 0.9% Inj 1,000 ML IV.CONT SCH (05:13)
[2017-12-31 05:26] LABS: Calcium 8.5 mg/dL (8.5-10.1); Carbon Dioxide 26.8 meq/L (21.0-32.0); Magnesium 2.5 mg/dL (1.5-2.5); Phosphorus 2.9 mg/dL (2.5-4.9); Potassium 3.9 meq/L (3.5-5.1)
[2017-12-31] MEDS: Enoxaparin Inj 40 MG/0.4 ML Syringe SQ SCH ×2 (05:55→17:29)
[2017-12-31] MEDS: Morphine Sulfate Inj 2 MG/ML Vial IV.PUSH PRN (05:55)
[2017-12-31] MEDS: Thiamine Inj 100 MG in Sodium Chlor 0.9% Inj 100 ML IV.SIG SCH (08:56)
[2017-12-31] MEDS: Metoprolol Tartrate 25 MG Tablet PO SCH ×2 (08:57→20:08)
[2017-12-31] MEDS: Polyethylene Glycol 3350 17 GM Packet PO SCH ×2 (08:57→20:08)
[2017-12-31] MEDS: Amiodarone 200 MG Tablet NG/OG SCH ×2 (08:57→20:08)
[2017-12-31] MEDS: Folic Acid 1 MG Tablet PO SCH (08:57)
[2017-12-31] MEDS: Sodium Chloride 0.9% 2 ML Flush BID IV.FLUSH SCH ×2 (08:58→20:15)
[2017-12-31] MEDS: Chlorhexidine 0.12% Oral Kit 15 ML UDC OROPHARYNG SCH ×2 (08:58→20:14)
[2017-12-31] MEDS: Famotidine PF Inj 20 MG/2 ML Vial IV.PUSH SCH ×2 (09:16→20:08)
--- NOTE | 2017-12-31 09:27 | P.PNNEU ---
Subjective Active Medications: Active Medications Acetaminophen (Tylenol Liq) 650 mg PO Q6H PRN PRN Reason: FEVER Albuterol (Albuterol Neb (Prn)) 2.5 mg NEB Q2HR NEB PRN PRN Reason: DYSPNEA Albuterol (Duoneb Neb (Kasandra)) 1 ampul NEB Q4HR NEB [facility] Last Admin: 12/31/17 07:32 Dose: 1 ampul Alprazolam (Xanax) 0.5 mg PO TID PRN PRN Reason: ANXIETY Amiodarone HCl (Cordarone) 200 mg NG/OG BID [facility] Last Admin: 12/31/17 08:57 Dose: 200 mg Artificial Tears (Tears Naturale Opth Drops) 1 drop EACH EYE Q8H [facility] Last Admin: 12/31/17 08:59 Dose: 1 drop Aspirin (Aspirin Chew) 81 mg NG/OG DAILY [facility] Last Admin: 12/31/17 08:57 Dose: 81 mg Budesonide (Pulmocort Respule Neb) 0.5 mg NEB Q12HR [facility] Last Admin: 12/31/17 07:32 Dose: 0.5 mg Chlorhexidine Gluconate (Peridex 0.12% Oral Kit) 15 ml OROPHARYNG BID@0800, 2000 [facility] Last Admin: 12/31/17 08:58 Dose: Not Given Dextrose (D50w Vial) 50 ml IV.PUSH UNSCH PRN PRN Reason: PER HYPOGLYCEMIA PROTOCOL Last Admin: 12/30/17 13:45 Dose: 50 ml Enoxaparin Sodium (Lovenox Inj) 40 mg SQ Q12H [facility] Last Admin: 12/31/17 05:55 Dose: 40 mg Famotidine (Pepcid Pf Inj) 20 mg IV.PUSH Q12HR [facility] Last Admin: 12/31/17 09:16 Dose: 20 mg Folic Acid (Folic Acid) 1 mg PO DAILY [facility] Last Admin: 12/31/17 08:57 Dose: 1 mg Glucagon (Glucagon Inj) 1 mg OTHER PRN PRN PRN Reason: for Hypoglycemia Protocol Dexmedetomidine HCl 200 mcg/ (Sodium Chloride) 50 mls @ 3.58 mls/hr IV.CONT TITRATE PRN; Protocol PRN Reason: Per Protocol Last Titration: 12/30/17 08:00 Dose: Infused Sodium Chloride (Ns Inj) 1,000 mls @ 100 mls/hr IV.SIG .Q10H [facility] Last Infusion: 12/24/17 14:55 Dose: Infused Magnesium Sulfate 4 gm/ Sodium (Chloride) 100 mls @ 50 mls/hr IV.SIG UNSCH PRN PRN Reason: For Magnesium 0.9 - 1.1 mg/dL Magnesium Sulfate 2 gm/ Sodium (Chloride) 100 mls @ 50 mls/hr IV.SIG UNSCH PRN PRN Reason: For Magnesium 1.2 - 1.6 mg/dL Last Infusion: 12/30/17 10:11 Dose: Infused Potassium Chloride (Kcl 20 Meq Premix Inj) 20 meq in 100 mls @ 50 mls/hr IV.SIG Q2H PRN PRN Reason: For Potassium 3.3 - 3.5 mEq/L Last Infusion: 12/25/17 17:15 Dose: Infused Potassium Chloride (Kcl 40 Meq Premix Inj) 40 meq in 100 mls @ 25 mls/hr IV.SIG UNSCH PRN PRN Reason: For Potassium 3.3 - 3.5 mEq/L Last Infusion: 12/30/17 10:11 Dose: Infused Potassium Chloride (Kcl 20 Meq Premix Inj) 20 meq in 100 mls @ 50 mls/hr IV.SIG Q2H PRN PRN Reason: For Potassium 2.8 - 3.2 mEq/L Potassium Phosphate 30 mmol/ (Sodium Chloride) 260 mls @ 42 mls/hr IV.SIG UNSCH PRN PRN Reason: SEE LABEL COMMENTS Sodium Phosphate 30 mmol/ (Sodium Chloride) 260 mls @ 42 mls/hr IV.SIG UNSCH PRN PRN Reason: For Phosphorus < 2.5 mg/dL Potassium Chloride (Kcl 40 Meq Premix Inj) 40 meq in 100 mls @ 25 mls/hr IV.SIG Q4H PRN PRN Reason: For Potassium 2.8 - 3.2 mEq/L Fentanyl (Fentanyl 10 Mcg/Ml Premix Drip) 2,500 mcg in 250 mls @ 5 mls/hr IV.SIG TITRATE PRN; Protocol PRN Reason: Per Protocol Last Titration: 12/29/17 13:40 Dose: Infused Propofol (Diprivan 1000 Mg/100 Ml Inj) 1,000 mg in 100 mls @ 2.15 mls/hr IV.CONT TITRATE PRN; Protocol PRN Reason: Per Protocol Last Titration: 12/29/17 13:38 Dose: Infused Thiamine HCl 100 mg/ Sodium (Chloride) 101 mls @ 100 mls/hr IV.SIG DAILY [facility] Last Admin: 12/31/17 08:56 Dose: 100 mls/hr Sodium Chloride (Ns Inj) 1,000 mls @ 84 mls/hr IV.CONT .[id number] [facility] Last Admin: 12/31/17 05:13 Dose: Not Given Dopamine HCl/Dextrose (Dopamine 400 Mg/250 Ml Premix) 400 mg in 250 mls @ 8.063 mls/hr IV.CONT TITRATE PRN; Protocol PRN Reason: PRN PROTOCOL Last Titration: 12/29/17 13:38 Dose: Infused Insulin Aspart (Novolog Insulin Correctional Sugar Inj) 0 unit SQ Q6HR [facility]; Protocol Last Admin: 12/31/17 05:59 Dose: Not Given Lactulose (Lactulose Liq) 30 ml PO BID [facility] Last Admin: 12/30/17 22:19 Dose: Not Given Magnesium Oxide (Mag-Ox) 800 mg PO UNSCH PRN PRN Reason: For Magnesium 1.2 - 1.6 mg/dL Metoclopramide HCl (Reglan Inj) 5 mg IV.PUSH Q8HR [facility]; Protocol Last Admin: 12/31/17 05:54 Dose: 5 mg Metoprolol Tartrate (Lopressor) 25 mg PO BID [facility] Last Admin: 12/31/17 08:57 Dose: 25 mg Miscellaneous Medication () 1 each OROPHARYNG 0000,0400,1200,1600 [facility] Last Admin: 12/31/17 05:13 Dose: Not Given Morphine Sulfate (Morphine Inj) 2 mg IV.PUSH Q3H PRN PRN Reason: PAIN SCALE 1 TO 5/AGITATION Last Admin: 12/31/17 05:55 Dose: 2 mg Morphine Sulfate (Morphine Inj) 4 mg IV.PUSH Q3H PRN PRN Reason: PAIN SCALE 6 TO 10/AGITATION Last Admin: 12/30/17 23:05 Dose: 4 mg Multivitamins (Theragran) 1 tab PO DAILY [facility] Last Admin: 12/31/17 08:57 Dose: 1 tab Polyethylene Glycol (Miralax) 17 gm PO BID [facility] Last Admin: 12/31/17 08:57 Dose: 17 gm Potassium Bicarb/Potassium Chloride (K-Lyte Cl Eff) 50 meq PO UNSCH PRN PRN Reason: For Potassium 3.3 - 3.5 mEq/L Potassium Phosphate (K-Phos Original) 2,000 mg PO Q4H PRN PRN Reason: Phosphorus Less Than 2.5 mg/dL Potassium Phosphate (K-Phos Original) 2,000 mg PO UNSCH PRN PRN Reason: SEE LABEL COMMENTS Prasugrel (Effient) 10 mg PO DAILY [facility] Last Admin: 12/31/17 08:56 Dose: 10 mg Pravastatin Sodium (Pravachol) 80 mg PO HS [facility] Last Admin: 12/30/17 20:18 Dose: 80 mg Sodium Chloride (Ns Flush) 2 ml IV.FLUSH BID [facility] Last Admin: 12/31/17 08:58 Dose: 2 ml Sodium Chloride (Ns Flush) 2 ml IV.FLUSH PRN PRN PRN Reason: FLUSH AFTER USING IV ACCESS Sodium Chloride (Ns Flush) 0 ml IV.FLUSH DAILY [facility] Last Admin: 12/31/17 08:58 Dose: 2 ml Temazepam (Restoril) 15 mg PO HS PRN PRN Reason: INSOMNIA Terbutaline Sulfate (Brethine Inj) 1 mg SQ UNSCH PRN PRN Reason: Extravasation Allergies/Adverse Reactions: Allergies Allergy/AdvReac Type Severity Reaction Status Date / Time No Known Allergies Allergy Verified 12/21/17 08:42 Physical Exam Vital signs: Vital Signs 12/30/17 11:30 12/30/17 11:52 12/30/17 15:30 Temperature 98.5 F Pulse Rate 57 L 59 L 61 Respiratory Rate 14 18 18 Blood Pressure 126/65 Pulse Oximetry 98 12/30/17 15:40 12/30/17 19:00 12/30/17 19:22 Temperature 98.2 F 97.7 F Pulse Rate 64 70 70 Respiratory Rate 18 36 H 18 Blood Pressure 119/60 147/71 H Pulse Oximetry 98 98 97 12/30/17 20:00 12/30/17 23:00 12/30/17 23:37 Temperature 97.8 F Pulse Rate 75 72 Respiratory Rate 44 H 30 H Blood Pressure Pulse Oximetry 97 75 L 12/30/17 23:40 12/31/17 03:00 12/31/17 03:24 Temperature 98 F Pulse Rate 62 Respiratory Rate 24 Blood Pressure 160/83 H Pulse Oximetry 92 L 95 99 12/31/17 03:27 12/31/17 07:00 12/31/17 07:32 Temperature 98.3 F Pulse Rate 60 61 63 Respiratory Rate 24 16 25 H Blood Pressure 169/65 H Pulse Oximetry 99 97 Intake & Output 12/30/17 12/31/17 12/31/17 18:59 06:59 18:59 Intake Total 1361 / 1361 200 / 200 Output Total 350 / 350 1350 / 1350 Balance 1011 / 1011 -1150 / -1150 Weight 73 kg Intake: IV 1361 / 1361 200 / 200 NS Inj 1,000 ML @ 84 mls/hr IV. 1060 / 1060 CONT .[id number] KASANDRA Rx#:[id number] Magnesium Sulfate 1 gm/D5W 100 200 / 200 ml Premix 200 ML @ 0 mls/hr IV. SIG .STK-MED ONE Rx#:[id number] Magnesium Sulfate Inj 2 GM In 100 / 100 NS Inj 96 ML @ 50 mls/hr IV.SIG UNSCH PRN Rx#:[id number] KCl 40 mEq Premix Inj 40 meq In 100 / 100 100 ml @ 25 mls/hr IV.SIG UNSCH PRN Rx#:[id number] Thiamine Inj 100 MG In NS Inj 101 / 101 100 ML @ 100 mls/hr IV.SIG DAILY KASANDRA Rx#:[id number] Output: Urine Amount (Catheter) 350 / 350 1350 / 1350 Indwelling Urethral Catheter 350 / 350 1350 / 1350 Narrative: says ingris counts fingers speech a little dysarthric moving all four maybe alittle less r side - Urinary Catheter Management Condom Cath placed during this visit: no Indwelling Urethral Catheter Cath placed during this visit: yes Reason for continuing: Hourly intake/output Insertion date: 12/22/17 Insertion time: 11:00 Objective Laboratory Results - last 24 hr 12/30/17 12/30/17 12/30/17 12:23 12:57 13:16 WBC RBC Hgb Hct MCV MCH MCHC RDW Plt Count MPV Neut % (Auto) Lymph % (Auto) Letcher % (Auto) Eos % (Auto) Baso % (Auto) Neut # (Auto) Lymph # (Auto) Letcher # (Auto) Eos # (Auto) Baso # (Auto) WBC Differential Differential Comment Puncture Site Patient Temperature O2 Saturation ABG pH ABG pCO2 ABG pO2 ABG HCO3 ABG O2 Content ABG Base Excess ABG Methemoglobin Praneeth Test Hemoglobin Carboxyhemoglobin O2 Delivery Device Vent Setting Inspired O2 Critical Value Sodium Potassium Chloride Carbon Dioxide Anion Gap BUN Creatinine Estimated GFR POC Glucose 66 L 93 95 Random Glucose Calcium Phosphorus Magnesium 12/30/17 12/30/17 12/30/17 13:30 14:04 17:46 WBC RBC Hgb Hct MCV MCH MCHC RDW Plt Count MPV Neut % (Auto) Lymph % (Auto) Letcher % (Auto) Eos % (Auto) Baso % (Auto) Neut # (Auto) Lymph # (Auto) Letcher # (Auto) Eos # (Auto) Baso # (Auto) WBC Differential Differential Comment Puncture Site Patient Temperature O2 Saturation ABG pH ABG pCO2 ABG pO2 ABG HCO3 ABG O2 Content ABG Base Excess ABG Methemoglobin Praneeth Test Hemoglobin Carboxyhemoglobin O2 Delivery Device Vent Setting Inspired O2 Critical Value Sodium Potassium Chloride Carbon Dioxide Anion Gap BUN Creatinine Estimated GFR POC Glucose 70 133 H 90 Random Glucose Calcium Phosphorus Magnesium 12/31/17 12/31/17 12/31/17 01:30 04:25 04:25 WBC 7.9 RBC 3.46 L Hgb 10.5 L Hct 30.7 L MCV 88.7 MCH 30.3 MCHC 34.2 RDW 14.4 Plt Count 311 D MPV 9.2 Neut % (Auto) 79.6 H Lymph % (Auto) 10.9 Letcher % (Auto) 7.6 Eos % (Auto) 1.3 Baso % (Auto) 0.6 Neut # (Auto) 6.3 Lymph # (Auto) 0.9 L Letcher # (Auto) 0.6 Eos # (Auto) 0.1 Baso # (Auto) 0.0 WBC Differential . Differential Comment Auto diff final Puncture Site Patient Temperature O2 Saturation ABG pH ABG pCO2 ABG pO2 ABG HCO3 ABG O2 Content ABG Base Excess ABG Methemoglobin Praneeth Test Hemoglobin Carboxyhemoglobin O2 Delivery Device Vent Setting Inspired O2 Critical Value Sodium 145 Potassium 3.9 Chloride 110 H Carbon Dioxide 26.8 Anion Gap 8 BUN 17 Creatinine 1.00 Estimated GFR 72 L POC Glucose 120 H Random Glucose 94 Calcium 8.5 Phosphorus 2.9 Magnesium 2.5 D 12/31/17 12/31/17 05:52 23:43 WBC RBC Hgb Hct MCV MCH MCHC RDW Plt Count MPV Neut % (Auto) Lymph % (Auto) Letcher % (Auto) Eos % (Auto) Baso % (Auto) Neut # (Auto) Lymph # (Auto) Letcher # (Auto) Eos # (Auto) Baso # (Auto) WBC Differential Differential Comment Puncture Site Art line Patient Temperature 98.6 O2 Saturation 97 ABG pH 7.25 L* ABG pCO2 53 H* ABG pO2 218 H ABG HCO3 22 ABG O2 Content 15.2 ABG Base Excess -3.8 L ABG Methemoglobin 1.4 Praneeth Test Present Hemoglobin 10.8 L Carboxyhemoglobin 0.4 O2 Delivery Device Bipap Vent Setting Ipap15/epap 5 Inspired O2 100 Critical Value Yes Sodium Potassium Chloride Carbon Dioxide Anion Gap BUN Creatinine Estimated GFR POC Glucose 85 Random Glucose Calcium Phosphorus Magnesium Review/Management - Diagnosis (1) Embolic stroke Code(s): I63.9 - Cerebral infarction, unspecified Status: Acute Current Visit: Yes (2) A-fib Code(s): I48.91 - Unspecified atrial fibrillation Status: Acute Current Visit: Yes (3) Respiratory failure Code(s): J96.90 - Respiratory failure, unspecified, unspecified whether with hypoxia or hypercapnia Status: Acute Current Visit: Yes (4) ST elevation myocardial infarction (STEMI) Code(s): I21.3 - ST elevation (STEMI) myocardial infarction of unspecified site Status: Acute Current Visit: Yes - Review/Management Plan: 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 Full neuro exam limited as he is intubated and on sedative drips Recommendation Continue antiplatelets. On aspirin and Effient status post stent placement. On DVT dose Lovenox Follow-up echo for any active clots; pending Follow exam Dr. Menchaca to follow Discussed with RN 12/31/17 doing fairly well neuro chavez mri showed mult bilat ant and post circ cva and r parietal one fairly large so will recheck mri see if any blood in them considering on antiplts and size of cva i would prefer coumadin for 6 -8 weeks then change to eliquis to avoid bleeding complications and sequelae if does bleed into cva (4) ST elevation myocardial infarction (STEMI) Qualifiers: Involved coronary artery: unspecified coronary artery Qualified Code(s): I21.3 - ST elevation (STEMI) myocardial infarction of unspecified site
[2017-12-31] MEDS: ALPRAZolam 0.5 MG Tablet PO PRN ×2 (10:17→20:08)
--- NOTE | 2017-12-31 10:23 | P.PNCC ---
Subjective Subjective Remarks/Hospital Course: The patient is an 82-year-old male with a past medical history of coronary artery disease, atrial fibrillation, who presented to [facility] ED as a STEMI alert. The patient woke up with substernal chest pain radiating to his back and it was pressure-like in nature. His pain was a 10/10 and associated with nausea. He took 5 nitroglycerin at home with no improvement of his pain. He had aspirin en route. The patient was taken emergently to the cath lab tech where he underwent a cardiac catheterization by Dr. Maldonado. The patient had a drug-eluting stent x2 in the right CA. In the cath lab tech, he received Versed 3 mg, Diprivan 50 mcg, amiodarone 150 mg bolus and Lopressor 5 mg. He was transferred to CV ICU where he was very agitated and restless. Critical Care Medicine was consulted for agitation and critical care management. He received Ativan and was started on Precedex drip. ABGwas performed, which showed acute hypercapnic respiratory acidosis. He is also on dopamine at 3 mcg. Most of the history was obtained from reviewing medical records as the patient is a poor historian 12/22: Afebrile. Oozing from sheath noted in the right groin area without hematoma. Remains intermittent agitated. On propofol drip at 5 mcg/kg/min. Meet on dopamine at 6 mcg/kg/min. 12/23: Central line placed in right IJ, right radial arterial line placed. Heparin currently on hold we will plan on pulling the sheaths today from right inguinal region. Will try CPAP trial later this afternoon. Remains on low- dose dopamine 12/24: Resting comfortably in bed in no acute distress. Attempting CPAP trials and attempt extubate. Remains hemodynamic is stable on low-dose dopamine drip at 6 mg/kg/min. Meet on amiodarone drip. Currently normal sinus rhythm. 12/25: Afebrile. Events noted to be last night due to extreme hypertension, tachypnea and acute hypoxia. Stabilized. Plan for MRI brain today. Replace potassium. 12/26: T-max 100.2. MRI results noted. Attempting to wean to extubate. Arousable but currently not following commands. Will start dexmedetomidine drip and attempt to wean from ventilator. 12/27: Will reattempt to wean to extubate. 2D echocardiogram pending. Tolerating tube feeds. Still no bowel movement today. Will attempt soapsuds enema. Abdominal x-ray revealed no signs of obstruction. Subjective 12/28: Afebrile. Failed CPAP trials. Echocardiogram revealed no evidence of embolic phenomenon. Positive BM x2. 12/29: Afebrile. Chest x-ray revealing pulmonary edema. Lasix x1 dose given. CPAP trials continued. 12/30: Extubated yesterday afternoon. During the night the patient was noted to have respiratory insufficiency and hypertension. The patient received Lasix , labetalol, and Vasotec. The patient diuresed 2300 cc, with resolution of symptoms. The patient remained on BiPAP till 5 AM. Patient continues on 5 L nasal cannula humidified oxygen . Awaiting formal swallow from speech pathology to resume diet. 12/31: Last evening the patient was noted to have respiratory insufficiency with significant hypertension systolic blood pressure 200's, patient was not on BiPAP. The patient received labetalol, Lasix, and was placed on BiPAP with resolution. During that time the patient also received morphine concern at that was precipitating factor of histamine release with noted prominent wheezing also last night. MRI pending this am per Dr Ayala's recommendation. Objective Vital Signs / I&O: Vital Signs 12/30/17 11:30 12/30/17 11:52 12/30/17 15:30 Temperature 98.5 F Pulse Rate 57 L 59 L 61 Respiratory Rate 14 18 18 Blood Pressure 126/65 Pulse Oximetry 98 12/30/17 15:40 12/30/17 19:00 12/30/17 19:22 Temperature 98.2 F 97.7 F Pulse Rate 64 70 70 Respiratory Rate 18 36 H 18 Blood Pressure 119/60 147/71 H Pulse Oximetry 98 98 97 12/30/17 20:00 12/30/17 23:00 12/30/17 23:37 Temperature 97.8 F Pulse Rate 75 72 Respiratory Rate 44 H 30 H Blood Pressure Pulse Oximetry 97 75 L 12/30/17 23:40 12/31/17 03:00 12/31/17 03:24 Temperature 98 F Pulse Rate 62 Respiratory Rate 24 Blood Pressure 160/83 H Pulse Oximetry 92 L 95 99 12/31/17 03:27 12/31/17 07:00 12/31/17 07:32 Temperature 98.3 F Pulse Rate 60 61 63 Respiratory Rate 24 16 25 H Blood Pressure 169/65 H Pulse Oximetry 99 97 Intake & Output 12/30/17 12/31/17 12/31/17 18:59 06:59 18:59 Intake Total 1361 / 1361 200 / 200 Output Total 350 / 350 1350 / 1350 Balance 1011 / 1011 -1150 / -1150 Weight 73 kg Intake: IV 1361 / 1361 200 / 200 NS Inj 1,000 ML @ 84 mls/hr IV. 1060 / 1060 CONT .[id number] GIANCARLO Rx#:[id number] Magnesium Sulfate 1 gm/D5W 100 200 / 200 ml Premix 200 ML @ 0 mls/hr IV. SIG .STK-MED ONE Rx#:[id number] Magnesium Sulfate Inj 2 GM In 100 / 100 NS Inj 96 ML @ 50 mls/hr IV.SIG UNSCH PRN Rx#:[id number] KCl 40 mEq Premix Inj 40 meq In 100 / 100 100 ml @ 25 mls/hr IV.SIG UNSCH PRN Rx#:[id number] Thiamine Inj 100 MG In NS Inj 101 / 101 100 ML @ 100 mls/hr IV.SIG DAILY GIANCARLO Rx#:[id number] Output: Urine Amount (Catheter) 350 / 350 1350 / 1350 Indwelling Urethral Catheter 350 / 350 1350 / 1350 Other: Date of Last Bowel Movement 12/26/17 Result Diagrams: 12/31/17 04:25 12/31/17 04:25 Objective Remarks: GENERAL: This is an 82-year-old male awake, minimally responsive, in no acute distress, sitting comfortably on BiPAP SKIN: Warm and dry. HEAD: Normocephalic. EYES: Pupils equal round, reactive to light. no scleral icterus. No injection or drainage. NECK: Supple, trachea midline. No JVD or lymphadenopathy. Right IJ is clean dry and intact. CARDIOVASCULAR: RRR. S1, S2. No S4. RESPIRATORY: Breath sounds equal bilaterally. No accessory muscle use. Currently on BiPAP O2 saturation 97% GASTROINTESTINAL: Abdomen soft, non-tender, nondistended. MUSCULOSKELETAL: No cyanosis, or edema. Right inguinal region with no hematoma. Neuro: Cranial nerves II through XII appear to be grossly intact. Positive gag and cough. Inconsistent examination persist. Does move left upper extremity and lower extreme the same. Following commands on left side today. Decreased movement right upper and lower extremity. Varies with timing. Moves his right upper extremity spontaneously intermittently to commands. 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 Monitor for DTs/seizure precautions CT brain revealed right parietal/occipital, left frontal/occipital and left cerebellar CVA. Likely embolic. CT angiogram revealed atherosclerosis MCA bilaterally. No stenosis. CTA neck revealed bilateral subclavian stenosis 70% left, right 50%. Evaluated by neurology. At high risk of hemorrhagic conversion. F/U MRI 12/31 MRI brain - Cerebrum: Significant periventricular white matter changes are evident with scattered areas of restricted diffusion involving both hemispheres, worse in both occipital lobes. Largest area of restricted diffusion is on the right that does involve the motor strip. There is no associated parenchymal hemorrhage. Posterior Fossa: Scattered areas restricted diffusion are seen in both cerebellar hemispheres largest 1 cm left hemisphere Neurology recommends no systemic anticoagulation at this time due to high risk of hemorrhagic conversion. Possible fully anticoagulate later this week and if CT brain stable 12/31 Per Neurology recommendations-when anticoagulation initiated recommends Coumadin for 6-8 weeks prior to transitioning to Eliquis to avoid bleeding complications CV: Inferior STEMI -2 KIANNA to RCA Coronary artery disease Peripheral vascular disease Abdominal aortic aneurysm Atrial fibrillation Bilateral carotid stenosis with left 70% greater than right percent Elevated troponin Continue aspirin 81 mg daily, Prasugrel 10 mg daily for drug-eluting stent Dopamine discontinued 12/29 Admission. EKG the same revealed continuous T changes indicative of STEMI Follow up on echocardiogram -EF 50-55%. Hypokinesis inferior posterior and inferior basal recio. Followed by Dr. Maldonado/cardiology Currently on amiodarone 200 mg twice daily oral. Management per cardiology Resp: Acute respiratory failure COPD Tobacco abuse Currently nasal cannula 5 L/min O2 saturation 98% Albuterol/ipratropium aerosols every 4 hours with albuterol aerosols every 2 hours as needed for dyspnea Budesonide 0.5/2 1 inhalation twice daily F/U Chest x-ray Extubated 12/29-continue aggressive pulmonary toileting Tobacco cessation will be encouraged education provided when appropriate Pulmonology consult GI: Elevated AST -cardiac in origin Hypoalbuminemia Severe protein calorie malnutrition Hyperammonia Obtain formal swallow evaluation by speech therapy and initiate diet Pantoprazole for GI prophylaxis Docusate sodium/senna 1 tablet twice daily for bowel regimen : Young catheter placed with acute kidney injury Endo: Sliding scale insulin with aspart insulin to maintain euglycemia TSH - 0.635 Renal: Acute kidney injury -resolved Check renal ultrasound/urine creatinine and electrolytes Avoid nephrotoxic medications Did receive dye/contrast for cardiac catheterization Heme: Normocytic anemia Monitor CBC daily. Follow trends. Currently on Lovenox twice daily-planned transition to [facility] , cardiology to manage ID: Completed treatment with prophylaxis cefazolin 1 g IV every 8 hours. Monitor for signs and symptomatology infection FEN: Replace electrolytes as clinically indicated per ICU electrolyte protocol 12/29 Discontinued supplemental fluids MSK: PT evaluate and treat Access -Right IJ CVL day #9 placed 12/23 and right radial arterial line day #9 placed / Prophylaxis -GI-lansoprazole -DVT-SCD/pharmacological prophylaxis with SCDs/enoxaparin 40 mg twice daily Level 2 .
[2017-12-31] MEDS: hydrALAZINE HCl Inj 20 MG/ML Vial IV.PUSH PRN (10:25)
[2017-12-31] MEDS ORDERED: Labetalol HCl Inj 100 MG/20 ML Vial IV.PUSH ONE (10:41)
[2017-12-31 10:53] LABS: ABG Base Excess -0.6 mmol/L (-2-2); ABG PCO2 33 mmHg (38-42); ABG PO2 133 mmHG (61-120)
--- NOTE | 2017-12-31 11:19 | XR ---
EXAM DATE: 12/31/2017 11:05 AM EST AGE/SEX: 82 years / Male INDICATIONS: Respiratory Failure. CLINICAL DATA: This is the patient's subsequent encounter. Patient reports that signs and symptoms h ave been present for 2 weeks and indicates a pain score of 0/10. MEDICAL/SURGICAL HISTORY: . Chronic obstructive pulmonary disease. Aneurysm, abdominal. CAD. A- fib. CABG. COMPARISON: [facility], CHEST 1V SINGLE AP, 12/30/2017. . FINDINGS: The patient is status post sternotomy. There is a right internal jugular central line placed with tip overlying the right brachiocephalic vein region. The heart size is normal. The lungs demonstrate dif fuse increased interstitial markings. There is further alveolar density seen at the bases. The aerati on of the lungs appears mildly improved from the prior exam. Some of the hazy density at the bases ma y be related to effusions. CONCLUSION: Diffuse increased interstitial markings likely related to underlying edema. Alveolar consolidation or atelectasis at the bases. Some increased density at the bases may be relate d to effusions. When compared to the prior exam, the aeration of the lungs appears somewhat improved. Electronically signed by: Suman Garay MD 12/31/2017 11:18 AM EST
--- NOTE | 2017-12-31 14:21 | MR ---
EXAM DATE: 12/31/2017 2:13 PM EST AGE/SEX: 82 years / Male INDICATIONS: CVA. CLINICAL DATA: This is the patient's initial encounter. Patient reports that signs and symptoms have been present for 1 day and indicates a pain score of Nonresponsive. MEDICAL/SURGICAL HISTORY: None. None. COMPARISON: [facility] [place], MR HEAD W/O CONTRAST, 12/25/2017. . TECHNIQUE: Multiplanar, multisequence examination of the brain was performed without contrast. FINDINGS: Cerebrum: Again noted are multiple areas of signal abnormality on the FLAIR and diffusion weighted i mages consistent with subacute areas of infarction. These include areas in the left posterior frontal , right parietal, bilateral occipital, right frontal periventricular, small punctate areas in the lef t temporal lobe, posterior right cerebellum, and medial left cerebellar hemispheres. The ventricles a re normal for age. There is some sulcal widening. No evidence of midline shift or hemorrhage. No ex traaxial fluid collections are seen. The pituitary gland and suprasellar cistern are normal in confi guration. White Matter: There is increased signal surrounding the areas of infarction presumably related to ed alexsandra. Posterior Fossa: The cerebellum and brainstem are intact. The 4th ventricle is midline. The cerebel lopontine angle is unremarkable. The cerebellar tonsils are normal in position. Extracranial: The visualized portions of the orbits and paranasal sinuses are unremarkable. There is increased signal within the sphenoid air cells being more prominent on the left. CONCLUSION: 1. Persistent numerous areas of subacute infarction in the cerebral and cerebellar hemispheres as de scribed above. New areas of infarction are not seen. The multiplicity of these in multiple vascular t erritories is suggestive of embolic disease. 2. Cerebral atrophy. Electronically signed by: Suman Garay MD 12/31/2017 2:20 PM EST
[2017-12-31] MEDS: Dexmedetomidine Inj 200 MCG in Sodium Chlor 0.9% Inj 48 ML IV.CONT PRN (14:36)
[2017-12-31] MEDS ORDERED: Potassium Chlor 20 mEq Premix 20 MEQ/100 ML PIGGYBACK IV.SIG ONE (14:52)
--- NOTE | 2017-12-31 16:22 | MB ---
cc: Willie Peng MD DATE: 12/31/2017 REASON FOR CONSULTATION: Respiratory distress with pulmonary infiltrates and effusions. HISTORY OF PRESENT ILLNESS: This is an 82-year-old man with a history of coronary artery disease and chronic atrial fibrillation, was initially admitted as a STEMI alert. The patient did have chest pain radiating into the back and was associated with diaphoresis and he subsequently underwent a cardiac catheterization and had stenting x 2. He was then transferred to the CV ICU where he became quite restless and agitated and had to be placed on a Precedex drip and also received Ativan. The patient was in hypercapnic respiratory failure, at which time he was placed on ventilator support and his FiO2 was gradually reduced. The patient was hypertensive during periods of agitation and remained on Precedex drip and had to be given Ativan. He was then weaned down to CPAP over the next 3 days and was not very arousable and thus, was maintained on ventilator support through 12/27/2017. He again failed CPAP trials from 12/28/2017 and his chest x-ray showed bilateral pulmonary infiltrates, more so on the lower right lung as well as the right upper lobe. The patient was eventually extubated on 12/29/2017 and following that, has been placed on a BiPAP mask and has received IV Lasix periodically, but his chest x-ray continues to show bilateral pulmonary infiltrates as well as small effusions. The patient has been slightly agitated and uncooperative, does not respond to questions well, but he is awake and seems to follow you with his eyes. The blood gases done early this morning were adequate with a pO2 of over 120 on 35% FiO2 and on BiPAP. PAST MEDICAL HISTORY: The patient's past history has included hypertension, history of atrial fibrillation, history of coronary artery disease with a previous IN and apparently has had some cardiac surgery, details unknown. HABITS: Unavailable. The patient is unable to cooperate. ALLERGIES: NONE LISTED. FAMILY HISTORY: Unknown. REVIEW OF SYSTEMS: The patient was unable to respond appropriately. PHYSICAL EXAMINATION: GENERAL: This is an averagely built, elderly man is in bed is responsive and mildly tachypneic, slightly agitated. VITAL SIGNS: Blood pressure is 100/50, heart rate was 72, respirations are 16, temperature 97.8. HEENT: Normocephalic. Pupils are reactive. Sclerae were injected. Throat was clear. NECK: Supple, no bruits or thyroid enlargement or lymphadenopathy. CHEST: Distant breath sounds with fine crackles at the lung bases. HEART: The heart sounds were irregularly irregular, S1 and S2 with no murmur. ABDOMEN: Soft, protuberant without masses. No organomegaly or tenderness. The Bowel sounds are active. EXTREMITIES: Decreased peripheral pulses. No edema. No calf tenderness. Reflexes are 1+ and no gross motor deficits. Babinski negative. SKIN: Dry and cool. IMPRESSION: 1. Hypoxemic respiratory failure, resolving. 2. History of ST elevation myocardial infarction, status post coronary artery stenting x 2. 3. Atrial fibrillation. 4. Hypokalemia. 5. Pulmonary edema, resolving. PLAN: 1. The patient will be placed on O2 via nasal cannula at 4 liters during the day. BiPAP 15/5 cm, FiO2 of 30% at night and the patient will have a followup chest x-ray in a.m. 2. Lasix 20 mg IV b.i.d. was added as well as potassium chloride 20 mEq daily. Continue with anticoagulation and we will also continue with nebulized DuoNeb solution every 6 hours, a blood gas study will be repeated in the a.m. and will follow the case with you, Dr. Matos. Thank you for this consultation. MD ERNESTINA Mccloud/kaitlynn/mundo , 03:04 PM , 03:19 PM
[2017-12-31] MEDS: Dextrose 50% in Water 50 ML Vial IV.PUSH PRN (17:29)
[2018-01-01] MEDS: Artificial Tears Opth Drops 15 ML Bottle EACH EYE SCH ×3 (02:37→18:07)
[2018-01-01] MEDS: Oral Hygiene Kit OROPHARYNG SCH ×3 (03:40→18:07)
[2018-01-01 05:29] LABS: Baso % (Auto) 0.6 % (0.0-2.0); Eos # (Auto) 0.1 th/mm3 (0.0-0.4); Eos % (Auto) 2.4 % (0.0-4.0); Hematocrit 30.2 % (39.0-51.0); Hemoglobin 10.3 gm/dL (13.0-17.0); Lymph # (Auto) 1.2 th/mm3 (1.0-4.8); Lymph % (Auto) 20.5 % (9.0-44.0); Mean Corpuscular HGB Conc 34.1 % (32.0-36.0); Mean Corpuscular Hemoglobin 30.6 pg (27.0-34.0); Mean Corpuscular Volume 89.5 fL (80.0-100.0); Mean Platelet Volume 9.2 fL (7.0-11.0); Mono # (Auto) 0.6 th/mm3 (0.0-0.9); Mono % (Auto) 9.6 % (0.0-8.0); Neut % (Auto) 66.9 % (16.0-70.0); Platelet Count 324 th/mm3 (150-450); Red Blood Count 3.37 mil/mm3 (4.50-5.90); Red Cell Distribution Width 14.9 % (11.6-17.2)
[2018-01-01 05:43] LABS: Calcium 8.5 mg/dL (8.5-10.1); Carbon Dioxide 27.5 meq/L (21.0-32.0); Phosphorus 2.7 mg/dL (2.5-4.9); Potassium 3.2 meq/L (3.5-5.1)
[2018-01-01] MEDS: Insulin NovoLOG Aspart Correctional Sugar Inj SQ SCH ×3 (06:07→18:07)
[2018-01-01] MEDS: Enoxaparin Inj 40 MG/0.4 ML Syringe SQ SCH ×2 (06:07→18:06)
[2018-01-01] MEDS: Potassium Chlor 40 mEq Premix 40 MEQ/100 ML PIGGYBACK IV.SIG PRN ×2 (06:15→10:47)
--- NOTE | 2018-01-01 06:15 | XR ---
EXAM DATE: 01/01/2018 6:12 AM EST AGE/SEX: 82 years / Male INDICATIONS: Shortness of breath. Possible respiratory disease. CLINICAL DATA: This is the patient's subsequent encounter. Patient reports that signs and symptoms h ave been present for 2 weeks and indicates a pain score of 0/10. MEDICAL/SURGICAL HISTORY: Chronic obstructive pulmonary disease. Aneurysm, abdominal. CAD. A-f ib. CABG. COMPARISON: [facility], CHEST 1V SINGLE AP, 12/31/2017. . FINDINGS: Right central line in superior vena cava. Bilateral mostly basilar airspace disease and small effusio ns similar to December 31. Previous CABG. No pneumothorax. CONCLUSION: Bilateral mostly basilar airspace disease with small effusions. Previous CABG. Findings similar to No . Electronically signed by: Bunny Flores MD 01/01/2018 6:14 AM EST
[2018-01-01] MEDS: Polyethylene Glycol 3350 17 GM Packet PO SCH ×2 (08:58→21:11)
[2018-01-01] MEDS: Thiamine Inj 100 MG in Sodium Chlor 0.9% Inj 100 ML IV.SIG SCH (08:58)
[2018-01-01] MEDS: Famotidine PF Inj 20 MG/2 ML Vial IV.PUSH SCH ×2 (08:59→21:11)
[2018-01-01] MEDS: Metoprolol Tartrate 25 MG Tablet PO SCH ×2 (09:00→21:11)
[2018-01-01] MEDS: Amiodarone 200 MG Tablet NG/OG SCH ×2 (09:00→21:11)
[2018-01-01] MEDS: Folic Acid 1 MG Tablet PO SCH (09:00)
[2018-01-01] MEDS: ALPRAZolam 0.5 MG Tablet PO PRN (09:01)
[2018-01-01] MEDS: hydrALAZINE HCl Inj 20 MG/ML Vial IV.PUSH PRN (09:03)
--- NOTE | 2018-01-01 10:29 | P.PNCC ---
Subjective Subjective Remarks/Hospital Course: The patient is an 82-year-old male with a past medical history of coronary artery disease, atrial fibrillation, who presented to [facility] ED as a STEMI alert. The patient woke up with substernal chest pain radiating to his back and it was pressure-like in nature. His pain was a 10/10 and associated with nausea. He took 5 nitroglycerin at home with no improvement of his pain. He had aspirin en route. The patient was taken emergently to the [facility] where he underwent a cardiac catheterization by Dr. Maldonado. The patient had a drug-eluting stent x2 in the right CA. In the [facility], he received Versed 3 mg, Diprivan 50 mcg, amiodarone 150 mg bolus and Lopressor 5 mg. He was transferred to CV ICU where he was very agitated and restless. Critical Care Medicine was consulted for agitation and critical care management. He received Ativan and was started on Precedex drip. ABGwas performed, which showed acute hypercapnic respiratory acidosis. He is also on dopamine at 3 mcg. Most of the history was obtained from reviewing medical records as the patient is a poor historian 12/22: Afebrile. Oozing from sheath noted in the right groin area without hematoma. Remains intermittent agitated. On propofol drip at 5 mcg/kg/min. Meet on dopamine at 6 mcg/kg/min. 12/23: Central line placed in right IJ, right radial arterial line placed. Heparin currently on hold we will plan on pulling the sheaths today from right inguinal region. Will try CPAP trial later this afternoon. Remains on low- dose dopamine 12/24: Resting comfortably in bed in no acute distress. Attempting CPAP trials and attempt extubate. Remains hemodynamic is stable on low-dose dopamine drip at 6 mg/kg/min. Meet on amiodarone drip. Currently normal sinus rhythm. 12/25: Afebrile. Events noted to be last night due to extreme hypertension, tachypnea and acute hypoxia. Stabilized. Plan for MRI brain today. Replace potassium. 12/26: T-max 100.2. MRI results noted. Attempting to wean to extubate. Arousable but currently not following commands. Will start dexmedetomidine drip and attempt to wean from ventilator. 12/27: Will reattempt to wean to extubate. 2D echocardiogram pending. Tolerating tube feeds. Still no bowel movement today. Will attempt soapsuds enema. Abdominal x-ray revealed no signs of obstruction. Subjective 12/28: Afebrile. Failed CPAP trials. Echocardiogram revealed no evidence of embolic phenomenon. Positive BM x2. 12/29: Afebrile. Chest x-ray revealing pulmonary edema. Lasix x1 dose given. CPAP trials continued. 12/30: Extubated yesterday afternoon. During the night the patient was noted to have respiratory insufficiency and hypertension. The patient received Lasix , labetalol, and Vasotec. The patient diuresed 2300 cc, with resolution of symptoms. The patient remained on BiPAP till 5 AM. Patient continues on 5 L nasal cannula humidified oxygen . Awaiting formal swallow from speech pathology to resume diet. 12/31: Last evening the patient was noted to have respiratory insufficiency with significant hypertension systolic blood pressure 200's, patient was not on BiPAP. The patient received labetalol, Lasix, and was placed on BiPAP with resolution. During that time the patient also received morphine concern at that was precipitating factor of histamine release with noted prominent wheezing also last night. MRI pending this am per Dr Ayala's recommendation. 01/01: Afebrile. No acute events overnight patient was maintained on BiPAP for approximately 12 hours per the patient is now on diuretics Lasix twice daily. Chest x-ray today revealing small pleural effusions. Diet resumed. Patient still has periods of agitation however Precedex infusion has been discontinued Xanax p.o. utilize as needed for periods of agitation. No change in neurological status. Objective Vital Signs / I&O: Vital Signs 12/31/17 10:42 12/31/17 11:00 12/31/17 14:33 Temperature 98.1 F Pulse Rate 65 Respiratory Rate 30 H Blood Pressure 219/104 H Pulse Oximetry 100 99 100 12/31/17 15:00 12/31/17 16:17 12/31/17 19:00 Temperature 98.5 F Pulse Rate 60 64 73 Respiratory Rate 20 20 Blood Pressure Pulse Oximetry 94 L 12/31/17 19:47 12/31/17 19:50 12/31/17 19:53 Temperature 98.4 F Pulse Rate 64 76 Respiratory Rate 22 18 Blood Pressure 105/47 L Pulse Oximetry 98 99 98 12/31/17 20:40 12/31/17 23:00 12/31/17 23:24 Temperature 98.3 F Pulse Rate 79 69 Respiratory Rate 21 Blood Pressure 108/54 L Pulse Oximetry 99 98 12/31/17 23:49 01/01/18 03:00 01/01/18 03:16 Temperature 97.7 F Pulse Rate 74 Respiratory Rate 16 Blood Pressure 109/60 Pulse Oximetry 99 99 98 01/01/18 03:20 01/01/18 04:00 Temperature Pulse Rate 86 Respiratory Rate 22 16 Blood Pressure Pulse Oximetry Intake & Output 12/31/17 01/01/18 01/01/18 18:59 06:59 18:59 Intake Total Output Total 950 / 950 980 / 980 Balance -722 / -722 -980 / -980 Weight 71.5 kg Intake: IV Precedex Inj 200 MCG In NS Inj 48 ML @ 0.2 MCG/KG/HR 3.58 mls/ hr IV.CONT TITRATE PRN Rx#: [id number] KCl 20 mEq Premix Inj 20 meq In 100 / 100 100 ml @ 50 mls/hr IV.SIG ONCE ONE Rx#:[id number] Thiamine Inj 100 MG In NS Inj 100 / 100 100 ML @ 100 mls/hr IV.SIG DAILY GIANCARLO Rx#:[id number] Oral 0 / 0 Output: Urine Amount (Catheter) 950 / 950 980 / 980 Indwelling Urethral Catheter 950 / 950 980 / 980 Other: Date of Last Bowel Movement 12/26/17 12/26/17 # Bowel Movements 0 Result Diagrams: 01/01/18 04:12 01/01/18 04:12 Other Results: Laboratory Results WBC 6.0 th/mm3 (4.0-11.0) 01/01/18 04:12 RBC 3.37 mil/mm3 (4.50-5.90) L 01/01/18 04:12 Hgb 10.3 gm/dL (13.0-17.0) L 01/01/18 04:12 POC Hgb (Calc) 9.9 g/dL (13.0-17.0) L 12/24/17 16:08 Hct 30.2 % (39.0-51.0) L 01/01/18 04:12 POC Hct 29.0 % (39-51.0) L 12/24/17 16:08 MCV 89.5 fL (80.0-100.0) 01/01/18 04:12 MCH 30.6 pg (27.0-34.0) 01/01/18 04:12 MCHC 34.1 % (32.0-36.0) 01/01/18 04:12 RDW 14.9 % (11.6-17.2) 01/01/18 04:12 Plt Count 324 th/mm3 (150-450) 01/01/18 04:12 MPV 9.2 fL (7.0-11.0) 01/01/18 04:12 Neut % (Auto) 66.9 % (16.0-70.0) 01/01/18 04:12 Lymph % (Auto) 20.5 % (9.0-44.0) 01/01/18 04:12 [place] % (Auto) 9.6 % (0.0-8.0) H 01/01/18 04:12 Eos % (Auto) 2.4 % (0.0-4.0) 01/01/18 04:12 Baso % (Auto) 0.6 % (0.0-2.0) 01/01/18 04:12 Neut # (Auto) 4.0 th/mm3 (1.8-7.7) 01/01/18 04:12 Lymph # (Auto) 1.2 th/mm3 (1.0-4.8) 01/01/18 04:12 [place] # (Auto) 0.6 th/mm3 (0.0-0.9) 01/01/18 04:12 Eos # (Auto) 0.1 th/mm3 (0.0-0.4) 01/01/18 04:12 Baso # (Auto) 0.0 th/mm3 (0.0-0.2) 01/01/18 04:12 WBC Differential . 01/01/18 04:12 Differential Comment Auto diff final 01/01/18 04:12 PT 10.9 sec (9.8-11.6) 12/24/17 16:08 INR 1.1 Ratio 12/24/17 16:08 APTT 36.5 sec (23.4-31.7) H D 12/24/17 16:08 Fibrinogen 675 mg/dL (227-377) H 12/24/17 16:08 Puncture Site Art line 12/31/17 23:43 Patient Temperature 98.6 12/31/17 23:43 O2 Saturation 97 % (90-100) 12/31/17 23:43 ABG pH 7.25 (7.380-7.420) L* 12/31/17 23:43 ABG pCO2 53 mmHg (38-42) H* 12/31/17 23:43 ABG pO2 218 mmHG (61-120) H 12/31/17 23:43 ABG HCO3 22 mmol/L (22-26) 12/31/17 23:43 ABG O2 Content 15.2 Vol % (12.0-20.0) 12/31/17 23:43 ABG Base Excess -3.8 mmol/L (-2-2) L 12/31/17 23:43 ABG Methemoglobin 1.4 % (0-2) 12/31/17 23:43 Praneeth Test Present 12/31/17 23:43 Hemoglobin 10.8 G/DL (12.0-16.0) L 12/31/17 23:43 Carboxyhemoglobin 0.4 % (0-4) 12/31/17 23:43 O2 Delivery Device Bipap 12/31/17 23:43 Vent Setting Ipap15/epap 5 12/31/17 23:43 Inspired O2 100 % 12/31/17 23:43 Critical Value Yes 12/31/17 23:43 POC Sodium 136 mmol/L (137-144) L 12/24/17 16:08 Sodium 144 meq/L (136-145) 01/01/18 04:12 POC Potassium 4.1 mmol/L (3.6-5.0) 12/24/17 16:08 Potassium 3.2 meq/L (3.5-5.1) L 01/01/18 04:12 POC Chloride 96 mmol/L (102-111) L 12/24/17 16:08 Chloride 107 meq/L (98-107) 01/01/18 04:12 Carbon Dioxide 27.5 meq/L (21.0-32.0) 01/01/18 04:12 Anion Gap 10 meq/L (5-15) 01/01/18 04:12 POC BUN 22 mg/dL (5-21) H 12/24/17 16:08 BUN 21 mg/dL (7-18) H 01/01/18 04:12 Creatinine 1.10 mg/dL (0.60-1.30) 01/01/18 04:12 POC Creatinine 1.2 mg/dL (0.6-1.3) 12/24/17 16:08 Estimated GFR 64 mL/min (>89) L 01/01/18 04:12 POC Glucose 72 mg/dl (68-110) 01/01/18 05:59 Random Glucose 76 mg/dL (74-106) 01/01/18 04:12 Calcium 8.5 mg/dL (8.5-10.1) 01/01/18 04:12 Phosphorus 2.7 mg/dL (2.5-4.9) 01/01/18 04:12 Magnesium 2.0 mg/dL (1.5-2.5) 01/01/18 04:12 Total Bilirubin 0.4 mg/dL (0.2-1.0) 12/29/17 04:15 AST 71 U/L (15-37) H 12/29/17 04:15 ALT 31 U/L (12-78) 12/29/17 04:15 Alkaline Phosphatase 100 U/L (45-117) 12/29/17 04:15 Ammonia 15 mcmol/L (11-32) 12/28/17 05:05 Total Creatine Kinase 460 U/L (39-308) H 12/24/17 16:08 CK-MB (CK-2) 4.9 ng/mL (0.5-3.6) H 12/24/17 16:08 CK-MB (CK-2) % 1.1 % (0.0-4.0) 12/24/17 16:08 Troponin I 27.30 ng/mL (0.02-0.05) H* 12/24/17 16:08 B-Natriuretic Peptide 2806 pg/mL (0-100) H 01/01/18 04:12 Total Protein 5.3 g/dL (6.4-8.2) L 12/29/17 04:15 Albumin 1.9 g/dL (3.4-5.0) L 12/29/17 04:15 Triglycerides 83 mg/dL (42-150) 12/22/17 04:55 Cholesterol 160 mg/dL (120-200) 12/22/17 04:55 LDL Cholesterol, Calc 102 mg/dL (0-99) H 12/22/17 04:55 HDL Cholesterol 41.2 mg/dL (40.0-60.0) 12/22/17 04:55 Cholesterol/HDL Ratio 3.88 Ratio 12/22/17 04:55 TSH 0.653 uIU/mL (0.358-3.740) 12/22/17 04:55 Urine Eosinophils None seen /HPF (None Seen) 12/22/17 11:45 Ur Random Creatinine 198 mg/dL (27-300) 12/22/17 11:45 Ur Random Sodium 12 meq/L 12/22/17 11:45 Blood Type O Negative 12/24/17 16:08 Blood Type Recheck Required 12/24/17 16:08 Antibody Screen Negative 12/24/17 16:08 Impressions Abdomen/Bladder Ultrasound 12/22/17 00:00 CONCLUSION: 1. 5 mm stone in the collecting system of the right kidney. There is no hydronephrosis. 2. 3 cm simple cyst arising from the left kidney. 3. Distention of the bladder. CT CAD 12/24/17 00:00 CONCLUSION: Physiological brain perfusion parameters with RAPID analysis as above. The decision for consideration of therapy is multi factorial and multi disciplinary relying on subjective and objective clinical data. This data is not construed or intended to be the sole determinant of treatment eligibility. Head CTA 12/24/17 00:00 CONCLUSION: Atherosclerotic disease of the MCAs but no evidence of high-grade stenosis or occlusion. Report was called by [Dr. Russo to Dr. Prince at [id number] ] Neck CTA 12/24/17 00:00 CONCLUSION: 1. Prominent atherosclerotic disease at the carotid bulbs bilaterally left greater than right with approximately 70% focal stenosis at the origin of the left ICA and 50% stenosis on the right. 2. 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 Head CT 12/24/17 16:12 CONCLUSION: Multiple acute to subacute infarcts in multiple vascular distributions bilaterally. Pattern suggests embolic infarcts. Results were discussed with Dr. Fullop at 1635. . Abdomen X-Ray 12/28/17 00:00 CONCLUSION: Decrease in gaseous distention of the colon. Head MRI 12/31/17 00:00 CONCLUSION: 1. Persistent numerous areas of subacute infarction in the cerebral and cerebellar hemispheres as described above. New areas of infarction are not seen. The multiplicity of these in multiple vascular territories is suggestive of embolic disease. 2. Cerebral atrophy. Chest X-Ray 01/01/18 04:00 CONCLUSION: Bilateral mostly basilar airspace disease with small effusions. Previous CABG. Findings similar to December 31. Objective Remarks: GENERAL: This is an 82-year-old male awake, minimally responsive, in no acute distress, sitting comfortably on BiPAP this a.m. SKIN: Warm and dry. HEAD: Normocephalic. EYES: Pupils equal round, reactive to light. no scleral icterus. No injection or drainage. NECK: Supple, trachea midline. No JVD or lymphadenopathy. Right IJ is clean dry and intact. CARDIOVASCULAR: RRR. S1, S2. No S4. RESPIRATORY: Breath sounds equal bilaterally. No accessory muscle use. Currently on BiPAP O2 saturation 97% GASTROINTESTINAL: Abdomen soft, non-tender, nondistended. MUSCULOSKELETAL: No cyanosis, or edema. Right inguinal region with no hematoma. Neuro: Cranial nerves II through XII appear to be grossly intact. Positive gag and cough. Inconsistent examination persist. Does move left upper extremity and lower extreme the same. Not following any of my commands today. Continued periods of agitation. 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 Xanax as needed for agitation Morphine 2-4 mg IV every 3 hours as needed pain Continue thiamine, folate and multivitamin. Monitor for DTs/seizure precautions CT brain revealed right parietal/occipital, left frontal/occipital and left cerebellar CVA. Likely embolic. CT angiogram revealed atherosclerosis MCA bilaterally. No stenosis. CTA neck revealed bilateral subclavian stenosis 70% left, right 50%. Evaluated by neurology. At high risk of hemorrhagic conversion. F/U MRI 12/31 MRI brain - Cerebrum: Significant periventricular white matter changes are evident with scattered areas of restricted diffusion involving both hemispheres, worse in both occipital lobes. Largest area of restricted diffusion is on the right that does involve the motor strip. There is no associated parenchymal hemorrhage. Posterior Fossa: Scattered areas restricted diffusion are seen in both cerebellar hemispheres largest 1 cm left hemisphere Neurology recommends no systemic anticoagulation at this time due to high risk of hemorrhagic conversion. Possible fully anticoagulate later this week and if CT brain stable 12/31 Per Neurology recommendations-when anticoagulation initiated recommends Coumadin for 6-8 weeks prior to transitioning to Eliquis to avoid bleeding complications CV: Inferior STEMI -2 KIANNA to RCA Coronary artery disease Peripheral vascular disease Abdominal aortic aneurysm Atrial fibrillation Bilateral carotid stenosis with left 70% greater than right percent Elevated troponin Continue aspirin 81 mg daily, Prasugrel 10 mg daily for drug-eluting stent Dopamine discontinued 12/29 Admission. EKG the same revealed continuous T changes indicative of STEMI Follow up on echocardiogram -EF 50-55%. Hypokinesis inferior posterior and inferior basal recio. Followed by Dr. Maldonado/cardiology Currently on amiodarone 200 mg twice daily oral. Management per cardiology Resp: Acute respiratory failure COPD Tobacco abuse Pulmonary edema Currently nasal cannula 5 L/min O2 saturation 98% Albuterol/ipratropium aerosols every 4 hours with albuterol aerosols every 2 hours as needed for dyspnea Budesonide 0.5/2 1 inhalation twice daily F/U Chest x-ray Extubated 12/29-continue aggressive pulmonary toileting Tobacco cessation will be encouraged education provided when appropriate Pulmonology consult-Dr. Mccann following Scheduled dosing of Lasix GI: Elevated AST -cardiac in origin Hypoalbuminemia Severe protein calorie malnutrition Hyperammonia-resolved Obtain formal swallow evaluation by speech therapy and initiate diet Pantoprazole for GI prophylaxis Docusate sodium/senna 1 tablet twice daily for bowel regimen : Yonug catheter placed with acute kidney injury Endo: Sliding scale insulin with aspart insulin to maintain euglycemia TSH - 0.635 Renal: Acute kidney injury -resolved Check renal ultrasound/urine creatinine and electrolytes Avoid nephrotoxic medications Did receive dye/contrast for cardiac catheterization Heme: Normocytic anemia Monitor CBC daily. Follow trends. Currently [facility] to [facility] ID: Completed treatment with prophylaxis cefazolin 1 g IV every 8 hours. Monitor for signs and symptomatology infection FEN: Hypokalemia Replace electrolytes as clinically indicated per ICU electrolyte protocol 12/29 Discontinued supplemental fluids MSK: PT evaluate and treat Access -Right IJ CVL day #10 placed 12/23 and right radial arterial line day #10 placed 12/23 Prophylaxis -GI-lansoprazole -DVT-SCD/pharmacological prophylaxis with SCDs/enoxaparin 40 mg twice daily Level 2 . Planned transfer to [facility] in the a.m. Discussed Condition With: BISCUIT PACKER at bedside
[2018-01-01] MEDS: Chlorhexidine 0.12% Oral Kit 15 ML UDC OROPHARYNG SCH ×2 (10:45→21:17)
--- NOTE | 2018-01-01 10:58 | P.PNNEU ---
Subjective Active Medications: Active Medications Acetaminophen (Tylenol Liq) 650 mg PO Q6H PRN PRN Reason: FEVER Albuterol (Albuterol Neb (Prn)) 2.5 mg NEB Q2HR NEB PRN PRN Reason: DYSPNEA Albuterol (Duoneb Neb (Kasandra)) 1 ampul NEB Q6HR NEB [facility] Last Admin: 01/01/18 10:18 Dose: 1 ampul Alprazolam (Xanax) 0.5 mg PO TID PRN PRN Reason: ANXIETY Last Admin: 01/01/18 09:01 Dose: 0.5 mg Amiodarone HCl (Cordarone) 200 mg NG/OG BID [facility] Last Admin: 01/01/18 09:00 Dose: 200 mg Artificial Tears (Tears Naturale Opth Drops) 1 drop EACH EYE Q8H [facility] Last Admin: 01/01/18 02:37 Dose: Not Given Aspirin (Aspirin Chew) 81 mg NG/OG DAILY [facility] Last Admin: 01/01/18 09:00 Dose: 81 mg Budesonide (Pulmocort Respule Neb) 0.5 mg NEB Q12HR NEB [facility] Last Admin: 01/01/18 10:18 Dose: 0.5 mg Chlorhexidine Gluconate (Peridex 0.12% Oral Kit) 15 ml OROPHARYNG BID@0800, 2000 [facility] Last Admin: 01/01/18 10:45 Dose: Not Given Dextrose (D50w Vial) 50 ml IV.PUSH UNSCH PRN PRN Reason: PER HYPOGLYCEMIA PROTOCOL Last Admin: 12/31/17 17:29 Dose: 50 ml Enoxaparin Sodium (Lovenox Inj) 40 mg SQ Q12H [facility] Last Admin: 01/01/18 06:07 Dose: 40 mg Famotidine (Pepcid Pf Inj) 20 mg IV.PUSH Q12HR [facility] Last Admin: 01/01/18 08:59 Dose: 20 mg Folic Acid (Folic Acid) 1 mg PO DAILY [facility] Last Admin: 01/01/18 09:00 Dose: 1 mg Furosemide (Lasix Inj) 20 mg IV.PUSH BID@0900,1800 [facility] Last Admin: 01/01/18 10:44 Dose: 20 mg Glucagon (Glucagon Inj) 1 mg OTHER PRN PRN PRN Reason: for Hypoglycemia Protocol Hydralazine HCl (Apresoline Inj) 20 mg IV.PUSH Q4H PRN PRN Reason: SBP > 160 Last Admin: 01/01/18 09:03 Dose: 20 mg Dexmedetomidine HCl 200 mcg/ (Sodium Chloride) 50 mls @ 3.58 mls/hr IV.CONT TITRATE PRN; Protocol PRN Reason: Per Protocol Last Titration: 12/31/17 18:19 Dose: 0 mcg/kg/hr, 0 mls/hr Sodium Chloride (Ns Inj) 1,000 mls @ 100 mls/hr IV.SIG .Q10H KASANDRA Last Infusion: 12/24/17 14:55 Dose: Infused Magnesium Sulfate 4 gm/ Sodium (Chloride) 100 mls @ 50 mls/hr IV.SIG UNSCH PRN PRN Reason: For Magnesium 0.9 - 1.1 mg/dL Magnesium Sulfate 2 gm/ Sodium (Chloride) 100 mls @ 50 mls/hr IV.SIG UNSCH PRN PRN Reason: For Magnesium 1.2 - 1.6 mg/dL Last Infusion: 12/30/17 10:11 Dose: Infused Potassium Chloride (Kcl 20 Meq Premix Inj) 20 meq in 100 mls @ 50 mls/hr IV.SIG Q2H PRN PRN Reason: For Potassium 3.3 - 3.5 mEq/L Last Infusion: 12/25/17 17:15 Dose: Infused Potassium Chloride (Kcl 40 Meq Premix Inj) 40 meq in 100 mls @ 25 mls/hr IV.SIG UNSCH PRN PRN Reason: For Potassium 3.3 - 3.5 mEq/L Last Infusion: 12/30/17 10:11 Dose: Infused Potassium Chloride (Kcl 20 Meq Premix Inj) 20 meq in 100 mls @ 50 mls/hr IV.SIG Q2H PRN PRN Reason: For Potassium 2.8 - 3.2 mEq/L Potassium Phosphate 30 mmol/ (Sodium Chloride) 260 mls @ 42 mls/hr IV.SIG UNSCH PRN PRN Reason: SEE LABEL COMMENTS Sodium Phosphate 30 mmol/ (Sodium Chloride) 260 mls @ 42 mls/hr IV.SIG UNSCH PRN PRN Reason: For Phosphorus < 2.5 mg/dL Potassium Chloride (Kcl 40 Meq Premix Inj) 40 meq in 100 mls @ 25 mls/hr IV.SIG Q4H PRN PRN Reason: For Potassium 2.8 - 3.2 mEq/L Last Admin: 01/01/18 10:47 Dose: 25 mls/hr Thiamine HCl 100 mg/ Sodium (Chloride) 101 mls @ 100 mls/hr IV.SIG DAILY [facility] Last Admin: 01/01/18 08:58 Dose: 100 mls/hr Dopamine HCl/Dextrose (Dopamine 400 Mg/250 Ml Premix) 400 mg in 250 mls @ 8.063 mls/hr IV.CONT TITRATE PRN; Protocol PRN Reason: PRN PROTOCOL Last Titration: 12/29/17 13:38 Dose: Infused Insulin Aspart (Novolog Insulin Correctional Sugar Inj) 0 unit SQ Q6HR [facility]; Protocol Last Admin: 01/01/18 06:07 Dose: Not Given Lactulose (Lactulose Liq) 30 ml PO BID [facility] Last Admin: 12/31/17 20:14 Dose: Not Given Magnesium Oxide (Mag-Ox) 800 mg PO UNSCH PRN PRN Reason: For Magnesium 1.2 - 1.6 mg/dL Metoclopramide HCl (Reglan Inj) 5 mg IV.PUSH Q8HR [facility]; Protocol Last Admin: 01/01/18 06:06 Dose: 5 mg Metoprolol Tartrate (Lopressor) 25 mg PO BID [facility] Last Admin: 01/01/18 09:00 Dose: 25 mg Miscellaneous Medication () 1 each OROPHARYNG 0000,0400,1200,1600 [facility] Last Admin: 01/01/18 03:40 Dose: Not Given Morphine Sulfate (Morphine Inj) 2 mg IV.PUSH Q3H PRN PRN Reason: PAIN SCALE 1 TO 5/AGITATION Last Admin: 12/31/17 05:55 Dose: 2 mg Morphine Sulfate (Morphine Inj) 4 mg IV.PUSH Q3H PRN PRN Reason: PAIN SCALE 6 TO 10/AGITATION Last Admin: 12/30/17 23:05 Dose: 4 mg Multivitamins (Theragran) 1 tab PO DAILY [facility] Last Admin: 01/01/18 08:59 Dose: 1 tab Polyethylene Glycol (Miralax) 17 gm PO BID [facility] Last Admin: 01/01/18 08:58 Dose: 17 gm Potassium Bicarb/Potassium Chloride (K-Lyte Cl Eff) 50 meq PO UNSCH PRN PRN Reason: For Potassium 3.3 - 3.5 mEq/L Potassium Phosphate (K-Phos Original) 2,000 mg PO Q4H PRN PRN Reason: Phosphorus Less Than 2.5 mg/dL Potassium Phosphate (K-Phos Original) 2,000 mg PO UNSCH PRN PRN Reason: SEE LABEL COMMENTS Prasugrel (Effient) 10 mg PO DAILY [facility] Last Admin: 01/01/18 08:59 Dose: 10 mg Pravastatin Sodium (Pravachol) 80 mg PO HS [facility] Last Admin: 12/31/17 20:08 Dose: 80 mg Sodium Chloride (Ns Flush) 2 ml IV.FLUSH BID [facility] Last Admin: 12/31/17 20:15 Dose: 2 ml Sodium Chloride (Ns Flush) 2 ml IV.FLUSH PRN PRN PRN Reason: FLUSH AFTER USING IV ACCESS Sodium Chloride (Ns Flush) 0 ml IV.FLUSH DAILY [facility] Last Admin: 12/31/17 08:58 Dose: 2 ml Temazepam (Restoril) 15 mg PO HS PRN PRN Reason: INSOMNIA Terbutaline Sulfate (Brethine Inj) 1 mg SQ UNSCH PRN PRN Reason: Extravasation Allergies/Adverse Reactions: Allergies Allergy/AdvReac Type Severity Reaction Status Date / Time No Known Allergies Allergy Verified 12/21/17 08:42 Physical Exam Vital signs: Vital Signs 12/31/17 11:00 12/31/17 14:33 12/31/17 15:00 Temperature 98.1 F 98.5 F Pulse Rate 65 60 Respiratory Rate 30 H 20 Blood Pressure 219/104 H Pulse Oximetry 99 100 94 L 12/31/17 16:17 12/31/17 19:00 12/31/17 19:47 Temperature 98.4 F Pulse Rate 64 73 64 Respiratory Rate 20 22 Blood Pressure 105/47 L Pulse Oximetry 98 12/31/17 19:50 12/31/17 19:53 12/31/17 20:40 Temperature Pulse Rate 76 Respiratory Rate 18 Blood Pressure Pulse Oximetry 99 98 99 12/31/17 23:00 12/31/17 23:24 12/31/17 23:49 Temperature 98.3 F Pulse Rate 79 69 Respiratory Rate 21 Blood Pressure 108/54 L Pulse Oximetry 98 99 01/01/18 03:00 01/01/18 03:16 01/01/18 03:20 Temperature 97.7 F Pulse Rate 74 86 Respiratory Rate 16 22 Blood Pressure 109/60 Pulse Oximetry 99 98 01/01/18 04:00 01/01/18 07:00 01/01/18 08:00 Temperature 98.6 F Pulse Rate 88 Respiratory Rate 16 20 Blood Pressure 121/69 Pulse Oximetry 97 99 01/01/18 10:19 Temperature Pulse Rate 102 H Respiratory Rate 18 Blood Pressure Pulse Oximetry 100 Intake & Output 12/31/17 01/01/18 01/01/18 18:59 06:59 18:59 Intake Total 228 / 228 101 / 101 Output Total 950 / 950 980 / 980 Balance -722 / -722 -980 / -980 101 / 101 Weight 71.5 kg Intake: IV / 228 101 / 101 Precedex Inj 200 MCG In NS Inj / 48 ML @ 0.2 MCG/KG/HR 3.58 mls/ hr IV.CONT TITRATE PRN Rx#: [id number] KCl 20 mEq Premix Inj 20 meq In 100 / 100 100 ml @ 50 mls/hr IV.SIG ONCE ONE Rx#:[id number] KCl 40 mEq Premix Inj 40 meq In 100 / 100 100 ml @ 25 mls/hr IV.SIG Q4H PRN Rx#:[id number] Thiamine Inj 100 MG In NS Inj 100 / 100 1 / 1 100 ML @ 100 mls/hr IV.SIG DAILY KASANDRA Rx#:[id number] Oral 0 / 0 Output: Urine Amount (Catheter) 950 / 950 980 / 980 Indwelling Urethral Catheter 950 / 950 980 / 980 Other: Date of Last Bowel Movement 12/26/17 12/26/17 12/26/17 # Bowel Movements 0 Narrative: off vent he is very lethargic and not following commands for me pupil= - Urinary Catheter Management Condom Cath placed during this visit: no Indwelling Urethral Catheter Cath placed during this visit: yes Reason for continuing: Hourly intake/output Insertion date: 12/22/17 Insertion time: 11:00 Objective Laboratory Results - last 24 hr 12/31/17 12/31/17 12/31/17 12:30 17:25 17:25 WBC RBC Hgb Hct MCV MCH MCHC RDW Plt Count MPV Neut % (Auto) Lymph % (Auto) [place] % (Auto) Eos % (Auto) Baso % (Auto) Neut # (Auto) Lymph # (Auto) [place] # (Auto) Eos # (Auto) Baso # (Auto) WBC Differential Differential Comment Sodium Potassium Chloride Carbon Dioxide Anion Gap BUN Creatinine Estimated GFR POC Glucose 81 60 L 66 L Random Glucose Calcium Phosphorus Magnesium B-Natriuretic Peptide 12/31/17 12/31/17 01/01/18 18:13 23:42 04:12 WBC 6.0 RBC 3.37 L Hgb 10.3 L Hct 30.2 L MCV 89.5 MCH 30.6 MCHC 34.1 RDW 14.9 Plt Count 324 MPV 9.2 Neut % (Auto) 66.9 Lymph % (Auto) 20.5 [place] % (Auto) 9.6 H Eos % (Auto) 2.4 Baso % (Auto) 0.6 Neut # (Auto) 4.0 Lymph # (Auto) 1.2 [place] # (Auto) 0.6 Eos # (Auto) 0.1 Baso # (Auto) 0.0 WBC Differential . Differential Comment Auto diff final Sodium Potassium Chloride Carbon Dioxide Anion Gap BUN Creatinine Estimated GFR POC Glucose 96 82 Random Glucose Calcium Phosphorus Magnesium B-Natriuretic Peptide 01/01/18 01/01/18 01/01/18 04:12 04:12 05:59 WBC RBC Hgb Hct MCV MCH MCHC RDW Plt Count MPV Neut % (Auto) Lymph % (Auto) [place] % (Auto) Eos % (Auto) Baso % (Auto) Neut # (Auto) Lymph # (Auto) [place] # (Auto) Eos # (Auto) Baso # (Auto) WBC Differential Differential Comment Sodium 144 Potassium 3.2 L Chloride 107 Carbon Dioxide 27.5 Anion Gap 10 BUN 21 H Creatinine 1.10 Estimated GFR 64 L POC Glucose 72 Random Glucose 76 Calcium 8.5 Phosphorus 2.7 Magnesium 2.0 B-Natriuretic Peptide 2806 H Review/Management - Diagnosis (1) Embolic stroke Code(s): I63.9 - Cerebral infarction, unspecified Status: Acute Current Visit: Yes (2) A-fib Code(s): I48.91 - Unspecified atrial fibrillation Status: Acute Current Visit: Yes (3) Respiratory failure Code(s): J96.90 - Respiratory failure, unspecified, unspecified whether with hypoxia or hypercapnia Status: Acute Current Visit: Yes (4) ST elevation myocardial infarction (STEMI) Code(s): I21.3 - ST elevation (STEMI) myocardial infarction of unspecified site Status: Acute Current Visit: Yes - Review/Management Plan: 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 Full neuro exam limited as he is intubated and on sedative drips Recommendation Continue antiplatelets. On aspirin and Effient status post stent placement. On DVT dose Lovenox Follow-up echo for any active clots; pending Follow exam Dr. Menchaca to follow Discussed with RN 12/31/17 doing fairly well neuro chavez mri showed mult bilat ant and post circ cva and r parietal one fairly large so will recheck mri see if any blood in them considering on antiplts and size of cva i would prefer coumadin for 6 -8 weeks then change to eliquis to avoid bleeding complications and sequelae if does bleed into cva 01/01/18 very lethargic hold sedation nurse tell me go xanax for agitation but to me should not make him this lethargic check eeg and abg i reviewed mri and the r parietal cva not as large as i thought and no blood so eliquis is ok (4) ST elevation myocardial infarction (STEMI) Qualifiers: Involved coronary artery: unspecified coronary artery Qualified Code(s): I21.3 - ST elevation (STEMI) myocardial infarction of unspecified site
[2018-01-01 12:53] LABS: ABG Base Excess 2.3 mmol/L (-2-2); ABG PCO2 39 mmHg (38-42); ABG PO2 188 mmHG (61-120)
[2018-01-01] MEDS: Sodium Chloride 0.9% 2 ML Flush BID IV.FLUSH SCH ×2 (13:37→21:15)
--- NOTE | 2018-01-01 15:54 | P.PN ---
Subjective Interval history: Awake and seems confused. Breathing better. On O2 2 L. Physical Exam Vital signs: Vital Signs 12/31/17 16:17 12/31/17 19:00 12/31/17 19:47 Temperature 98.4 F Pulse Rate 64 73 64 Respiratory Rate 20 22 Blood Pressure 105/47 L Pulse Oximetry 98 12/31/17 19:50 12/31/17 19:53 12/31/17 20:40 Temperature Pulse Rate 76 Respiratory Rate 18 Blood Pressure Pulse Oximetry 99 98 99 12/31/17 23:00 12/31/17 23:24 12/31/17 23:49 Temperature 98.3 F Pulse Rate 79 69 Respiratory Rate 21 Blood Pressure 108/54 L Pulse Oximetry 98 99 01/01/18 03:00 01/01/18 03:16 01/01/18 03:20 Temperature 97.7 F Pulse Rate 74 86 Respiratory Rate 16 22 Blood Pressure 109/60 Pulse Oximetry 99 98 01/01/18 04:00 01/01/18 07:00 01/01/18 08:00 Temperature 98.6 F Pulse Rate 88 Respiratory Rate 16 20 Blood Pressure 121/69 Pulse Oximetry 97 99 01/01/18 10:19 01/01/18 11:00 Temperature 98.9 F Pulse Rate 102 H 70 Respiratory Rate 18 20 Blood Pressure 105/73 Pulse Oximetry 100 99 Intake & Output 12/31/17 01/01/18 01/01/18 18:59 06:59 18:59 Intake Total 228 / 228 101 / 101 Output Total 950 / 950 980 / 980 Balance -722 / -722 -980 / -980 101 / 101 Weight 71.5 kg Intake: IV 228 / 228 101 / 101 Precedex Inj 200 MCG In NS Inj / 48 ML @ 0.2 MCG/KG/HR 3.58 mls/ hr IV.CONT TITRATE PRN Rx#: [id number] KCl 20 mEq Premix Inj 20 meq In 100 / 100 100 ml @ 50 mls/hr IV.SIG ONCE ONE Rx#:[id number] KCl 40 mEq Premix Inj 40 meq In 100 / 100 100 ml @ 25 mls/hr IV.SIG Q4H PRN Rx#:[id number] Thiamine Inj 100 MG In NS Inj 100 / 100 1 / 1 100 ML @ 100 mls/hr IV.SIG DAILY GIANCARLO Rx#:[id number] Oral 0 / 0 Output: Urine Amount (Catheter) 950 / 950 980 / 980 Indwelling Urethral Catheter 950 / 950 980 / 980 Other: Date of Last Bowel Movement 12/26/17 12/26/17 12/26/17 # Bowel Movements 0 Narrative: GENERAL: Elderly W/M Awake confused. SKIN: Warm and dry. HEAD: Atraumatic. Normocephalic. EYES: Pupils equal and round. No scleral icterus. No injection or drainage. ENT: No nasal bleeding or discharge. Mucous membranes pink and moist. NECK: Trachea midline. No JVD. CARDIOVASCULAR: Regular rate and rhythm. RESPIRATORY: No accessory muscle use.Bilateral wheeze. Breath sounds equal bilaterally. GASTROINTESTINAL: Abdomen soft, non-tender, nondistended. Hepatic and splenic margins not palpable. MUSCULOSKELETAL: Extremities without clubbing, cyanosis, or edema. No obvious deformities. NEUROLOGICAL: Awake and seems confused. Moves arms and has some leg weakness. PSYCHIATRIC: Cannot assess - Urinary Catheter Management Condom Cath placed during this visit: no Indwelling Urethral Catheter Cath placed during this visit: yes Reason for continuing: Hourly intake/output Insertion date: 12/22/17 Insertion time: 11:00 Results - Labs CBC & Chem 7: 01/01/18 04:12 01/01/18 04:12 Laboratory Results - last 24 hr 12/31/17 12/31/17 12/31/17 17:25 17:25 18:13 WBC RBC Hgb Hct MCV MCH MCHC RDW Plt Count MPV Neut % (Auto) Lymph % (Auto) [place] % (Auto) Eos % (Auto) Baso % (Auto) Neut # (Auto) Lymph # (Auto) [place] # (Auto) Eos # (Auto) Baso # (Auto) WBC Differential Differential Comment Puncture Site Patient Temperature O2 Saturation ABG pH ABG pCO2 ABG pO2 ABG HCO3 ABG O2 Content ABG Base Excess ABG Methemoglobin Hemoglobin Carboxyhemoglobin O2 Delivery Device Liter Flow Critical Value Sodium Potassium Chloride Carbon Dioxide Anion Gap BUN Creatinine Estimated GFR POC Glucose 60 L 66 L 96 Random Glucose Calcium Phosphorus Magnesium Ammonia B-Natriuretic Peptide 12/31/17 01/01/18 01/01/18 23:42 04:12 04:12 WBC 6.0 RBC 3.37 L Hgb 10.3 L Hct 30.2 L MCV 89.5 MCH 30.6 MCHC 34.1 RDW 14.9 Plt Count 324 MPV 9.2 Neut % (Auto) 66.9 Lymph % (Auto) 20.5 [place] % (Auto) 9.6 H Eos % (Auto) 2.4 Baso % (Auto) 0.6 Neut # (Auto) 4.0 Lymph # (Auto) 1.2 [place] # (Auto) 0.6 Eos # (Auto) 0.1 Baso # (Auto) 0.0 WBC Differential . Differential Comment Auto diff final Puncture Site Patient Temperature O2 Saturation ABG pH ABG pCO2 ABG pO2 ABG HCO3 ABG O2 Content ABG Base Excess ABG Methemoglobin Hemoglobin Carboxyhemoglobin O2 Delivery Device Liter Flow Critical Value Sodium 144 Potassium 3.2 L Chloride 107 Carbon Dioxide 27.5 Anion Gap 10 BUN 21 H Creatinine 1.10 Estimated GFR 64 L POC Glucose 82 Random Glucose 76 Calcium 8.5 Phosphorus 2.7 Magnesium 2.0 Ammonia B-Natriuretic Peptide 01/01/18 01/01/18 01/01/18 04:12 05:59 11:45 WBC RBC Hgb Hct MCV MCH MCHC RDW Plt Count MPV Neut % (Auto) Lymph % (Auto) [place] % (Auto) Eos % (Auto) Baso % (Auto) Neut # (Auto) Lymph # (Auto) [place] # (Auto) Eos # (Auto) Baso # (Auto) WBC Differential Differential Comment Puncture Site Patient Temperature O2 Saturation ABG pH ABG pCO2 ABG pO2 ABG HCO3 ABG O2 Content ABG Base Excess ABG Methemoglobin Hemoglobin Carboxyhemoglobin O2 Delivery Device Liter Flow Critical Value Sodium Potassium Chloride Carbon Dioxide Anion Gap BUN Creatinine Estimated GFR POC Glucose 72 Random Glucose Calcium Phosphorus Magnesium Ammonia 17 B-Natriuretic Peptide 2806 H 01/01/18 01/01/18 01/01/18 12:16 12:43 13:25 WBC RBC Hgb Hct MCV MCH MCHC RDW Plt Count MPV Neut % (Auto) Lymph % (Auto) [place] % (Auto) Eos % (Auto) Baso % (Auto) Neut # (Auto) Lymph # (Auto) [place] # (Auto) Eos # (Auto) Baso # (Auto) WBC Differential Differential Comment Puncture Site [place] Patient Temperature 98.6 O2 Saturation 97 ABG pH 7.44 H ABG pCO2 39 ABG pO2 188 H ABG HCO3 26 ABG O2 Content 15.0 ABG Base Excess 2.3 H ABG Methemoglobin 1.7 Hemoglobin 10.8 L Carboxyhemoglobin 0.7 O2 Delivery Device Room air Liter Flow 4.00 Critical Value No Sodium Potassium Chloride Carbon Dioxide Anion Gap BUN Creatinine Estimated GFR POC Glucose 79 123 H Random Glucose Calcium Phosphorus Magnesium Ammonia B-Natriuretic Peptide - Imaging Impressions Chest X-Ray 01/01/18 04:00 CONCLUSION: Bilateral mostly basilar airspace disease with small effusions. Previous CABG. Findings similar to December 31. Assessment and Plan - Assessment (1) Pulmonary edema Code(s): J81.1 - Chronic pulmonary edema Status: Acute (2) ST elevation myocardial infarction (STEMI) Code(s): I21.3 - ST elevation (STEMI) myocardial infarction of unspecified site Status: Acute (3) A-fib Code(s): I48.91 - Unspecified atrial fibrillation Status: Acute (4) Embolic stroke Code(s): I63.9 - Cerebral infarction, unspecified Status: Acute (5) Respiratory failure Code(s): J96.90 - Respiratory failure, unspecified, unspecified whether with hypoxia or hypercapnia Status: Acute - Plan 1. Cont Nebs qid , duoneb 2. lasix 20 mg IV BID and Kcl 3. Wean o2 to 2 L. 4. Continue Lovenox 40 Mg S/Q Q12H 5. CBC,BMP 6. Chest Xray Thursday. 7. requests No Code. (2) ST elevation myocardial infarction (STEMI) Qualifiers: Involved coronary artery: unspecified coronary artery Qualified Code(s): I21.3 - ST elevation (STEMI) myocardial infarction of unspecified site
--- NOTE | 2018-01-01 20:14 | MG ---
cc: Gregory Ayala MD ELECTROENCEPHALOGRAM NUMBER: [id number] CLINICAL HISTORY: An 82-year-old man with history of atrial fibrillation, history of recent stroke. MEDICATIONS: 1. Lovenox. 2. Apresoline. DESCRIPTION: Normal-appearing alpha and beta rhythms are seen. No major hemisphere asymmetry is noted. Some diffuse 6 Hz slowing is occasionally seen. No epileptiform or seizure activity is noted. Photic stimulation is performed without significant posterior driving. IMPRESSION: Minimal slowing, otherwise a generally unremarkable electroencephalogram. MD RIMMA Jalloh/sarah , 07:16 PM , 07:19 PM
[2018-01-02] MEDS: Oral Hygiene Kit OROPHARYNG SCH ×4 (00:47→17:22)
[2018-01-02] MEDS: Insulin NovoLOG Aspart Correctional Sugar Inj SQ SCH ×4 (00:47→17:24)
[2018-01-02] MEDS: Artificial Tears Opth Drops 15 ML Bottle EACH EYE SCH ×3 (04:07→17:25)
[2018-01-02 05:40] LABS: Baso % (Auto) 0.6 % (0.0-2.0); Eos # (Auto) 0.2 th/mm3 (0.0-0.4); Eos % (Auto) 2.3 % (0.0-4.0); Hematocrit 31.4 % (39.0-51.0); Hemoglobin 10.8 gm/dL (13.0-17.0); Lymph # (Auto) 1.2 th/mm3 (1.0-4.8); Lymph % (Auto) 15.8 % (9.0-44.0); Mean Corpuscular HGB Conc 34.3 % (32.0-36.0); Mean Corpuscular Hemoglobin 30.5 pg (27.0-34.0); Mean Corpuscular Volume 88.8 fL (80.0-100.0); Mono # (Auto) 0.6 th/mm3 (0.0-0.9); Mono % (Auto) 8.2 % (0.0-8.0); Neut # (Auto) 5.6 th/mm3 (1.8-7.7); Neut % (Auto) 73.1 % (16.0-70.0); Platelet Count 347 th/mm3 (150-450); Red Blood Count 3.54 mil/mm3 (4.50-5.90); Red Cell Distribution Width 14.8 % (11.6-17.2); White Blood Count 7.6 th/mm3 (4.0-11.0)
[2018-01-02 05:59] LABS: Calcium 8.6 mg/dL (8.5-10.1); Carbon Dioxide 31.4 meq/L (21.0-32.0); Magnesium 2.1 mg/dL (1.5-2.5); Potassium 3.5 meq/L (3.5-5.1)
[2018-01-02] MEDS: Enoxaparin Inj 40 MG/0.4 ML Syringe SQ SCH ×2 (06:16→17:29)
[2018-01-02] MEDS: Chlorhexidine 0.12% Oral Kit 15 ML UDC OROPHARYNG SCH (08:51)
[2018-01-02] MEDS: Sodium Chloride 0.9% 2 ML Flush BID IV.FLUSH SCH ×2 (09:11→21:10)
[2018-01-02] MEDS: Thiamine Inj 100 MG in Sodium Chlor 0.9% Inj 100 ML IV.SIG SCH (09:12)
[2018-01-02] MEDS: Folic Acid 1 MG Tablet PO SCH (09:12)
[2018-01-02] MEDS: Polyethylene Glycol 3350 17 GM Packet PO SCH ×2 (09:12→20:02)
[2018-01-02] MEDS: Metoprolol Tartrate 25 MG Tablet PO SCH ×2 (09:12→21:07)
[2018-01-02] MEDS: Famotidine PF Inj 20 MG/2 ML Vial IV.PUSH SCH (09:12)
[2018-01-02] MEDS: Amiodarone 200 MG Tablet NG/OG SCH ×3 (09:12→21:05)
--- NOTE | 2018-01-02 10:35 | P.PNIM ---
Subjective Interval history: Patient is better this morning. Bipap removed during my visit. He is awake and moving all extremities but still lethargic. Physical Exam Vital signs: Vital Signs 01/01/18 11:00 01/01/18 15:00 01/01/18 15:52 Temperature 98.9 F 98.7 F Pulse Rate 70 59 L 62 Respiratory Rate 20 20 18 Blood Pressure 105/73 107/56 L Pulse Oximetry 99 99 01/01/18 19:00 01/01/18 20:15 01/01/18 20:41 Temperature 98.5 F Pulse Rate 66 67 Respiratory Rate 20 24 Blood Pressure 94/50 L Pulse Oximetry 98 99 98 01/01/18 23:00 01/01/18 23:59 01/02/18 03:00 Temperature 98.6 F 98.2 F Pulse Rate 63 61 Respiratory Rate 33 H 15 Blood Pressure 129/71 151/76 H Pulse Oximetry 99 98 96 01/02/18 03:34 01/02/18 03:36 01/02/18 07:00 Temperature 99.0 F Pulse Rate 63 62 Respiratory Rate 30 H 14 Blood Pressure 150/85 H Pulse Oximetry 99 99 01/02/18 08:00 01/02/18 10:23 Temperature Pulse Rate 63 Respiratory Rate 18 Blood Pressure Pulse Oximetry 99 99 Intake & Output 01/01/18 01/02/18 01/02/18 18:59 06:59 18:59 Intake Total 401 / 401 102 / 102 Output Total 900 / 900 750 / 750 Balance -499 / -499 -750 / -750 102 / 102 Weight 68.5 kg Intake: IV 301 / 301 102 / 102 KCl 40 mEq Premix Inj 40 meq In 200 / 200 100 ml @ 25 mls/hr IV.SIG Q4H PRN Rx#:[id number] Thiamine Inj 100 MG In NS Inj 101 / 101 102 / 102 100 ML @ 100 mls/hr IV.SIG DAILY GIANCARLO Rx#:[id number] Oral 100 / 100 Output: Urine Amount (Catheter) 900 / 900 750 / 750 Indwelling Urethral Catheter 900 / 900 750 / 750 Other: Date of Last Bowel Movement 12/26/17 12/26/17 12/26/17 # Bowel Movements 0 Narrative: GENERAL: Elderly male. Confused. EYES: No scleral icterus. No injection or drainage. CARDIOVASCULAR: Regular rate and rhythm without murmurs, gallops, or rubs. RESPIRATORY: Diminished breath sounds at the bases otherwise clear to auscultation. GASTROINTESTINAL: Abdomen soft, non-tender, nondistended. MUSCULOSKELETAL: No cyanosis, or edema. Neuro: Awake, lethargic. Move extremities spontaneously. Follow some commands. - Urinary Catheter Management Condom Cath placed during this visit: no Indwelling Urethral Catheter Cath placed during this visit: yes Reason for continuing: Hourly intake/output Insertion date: 12/22/17 Insertion time: 11:00 Results - Labs CBC & Chem 7: 01/02/18 04:50 01/02/18 04:50 Laboratory Results - last 24 hr 01/01/18 01/01/18 01/01/18 11:45 12:16 12:43 WBC RBC Hgb Hct MCV MCH MCHC RDW Plt Count MPV Neut % (Auto) Lymph % (Auto) [place] % (Auto) Eos % (Auto) Baso % (Auto) Neut # (Auto) Lymph # (Auto) [place] # (Auto) Eos # (Auto) Baso # (Auto) WBC Differential Differential Comment Puncture Site [place] Patient Temperature 98.6 O2 Saturation 97 ABG pH 7.44 H ABG pCO2 39 ABG pO2 188 H ABG HCO3 26 ABG O2 Content 15.0 ABG Base Excess 2.3 H ABG Methemoglobin 1.7 Hemoglobin 10.8 L Carboxyhemoglobin 0.7 O2 Delivery Device Room air Liter Flow 4.00 Critical Value No Sodium Potassium Chloride Carbon Dioxide Anion Gap BUN Creatinine Estimated GFR POC Glucose 79 Random Glucose Calcium Phosphorus Magnesium Ammonia 17 01/01/18 01/01/18 01/01/18 13:25 17:05 23:12 WBC RBC Hgb Hct MCV MCH MCHC RDW Plt Count MPV Neut % (Auto) Lymph % (Auto) [place] % (Auto) Eos % (Auto) Baso % (Auto) Neut # (Auto) Lymph # (Auto) [place] # (Auto) Eos # (Auto) Baso # (Auto) WBC Differential Differential Comment Puncture Site Patient Temperature O2 Saturation ABG pH ABG pCO2 ABG pO2 ABG HCO3 ABG O2 Content ABG Base Excess ABG Methemoglobin Hemoglobin Carboxyhemoglobin O2 Delivery Device Liter Flow Critical Value Sodium Potassium Chloride Carbon Dioxide Anion Gap BUN Creatinine Estimated GFR POC Glucose 123 H 83 125 H Random Glucose Calcium Phosphorus Magnesium Ammonia 01/02/18 01/02/18 01/02/18 04:50 04:50 05:13 WBC 7.6 RBC 3.54 L Hgb 10.8 L Hct 31.4 L MCV 88.8 MCH 30.5 MCHC 34.3 RDW 14.8 Plt Count 347 MPV 9.0 Neut % (Auto) 73.1 H Lymph % (Auto) 15.8 [place] % (Auto) 8.2 H Eos % (Auto) 2.3 Baso % (Auto) 0.6 Neut # (Auto) 5.6 Lymph # (Auto) 1.2 [place] # (Auto) 0.6 Eos # (Auto) 0.2 Baso # (Auto) 0.0 WBC Differential . 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 CT brain revealed right parietal/occipital, left frontal/occipital and left cerebellar CVA. Likely embolic. CT angiogram revealed atherosclerosis MCA bilaterally. No stenosis. CTA neck revealed bilateral subclavian stenosis 70% left, right 50%. Evaluated by neurology. At high risk of hemorrhagic conversion. F/U MRI 12/31 MRI brain - Cerebrum: Significant periventricular white matter changes are evident with scattered areas of restricted diffusion involving both hemispheres, worse in both occipital lobes. Largest area of restricted diffusion is on the right that does involve the motor strip. There is no associated parenchymal hemorrhage. Posterior Fossa: Scattered areas restricted diffusion are seen in both cerebellar hemispheres largest 1 cm left hemisphere Neurology recommends no systemic anticoagulation at this time due to high risk of hemorrhagic conversion. Possible fully anticoagulate later this week and if CT brain stable 12/31 Per Neurology recommendations-when anticoagulation initiated recommends Coumadin for 6-8 weeks prior to transitioning to Eliquis to avoid bleeding complications 01/01 :Neurologically improved Inferior STEMI -2 KIANNA to RCA Coronary artery disease Peripheral vascular disease Abdominal aortic aneurysm Atrial fibrillation Bilateral carotid stenosis with left 70% greater than right percent Elevated troponin Continue aspirin 81 mg daily, Prasugrel 10 mg daily for drug-eluting stent Dopamine discontinued 12/29 Follow up on echocardiogram -EF 50-55%. Hypokinesis inferior posterior and inferior basal recio. Followed by Dr. Maldonado/cardiology Currently on amiodarone 200 mg twice daily oral. Management per cardiology Acute respiratory failure COPD Tobacco abuse Pulmonary edema Albuterol/ipratropium aerosols every 4 hours with albuterol aerosols every 2 hours as needed for dyspnea Budesonide 0.5/2 1 inhalation twice daily Extubated 12/29-continue aggressive pulmonary toileting Pulmonology consult-Dr. Mccann following Scheduled Lasix Elevated AST -cardiac in origin Hypoalbuminemia Severe protein calorie malnutrition Hyperammonemia-resolved Obtain formal swallow evaluation by speech therapy and initiate diet Pantoprazole for GI prophylaxis Docusate sodium/senna 1 tablet twice daily for bowel regimen Acute kidney injury -resolved Avoid nephrotoxic medications Did receive dye/contrast for cardiac catheterization Normocytic anemia Monitor CBC daily. Follow trends. Currently on Lovenox twice daily-planned transition to [facility] , cardiology to manage Access -DC central lines Prophylaxis -GI-lansoprazole -DVT-SCD/pharmacological prophylaxis with SCDs/enoxaparin 40 mg twice daily Discharge Planning: Stable for transfer to [facility]. ESTIVEN CARCAMO.
[2018-01-02] MEDS: Morphine Sulfate Inj 2 MG/ML Vial IV.PUSH PRN ×2 (10:52→16:38)
--- NOTE | 2018-01-02 11:11 | P.PNNEU ---
Subjective Active Medications: Active Medications Acetaminophen (Tylenol Liq) 650 mg PO Q6H PRN PRN Reason: FEVER Albuterol (Albuterol Neb (Prn)) 2.5 mg NEB Q2HR NEB PRN PRN Reason: DYSPNEA Albuterol (Duoneb Neb (Kasandra)) 1 ampul NEB Q6HR NEB [facility] Last Admin: 01/02/18 10:17 Dose: 1 ampul Alprazolam (Xanax) 0.5 mg PO TID PRN PRN Reason: ANXIETY Last Admin: 01/01/18 09:01 Dose: 0.5 mg Amiodarone HCl (Cordarone) 200 mg NG/OG BID [facility] Last Admin: 01/02/18 09:12 Dose: 200 mg Artificial Tears (Tears Naturale Opth Drops) 1 drop EACH EYE Q8H [facility] Last Admin: 01/02/18 10:25 Dose: Not Given Aspirin (Aspirin Chew) 81 mg NG/OG DAILY [facility] Last Admin: 01/02/18 09:12 Dose: 81 mg Budesonide (Pulmocort Respule Neb) 0.5 mg NEB Q12HR NEB [facility] Last Admin: 01/02/18 10:17 Dose: 0.5 mg Chlorhexidine Gluconate (Peridex 0.12% Oral Kit) 15 ml OROPHARYNG BID@0800, 2000 [facility] Last Admin: 01/02/18 08:51 Dose: Not Given Dextrose (D50w Vial) 50 ml IV.PUSH UNSCH PRN PRN Reason: PER HYPOGLYCEMIA PROTOCOL Last Admin: 12/31/17 17:29 Dose: 50 ml Enoxaparin Sodium (Lovenox Inj) 40 mg SQ Q12H [facility] Last Admin: 01/02/18 06:16 Dose: 40 mg Famotidine (Pepcid Pf Inj) 20 mg IV.PUSH Q12HR [facility] Last Admin: 01/02/18 09:12 Dose: 20 mg Folic Acid (Folic Acid) 1 mg PO DAILY [facility] Last Admin: 01/02/18 09:12 Dose: 1 mg Furosemide (Lasix Inj) 20 mg IV.PUSH BID@0900,1800 [facility] Last Admin: 01/02/18 09:13 Dose: 20 mg Glucagon (Glucagon Inj) 1 mg OTHER PRN PRN PRN Reason: for Hypoglycemia Protocol Hydralazine HCl (Apresoline Inj) 20 mg IV.PUSH Q4H PRN PRN Reason: SBP > 160 Last Admin: 01/01/18 09:03 Dose: 20 mg Dexmedetomidine HCl 200 mcg/ (Sodium Chloride) 50 mls @ 3.58 mls/hr IV.CONT TITRATE PRN; Protocol PRN Reason: Per Protocol Last Titration: 01/02/18 09:01 Dose: Infused Sodium Chloride (Ns Inj) 1,000 mls @ 100 mls/hr IV.SIG .Q10H KASANDRA Last Infusion: 12/24/17 14:55 Dose: Infused Magnesium Sulfate 4 gm/ Sodium (Chloride) 100 mls @ 50 mls/hr IV.SIG UNSCH PRN PRN Reason: For Magnesium 0.9 - 1.1 mg/dL Magnesium Sulfate 2 gm/ Sodium (Chloride) 100 mls @ 50 mls/hr IV.SIG UNSCH PRN PRN Reason: For Magnesium 1.2 - 1.6 mg/dL Last Infusion: 12/30/17 10:11 Dose: Infused Potassium Chloride (Kcl 20 Meq Premix Inj) 20 meq in 100 mls @ 50 mls/hr IV.SIG Q2H PRN PRN Reason: For Potassium 3.3 - 3.5 mEq/L Last Infusion: 12/25/17 17:15 Dose: Infused Potassium Chloride (Kcl 40 Meq Premix Inj) 40 meq in 100 mls @ 25 mls/hr IV.SIG UNSCH PRN PRN Reason: For Potassium 3.3 - 3.5 mEq/L Last Infusion: 12/30/17 10:11 Dose: Infused Potassium Chloride (Kcl 20 Meq Premix Inj) 20 meq in 100 mls @ 50 mls/hr IV.SIG Q2H PRN PRN Reason: For Potassium 2.8 - 3.2 mEq/L Potassium Phosphate 30 mmol/ (Sodium Chloride) 260 mls @ 42 mls/hr IV.SIG UNSCH PRN PRN Reason: SEE LABEL COMMENTS Sodium Phosphate 30 mmol/ (Sodium Chloride) 260 mls @ 42 mls/hr IV.SIG UNSCH PRN PRN Reason: For Phosphorus < 2.5 mg/dL Potassium Chloride (Kcl 40 Meq Premix Inj) 40 meq in 100 mls @ 25 mls/hr IV.SIG Q4H PRN PRN Reason: For Potassium 2.8 - 3.2 mEq/L Last Infusion: 01/01/18 18:22 Dose: Infused Thiamine HCl 100 mg/ Sodium (Chloride) 101 mls @ 100 mls/hr IV.SIG DAILY [facility] Last Infusion: 01/02/18 10:25 Dose: Infused Dopamine HCl/Dextrose (Dopamine 400 Mg/250 Ml Premix) 400 mg in 250 mls @ 8.063 mls/hr IV.CONT TITRATE PRN; Protocol PRN Reason: PRN PROTOCOL Last Titration: 12/29/17 13:38 Dose: Infused Insulin Aspart (Novolog Insulin Correctional Sugar Inj) 0 unit SQ Q6HR [facility]; Protocol Last Admin: 01/02/18 06:16 Dose: Not Given Lactulose (Lactulose Liq) 30 ml PO BID [facility] Last Admin: 01/02/18 09:12 Dose: 30 ml Magnesium Oxide (Mag-Ox) 800 mg PO UNSCH PRN PRN Reason: For Magnesium 1.2 - 1.6 mg/dL Metoclopramide HCl (Reglan Inj) 5 mg IV.PUSH Q8HR KASANDRA; Protocol Last Admin: 01/02/18 06:15 Dose: 5 mg Metoprolol Tartrate (Lopressor) 25 mg PO BID [facility] Last Admin: 01/02/18 09:12 Dose: 25 mg Miscellaneous Medication () 1 each OROPHARYNG 0000,0400,1200,1600 [facility] Last Admin: 01/02/18 04:08 Dose: Not Given Morphine Sulfate (Morphine Inj) 2 mg IV.PUSH Q3H PRN PRN Reason: PAIN SCALE 1 TO 5/AGITATION Last Admin: 01/02/18 10:52 Dose: 2 mg Morphine Sulfate (Morphine Inj) 4 mg IV.PUSH Q3H PRN PRN Reason: PAIN SCALE 6 TO 10/AGITATION Last Admin: 12/30/17 23:05 Dose: 4 mg Multivitamins (Theragran) 1 tab PO DAILY [facility] Last Admin: 01/02/18 09:12 Dose: 1 tab Polyethylene Glycol (Miralax) 17 gm PO BID [facility] Last Admin: 01/02/18 09:12 Dose: 17 gm Potassium Bicarb/Potassium Chloride (K-Lyte Cl Eff) 50 meq PO UNSCH PRN PRN Reason: For Potassium 3.3 - 3.5 mEq/L Potassium Phosphate (K-Phos Original) 2,000 mg PO Q4H PRN PRN Reason: Phosphorus Less Than 2.5 mg/dL Potassium Phosphate (K-Phos Original) 2,000 mg PO UNSCH PRN PRN Reason: SEE LABEL COMMENTS Prasugrel (Effient) 10 mg PO DAILY [facility] Last Admin: 01/02/18 09:12 Dose: 10 mg Pravastatin Sodium (Pravachol) 80 mg PO HS [facility] Last Admin: 01/01/18 21:11 Dose: 80 mg Sodium Chloride (Ns Flush) 2 ml IV.FLUSH BID [facility] Last Admin: 01/02/18 09:11 Dose: 2 ml Sodium Chloride (Ns Flush) 2 ml IV.FLUSH PRN PRN PRN Reason: FLUSH AFTER USING IV ACCESS Sodium Chloride (Ns Flush) 0 ml IV.FLUSH DAILY [facility] Last Admin: 01/02/18 09:11 Dose: 10 ml Temazepam (Restoril) 15 mg PO HS PRN PRN Reason: INSOMNIA Terbutaline Sulfate (Brethine Inj) 1 mg SQ UNSCH PRN PRN Reason: Extravasation Allergies/Adverse Reactions: Allergies Allergy/AdvReac Type Severity Reaction Status Date / Time No Known Allergies Allergy Verified 12/21/17 08:42 Physical Exam Vital signs: Vital Signs 01/01/18 15:00 01/01/18 15:52 01/01/18 19:00 Temperature 98.7 F 98.5 F Pulse Rate 59 L 62 66 Respiratory Rate 20 18 20 Blood Pressure 107/56 L 94/50 L Pulse Oximetry 99 98 01/01/18 20:15 01/01/18 20:41 01/01/18 23:00 Temperature 98.6 F Pulse Rate 67 63 Respiratory Rate 24 33 H Blood Pressure 129/71 Pulse Oximetry 99 98 99 01/01/18 23:59 01/02/18 03:00 01/02/18 03:34 Temperature 98.2 F Pulse Rate 61 Respiratory Rate 15 Blood Pressure 151/76 H Pulse Oximetry 98 96 99 01/02/18 03:36 01/02/18 07:00 01/02/18 08:00 Temperature 99.0 F Pulse Rate 63 62 Respiratory Rate 30 H 14 Blood Pressure 150/85 H Pulse Oximetry 99 99 01/02/18 10:23 Temperature Pulse Rate 63 Respiratory Rate 18 Blood Pressure Pulse Oximetry 99 Intake & Output 01/01/18 01/02/18 01/02/18 18:59 06:59 18:59 Intake Total 401 / 401 102 / 102 Output Total 900 / 900 750 / 750 Balance -499 / -499 -750 / -750 102 / 102 Weight 68.5 kg Intake: IV 301 / 301 102 / 102 KCl 40 mEq Premix Inj 40 meq In 200 / 200 100 ml @ 25 mls/hr IV.SIG Q4H PRN Rx#:[id number] Thiamine Inj 100 MG In NS Inj 101 / 101 102 / 102 100 ML @ 100 mls/hr IV.SIG DAILY KASANDRA Rx#:[id number] Oral 100 / 100 Output: Urine Amount (Catheter) 900 / 900 750 / 750 Indwelling Urethral Catheter 900 / 900 750 / 750 Other: Date of Last Bowel Movement 12/26/17 12/26/17 12/26/17 # Bowel Movements 0 Narrative: awake much more alert moves bue failr ble not for me speaks slowly - Urinary Catheter Management Condom Cath placed during this visit: no Indwelling Urethral Catheter Cath placed during this visit: yes Reason for continuing: Hourly intake/output Insertion date: 12/22/17 Insertion time: 11:00 Objective Laboratory Results - last 24 hr 01/01/18 01/01/18 01/01/18 11:45 12:16 12:43 WBC RBC Hgb Hct MCV MCH MCHC RDW Plt Count MPV Neut % (Auto) Lymph % (Auto) [place] % (Auto) Eos % (Auto) Baso % (Auto) Neut # (Auto) Lymph # (Auto) [place] # (Auto) Eos # (Auto) Baso # (Auto) WBC Differential Differential Comment Puncture Site [place] Patient Temperature 98.6 O2 Saturation 97 ABG pH 7.44 H ABG pCO2 39 ABG pO2 188 H ABG HCO3 26 ABG O2 Content 15.0 ABG Base Excess 2.3 H ABG Methemoglobin 1.7 Hemoglobin 10.8 L Carboxyhemoglobin 0.7 O2 Delivery Device Room air Liter Flow 4.00 Critical Value No Sodium Potassium Chloride Carbon Dioxide Anion Gap BUN Creatinine Estimated GFR POC Glucose 79 Random Glucose Calcium Phosphorus Magnesium Ammonia 17 01/01/18 01/01/18 01/01/18 13:25 17:05 23:12 WBC RBC Hgb Hct MCV MCH MCHC RDW Plt Count MPV Neut % (Auto) Lymph % (Auto) [place] % (Auto) Eos % (Auto) Baso % (Auto) Neut # (Auto) Lymph # (Auto) [place] # (Auto) Eos # (Auto) Baso # (Auto) WBC Differential Differential Comment Puncture Site Patient Temperature O2 Saturation ABG pH ABG pCO2 ABG pO2 ABG HCO3 ABG O2 Content ABG Base Excess ABG Methemoglobin Hemoglobin Carboxyhemoglobin O2 Delivery Device Liter Flow Critical Value Sodium Potassium Chloride Carbon Dioxide Anion Gap BUN Creatinine Estimated GFR POC Glucose 123 H 83 125 H Random Glucose Calcium Phosphorus Magnesium Ammonia 01/02/18 01/02/18 01/02/18 04:50 04:50 05:13 WBC 7.6 RBC 3.54 L Hgb 10.8 L Hct 31.4 L MCV 88.8 MCH 30.5 MCHC 34.3 RDW 14.8 Plt Count 347 MPV 9.0 Neut % (Auto) 73.1 H Lymph % (Auto) 15.8 [place] % (Auto) 8.2 H Eos % (Auto) 2.3 Baso % (Auto) 0.6 Neut # (Auto) 5.6 Lymph # (Auto) 1.2 [place] # (Auto) 0.6 Eos # (Auto) 0.2 Baso # (Auto) 0.0 WBC Differential . Differential Comment Auto diff final Puncture Site Patient Temperature O2 Saturation ABG pH ABG pCO2 ABG pO2 ABG HCO3 ABG O2 Content ABG Base Excess ABG Methemoglobin Hemoglobin Carboxyhemoglobin O2 Delivery Device Liter Flow Critical Value Sodium 148 H Potassium 3.5 Chloride 110 H Carbon Dioxide 31.4 Anion Gap 7 BUN 23 H Creatinine 1.20 Estimated GFR 58 L POC Glucose 114 H Random Glucose 103 Calcium 8.6 Phosphorus 3.0 Magnesium 2.1 Ammonia Review/Management - Diagnosis (1) Embolic stroke Code(s): I63.9 - Cerebral infarction, unspecified Status: Acute Current Visit: Yes (2) A-fib Code(s): I48.91 - Unspecified atrial fibrillation Status: Acute Current Visit: Yes (3) Respiratory failure Code(s): J96.90 - Respiratory failure, unspecified, unspecified whether with hypoxia or hypercapnia Status: Acute Current Visit: Yes (4) ST elevation myocardial infarction (STEMI) Code(s): I21.3 - ST elevation (STEMI) myocardial infarction of unspecified site Status: Acute Current Visit: Yes - Review/Management Plan: 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 Full neuro exam limited as he is intubated and on sedative drips Recommendation Continue antiplatelets. On aspirin and Effient status post stent placement. On DVT dose Lovenox Follow-up echo for any active clots; pending Follow exam Dr. Bowen to follow Discussed with RN 12/31/17 doing fairly well neuro chavez mri showed mult bilat ant and post circ cva and r parietal one fairly large so will recheck mri see if any blood in them considering on antiplts and size of cva i would prefer coumadin for 6 -8 weeks then change to eliquis to avoid bleeding complications and sequelae if does bleed into cva 01/01/18 very lethargic hold sedation nurse tell me go xanax for agitation but to me should not make him this lethargic check eeg and abg i reviewed mri and the r parietal cva not as large as i thought and no blood so eliquis is ok 01/02/18 looks much better today back to baseline of few days ago no sedatives eeg nl abg ok dr bowen fu thursday (4) ST elevation myocardial infarction (STEMI) Qualifiers: Involved coronary artery: unspecified coronary artery Qualified Code(s): I21.3 - ST elevation (STEMI) myocardial infarction of unspecified site
[2018-01-03] MEDS: Insulin NovoLOG Aspart Correctional Sugar Inj SQ SCH ×4 (00:12→18:11)
[2018-01-03] MEDS: Artificial Tears Opth Drops 15 ML Bottle EACH EYE SCH ×3 (02:14→18:12)
[2018-01-03] MEDS: Chlorhexidine 0.12% Oral Kit 15 ML UDC OROPHARYNG SCH ×3 (03:05→21:32)
[2018-01-03] MEDS: Polyethylene Glycol 3350 17 GM Packet PO SCH ×3 (03:09→21:30)
[2018-01-03] MEDS: Famotidine PF Inj 20 MG/2 ML Vial IV.PUSH SCH ×3 (03:10→21:30)
[2018-01-03] MEDS: Oral Hygiene Kit OROPHARYNG SCH ×4 (03:14→17:54)
[2018-01-03] MEDS: ALPRAZolam 0.5 MG Tablet PO PRN (04:53)
[2018-01-03] MEDS: Amiodarone 200 MG Tablet NG/OG SCH ×3 (04:54→21:30)
[2018-01-03] MEDS ORDERED: Metoprolol Inj 5 MG/5 ML Vial IV.PUSH ONE (05:03)
[2018-01-03] MEDS: Enoxaparin Inj 40 MG/0.4 ML Syringe SQ SCH ×2 (05:11→18:11)
[2018-01-03 05:19] LABS: Hematocrit 31.3 % (39.0-51.0); Hemoglobin 10.6 gm/dL (13.0-17.0); Mean Corpuscular HGB Conc 33.9 % (32.0-36.0); Mean Corpuscular Hemoglobin 30.8 pg (27.0-34.0); Mean Corpuscular Volume 90.9 fL (80.0-100.0); Mean Platelet Volume 8.9 fL (7.0-11.0); Platelet Count 312 th/mm3 (150-450); Red Blood Count 3.45 mil/mm3 (4.50-5.90); White Blood Count 6.9 th/mm3 (4.0-11.0)
[2018-01-03 05:47] LABS: Calcium 8.2 mg/dL (8.5-10.1); Carbon Dioxide 33.1 meq/L (21.0-32.0); Potassium 3.5 meq/L (3.5-5.1)
--- NOTE | 2018-01-03 09:30 | P.PNIM ---
Subjective Interval history: More lethargic today and not eating. He was given Xanax around 5 AM. Will discontinue. Physical Exam Vital signs: Vital Signs 01/02/18 10:23 01/02/18 11:00 01/02/18 12:00 Temperature 98.0 F Pulse Rate 63 62 Respiratory Rate 18 14 16 Blood Pressure 119/80 Pulse Oximetry 99 99 01/02/18 15:00 01/02/18 17:14 01/02/18 19:00 Temperature 98.3 F 97.9 F Pulse Rate 60 61 60 Respiratory Rate 16 22 24 Blood Pressure 117/62 101/59 L Pulse Oximetry 99 97 01/02/18 20:00 01/02/18 20:43 01/02/18 21:09 Temperature Pulse Rate 64 Respiratory Rate 20 Blood Pressure Pulse Oximetry 97 98 98 01/02/18 21:19 01/02/18 23:00 01/03/18 02:55 Temperature 97.8 F 98.4 F Pulse Rate 111 H 116 H Respiratory Rate 20 20 Blood Pressure 131/67 139/78 Pulse Oximetry 97 94 L 95 01/03/18 03:52 01/03/18 07:00 Temperature 98.0 F Pulse Rate 114 H 85 Respiratory Rate 24 14 Blood Pressure 103/66 Pulse Oximetry 99 Intake & Output 01/02/18 01/03/18 01/03/18 18:59 06:59 18:59 Intake Total 152 / 152 100 / 100 Output Total 1350 / 1350 800 / 800 Balance -1198 / -1198 -700 / -700 Weight 69 kg Intake: IV 102 / 102 Thiamine Inj 100 MG In NS Inj 102 / 102 100 ML @ 100 mls/hr IV.SIG DAILY [facility] Rx#:[id number] Oral 50 / 50 100 / 100 Output: Stool 0 / 0 Urine Amount (Catheter) 1350 / 1350 800 / 800 Indwelling Urethral Catheter 1350 / 1350 800 / 800 Other: Date of Last Bowel Movement 12/26/17 12/26/17 # Bowel Movements 0 # Incontinent Bowel Movements 0 Narrative: GENERAL: Elderly male. Lethargic. EYES: No scleral icterus. No injection or drainage. CARDIOVASCULAR: Regular rate and rhythm without murmurs, gallops, or rubs. RESPIRATORY: Diminished breath sounds at the bases otherwise clear to auscultation. GASTROINTESTINAL: Abdomen soft, non-tender, nondistended. MUSCULOSKELETAL: No cyanosis, or edema. Neuro: lethargic. Will open eyes but does not follow any other commands. Pupils equal and slow to react. - Urinary Catheter Management Condom Cath placed during this visit: no Indwelling Urethral Catheter Cath placed during this visit: yes Reason for continuing: Hourly intake/output Insertion date: 12/22/17 Insertion time: 11:00 Results - Labs CBC & Chem 7: 01/03/18 05:00 01/03/18 05:00 Laboratory Results - last 24 hr 01/02/18 01/02/18 01/03/18 11:48 17:24 05:00 WBC 6.9 RBC 3.45 L Hgb 10.6 L Hct 31.3 L MCV 90.9 MCH 30.8 MCHC 33.9 RDW 15.0 Plt Count 312 MPV 8.9 Sodium Potassium Chloride Carbon Dioxide Anion Gap BUN Creatinine Estimated GFR POC Glucose 101 83 Random Glucose Calcium 01/03/18 05:00 WBC RBC Hgb Hct MCV MCH MCHC RDW Plt Count MPV Sodium 146 H Potassium 3.5 Chloride 107 Carbon Dioxide 33.1 H Anion Gap 6 BUN 22 H Creatinine 1.02 Estimated GFR 70 L POC Glucose Random Glucose 83 Calcium 8.2 L Assessment and Plan - Plan 82 Y/O male with : 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 CT brain revealed right parietal/occipital, left frontal/occipital and left cerebellar CVA. Likely embolic. CT angiogram revealed atherosclerosis MCA bilaterally. No stenosis. CTA neck revealed bilateral subclavian stenosis 70% left, right 50%. Evaluated by neurology. At high risk of hemorrhagic conversion. F/U MRI 12/31 MRI brain - Cerebrum: Significant periventricular white matter changes are evident with scattered areas of restricted diffusion involving both hemispheres, worse in both occipital lobes. Largest area of restricted diffusion is on the right that does involve the motor strip. There is no associated parenchymal hemorrhage. Posterior Fossa: Scattered areas restricted diffusion are seen in both cerebellar hemispheres largest 1 cm left hemisphere - Currently on Lovenox. Neurology ok with Eliquis. However oral intake remains an issue for now. 01/03: Lethargic today and not eating. He received Xanax earlier in the morning. DC Xanax. Focus on redirection for agitation symptoms. Dehydration may be contributing as well. he was started on IVF. Inferior STEMI -2 KIANNA to RCA Coronary artery disease Peripheral vascular disease Abdominal aortic aneurysm Atrial fibrillation Bilateral carotid stenosis with left 70% greater than right percent Elevated troponin Continue aspirin 81 mg daily, Prasugrel 10 mg daily for drug-eluting stent Dopamine discontinued 12/29 Follow up on echocardiogram -EF 50-55%. Hypokinesis inferior posterior and inferior basal recio. Followed by Dr. Maldonado/cardiology Currently on amiodarone 200 mg twice daily oral. Management per cardiology Acute respiratory failure COPD Tobacco abuse Pulmonary edema Albuterol/ipratropium aerosols every 4 hours with albuterol aerosols every 2 hours as needed for dyspnea Budesonide 0.5/2 1 inhalation twice daily Extubated 12/29-continue aggressive pulmonary toileting Pulmonology consult-Dr. Mccann following Scheduled Lasix Elevated AST -cardiac in origin Hypoalbuminemia Severe protein calorie malnutrition Hyperammonemia-resolved Obtain formal swallow evaluation by speech therapy and initiate diet Pantoprazole for GI prophylaxis Docusate sodium/senna 1 tablet twice daily for bowel regimen Acute kidney injury -resolved Avoid nephrotoxic medications Did receive dye/contrast for cardiac catheterization Normocytic anemia Monitor CBC daily. Follow trends. Currently on Lovenox twice daily-planned transition to [facility] , cardiology to manage Access -DC central lines Prophylaxis -GI-lansoprazole -DVT-SCD/pharmacological prophylaxis with SCDs/enoxaparin 40 mg twice daily
[2018-01-03] MEDS: Thiamine Inj 100 MG in Sodium Chlor 0.9% Inj 100 ML IV.SIG SCH (10:14)
[2018-01-03] MEDS: Folic Acid 1 MG Tablet PO SCH (10:15)
[2018-01-03] MEDS: Sodium Chloride 0.9% 2 ML Flush BID IV.FLUSH SCH ×2 (10:16→21:30)
[2018-01-03] MEDS: KCL 10 mEq/D5W/NaCl 0.45% Inj 1,000 ML IV.CONT SCH (12:07)
[2018-01-03] MEDS: Metoprolol Tartrate 25 MG Tablet PO SCH ×2 (14:25→21:30)
[2018-01-03] MEDS: Morphine Sulfate Inj 2 MG/ML Vial IV.PUSH PRN (23:07)
[2018-01-04] MEDS: Insulin NovoLOG Aspart Correctional Sugar Inj SQ SCH ×4 (01:29→17:01)
[2018-01-04] MEDS: Oral Hygiene Kit OROPHARYNG SCH ×4 (01:30→16:38)
[2018-01-04] MEDS: Artificial Tears Opth Drops 15 ML Bottle EACH EYE SCH ×3 (04:17→17:01)
[2018-01-04] MEDS: Enoxaparin Inj 40 MG/0.4 ML Syringe SQ SCH (05:26)
[2018-01-04 05:48] LABS: Hematocrit 35.1 % (39.0-51.0); Hemoglobin 11.7 gm/dL (13.0-17.0); Mean Corpuscular HGB Conc 33.4 % (32.0-36.0); Mean Corpuscular Volume 89.7 fL (80.0-100.0); Platelet Count 344 th/mm3 (150-450); Red Blood Count 3.92 mil/mm3 (4.50-5.90); Red Cell Distribution Width 14.7 % (11.6-17.2); White Blood Count 6.6 th/mm3 (4.0-11.0)
[2018-01-04 06:09] LABS: Carbon Dioxide 33.8 meq/L (21.0-32.0); Potassium 3.3 meq/L (3.5-5.1)
[2018-01-04] MEDS: Metoprolol Tartrate 25 MG Tablet PO SCH ×2 (08:20→20:41)
[2018-01-04] MEDS: Folic Acid 1 MG Tablet PO SCH (08:20)
[2018-01-04] MEDS: Famotidine PF Inj 20 MG/2 ML Vial IV.PUSH SCH ×2 (08:20→20:41)
[2018-01-04] MEDS: Amiodarone 200 MG Tablet NG/OG SCH ×2 (08:20→20:41)
[2018-01-04] MEDS: Chlorhexidine 0.12% Oral Kit 15 ML UDC OROPHARYNG SCH ×2 (08:21→20:42)
[2018-01-04] MEDS: Polyethylene Glycol 3350 17 GM Packet PO SCH ×2 (08:21→20:42)
[2018-01-04] MEDS: Sodium Chloride 0.9% 2 ML Flush BID IV.FLUSH SCH ×2 (08:22→20:43)
[2018-01-04] MEDS: Thiamine Inj 100 MG in Sodium Chlor 0.9% Inj 100 ML IV.SIG SCH (09:00)
--- NOTE | 2018-01-04 12:05 | P.PNIM ---
Subjective Interval history: Patient is alert and awake but aphasic. He can follow commands. He is not eating much. Physical Exam Vital signs: Vital Signs 01/03/18 15:00 01/03/18 16:05 01/03/18 19:00 Temperature 98.4 F 97.9 F Pulse Rate 78 90 53 L Respiratory Rate 16 18 17 Blood Pressure 123/79 137/75 Pulse Oximetry 99 98 01/03/18 20:32 01/03/18 23:00 01/04/18 01:29 Temperature 97.9 F Pulse Rate 98 H 53 L Respiratory Rate 24 17 17 Blood Pressure 137/75 Pulse Oximetry 98 98 01/04/18 03:00 01/04/18 03:35 01/04/18 07:00 Temperature 98.0 F 98.2 F Pulse Rate 62 75 62 Respiratory Rate 17 24 20 Blood Pressure 145/70 H 156/73 H Pulse Oximetry 96 96 01/04/18 08:00 01/04/18 10:00 01/04/18 10:27 Temperature Pulse Rate 66 63 Respiratory Rate 16 Blood Pressure Pulse Oximetry 96 97 01/04/18 11:00 Temperature 98.6 F Pulse Rate 64 Respiratory Rate 20 Blood Pressure 176/78 H Pulse Oximetry 95 Intake & Output 01/03/18 01/04/18 01/04/18 18:59 06:59 18:59 Intake Total 111 / 111 1100 / 1100 100 / 100 Output Total 1575 / 1575 1150 / 1150 Balance -1464 / -1464 -50 / -50 100 / 100 Weight 67 kg Intake: IV 101 / 101 1000 / 1000 100 / 100 D5W/1/2NS + KCL 10 mEq Inj 1, 1000 / 1000 000 ML @ 100 mls/hr IV.CONT . Q10H [facility] Rx#:[id number] Thiamine Inj 100 MG In NS Inj 101 / 101 100 / 100 100 ML @ 100 mls/hr IV.SIG DAILY [facility] Rx#:[id number] Oral 10 100 / 100 Output: Urine Amount (Catheter) 1575 / 1575 1150 / 1150 Indwelling Urethral Catheter 1575 / 1575 1150 / 1150 Other: Date of Last Bowel Movement 12/26/17 01/03/18 01/03/18 Narrative: GENERAL: Elderly male. No acute distress. EYES: No scleral icterus. No injection or drainage. CARDIOVASCULAR: Regular rate and rhythm without murmurs, gallops, or rubs. RESPIRATORY: Diminished breath sounds at the bases otherwise clear to auscultation. GASTROINTESTINAL: Abdomen soft, non-tender, nondistended. MUSCULOSKELETAL: No cyanosis, or edema. Neuro: Awake and alert. Aphasic. He does follow commands. Moves all extremities spontaneously. No focal weakness. - Urinary Catheter Management Condom Cath placed during this visit: no Indwelling Urethral Catheter Cath placed during this visit: yes Reason for continuing: Terminally ill/Comfort care Insertion date: 12/22/17 Insertion time: 11:00 Results - Labs CBC & Chem 7: 01/04/18 05:03 01/04/18 05:03 Laboratory Results - last 24 hr 01/03/18 01/03/18 01/04/18 12:03 18:17 01:22 WBC RBC Hgb Hct MCV MCH MCHC RDW Plt Count MPV Sodium Potassium Chloride Carbon Dioxide Anion Gap BUN Creatinine Estimated GFR POC Glucose 78 111 H 126 H Random Glucose Calcium 01/04/18 01/04/18 01/04/18 05:03 05:03 05:35 WBC 6.6 RBC 3.92 L Hgb 11.7 L Hct 35.1 L MCV 89.7 MCH 30.0 MCHC 33.4 RDW 14.7 Plt Count 344 MPV 9.0 Sodium 145 Potassium 3.3 L Chloride 104 Carbon Dioxide 33.8 H Anion Gap 7 BUN 23 H Creatinine 1.10 Estimated GFR 64 L POC Glucose 100 Random Glucose 103 Calcium 9.0 D 01/04/18 11:09 WBC RBC Hgb Hct MCV MCH MCHC RDW Plt Count MPV Sodium Potassium Chloride Carbon Dioxide Anion Gap BUN Creatinine Estimated GFR POC Glucose 120 H Random Glucose Calcium Assessment and Plan - Plan 82 Y/O male with : 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 CT brain revealed right parietal/occipital, left frontal/occipital and left cerebellar CVA. Likely embolic. CT angiogram revealed atherosclerosis MCA bilaterally. No stenosis. CTA neck revealed bilateral subclavian stenosis 70% left, right 50%. Evaluated by neurology. At high risk of hemorrhagic conversion. F/U MRI 12/31 MRI brain - Cerebrum: Significant periventricular white matter changes are evident with scattered areas of restricted diffusion involving both hemispheres, worse in both occipital lobes. Largest area of restricted diffusion is on the right that does involve the motor strip. There is no associated parenchymal hemorrhage. Posterior Fossa: Scattered areas restricted diffusion are seen in both cerebellar hemispheres largest 1 cm left hemisphere - Currently on Lovenox. Neurology ok with Eliquis. Will switch him over to Eliquis today -01/04: Patient is awake and alert today but aphasia persisting. He is not eating much. Speech therapy to follow-up. Inferior STEMI -2 KIANNA to RCA Coronary artery disease Peripheral vascular disease Abdominal aortic aneurysm Atrial fibrillation Bilateral carotid stenosis with left 70% greater than right percent Elevated troponin Continue aspirin 81 mg daily, Prasugrel 10 mg daily for drug-eluting stent Dopamine discontinued 12/29 Follow up on echocardiogram -EF 50-55%. Hypokinesis inferior posterior and inferior basal recio. Followed by Dr. Maldonado/cardiology Currently on amiodarone 200 mg twice daily oral. Management per cardiology Acute respiratory failure COPD Tobacco abuse Pulmonary edema Albuterol/ipratropium aerosols every 4 hours with albuterol aerosols every 2 hours as needed for dyspnea Budesonide 0.5/2 1 inhalation twice daily Extubated 12/29-continue aggressive pulmonary toileting Pulmonology consult-Dr. Mccann following Scheduled Lasix Elevated AST -cardiac in origin Hypoalbuminemia Severe protein calorie malnutrition Hyperammonemia-resolved Obtain formal swallow evaluation by speech therapy and initiate diet Pantoprazole for GI prophylaxis Docusate sodium/senna 1 tablet twice daily for bowel regimen Acute kidney injury -resolved Avoid nephrotoxic medications Did receive dye/contrast for cardiac catheterization Normocytic anemia Monitor CBC daily. Follow trends. Prophylaxis -GI-lansoprazole -DVT-SCD/pharmacological prophylaxis with SCDs/enoxaparin 40 mg twice daily Discharge Planning: Patient is stabilizing. I discussed with his son yesterday. He has a living will and this will be brought in. Oral intake remain an issue. Continue to follow. He will need rehab.
[2018-01-04] MEDS: hydrALAZINE HCl Inj 20 MG/ML Vial IV.PUSH PRN (14:48)
[2018-01-04] MEDS ORDERED: Haloperidol Inj 5 MG/ML Ampul IM PRN (16:52)
[2018-01-04] MEDS: QUEtiapine 25 MG Tablet PO SCH (17:45)
--- NOTE | 2018-01-04 18:58 | P.PN ---
Subjective Interval history: He is alert and seems to be breathing better. O2 sats .94 on RA. On lasix IV. Good output.Remains Aphasic. Physical Exam Vital signs: Vital Signs 01/03/18 19:00 01/03/18 20:32 01/03/18 23:00 Temperature 97.9 F 97.9 F Pulse Rate 53 L 98 H 53 L Respiratory Rate 17 24 17 Blood Pressure 137/75 137/75 Pulse Oximetry 98 98 98 01/04/18 01:29 01/04/18 03:00 01/04/18 03:35 Temperature 98.0 F Pulse Rate 62 75 Respiratory Rate 17 17 24 Blood Pressure 145/70 H Pulse Oximetry 96 01/04/18 07:00 01/04/18 08:00 01/04/18 10:00 Temperature 98.2 F Pulse Rate 62 66 Respiratory Rate 20 Blood Pressure 156/73 H Pulse Oximetry 96 96 01/04/18 10:27 01/04/18 11:00 01/04/18 12:00 Temperature 98.6 F Pulse Rate 63 64 48 L Respiratory Rate 16 20 Blood Pressure 176/78 H Pulse Oximetry 97 95 01/04/18 13:00 01/04/18 14:00 01/04/18 14:30 Temperature Pulse Rate 66 60 Respiratory Rate Blood Pressure 188/95 H Pulse Oximetry 01/04/18 15:00 01/04/18 15:07 01/04/18 16:00 Temperature 97.9 F Pulse Rate 54 L 68 81 Respiratory Rate 20 Blood Pressure 185/88 H Pulse Oximetry 96 01/04/18 16:32 01/04/18 17:00 01/04/18 18:00 Temperature Pulse Rate 85 86 Respiratory Rate 35 H Blood Pressure 139/70 Pulse Oximetry Intake & Output 01/03/18 01/04/18 01/04/18 18:59 06:59 18:59 Intake Total 111 / 111 1100 / 1100 340 / 340 Output Total 1575 / 1575 1150 / 1150 1350 / 1350 Balance -1464 / -1464 -50 / -50 -1010 / -1010 Weight 67 kg Intake: IV 101 / 101 1000 / 1000 100 / 100 D5W/1/2NS + KCL 10 mEq Inj 1, 1000 / 1000 000 ML @ 100 mls/hr IV.CONT . Q10H [facility] Rx#:[id number] Thiamine Inj 100 MG In NS Inj 101 / 101 100 / 100 100 ML @ 100 mls/hr IV.SIG DAILY [facility] Rx#:[id number] Oral 100 / 100 240 / 240 Output: Urine Amount (Catheter) 1575 / 1575 1150 / 1150 1350 / 1350 Indwelling Urethral Catheter 1575 / 1575 1150 / 1150 1350 / 1350 Other: Date of Last Bowel Movement 12/26/17 01/03/18 01/04/18 # Bowel Movements 1 Narrative: GENERAL: Elderly male.Pale . No acute distress. EYES: No scleral icterus. No injection or drainage. CARDIOVASCULAR: Regular rate and rhythm without murmurs, gallops, or rubs. RESPIRATORY: Diminished breath sounds at the bases with few crackles . GASTROINTESTINAL: Abdomen soft, non-tender, nondistended. MUSCULOSKELETAL: No cyanosis, or edema. Neuro: Awake and alert. Aphasic. He does follow commands. Moves all extremities spontaneously. Mild leg weakness. - Urinary Catheter Management Condom Cath placed during this visit: no Indwelling Urethral Catheter Cath placed during this visit: yes Reason for continuing: Gross Hematuria Insertion date: 12/22/17 Insertion time: 11:00 Results - Labs CBC & Chem 7: 01/04/18 05:03 01/04/18 05:03 Laboratory Results - last 24 hr 01/04/18 01/04/18 01/04/18 01:22 05:03 05:03 WBC 6.6 RBC 3.92 L Hgb 11.7 L Hct 35.1 L MCV 89.7 MCH 30.0 MCHC 33.4 RDW 14.7 Plt Count 344 MPV 9.0 Sodium 145 Potassium 3.3 L Chloride 104 Carbon Dioxide 33.8 H Anion Gap 7 BUN 23 H Creatinine 1.10 Estimated GFR 64 L POC Glucose 126 H Random Glucose 103 Calcium 9.0 D 01/04/18 01/04/18 05:35 11:09 WBC RBC Hgb Hct MCV MCH MCHC RDW Plt Count MPV Sodium Potassium Chloride Carbon Dioxide Anion Gap BUN Creatinine Estimated GFR POC Glucose 100 120 H Random Glucose Calcium Assessment and Plan - Assessment (1) Pulmonary edema Code(s): J81.1 - Chronic pulmonary edema Status: Acute (2) ST elevation myocardial infarction (STEMI) Code(s): I21.3 - ST elevation (STEMI) myocardial infarction of unspecified site Status: Acute (3) A-fib Code(s): I48.91 - Unspecified atrial fibrillation Status: Acute (4) Embolic stroke Code(s): I63.9 - Cerebral infarction, unspecified Status: Acute (5) Respiratory failure Code(s): J96.90 - Respiratory failure, unspecified, unspecified whether with hypoxia or hypercapnia Status: Acute - Plan 1.Cont Nebs qid , duoneb 2. D/C lasix IV 3. Wean o2 to RA 4. Continue Lovenox 40 Mg S/Q Q12H 5. CBC,BMP 6. Chest Xray in am 7. PT evaluation. (2) ST elevation myocardial infarction (STEMI) Qualifiers: Involved coronary artery: unspecified coronary artery Qualified Code(s): I21.3 - ST elevation (STEMI) myocardial infarction of unspecified site
[2018-01-04] MEDS: KCL 10 mEq/D5W/NaCl 0.45% Inj 1,000 ML IV.CONT SCH ×2 (19:12)
[2018-01-04] MEDS ORDERED: QUEtiapine 25 MG Tablet PO SCH (21:00)
[2018-01-05] MEDS: Insulin NovoLOG Aspart Correctional Sugar Inj SQ SCH ×4 (00:36→18:42)
[2018-01-05] MEDS: Oral Hygiene Kit OROPHARYNG SCH ×4 (01:30→16:42)
[2018-01-05] MEDS: Artificial Tears Opth Drops 15 ML Bottle EACH EYE SCH ×3 (02:34→19:17)
[2018-01-05] MEDS: KCL 10 mEq/D5W/NaCl 0.45% Inj 1,000 ML IV.CONT SCH (03:00)
[2018-01-05] MEDS: QUEtiapine 25 MG Tablet PO SCH (05:02)
[2018-01-05 06:14] LABS: Calcium 8.8 mg/dL (8.5-10.1); Carbon Dioxide 32.7 meq/L (21.0-32.0); Potassium 3.2 meq/L (3.5-5.1)
--- NOTE | 2018-01-05 06:19 | XR ---
EXAM DATE: 01/05/2018 6:01 AM EST AGE/SEX: 82 years / Male INDICATIONS: Shortness of breath. CLINICAL DATA: This is the patient's subsequent encounter. Patient reports that signs and symptoms h ave been present for 2 weeks and indicates a pain score of 0/10. MEDICAL/SURGICAL HISTORY: Myocardial infarction. CAD. A-Fib. CABG. COMPARISON: C, CHEST 1V SINGLE AP, 01/01/2018. . FINDINGS: Bilateral mostly basilar airspace disease and pleural effusions. Previous CABG. No pneumothorax. Hear t size within normal limits. CONCLUSION: Bilateral mostly basilar airspace disease and small effusions. Findings are similar to prior examinat ion. Electronically signed by: Bunny Flores MD 01/05/2018 6:18 AM EST
[2018-01-05] MEDS: Chlorhexidine 0.12% Oral Kit 15 ML UDC OROPHARYNG SCH (12:37)
[2018-01-05] MEDS: Thiamine Inj 100 MG in Sodium Chlor 0.9% Inj 100 ML IV.SIG SCH (12:37)
[2018-01-05] MEDS: Folic Acid 1 MG Tablet PO SCH (12:41)
[2018-01-05] MEDS: Sodium Chloride 0.9% 2 ML Flush BID IV.FLUSH SCH (12:42)
[2018-01-05] MEDS: Famotidine PF Inj 20 MG/2 ML Vial IV.PUSH SCH ×2 (12:45→23:00)
[2018-01-05] MEDS: Polyethylene Glycol 3350 17 GM Packet PO SCH (12:46)
--- NOTE | 2018-01-05 13:42 | P.DIET ---
Nutritional Evaluation Type of nutrition evaluation: follow-up Nutrition consult regarding: Tube Feeding (TFing stopped 12/29) Subjective Subjective Comments: Pt awake today, aphasic w/ poor appetite. Objective - Diagnosis STEMI Alert - Objective % IBW: 90 (IBW = 172#) Body Weight Used for Calculations: Actual (70.5 kg) Energy Needs - Lower Range (kCal/kg): 25 Energy Needs - Upper Range (kCal/kg): 30 Lower Limit kCal/kg (kCals): 1,763 Upper Limit kCal/kg (kCals): 2,115 Lower Limit Protein Factor (Grams per Kg): 1.0 Upper Limit Protein Factor (Grams per Kg): 1.5 Lower Protein Needs (Protein): 71 Upper Protein Needs (Protein): 106 Dietitian Reviewed in Medical Record: Current diet, Curent medications, Intake & Output, Labs, Medical history Diet Order: Cardiac, Mechanical Soft w/chopped meat Oral Diet Intake Amount: Poor <50% Speech Therapy Recommendations: Yes (12/30) Objective Comments: GLU 120 Assessment Assessment: Pt on a mech soft, thin liquid diet per ST recs. Pt consuming 10-25% of most meals on avrg, tolerating poorly. Pt refusing multiple meal trays. RD to recommend Ensure Enlive TID as PO supplement. Will continue to monitor PO and supplement intake. Encourage PO intake and pt needs feed assist. Labs reviewed, dietitian following. Brought forward: Pt extubated and TFing stopped 12/29. Recommendations: 1. Diet per ST recs, mech soft, thin liquids 2. RD to recommend Ensure Enlive TID as PO supplement 3. Will continue to monitor PO and supplement intake 4. Encourage PO intake and pt needs feed assist 5. RD following Dietitian to Monitor: Lab values, Glucose level, Supplement acceptance, Intake & Output, Diet tolerance, Weight change, PO Intake, Swallow recommendations, Medical course
[2018-01-05] MEDS: Potassium Chlor 20 mEq Premix 20 MEQ/100 ML PIGGYBACK IV.SIG SCH ×2 (14:17→16:39)
--- NOTE | 2018-01-05 14:44 | P.CONPAL ---
Consult Service: Palliative Care Requesting Physician: Jessica Hills Reason for Consult: a. To assist with evaluation and management of symptoms including: debility, depression b. To assist medical decision maker(s) with: better understanding of current medical conditions; weighing benefits/burdens of medical treatment options; making medical treatment decisions. Primary Care Provider: UNKNOWN History of Present Illness History of Present Illness: Mr. Murray is an 82-year-old gentleman who presented via EMS to [facility] emergency room on 12/21/17 with complaints of substernal chest pain radiating to his back. He has a significant past medical history for coronary artery disease, A. fib, and previous CT. He originally described the pain as pressure- like in quantify to 11/18 associated with nausea, despite taking his nitroglycerin. STEMI alert was called and the patient was taken emergently [facility] cardiac catheterization. The patient had 2 drug-eluting stents placed in the right CA. He was then transferred to the [facility] where he was very agitated and restless. He was originally placed on Bipap and given bronchodilators to assist with his dyspnea. He also required pressor support to maintain his MAP. Repeat ABG's at this time shows the patient to be in acute hypercapnic respiratory acidosis requiring intubation. Initial laboratory data revealed: WBC 9.8, hemoglobin 13.7, hematocrit 41, platelet count of 229. BMP: Sodium 140, potassium 3.5, chloride 101, BUN 8, creatinine 1.2, glucose 156, magnesium 2. BNP 887. During his hospital course the patient continued to remain agitated, making his vent-weaning process somewhat difficult. On 12/25/17 imaging of head was significant for CVA in the right parietal/occipital/left frontal/occipital and left cerebellar regions. The patient was eventually extubated on 12/30/17. Pulmonology was consulted to assist with maintaining the patient's acute respiratory failure. He was continued on bronchodilators, aggressive pulmonary toileting, and scheduled Lasix. Cardiology continue to follow and manage the patient's coronary artery disease. Has hospital course the patient was found to have significant peripheral vascular disease, and abdominal aortic aneurysm and bilateral carotid stenosis with left 70% greater than the right. Pressure support of dopamine was eventually discontinued on 12/29/17. Follow-up echocardiogram showed EF of 50- 55%. Patient was eventually stabilized on oral amiodarone and Prasugrel for drug-eluting stent. Neurology was consulted to manage his stroke and repeat MRI of brain on 12/31 showed again periventricular white matter changes evident with scattered areas of restricted diffusion involving both hemispheres. Eventually the patient began to stabilize though it remained apparent that he was suffering from expressive aphasia. The patient remained semi-confused requiring maximum assist to participate in physical and occupational therapy. Per nursing staff he verbalized lack of motivation to live and stated he was no longer eating because he was ready to . Palliative care was consulted to assist with symptom management and to help assist patient and family and addressing ongoing goals of medical treatment. Patient seen and examined in room. He is awake and alert but with expressive aphasia. He is able to answer yes or no questions fairly consistently. Systematic review of symptoms using external questions reveal the patient denies any pain or discomfort at this time. Denies shortness of breath or chest pain particularly. Continuously picks at his gown and bedding. Is able to utter some phrases clearly. We did discuss loosely the matter of CODE STATUS. When patient was asked if he remembered having the breathing tube down his throat he answered yes. When asked if he would want this done to him again should he decline, he was able to say "I do not want that done to me". When asked if he understood what has happened to him since his hospital admission the patient becomes tearful and shakes his head yes. He is able to recount that he has 5 children and answers affirmatively when I say the name of his current . He is somewhat ambivalent when we discussed his refusal of medications and nutrition. Further discussion regarding goals and conversations to follow. Function/Cognitive Trajectory: Prior to this hospitalization the patient was independent of ambulation and all ADLs. He did suffer some sort of cardiac event back in July and was hospitalized at [facility]. Since then, his personality had changed and he had difficulty with walking. He had multiple falls and gait issues. He continue to care for himself and his up until this acute incident. Review of Systems Constitutional: Reports weakness Psychiatric: Reports change in appetite PMFSH - History History Provided By: Patient, Family Member - Medical History Medical History: Medical History (Last Updated 01/05/18 @ 16:44 by GIBSON Arauz) A-fib CAD (coronary artery disease) Myocardial infarct - Surgical History Surgical History: Surgical History (Last Updated 01/05/18 @ 16:43 by GIBSON Arauz) History of heart artery stent Hx of heart surgery - Family History Family History: Family History (Last Updated 01/05/18 @ 16:46 by GIBSON Arauz) Other Heart disease - Social History I have reviewed the patient's Social History: Yes - Tobacco History Second Hand Smoke Exposure: No Tobacco Use In Past 30 Days: No Smoking Status: Former smoker Tobacco Type: Cigarettes - Alcohol History How Often Do You Have a Drink Containing Alcohol: Never - Substance Use History Substance History: No History of Abuse - Travel History History of Recent Travel: No Recent Travel in the [place] Within the Last 8 Weeks: No Recent Travel Out of the Country Within the Last 8 Weeks: No - Immunization History Tetanus Immunization: Unable to Assess Hx Influenza Vaccine This Season: Unable to Assess Medications and Allergies Active Medications: Active Medications Acetaminophen (Tylenol Liq) 650 mg PO Q6H PRN PRN Reason: FEVER Albuterol (Albuterol Neb (Prn)) 2.5 mg NEB Q2HR NEB PRN PRN Reason: DYSPNEA Amiodarone HCl (Cordarone) 200 mg NG/OG BID [facility] Last Admin: 01/04/18 20:41 Dose: 200 mg Apixaban (Eliquis) 5 mg PO BID [facility] Last Admin: 01/04/18 20:41 Dose: 5 mg Artificial Tears (Tears Naturale Opth Drops) 1 drop EACH EYE Q8H [facility] Last Admin: 01/05/18 12:37 Dose: 1 drop Aspirin (Aspirin Chew) 81 mg NG/OG DAILY [facility] Last Admin: 01/05/18 14:16 Dose: Not Given Budesonide (Pulmocort Respule Neb) 0.5 mg NEB Q12HR NEB [facility] Last Admin: 01/05/18 08:20 Dose: 0.5 mg Chlorhexidine Gluconate (Peridex 0.12% Oral Kit) 15 ml OROPHARYNG BID@0800, 2000 [facility] Last Admin: 01/05/18 12:37 Dose: Not Given Clonidine HCl (Catapres) 0.1 mg PO Q6H PRN PRN Reason: SBP GREATER THAN 180 Dextrose (D50w Vial) 50 ml IV.PUSH UNSCH PRN PRN Reason: PER HYPOGLYCEMIA PROTOCOL Last Admin: 12/31/17 17:29 Dose: 50 ml Famotidine (Pepcid Pf Inj) 20 mg IV.PUSH Q12HR [facility] Last Admin: 01/05/18 12:45 Dose: 20 mg Folic Acid (Folic Acid) 1 mg PO DAILY [facility] Last Admin: 01/05/18 12:41 Dose: Not Given Glucagon (Glucagon Inj) 1 mg OTHER PRN PRN PRN Reason: for Hypoglycemia Protocol Haloperidol Lactate (Haldol Inj) 1 mg IM Q6H PRN PRN Reason: AGITATION Hydralazine HCl (Apresoline Inj) 20 mg IV.PUSH Q4H PRN PRN Reason: SBP > 160 Last Admin: 01/04/18 14:48 Dose: 20 mg Dexmedetomidine HCl 200 mcg/ (Sodium Chloride) 50 mls @ 3.58 mls/hr IV.CONT TITRATE PRN; Protocol PRN Reason: Per Protocol Last Titration: 01/02/18 09:01 Dose: Infused Sodium Chloride (Ns Inj) 1,000 mls @ 100 mls/hr IV.SIG .Q10H [facility] Last Infusion: 12/24/17 14:55 Dose: Infused Magnesium Sulfate 4 gm/ Sodium (Chloride) 100 mls @ 50 mls/hr IV.SIG UNSCH PRN PRN Reason: For Magnesium 0.9 - 1.1 mg/dL Magnesium Sulfate 2 gm/ Sodium (Chloride) 100 mls @ 50 mls/hr IV.SIG UNSCH PRN PRN Reason: For Magnesium 1.2 - 1.6 mg/dL Last Infusion: 12/30/17 10:11 Dose: Infused Potassium Chloride (Kcl 20 Meq Premix Inj) 20 meq in 100 mls @ 50 mls/hr IV.SIG Q2H PRN PRN Reason: For Potassium 3.3 - 3.5 mEq/L Last Infusion: 12/25/17 17:15 Dose: Infused Potassium Chloride (Kcl 40 Meq Premix Inj) 40 meq in 100 mls @ 25 mls/hr IV.SIG UNSCH PRN PRN Reason: For Potassium 3.3 - 3.5 mEq/L Last Infusion: 12/30/17 10:11 Dose: Infused Potassium Chloride (Kcl 20 Meq Premix Inj) 20 meq in 100 mls @ 50 mls/hr IV.SIG Q2H PRN PRN Reason: For Potassium 2.8 - 3.2 mEq/L Potassium Phosphate 30 mmol/ (Sodium Chloride) 260 mls @ 42 mls/hr IV.SIG UNSCH PRN PRN Reason: SEE LABEL COMMENTS Sodium Phosphate 30 mmol/ (Sodium Chloride) 260 mls @ 42 mls/hr IV.SIG UNSCH PRN PRN Reason: For Phosphorus < 2.5 mg/dL Potassium Chloride (Kcl 40 Meq Premix Inj) 40 meq in 100 mls @ 25 mls/hr IV.SIG Q4H PRN PRN Reason: For Potassium 2.8 - 3.2 mEq/L Last Infusion: 01/01/18 18:22 Dose: Infused Thiamine HCl 100 mg/ Sodium (Chloride) 101 mls @ 100 mls/hr IV.SIG DAILY [facility] Last Infusion: 01/05/18 14:09 Dose: Infused Dopamine HCl/Dextrose (Dopamine 400 Mg/250 Ml Premix) 400 mg in 250 mls @ 8.063 mls/hr IV.CONT TITRATE PRN; Protocol PRN Reason: PRN PROTOCOL Last Titration: 12/29/17 13:38 Dose: Infused Potassium Chloride/Dextrose/Sod Cl (D5w/1/2ns + Kcl 10 Meq Inj) 1,000 mls @ 100 mls/hr IV.CONT .Q10H [facility] Last Admin: 01/04/18 19:12 Dose: 50 mls/hr Potassium Chloride (Kcl 20 Meq Premix Inj) 20 meq in 100 mls @ 50 mls/hr IV.SIG Q2H [facility] Stop: 01/05/18 15:59 Last Admin: 01/05/18 14:17 Dose: 50 mls/hr Insulin Aspart (Novolog Insulin Correctional Sugar Inj) 0 unit SQ Q6HR [facility]; Protocol Last Admin: 01/05/18 13:40 Dose: Not Given Lactulose (Lactulose Liq) 30 ml PO BID [facility] Last Admin: 01/05/18 14:17 Dose: Not Given Magnesium Oxide (Mag-Ox) 800 mg PO UNSCH PRN PRN Reason: For Magnesium 1.2 - 1.6 mg/dL Metoclopramide HCl (Reglan Inj) 5 mg IV.PUSH Q8HR [facility]; Protocol Last Admin: 01/05/18 05:02 Dose: 5 mg Metoprolol Tartrate (Lopressor) 25 mg PO BID [facility] Last Admin: 01/04/18 20:41 Dose: 25 mg Miscellaneous Medication () 1 each OROPHARYNG 0000,0400,1200,1600 [facility] Last Admin: 01/05/18 13:41 Dose: Not Given Morphine Sulfate (Morphine Inj) 2 mg IV.PUSH Q3H PRN PRN Reason: PAIN SCALE 1 TO 5/AGITATION Last Admin: 01/03/18 23:07 Dose: 2 mg Morphine Sulfate (Morphine Inj) 4 mg IV.PUSH Q3H PRN PRN Reason: PAIN SCALE 6 TO 10/AGITATION Last Admin: 12/30/17 23:05 Dose: 4 mg Multivitamins (Theragran) 1 tab PO DAILY [facility] Last Admin: 01/05/18 12:42 Dose: Not Given Polyethylene Glycol (Miralax) 17 gm PO BID [facility] Last Admin: 01/05/18 12:46 Dose: Not Given Potassium Bicarb/Potassium Chloride (K-Lyte Cl Eff) 50 meq PO UNSCH PRN PRN Reason: For Potassium 3.3 - 3.5 mEq/L Potassium Chloride (Klor-Con 10) 30 meq PO DAILY [facility] Last Admin: 01/05/18 12:41 Dose: Not Given Potassium Phosphate (K-Phos Original) 2,000 mg PO Q4H PRN PRN Reason: Phosphorus Less Than 2.5 mg/dL Potassium Phosphate (K-Phos Original) 2,000 mg PO UNSCH PRN PRN Reason: SEE LABEL COMMENTS Prasugrel (Effient) 10 mg PO DAILY [facility] Last Admin: 01/04/18 08:20 Dose: 10 mg Pravastatin Sodium (Pravachol) 80 mg PO HS [facility] Last Admin: 01/04/18 20:41 Dose: 80 mg Quetiapine Fumarate (Seroquel) 25 mg PO Q12H [facility] Last Admin: 01/05/18 05:02 Dose: 25 mg Sodium Chloride (Ns Flush) 2 ml IV.FLUSH BID [facility] Last Admin: 01/05/18 12:42 Dose: Not Given Sodium Chloride (Ns Flush) 2 ml IV.FLUSH PRN PRN PRN Reason: FLUSH AFTER USING IV ACCESS Sodium Chloride (Ns Flush) 0 ml IV.FLUSH DAILY [facility] Last Admin: 01/05/18 12:42 Dose: Not Given Temazepam (Restoril) 15 mg PO HS PRN PRN Reason: INSOMNIA Terbutaline Sulfate (Brethine Inj) 1 mg SQ UNSCH PRN PRN Reason: Extravasation Allergies Allergy/AdvReac Type Severity Reaction Status Date / Time No Known Allergies Allergy Verified 12/21/17 08:42 Home Medications Medication Instructions Recorded Confirmed Type nitroglycerin [Nitrostat] 0.4 mg SUBLINGUAL Q5-15M PRN 12/21/17 12/21/17 History Advance Directives Living Will: Yes Healthcare Surrogate: No (Unable to locate living will) Health Care Surrogate Name and Number: HCP Marcela Murray, Power of Gasket Notcher: No Documented care wishes: In speaking with the patient's son, he states the patient has previously filled out a living will that we are currently unable to locate such. Have consulted case management to attempt to find records from [facility] as well as the patient's primary care physician Dr. Fabian Peoples [phone] as this is where the patient filled out his community DNR. Today's verbally stated goals: The patient is currently exhibiting expressive aphasia and appears to have questionable capacity. Is unknown at this time if he will regain capacity. In the absence of written advanced directives, per [place] statutes, decision making would fall to the patient's Marcela Murray [phone] (H) or (C) by proxy Family/friends goals: Speaking with the patient's , Marcela Murray we discussed his current clinical status and apparent decline. She verbalized that the patient has previously filled out written advanced directives but they are currently unable to be located. When asked if the patient has ever discussed his medical goals should he be unable to participate in his own healthcare decision making she states he has verbalized that he would "want to ". His did verbalize that she would want everything done for him. We discussed his community DNR and current inpatient DNR status. It was explained to her that we would continue with aggressive medical care short of cardiopulmonary resuscitation. She verbalized that she was okay with this. We briefly discussed continuing goals of care moving forward given her 's current clinical status, to which she stated she is not sure what to do right now. In speaking with the patient's son, Asim Murray he also verbalized that the patient had filled out written advanced directives in the past but is unsure of where they may be located. 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 He is stated that his father has mentioned on numerous occasions that he would not consider his current functional and cognitive status as quality of life. He also states that his father has verbalized that he has been ready to naturally for some time as he has watched many of his friends pass away over the last couple of months. He feels, that if his were in agreement, that his father would be best served at home with hospice. Ethical and Legal Issues: The patient's son and state he has filled out written advanced directives at one time but they are currently missing. In their absence, per [place] statutes, decision making would fall to the patient's Marcela Murray (H) or [phone] (C) Physical Exam Vital Signs: Vital Signs - 24 hr 01/04/18 15:00 01/04/18 15:07 01/04/18 16:00 Temperature 97.9 F Pulse Rate 54 L 68 81 Respiratory Rate 20 Blood Pressure 185/88 H Pulse Oximetry 96 01/04/18 16:32 01/04/18 17:00 01/04/18 18:00 Temperature Pulse Rate 85 86 Respiratory Rate 35 H Blood Pressure 139/70 Pulse Oximetry 01/04/18 19:00 01/04/18 20:00 01/04/18 20:26 Temperature 97.0 F L Pulse Rate 56 L 85 84 Respiratory Rate 17 18 Blood Pressure 161/74 H Pulse Oximetry 98 94 L 01/04/18 21:00 01/04/18 22:00 01/04/18 23:00 Temperature 97.5 F L Pulse Rate 82 61 85 Respiratory Rate 17 Blood Pressure 103/59 L Pulse Oximetry 97 01/05/18 00:00 01/05/18 01:00 01/05/18 02:00 Temperature Pulse Rate 68 62 63 Respiratory Rate Blood Pressure Pulse Oximetry 01/05/18 03:00 01/05/18 03:43 01/05/18 05:00 Temperature 97.6 F Pulse Rate 64 63 66 Respiratory Rate 17 Blood Pressure 160/75 H Pulse Oximetry 98 01/05/18 05:42 01/05/18 07:00 01/05/18 07:36 Temperature Pulse Rate 71 82 65 Respiratory Rate 18 Blood Pressure Pulse Oximetry 01/05/18 08:00 01/05/18 09:00 01/05/18 10:00 Temperature 98.3 F Pulse Rate 68 60 56 L Respiratory Rate 22 Blood Pressure 161/71 H Pulse Oximetry 97 01/05/18 11:00 01/05/18 12:00 01/05/18 12:59 Temperature 98.1 F Pulse Rate 56 L 62 64 Respiratory Rate 18 Blood Pressure 143/62 H Pulse Oximetry 01/05/18 13:00 01/05/18 14:07 Temperature Pulse Rate 64 66 Respiratory Rate Blood Pressure Pulse Oximetry I&O: Intake & Output 01/03/18 01/04/18 01/05/18 01/06/18 06:59 06:59 06:59 06:59 Intake Total 252 / 252 1211 / 1211 1390 / 1390 102 / 102 Output Total 2150 / 2150 2725 / 2725 1350 / 1350 550 / 550 Balance -1898 / -1898 -1514 / -1514 40 / 40 -448 / -448 Weight 69 kg 67 kg 68 kg Physical Exam: CONSTITUTIONAL/GENERAL: somewhat frail, elderly male, in no apparent distress. TUBES/LINES/DRAINS: PIV, Young SKIN: No jaundice, rashes, or lesions. Ecchymoses on upper extremities. No wounds seen anteriorly. Skin temperature appropriate. Not diaphoretic. HEAD: Atraumatic. Normocephalic. EYES: Pupils equal and round and reactive. Extraocular motions intact. No scleral icterus. No injection or drainage. Fundi not examined. ENT: Hearing grossly normal. Nose without bleeding or purulent drainage. Throat without visible erythema, exudates, masses, or lesions. NECK: Trachea midline. Supple, nontender. No palpable thyroid enlargement or nodularity. CARDIOVASCULAR: Regular rate and rhythm without murmurs, gallops, or rubs. No JVD. Peripheral pulses symmetric. RESPIRATORY/CHEST: Symmetric, unlabored respirations. Clear to auscultation. Breath sounds equal bilaterally. No wheezes, rales, or rhonchi. GASTROINTESTINAL: Abdomen soft and flat, non-tender, nondistended. No hepato- splenomegaly, or palpable masses. No guarding. Bowel sounds present. GENITOURINARY: Without palpable bladder distension. Young catheter in place. MUSCULOSKELETAL: Extremities without clubbing, cyanosis, or edema. No joint tenderness or effusion noted. No calf tenderness. No mottling or clubbing. LYMPHATICS: No palpable cervical or supraclavicular adenopathy. NEUROLOGICAL: Awake and alert. Able to follow simple commands. Expressive aphasia. Can answer yes or no questions and utter some coherent phrases. PSYCHIATRIC: No obvious anxiety/depression. no apparent hallucinations or other psychotic thought process. Diagnostic Tests Laboratory: Laboratory Results - last 72 hr 01/02/18 01/03/18 01/03/18 17:24 05:00 05:00 WBC 6.9 RBC 3.45 L Hgb 10.6 L Hct 31.3 L MCV 90.9 MCH 30.8 MCHC 33.9 RDW 15.0 Plt Count 312 MPV 8.9 Sodium 146 H Potassium 3.5 Chloride 107 Carbon Dioxide 33.1 H Anion Gap 6 BUN 22 H Creatinine 1.02 Estimated GFR 70 L POC Glucose 83 Random Glucose 83 Calcium 8.2 L Magnesium 01/03/18 01/03/18 01/04/18 12:03 18:17 01:22 WBC RBC Hgb Hct MCV MCH MCHC RDW Plt Count MPV Sodium Potassium Chloride Carbon Dioxide Anion Gap BUN Creatinine Estimated GFR POC Glucose 78 111 H 126 H Random Glucose Calcium Magnesium 01/04/18 01/04/18 01/04/18 05:03 05:03 05:35 WBC 6.6 RBC 3.92 L Hgb 11.7 L Hct 35.1 L MCV 89.7 MCH 30.0 MCHC 33.4 RDW 14.7 Plt Count 344 MPV 9.0 Sodium 145 Potassium 3.3 L Chloride 104 Carbon Dioxide 33.8 H Anion Gap 7 BUN 23 H Creatinine 1.10 Estimated GFR 64 L POC Glucose 100 Random Glucose 103 Calcium 9.0 D Magnesium 01/04/18 01/05/18 01/05/18 11:09 05:13 09:36 WBC RBC Hgb Hct MCV MCH MCHC RDW Plt Count MPV Sodium 144 Potassium 3.2 L Chloride 105 Carbon Dioxide 32.7 H Anion Gap 6 BUN 20 H Creatinine 1.11 Estimated GFR 64 L POC Glucose 120 H Random Glucose 119 H Calcium 8.8 Magnesium 1.9 Result Diagrams: 01/04/18 05:03 01/06/18 04:50 Imaging: Impressions Chest X-Ray 01/05/18 00:00 CONCLUSION: Bilateral mostly basilar airspace disease and small effusions. Findings are similar to prior examination. Procedures: 12/21/17 * Cardiac catheterization with 2 drug-eluting stents * Endotracheal intubation 12/23/17 * RIJ * RRAL 12/30/17 * Extubation Patient/Family Conference Present at Family Conference: Spoke with patient's , Marcela Murray and patient's son Asim Murray Family Conference Location: Telephone Issues Discussed: * Palliative care role, purpose, approach * Additional medical, psychosocial, and spiritual history * Patients general health, functional status, and cognitive changes in the months leading up to the current hospitalization * Patient/family understanding of the current medical problems * Patient/family understanding of prognosis * Patients goals of care as best understood from advance directives and/or conversations and/or values * Current medical treatment options and benefits/burdens of those options * Likely scenarios comparing ongoing aggressive care with a transition to comfort measures only * Questions answered to the best of my ability * Palliative care contact information provided Assessment and Plan - Disease Oriented Problem List (1) ST elevation myocardial infarction (STEMI) (2) Embolic stroke (3) Respiratory failure - Symptom Scale (1) Debility 0-10 Scale: Unable to quantify (2) Depression 0-10 Scale: Unable to quantify Pertinent Non-Medical Issues: Psychosocial: Patient was originally born in [place]. He moved to [place] where he met his current (has 2 previous ex-'s with whom he is in good standing.) He has 5 children from his previous marriages one son Asim Murray and 4 daughters from home which he is estranged. The couple moved to [facility] in 1995. 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 In their absence, per [place] statutes, decision making falls to the patient's aMrcela Murray [phone] (H) or [phone] (C) by proxy Ethical issues impacting care: There are currently no known ethical issues impacting care at this time Important Contacts: Marcela Murray, /HCP [phone] (H) or [phone] (C) Asim Murray, son [phone] (C) [phone] (H) Gwendolyn Guevara, ex- [phone] Prognosis: Prior to this hospitalization the patient was having a gradual decline functionally and cognitively. He was hospitalized in July for some sort of cardiac event. Since then he has had personality changes and difficulties with ambulation and gait. He had been falling a lot, and unable to go for his leisurely walks. His son verbalizes he has been experiencing some depression over the last 3 months as he has lost approximately 6-7 of his closest friends to various illnesses. Given his extensive cardiac history, acute CT, and recent stroke he definitely remains at high risk for continued decompensation, respiratory decline, aspiration, and related sequelae including Code Status: No Code DNR Plan: * LEGAL DECISION MAKER - in the absence of advanced directives, per [place] statutes, decision making falls to the patient's Marcela Murray (h) or [phone](c) by proxy * GOALS - Speaking with the patient's , Marcela Murray we discussed his current clinical status and apparent decline. She verbalized that the patient has previously filled out written advanced directives but they are currently unable to be located. When asked if the patient has ever discussed his medical goals should he be unable to participate in his own healthcare decision making she states he has verbalized that he would "want to ". His did verbalize that she would want everything done for him. We discussed his community DNR and current inpatient DNR status. It was explained to her that we would continue with aggressive medical care short of cardiopulmonary resuscitation. She verbalized that she was okay with this. We briefly discussed continuing goals of care moving forward given her 's current clinical status, to which she stated she is not sure what to do right now. In speaking with the patient's son, Asim Murray he also verbalized that the patient had filled out written advanced directives in the past but is unsure of where they may be located. 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 He is stated that his father has mentioned on numerous occasions that he would not consider his current functional and cognitive status as quality of life. He also states that his father has verbalized that he has been ready to naturally for some time as he has watched many of his friends pass away over the last couple of months. He feels, that if his were in agreement, that his father would be best served at home with hospice. * CODE STATUS - DNR * SYMPTOMS: Debility - following stroke patient requires max assist for ambulation and most ADLs. He is unable to stand unassisted and minimally participates in range of motion exercises. He is somewhat frail appearing with temporal wasting and has recently begun to refuse p.o. intake. Patient would be hospice appropriate if goals were in line. Should goals continue to remain aggressive patient may require NG tube placement for tube feedings to ensure protein calorie sufficient nutrition. Depression -secondary to sharp decline in functional and cognitive status as well as multiple losses in the previous months (has lost 6-7 good friends). Patient is currently refusing nutrition and medications. Again would be hospice appropriate if goals were in line. Goals remain aggressive patient may benefit from some SSRI if he agrees to take. Palliative care will continue to follow during hospital course as condition evolves, to assist patient/decision-maker with understanding of medical conditions, weighing benefits/burdens of treatment options, for clarification of goals of treatment. Additionally will assist with any symptoms of palliative concern Case discussed with Dr. Hills and RN (Haley) at bedside Appreciation Thank you for the opportunity to participate in the care of Terell Murray. Attestation Attestation: To help prompt me to consider important information that might be impacting today's encounter and assessment, information from prior notes written by myself or my colleagues may have been "brought forward" into today's note. My signature on this note, however, is an attestation that I personally performed the exam, history, and/or decision-making noted today, and, unless otherwise indicated, the interactions with patient, family, and staff as well as the review of records all occurred today. I also attest that the listed assessment and stated plan reflect my best clinical judgment today based on the combination of historical information, prior notes, and today's exam/ interactions. When time spent is documented, it refers only to time spent today by the signer, or if indicated, combined time spent today by collaborating physician/nurse practitioner.
[2018-01-05] MEDS: Amiodarone 200 MG Tablet NG/OG SCH ×2 (15:46→23:00)
[2018-01-05] MEDS: Metoprolol Tartrate 25 MG Tablet PO SCH ×2 (15:46→23:00)
--- NOTE | 2018-01-05 17:18 | P.PNIM ---
Subjective Interval history: Patient reportedly told overnight RN that he wouldn't eat because he is ready to . He would not say much for me today. He is awake and alert. Still Aphasic , was able to say "OK" once. Physical Exam Vital signs: Vital Signs 01/04/18 18:00 01/04/18 19:00 01/04/18 20:00 Temperature 97.0 F L Pulse Rate 86 56 L 85 Respiratory Rate 17 Blood Pressure 161/74 H Pulse Oximetry 98 01/04/18 20:26 01/04/18 21:00 01/04/18 22:00 Temperature Pulse Rate 84 82 61 Respiratory Rate 18 Blood Pressure Pulse Oximetry 94 L 01/04/18 23:00 01/05/18 00:00 01/05/18 01:00 Temperature 97.5 F L Pulse Rate 85 68 62 Respiratory Rate 17 Blood Pressure 103/59 L Pulse Oximetry 97 01/05/18 02:00 01/05/18 03:00 01/05/18 03:43 Temperature 97.6 F Pulse Rate 63 64 63 Respiratory Rate 17 Blood Pressure 160/75 H Pulse Oximetry 98 01/05/18 05:00 01/05/18 05:42 01/05/18 07:00 Temperature Pulse Rate 66 71 82 Respiratory Rate 18 Blood Pressure Pulse Oximetry 01/05/18 07:36 01/05/18 08:00 01/05/18 09:00 Temperature 98.3 F Pulse Rate 65 68 60 Respiratory Rate 22 Blood Pressure 161/71 H Pulse Oximetry 97 01/05/18 10:00 01/05/18 11:00 01/05/18 12:00 Temperature Pulse Rate 56 L 56 L 62 Respiratory Rate Blood Pressure Pulse Oximetry 01/05/18 12:59 01/05/18 13:00 01/05/18 14:07 Temperature 98.1 F Pulse Rate 64 64 66 Respiratory Rate 18 Blood Pressure 143/62 H Pulse Oximetry 01/05/18 15:35 01/05/18 16:51 01/05/18 17:17 Temperature Pulse Rate 70 68 72 Respiratory Rate Blood Pressure Pulse Oximetry Intake & Output 01/04/18 01/05/18 01/05/18 18:59 06:59 18:59 Intake Total 340 / 340 1050 / 1050 952 / 952 Output Total 1350 / 1350 550 / 550 Balance -1010 / -1010 1050 / 1050 402 / 402 Weight 68 kg Intake: IV 100 / 100 1000 / 1000 952 / 952 D5W/1/2NS + KCL 10 mEq Inj 1, 1000 / 1000 750 / 750 000 ML @ 100 mls/hr IV.CONT . Q10H [facility] Rx#:[id number] KCl 20 mEq Premix Inj 20 meq In 100 / 100 100 ml @ 50 mls/hr IV.SIG Q2H [facility] Rx#:[id number] Thiamine Inj 100 MG In NS Inj 100 / 100 102 / 102 100 ML @ 100 mls/hr IV.SIG DAILY [facility] Rx#:[id number] Oral 240 / 240 50 / 50 Output: Urine Amount (Catheter) 1350 / 1350 550 / 550 Indwelling Urethral Catheter 1350 / 1350 550 / 550 Other: Date of Last Bowel Movement 01/04/18 01/03/18 # Bowel Movements 1 Narrative: GENERAL: Elderly male.Pale alert . No acute distress. CARDIOVASCULAR: Regular rate and rhythm without murmurs, gallops, or rubs. RESPIRATORY: Diminished breath sounds at the bases with few crackles . GASTROINTESTINAL: Abdomen soft, non-tender, nondistended. MUSCULOSKELETAL: No cyanosis, or edema. Neuro: Awake and alert. Aphasic. He does follow commands. Moves all extremities spontaneously. - Urinary Catheter Management Condom Cath placed during this visit: no Indwelling Urethral Catheter Cath placed during this visit: yes Reason for continuing: Chronic Urinary Retention Insertion date: 12/22/17 Insertion time: 11:00 Results - Labs CBC & Chem 7: 01/04/18 05:03 01/05/18 05:13 Laboratory Results - last 24 hr 01/05/18 01/05/18 05:13 09:36 Sodium 144 Potassium 3.2 L Chloride 105 Carbon Dioxide 32.7 H Anion Gap 6 BUN 20 H Creatinine 1.11 Estimated GFR 64 L Random Glucose 119 H Calcium 8.8 Magnesium 1.9 - Imaging Impressions Chest X-Ray 01/05/18 00:00 CONCLUSION: Bilateral mostly basilar airspace disease and small effusions. Findings are similar to prior examination. Assessment and Plan - Plan 82 Y/O male with IL s/p stent, afib, non compliance with anticoagulation and debilitating stroke. Patient had respiratory failure that is improved. He remains aphasic and oral intake is not consistent. His son reports that he would not want to live in this condition. There is supposed to be a living will with his but there reports that his has dementia. He does have a previously signed DNR in the chart. Palliative care following. If oral intake improves, can consider discharge to rehab soon. 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 CT brain revealed right parietal/occipital, left frontal/occipital and left cerebellar CVA. Likely embolic. CT angiogram revealed atherosclerosis MCA bilaterally. No stenosis. CTA neck revealed bilateral subclavian stenosis 70% left, right 50%. Evaluated by neurology. At high risk of hemorrhagic conversion. F/U MRI 12/31 MRI brain - Cerebrum: Significant periventricular white matter changes are evident with scattered areas of restricted diffusion involving both hemispheres, worse in both occipital lobes. Largest area of restricted diffusion is on the right that does involve the motor strip. There is no associated parenchymal hemorrhage. Posterior Fossa: Scattered areas restricted diffusion are seen in both cerebellar hemispheres largest 1 cm left hemisphere - Currently on Lovenox. Neurology ok with Eliquis. Will switch him over to Eliquis today -01/05: Patient is awake and alert today but aphasia persisting. He is not eating much. Speech therapy to follow-up. Inferior STEMI -2 KIANNA to RCA Coronary artery disease Peripheral vascular disease Abdominal aortic aneurysm Atrial fibrillation Bilateral carotid stenosis with left 70% greater than right percent Elevated troponin Continue aspirin 81 mg daily, Prasugrel 10 mg daily for drug-eluting stent Dopamine discontinued 12/29 Follow up on echocardiogram -EF 50-55%. Hypokinesis inferior posterior and inferior basal recio. Followed by Dr. Maldonado/cardiology Currently on amiodarone 200 mg twice daily oral. Management per cardiology Acute respiratory failure COPD Tobacco abuse Pulmonary edema Albuterol/ipratropium aerosols every 4 hours with albuterol aerosols every 2 hours as needed for dyspnea Budesonide 0.5/2 1 inhalation twice daily Extubated 12/29-continue aggressive pulmonary toileting Pulmonology consult-Dr. Mccann following Scheduled Lasix Elevated AST -cardiac in origin Hypoalbuminemia Severe protein calorie malnutrition Hyperammonemia-resolved Speech therapy following. Diet per speech Pantoprazole for GI prophylaxis Docusate sodium/senna 1 tablet twice daily for bowel regimen Acute kidney injury -resolved Avoid nephrotoxic medications Did receive dye/contrast for cardiac catheterization Normocytic anemia Monitor CBC daily. Follow trends. Prophylaxis -GI-lansoprazole -DVT-SCD/pharmacological prophylaxis with SCDs/enoxaparin 40 mg twice daily Discharge Planning: Patient is stabilizing. Oral intake and occasional agitation remain an issue. Palliative care following and trying to obtain living will. His possibly has dementia.
[2018-01-05] MEDS: hydrALAZINE HCl Inj 20 MG/ML Vial IV.PUSH PRN (17:45)
--- NOTE | 2018-01-05 18:22 | P.PN ---
Subjective Interval history: He is alert and off O2. No fever. Unable to swallow well. Poor intake. Physical Exam Vital signs: Vital Signs 01/04/18 19:00 01/04/18 20:00 01/04/18 20:26 Temperature 97.0 F L Pulse Rate 56 L 85 84 Respiratory Rate 17 18 Blood Pressure 161/74 H Pulse Oximetry 98 94 L 01/04/18 21:00 01/04/18 22:00 01/04/18 23:00 Temperature 97.5 F L Pulse Rate 82 61 85 Respiratory Rate 17 Blood Pressure 103/59 L Pulse Oximetry 97 01/05/18 00:00 01/05/18 01:00 01/05/18 02:00 Temperature Pulse Rate 68 62 63 Respiratory Rate Blood Pressure Pulse Oximetry 01/05/18 03:00 01/05/18 03:43 01/05/18 05:00 Temperature 97.6 F Pulse Rate 64 63 66 Respiratory Rate 17 Blood Pressure 160/75 H Pulse Oximetry 98 01/05/18 05:42 01/05/18 07:00 01/05/18 07:36 Temperature Pulse Rate 71 82 65 Respiratory Rate 18 Blood Pressure Pulse Oximetry 01/05/18 08:00 01/05/18 09:00 01/05/18 10:00 Temperature 98.3 F Pulse Rate 68 60 56 L Respiratory Rate 22 Blood Pressure 161/71 H Pulse Oximetry 97 01/05/18 11:00 01/05/18 12:00 01/05/18 12:59 Temperature 98.1 F Pulse Rate 56 L 62 64 Respiratory Rate 18 Blood Pressure 143/62 H Pulse Oximetry 01/05/18 13:00 01/05/18 14:07 01/05/18 15:35 Temperature Pulse Rate 64 66 70 Respiratory Rate Blood Pressure Pulse Oximetry 01/05/18 16:51 01/05/18 17:17 01/05/18 17:43 Temperature 98.7 F Pulse Rate 68 72 89 Respiratory Rate 20 Blood Pressure 203/93 H Pulse Oximetry 98 Intake & Output 01/04/18 01/05/18 01/05/18 18:59 06:59 18:59 Intake Total 340 / 340 1050 / 1050 952 / 952 Output Total 1350 / 1350 550 / 550 Balance -1010 / -1010 1050 / 1050 402 / 402 Weight 68 kg Intake: IV 100 / 100 1000 / 1000 952 / 952 D5W/1/2NS + KCL 10 mEq Inj 1, 1000 / 1000 750 / 750 000 ML @ 100 mls/hr IV.CONT . Q10H [facility] Rx#:[id number] KCl 20 mEq Premix Inj 20 meq In 100 / 100 100 ml @ 50 mls/hr IV.SIG Q2H [facility] Rx#:[id number] Thiamine Inj 100 MG In NS Inj 100 / 100 102 / 102 100 ML @ 100 mls/hr IV.SIG DAILY [facility] Rx#:[id number] Oral 240 / 240 50 / 50 Output: Urine Amount (Catheter) 1350 / 1350 550 / 550 Indwelling Urethral Catheter 1350 / 1350 550 / 550 Other: Date of Last Bowel Movement 01/04/18 01/03/18 # Bowel Movements 1 Narrative: GENERAL: Elderly male.Pale alert . No acute distress. EYES: No scleral icterus. No injection or drainage. CARDIOVASCULAR: Regular rate and rhythm without murmurs, gallops, or rubs. RESPIRATORY: Diminished breath sounds at the bases with few crackles . GASTROINTESTINAL: Abdomen soft, non-tender, nondistended. MUSCULOSKELETAL: No cyanosis, or edema. Neuro: Awake and alert. Aphasic. He does follow commands. Moves all extremities spontaneously. Mild leg weakness. - Urinary Catheter Management Condom Cath placed during this visit: no Indwelling Urethral Catheter Cath placed during this visit: yes Reason for continuing: Chronic Urinary Retention Insertion date: 12/22/17 Insertion time: 11:00 Results - Labs CBC & Chem 7: 01/04/18 05:03 01/05/18 05:13 Laboratory Results - last 24 hr 01/05/18 01/05/18 05:13 09:36 Sodium 144 Potassium 3.2 L Chloride 105 Carbon Dioxide 32.7 H Anion Gap 6 BUN 20 H Creatinine 1.11 Estimated GFR 64 L Random Glucose 119 H Calcium 8.8 Magnesium 1.9 - Imaging Impressions Chest X-Ray 01/05/18 00:00 CONCLUSION: Bilateral mostly basilar airspace disease and small effusions. Findings are similar to prior examination. Assessment and Plan - Assessment (1) Pulmonary edema Code(s): J81.1 - Chronic pulmonary edema Status: Acute (2) ST elevation myocardial infarction (STEMI) Code(s): I21.3 - ST elevation (STEMI) myocardial infarction of unspecified site Status: Acute (3) A-fib Code(s): I48.91 - Unspecified atrial fibrillation Status: Acute (4) Embolic stroke Code(s): I63.9 - Cerebral infarction, unspecified Status: Acute (5) Respiratory failure Code(s): J96.90 - Respiratory failure, unspecified, unspecified whether with hypoxia or hypercapnia Status: Acute - Plan 1.Cont Nebs qid , duoneb 2. Swallow evaluation 3. D/C O2 4. Continue Lovenox 40 Mg S/Q Q12H 5. CBC,BMP 6. To rehab soon 7. PT evaluation. (2) ST elevation myocardial infarction (STEMI) Qualifiers: Involved coronary artery: unspecified coronary artery Qualified Code(s): I21.3 - ST elevation (STEMI) myocardial infarction of unspecified site
[2018-01-06] MEDS: QUEtiapine 25 MG Tablet PO SCH ×4 (03:03→21:36)
[2018-01-06] MEDS: Chlorhexidine 0.12% Oral Kit 15 ML UDC OROPHARYNG SCH ×3 (03:03→21:37)
[2018-01-06] MEDS: Oral Hygiene Kit OROPHARYNG SCH ×3 (03:04→21:36)
[2018-01-06] MEDS: Insulin NovoLOG Aspart Correctional Sugar Inj SQ SCH ×2 (03:04→07:19)
[2018-01-06] MEDS: Artificial Tears Opth Drops 15 ML Bottle EACH EYE SCH ×3 (03:04→21:36)
[2018-01-06] MEDS: Polyethylene Glycol 3350 17 GM Packet PO SCH ×3 (03:05→20:56)
[2018-01-06] MEDS: Sodium Chloride 0.9% 2 ML Flush BID IV.FLUSH SCH ×3 (03:05→20:56)
[2018-01-06 05:29] LABS: Calcium 8.8 mg/dL (8.5-10.1); Carbon Dioxide 28.6 meq/L (21.0-32.0); Potassium 3.8 meq/L (3.5-5.1)
[2018-01-06] MEDS: KCL 10 mEq/D5W/NaCl 0.45% Inj 1,000 ML IV.CONT SCH (09:48)
[2018-01-06] MEDS: Metoprolol Tartrate 25 MG Tablet PO SCH ×3 (09:55→20:56)
[2018-01-06] MEDS: Famotidine PF Inj 20 MG/2 ML Vial IV.PUSH SCH ×2 (09:55→20:55)
[2018-01-06] MEDS: Amiodarone 200 MG Tablet NG/OG SCH ×3 (09:55→20:56)
[2018-01-06] MEDS: Thiamine Inj 100 MG in Sodium Chlor 0.9% Inj 100 ML IV.SIG SCH (09:57)
--- NOTE | 2018-01-06 13:44 | P.PN ---
Subjective Interval history: He is alert and Off o2 . Refuses all food. No SOB at rest. Physical Exam Vital signs: Vital Signs 01/05/18 14:07 01/05/18 15:35 01/05/18 16:51 Temperature Pulse Rate 66 70 68 Respiratory Rate Blood Pressure Pulse Oximetry 01/05/18 17:17 01/05/18 17:43 01/05/18 18:34 Temperature 98.7 F Pulse Rate 72 89 84 Respiratory Rate 20 Blood Pressure 203/93 H Pulse Oximetry 98 01/05/18 19:00 01/05/18 21:00 01/05/18 21:04 Temperature 98.5 F Pulse Rate 106 H 87 87 Respiratory Rate 18 16 Blood Pressure 110/79 Pulse Oximetry 98 97 01/05/18 22:00 01/05/18 23:00 01/06/18 00:00 Temperature 98.3 F Pulse Rate 120 H 104 H 92 H Respiratory Rate 17 Blood Pressure 137/80 Pulse Oximetry 98 98 01/06/18 01:00 01/06/18 02:00 01/06/18 03:00 Temperature 98.7 F Pulse Rate 82 84 90 Respiratory Rate 17 Blood Pressure 106/69 Pulse Oximetry 96 01/06/18 04:00 01/06/18 04:45 01/06/18 05:27 Temperature Pulse Rate 80 81 84 Respiratory Rate Blood Pressure Pulse Oximetry 99 01/06/18 07:30 01/06/18 08:00 01/06/18 08:01 Temperature Pulse Rate 80 86 96 H Respiratory Rate 23 Blood Pressure Pulse Oximetry 98 01/06/18 09:00 01/06/18 09:13 01/06/18 10:26 Temperature 98.5 F Pulse Rate 92 H 89 76 Respiratory Rate 20 Blood Pressure 109/59 L Pulse Oximetry 99 Intake & Output 01/05/18 01/06/18 01/06/18 18:59 06:59 18:59 Intake Total 952 / 952 340 / 340 Output Total 900 / 900 200 / 200 Balance 52 / 52 140 / 140 Intake: IV 952 / 952 100 / 100 D5W/1/2NS + KCL 10 mEq Inj 1, 750 / 750 000 ML @ 100 mls/hr IV.CONT . Q10H [facility] Rx#:[id number] KCl 20 mEq Premix Inj 20 meq In 100 / 100 100 / 100 100 ml @ 50 mls/hr IV.SIG Q2H [facility] Rx#:[id number] Thiamine Inj 100 MG In NS Inj 102 / 102 100 ML @ 100 mls/hr IV.SIG DAILY [facility] Rx#:[id number] Oral 240 / 240 Output: Urine Amount (Catheter) 900 / 900 200 / 200 Indwelling Urethral Catheter 900 / 900 200 / 200 Other: Date of Last Bowel Movement 01/03/18 Narrative: GENERAL: Elderly male.Pale in No acute distress. CARDIOVASCULAR: Regular rate and rhythm without murmurs, gallops, or rubs. RESPIRATORY: Diminished breath sounds at the bases with few crackles . GASTROINTESTINAL: Abdomen soft, non-tender, nondistended. MUSCULOSKELETAL: No cyanosis, or edema. Neuro: Awake and alert. Will answer some questions. He does follow commands. Moves all extremities spontaneously. - Urinary Catheter Management Condom Cath placed during this visit: no Indwelling Urethral Catheter Cath placed during this visit: yes Reason for continuing: Other continuation reason Insertion date: 12/22/17 Insertion time: 11:00 Results - Labs CBC & Chem 7: 01/04/18 05:03 01/06/18 04:50 Laboratory Results - last 24 hr 01/06/18 04:50 Sodium 144 Potassium 3.8 Chloride 109 H Carbon Dioxide 28.6 Anion Gap 6 BUN 19 H Creatinine 1.01 Estimated GFR 71 L Random Glucose 90 Calcium 8.8 Assessment and Plan - Assessment (1) Pulmonary edema Code(s): J81.1 - Chronic pulmonary edema Status: Acute (2) ST elevation myocardial infarction (STEMI) Code(s): I21.3 - ST elevation (STEMI) myocardial infarction of unspecified site Status: Acute (3) A-fib Code(s): I48.91 - Unspecified atrial fibrillation Status: Acute (4) Embolic stroke Code(s): I63.9 - Cerebral infarction, unspecified Status: Acute (5) Respiratory failure Code(s): J96.90 - Respiratory failure, unspecified, unspecified whether with hypoxia or hypercapnia Status: Acute - Plan 1. D/C Nebs duoneb 2. Swallow evaluation 3. Will add Ventolin HFA , 2 puffs TID PRN 4. Continue Lovenox 40 Mg S/Q Q12H 5. Palliative care to see 6. To rehab soon (2) ST elevation myocardial infarction (STEMI) Qualifiers: Involved coronary artery: unspecified coronary artery Qualified Code(s): I21.3 - ST elevation (STEMI) myocardial infarction of unspecified site
--- NOTE | 2018-01-06 16:25 | P.PNPAL ---
Palliative care contacted patient's PCP in attempt to locate written advance directives. No copies on file with PCP. Awaiting results from CM request to obtain possible copies with [facility].
--- NOTE | 2018-01-06 17:57 | P.PNIM ---
Subjective Interval history: Patient sitting up in bed. When asked how he is feeling, able to say "okay". Appears to deny pain. Makes good eye contact. No acute events per nursing. Physical Exam Vital signs: Vital Signs 01/05/18 18:34 01/05/18 19:00 01/05/18 21:00 Temperature 98.5 F Pulse Rate 84 106 H 87 Respiratory Rate 18 Blood Pressure 110/79 Pulse Oximetry 98 01/05/18 21:04 01/05/18 22:00 01/05/18 23:00 Temperature 98.3 F Pulse Rate 87 120 H 104 H Respiratory Rate 16 17 Blood Pressure 137/80 Pulse Oximetry 97 98 01/06/18 00:00 01/06/18 01:00 01/06/18 02:00 Temperature Pulse Rate 92 H 82 84 Respiratory Rate Blood Pressure Pulse Oximetry 98 01/06/18 03:00 01/06/18 04:00 01/06/18 04:45 Temperature 98.7 F Pulse Rate 90 80 81 Respiratory Rate 17 Blood Pressure 106/69 Pulse Oximetry 96 99 01/06/18 05:27 01/06/18 07:30 01/06/18 08:00 Temperature Pulse Rate 84 80 86 Respiratory Rate Blood Pressure Pulse Oximetry 01/06/18 08:01 01/06/18 09:00 01/06/18 09:13 Temperature 98.5 F Pulse Rate 96 H 92 H 89 Respiratory Rate 23 20 Blood Pressure 109/59 L Pulse Oximetry 98 99 01/06/18 10:26 01/06/18 11:00 01/06/18 12:00 Temperature 97.9 F Pulse Rate 76 78 Respiratory Rate 18 Blood Pressure 116/79 Pulse Oximetry 99 99 01/06/18 15:00 01/06/18 16:00 Temperature 97.9 F Pulse Rate 70 Respiratory Rate 18 Blood Pressure 168/79 H Pulse Oximetry 98 99 Intake & Output 01/05/18 01/06/18 01/06/18 18:59 06:59 18:59 Intake Total 952 / 952 340 / 340 Output Total 900 / 900 200 / 200 Balance 52 / 52 140 / 140 Intake: IV 952 / 952 100 / 100 D5W/1/2NS + KCL 10 mEq Inj 1, 750 / 750 000 ML @ 100 mls/hr IV.CONT . Q10H [facility] Rx#:[id number] KCl 20 mEq Premix Inj 20 meq In 100 / 100 100 / 100 100 ml @ 50 mls/hr IV.SIG Q2H [facility] Rx#:[id number] Thiamine Inj 100 MG In NS Inj 102 / 102 100 ML @ 100 mls/hr IV.SIG DAILY [facility] Rx#:[id number] Oral 240 / 240 Output: Urine Amount (Catheter) 900 / 900 200 / 200 Indwelling Urethral Catheter 900 / 900 200 / 200 Other: Date of Last Bowel Movement 01/03/18 01/03/18 Narrative: GENERAL: Sitting up in bed. Appears comfortable. Able to answer limited questions SKIN: Warm and dry. HEAD: Normocephalic. EYES: No scleral icterus. No injection or drainage. NECK: Supple, trachea midline. No JVD. CARDIOVASCULAR: Regular rate and rhythm without murmurs, gallops, or rubs. RESPIRATORY: Breath sounds equal bilaterally. No accessory muscle use. GASTROINTESTINAL: Abdomen soft, non-tender, nondistended. MUSCULOSKELETAL: No cyanosis, or edema. BACK: Nontender without obvious deformity. No CVA tenderness. - Urinary Catheter Management Condom Cath placed during this visit: no Indwelling Urethral Catheter Cath placed during this visit: yes Reason for continuing: Other continuation reason Insertion date: 12/22/17 Insertion time: 11:00 Results - Labs CBC & Chem 7: 01/04/18 05:03 01/06/18 04:50 Laboratory Results - last 24 hr 01/06/18 04:50 Sodium 144 Potassium 3.8 Chloride 109 H Carbon Dioxide 28.6 Anion Gap 6 BUN 19 H Creatinine 1.01 Estimated GFR 71 L Random Glucose 90 Calcium 8.8 Assessment and Plan - Plan 82 Y/O male with [place] s/p stent, afib, non compliance with anticoagulation and debilitating stroke. Patient had respiratory failure that is improved. He remains aphasic and oral intake is not consistent. His son reports that he would not want to live in this condition. There is supposed to be a living will with his but there reports that his has dementia. He does have a previously signed DNR in the chart. Palliative care following. If oral intake improves, can consider discharge to rehab soon. 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 CT brain revealed right parietal/occipital, left frontal/occipital and left cerebellar CVA. Likely embolic. CT angiogram revealed atherosclerosis MCA bilaterally. No stenosis. CTA neck revealed bilateral subclavian stenosis 70% left, right 50%. Evaluated by neurology. At high risk of hemorrhagic conversion. F/U MRI 12/31 MRI brain - Cerebrum: Significant periventricular white matter changes are evident with scattered areas of restricted diffusion involving both hemispheres, worse in both occipital lobes. Largest area of restricted diffusion is on the right that does involve the motor strip. There is no associated parenchymal hemorrhage. Posterior Fossa: Scattered areas restricted diffusion are seen in both cerebellar hemispheres largest 1 cm left hemisphere - Currently on Lovenox. Neurology ok with Eliquis. Will switch him over to Eliquis today -01/05: Patient is awake and alert today but aphasia persisting. He is not eating much. = 01/06. Speech therapy cleared for pured diet with thin liquids. Nursing has achieved improved compliance with taking medications today. Inferior STEMI -2 KIANNA to RCA Coronary artery disease Peripheral vascular disease Abdominal aortic aneurysm Atrial fibrillation Bilateral carotid stenosis with left 70% greater than right percent Elevated troponin Continue aspirin 81 mg daily, Prasugrel 10 mg daily for drug-eluting stent Dopamine discontinued 12/29 Follow up on echocardiogram -EF 50-55%. Hypokinesis inferior posterior and inferior basal recio. Followed by Dr. Maldonado/cardiology Currently on amiodarone 200 mg twice daily oral. Management per cardiology Acute respiratory failure COPD Tobacco abuse Pulmonary edema Albuterol/ipratropium aerosols every 4 hours with albuterol aerosols every 2 hours as needed for dyspnea Budesonide 0.5/2 1 inhalation twice daily Extubated 12/29-continue aggressive pulmonary toileting Pulmonology consult-Dr. Mccann following Scheduled Lasix Elevated AST -cardiac in origin Hypoalbuminemia Severe protein calorie malnutrition Hyperammonemia-resolved Speech therapy following. Diet per speech Pantoprazole for GI prophylaxis Docusate sodium/senna 1 tablet twice daily for bowel regimen Acute kidney injury -resolved Avoid nephrotoxic medications Did receive dye/contrast for cardiac catheterization Normocytic anemia Monitor CBC daily. Follow trends. Prophylaxis -GI-lansoprazole -DVT-SCD/pharmacological prophylaxis with SCDs/enoxaparin 40 mg twice daily Discussed Condition With: Nurse, patient. Discharge Planning: Patient is stabilizing. Oral intake and occasional agitation remain an issue. Palliative care following and trying to obtain living will. Per report, his possibly has dementia. = Appreciate palliative care assistance. Working on obtaining copy of living will
[2018-01-06] MEDS: Folic Acid 1 MG Tablet PO SCH (20:53)
[2018-01-07] MEDS: Oral Hygiene Kit OROPHARYNG SCH ×4 (00:09→16:57)
[2018-01-07] MEDS: hydrALAZINE HCl Inj 20 MG/ML Vial IV.PUSH PRN ×2 (00:15→17:38)
[2018-01-07] MEDS: KCL 10 mEq/D5W/NaCl 0.45% Inj 1,000 ML IV.CONT SCH ×2 (04:36→16:55)
[2018-01-07] MEDS: Artificial Tears Opth Drops 15 ML Bottle EACH EYE SCH ×3 (04:37→18:06)
[2018-01-07] MEDS: QUEtiapine 25 MG Tablet PO SCH ×3 (06:12→18:06)
[2018-01-07] MEDS: Chlorhexidine 0.12% Oral Kit 15 ML UDC OROPHARYNG SCH ×2 (09:12→22:19)
[2018-01-07] MEDS: Amiodarone 200 MG Tablet NG/OG SCH ×2 (09:14→22:21)
[2018-01-07] MEDS: Metoprolol Tartrate 25 MG Tablet PO SCH ×2 (09:14→22:21)
[2018-01-07] MEDS: Sodium Chloride 0.9% 2 ML Flush BID IV.FLUSH SCH ×2 (09:15→22:22)
[2018-01-07] MEDS: Famotidine PF Inj 20 MG/2 ML Vial IV.PUSH SCH ×2 (09:15→22:20)
[2018-01-07] MEDS: Folic Acid 1 MG Tablet PO SCH (09:21)
[2018-01-07] MEDS: Polyethylene Glycol 3350 17 GM Packet PO SCH ×2 (09:34→22:22)
[2018-01-07] MEDS: Thiamine Inj 100 MG in Sodium Chlor 0.9% Inj 100 ML IV.SIG SCH (09:59)
--- NOTE | 2018-01-07 14:54 | P.PNPAL ---
Reason for Visit Reason for visit: a. To assist with evaluation and management of symptoms including: debility, depression, dyspnea b. To assist medical decision maker(s) with: better understanding of current medical conditions; weighing benefits/burdens of medical treatment options; making medical treatment decisions. Subjective Subjective/Interval History: Mr. Murray is an 82-year-old gentleman who presented via EMS to [facility] emergency room on 12/21/17 with complaints of substernal chest pain radiating to his back. He has a significant past medical history for coronary artery disease, A. fib, and previous MS. He originally described the pain as pressure- like in quantify to 11/18 associated with nausea, despite taking his nitroglycerin. STEMI alert was called and the patient was taken emergently to the medical lab assistant for cardiac catheterization. The patient had 2 drug-eluting stents placed in the right CA. He was then transferred to the [facility] where he was very agitated and restless. He was originally placed on Bipap and given bronchodilators to assist with his dyspnea. He also required pressor support to maintain his MAP. Repeat ABG's at this time shows the patient to be in acute hypercapnic respiratory acidosis requiring intubation. Initial laboratory data revealed: WBC 9.8, hemoglobin 13.7, hematocrit 41, platelet count of 229. BMP: Sodium 140, potassium 3.5, chloride 101, BUN 8, creatinine 1.2, glucose 156, magnesium 2. BNP 887. During his hospital course the patient continued to remain agitated, making his vent-weaning process somewhat difficult. On 12/25/17 imaging of head was significant for CVA in the right parietal/occipital/left frontal/occipital and left cerebellar regions. The patient was eventually extubated on 12/30/17. Pulmonology was consulted to assist with maintaining the patient's acute respiratory failure. He was continued on bronchodilators, aggressive pulmonary toileting, and scheduled Lasix. Cardiology continue to follow and manage the patient's coronary artery disease. Has hospital course the patient was found to have significant peripheral vascular disease, and abdominal aortic aneurysm and bilateral carotid stenosis with left 70% greater than the right. Pressure support of dopamine was eventually discontinued on 12/29/17. Follow-up echocardiogram showed EF of 50- 55%. Patient was eventually stabilized on oral amiodarone and Prasugrel for drug-eluting stent. Neurology was consulted to manage his stroke and repeat MRI of brain on 12/31 showed again periventricular white matter changes evident with scattered areas of restricted diffusion involving both hemispheres. Eventually the patient began to stabilize though it remained apparent that he was suffering from expressive aphasia. The patient remained semi-confused requiring maximum assist to participate in physical and occupational therapy. Per nursing staff he verbalized lack of motivation to live and stated he was no longer eating because he was ready to . 12/28/17 Palliative care continues to follow-up for symptom management and to assist family with addressing ongoing goals of medical treatment. Patient seen and examined in room today. Still exhibiting expressive aphasia. Able to answer yes or no questions. He states he knows where he is at but is unable to name the building. Unable to provide the year. He does not initially make eye contact particularly when standing on his right side. Able to follow some simple commands. Pupils equal round reactive. Appears to be working hard to breathe with audible wheezing. When asked if he feels short of breath patient answers affirmatively. He denies any chest pain, nausea/vomiting, or any other complaints. Last labs were from 01/06/18 and were grossly normal. Family/Friend Interactions: Was able to have a lengthy discussion with patient's Marcela Murray. We discussed the patient's clinical course thus far and how it is widely believed by the medical team that the patient will not have much more significant recovery. He is still refusing food at certain points as well as medications. We talked again about what the patient would consider a quality of life, to which his endorsed he would not be happy with his current situation. We discussed hospice and the benefits of enrolling in their service. She is open to hospice consult and feels that her would benefit their services. Plans are also underway for long-term placement as the patient can no longer be cared for at home alone. I did also leave a message for the patient's son Asim Murray at [phone] for him to return my call to discuss today's events. Advance Directives Living Will: Completed, but not made available Health Care Surrogate Name and Number: HCP Marcela Murray, Documented care wishes:: In speaking with the patient's son, he states the patient has previously filled out a living will that we are currently unable to locate such. Have consulted case management to attempt to find records from [place] as well as the patient's primary care physician Dr. Fabian Peoples [phone] as this is where the patient filled out his community DNR. Attempts have been made to contact the patient's primary care physician, who states they do not have any record of the patient's living well. Attempt to obtain information from [facility] have been unsuccessful thus far Significant change in goals:: Patient's has agreed to hospice consult Objective Vital Signs: Vital Signs 01/06/18 15:00 01/06/18 16:00 01/06/18 17:00 Temperature 97.9 F Pulse Rate 77 76 56 L Respiratory Rate 18 Blood Pressure 168/79 H Pulse Oximetry 98 99 01/06/18 18:00 01/06/18 19:00 01/06/18 19:37 Temperature 98.0 F Pulse Rate 60 65 Respiratory Rate 17 Blood Pressure 188/86 H Pulse Oximetry 96 96 01/06/18 20:00 01/06/18 21:00 01/06/18 22:15 Temperature 97.3 F L Pulse Rate 70 72 83 Respiratory Rate 18 Blood Pressure 179/81 H Pulse Oximetry 96 93 L 01/07/18 00:00 01/07/18 04:00 01/07/18 07:00 Temperature 97.6 F 97.1 F L 98.6 F Pulse Rate 60 69 62 Respiratory Rate 18 18 18 Blood Pressure 175/92 H 143/64 H 122/59 L Pulse Oximetry 96 97 96 01/07/18 07:46 01/07/18 08:00 01/07/18 12:00 Temperature Pulse Rate 69 56 L 63 Respiratory Rate 16 Blood Pressure Pulse Oximetry 96 Intake & Output 01/06/18 01/07/18 01/07/18 18:59 06:59 18:59 Intake Total 240 / 240 1100 Output Total 250 / 250 250 / 250 Balance - -10 Weight 68.1 kg Intake: IV 1100 D5W/1/2NS + KCL 10 mEq Inj 1, 1000 / 1000 000 ML @ 100 mls/hr IV.CONT . Q10H [facility] Rx#:[id number] Thiamine Inj 100 MG In NS Inj 100 ML @ 100 mls/hr IV.SIG DAILY [facility] Rx#:[id number] Oral 240 / 240 0 / 0 Output: Urine 250 / 250 Urine Amount (Catheter) 250 / 250 Indwelling Urethral Catheter 250 / 250 Other: Date of Last Bowel Movement 01/03/18 01/03/18 01/03/18 # Bowel Movements 0 Physical Exam: CONSTITUTIONAL/GENERAL: somewhat frail, elderly male, appears to be working hard to breathe TUBES/LINES/DRAINS: PIV, Young SKIN: No jaundice, rashes, or lesions. Ecchymoses on upper extremities. No wounds seen anteriorly. Skin temperature appropriate. Not diaphoretic. EYES: Pupils equal and round and reactive. Extraocular motions intact. No scleral icterus. No injection or drainage. Fundi not examined. ENT: Hearing grossly normal. Nose without bleeding or purulent drainage. Throat without visible erythema, exudates, masses, or lesions. NECK: Trachea midline. Supple CARDIOVASCULAR: Regular rate and rhythm without murmurs, gallops, or rubs. No JVD. Peripheral pulses symmetric. RESPIRATORY/CHEST: Respirations are somewhat labored but symmetrical. Audible inspiratory and expiratory wheezes are heard. Diminished in the bases GASTROINTESTINAL: Abdomen soft and flat, non-tender, nondistended. Bowel sounds present. GENITOURINARY: Without palpable bladder distension. Young catheter in place. MUSCULOSKELETAL: Extremities without clubbing, cyanosis, or edema. No joint tenderness or effusion noted. No calf tenderness. No mottling or clubbing. NEUROLOGICAL: Awake and alert. Able to follow simple commands. Expressive aphasia. Does not make direct eye contact particularly if you are standing on his right side PSYCHIATRIC: Unable to clearly assess due to patient's clinical status Diagnostic Tests Laboratory: Laboratory Results - last 72 hr 01/05/18 01/05/18 01/06/18 05:13 09:36 04:50 Sodium 144 144 Potassium 3.2 L 3.8 Chloride 105 109 H Carbon Dioxide 32.7 H 28.6 Anion Gap 6 6 BUN 20 H 19 H Creatinine 1.11 1.01 Estimated GFR 64 L 71 L Random Glucose 119 H 90 Calcium 8.8 8.8 Magnesium 1.9 Result Diagrams: 01/04/18 05:03 01/06/18 04:50 Procedures: 12/21/17 * Cardiac catheterization with 2 drug-eluting stents * Endotracheal intubation 12/23/17 * RIJ * RRAL 12/30/17 * Extubation Assessment and Plan - Disease Oriented Problem List (1) ST elevation myocardial infarction (STEMI) (2) Embolic stroke (3) Respiratory failure - Symptom Scale (1) Debility 0-10 Scale: Unable to quantify (2) Confusion 0-10 Scale: Unable to quantify (3) Dyspnea 0-10 Scale: Unable to quantify Pertinent Non-Medical Issues: Psychosocial: Patient was originally born in [place]. He moved to [place] where he met his current (has 2 previous ex-'s with whom he is in good standing.) He has 5 children from his previous marriages one son Asim Murray and 4 daughters from home which he is estranged. The couple moved to [facility] in 1995. 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 In their absence, per [place] statutes, decision making falls to the patient's Marcela Murray [phone] (H) or [phone] (C) by proxy Ethical issues impacting care: There are currently no known ethical issues impacting care at this time Important Contacts: Marcela Murray, /HCP [phone] (H) or [phone] (C) Asim Murray, son [phone] (C) [phone] (H) Gwendolyn Paola, ex- [phone] Prognosis: Prior to this hospitalization the patient was having a gradual decline functionally and cognitively. He was hospitalized in July at [facility] for some sort of cardiac event. Since then he has had personality changes and difficulties with ambulation and gait. He had been falling a lot, and unable to go for his leisurely walks. His son verbalizes he has been experiencing some depression over the last 3 months as he has lost approximately 6-7 of his closest friends to various illnesses. During this hospitalization he has made known his displeasure with his current clinical condition. He has been refusing food and medications periodically. Given his extensive cardiac history , acute MS, and recent stroke he definitely remains at high risk for continued decompensation, respiratory decline, aspiration, and related sequelae including Code Status: No Code DNR Plan: * LEGAL DECISION MAKER - in the absence of advanced directives, per [place] statutes, decision making falls to the patient's Marcela Murray [phone] (h) or [phone](c) by proxy * GOALS - Was able to have a lengthy discussion with patient's Marcela Murray. We discussed the patient's clinical course thus far and how it is widely believed by the medical team that the patient will not have much more significant recovery. He is still refusing food at certain points as well as medications. We talked again about what the patient would consider a quality of life, to which his endorsed he would not be happy with his current situation. We discussed hospice and the benefits of enrolling in their service. She is open to hospice consult and feels that her would benefit their services. Plans are also underway for long-term placement as the patient can no longer be cared for at home alone. A consult was placed to hospice today on the patient's behalf. * CODE STATUS - DNR * SYMPTOMS: Debility - following stroke patient requires max assist for ambulation and most ADLs. He is unable to stand unassisted and minimally participates in range of motion exercises. He is somewhat frail appearing with temporal wasting and has recently begun to refuse p.o. intake. He has been cleared for pured with honey thickened liquids by speech therapy. Hospice consult was placed today 01/07/18 Depression -secondary to sharp decline in functional and cognitive status as well as multiple losses in the previous months (has lost 6-7 good friends). Patient is currently refusing nutrition and medications. Should family decide to enroll patient in hospice this can be discussed further as to how to treat Dyspnea -patient has some waxing and waning shortness of breath and wheezes. Fairly well controlled with supplemental oxygen as needed and albuterol treatments per patient difficult to participate with pulmonary toilet secondary to CVA. Patient is hospice appropriate and can be best managed from that standpoint Palliative care will continue to follow during hospital course as condition evolves, to assist patient/decision-maker with understanding of medical conditions, weighing benefits/burdens of treatment options, for clarification of goals of treatment. Additionally will assist with any symptoms of palliative concern Case discussed with Dr. Pelayo and RN ([place]) at bedside Attestation Attestation: To help prompt me to consider important information that might be impacting today's encounter and assessment, information from prior notes written by myself or my colleagues may have been "brought forward" into today's note. My signature on this note, however, is an attestation that I personally performed the exam, history, and/or decision-making noted today, and, unless otherwise indicated, the interactions with patient, family, and staff as well as the review of records all occurred today. I also attest that the listed assessment and stated plan reflect my best clinical judgment today based on the combination of historical information, prior notes, and today's exam/ interactions. When time spent is documented, it refers only to time spent today by the signer, or if indicated, combined time spent today by collaborating physician/nurse practitioner.
--- NOTE | 2018-01-07 15:45 | P.PN ---
Subjective Interval history: Follow-up for CVA, inferior STEMI. Patient is currently resting in bed. He answers with 1 or 2 words. Denies any acute concerns. Per nursing staff, he is not eating or drinking. He is also refusing many medications. Physical Exam Vital signs: Vital Signs 01/06/18 16:00 01/06/18 17:00 01/06/18 18:00 Temperature Pulse Rate 76 56 L 60 Respiratory Rate Blood Pressure Pulse Oximetry 99 01/06/18 19:00 01/06/18 19:37 01/06/18 20:00 Temperature 98.0 F Pulse Rate 65 70 Respiratory Rate 17 Blood Pressure 188/86 H Pulse Oximetry 96 96 96 01/06/18 21:00 01/06/18 22:15 01/07/18 00:00 Temperature 97.3 F L 97.6 F Pulse Rate 72 83 60 Respiratory Rate 18 18 Blood Pressure 179/81 H 175/92 H Pulse Oximetry 93 L 96 01/07/18 04:00 01/07/18 07:00 01/07/18 07:46 Temperature 97.1 F L 98.6 F Pulse Rate 69 62 69 Respiratory Rate 18 18 16 Blood Pressure 143/64 H 122/59 L Pulse Oximetry 97 96 96 01/07/18 08:00 01/07/18 11:00 01/07/18 12:00 Temperature 98.2 F Pulse Rate 56 L 63 63 Respiratory Rate 18 Blood Pressure 114/58 L Pulse Oximetry 96 01/07/18 15:22 Temperature Pulse Rate 70 Respiratory Rate 22 Blood Pressure Pulse Oximetry Intake & Output 01/06/18 01/07/18 01/07/18 18:59 06:59 18:59 Intake Total 240 / 240 1101 / 1101 101 / 101 Output Total 250 / 250 250 / 250 Balance -10 / -10 851 / 851 101 / 101 Weight 68.1 kg Intake: IV 1101 / 1101 101 / 101 D5W/1/2NS + KCL 10 mEq Inj 1, 1000 / 1000 000 ML @ 100 mls/hr IV.CONT . Q10H [facility] Rx#:[id number] Thiamine Inj 100 MG In NS Inj 101 / 101 100 ML @ 100 mls/hr IV.SIG DAILY [facility] Rx#:[id number] Oral 240 / 240 0 / 0 Output: Urine 250 / 250 Urine Amount (Catheter) 250 / 250 Indwelling Urethral Catheter 250 / 250 Other: Date of Last Bowel Movement 01/03/18 01/03/18 01/03/18 # Bowel Movements 0 Narrative: GENERAL: Resting in bed. Appears comfortable. Able to answer limited questions SKIN: Warm and dry. HEAD: Normocephalic. EYES: No scleral icterus. No injection or drainage. NECK: Supple, trachea midline. No JVD. CARDIOVASCULAR: Regular rate and rhythm without murmurs, gallops, or rubs. RESPIRATORY: Breath sounds equal bilaterally. No accessory muscle use. GASTROINTESTINAL: Abdomen soft, non-tender, nondistended. MUSCULOSKELETAL: No cyanosis, or edema. BACK: Nontender without obvious deformity. No CVA tenderness. - Urinary Catheter Management Condom Cath placed during this visit: no Indwelling Urethral Catheter Cath placed during this visit: yes Reason for continuing: Terminally ill/Comfort care Insertion date: 12/22/17 Insertion time: 11:00 Results - Labs CBC & Chem 7: 01/04/18 05:03 01/06/18 04:50 - Imaging Chest X-Ray 12/21/17 08:47 CONCLUSION: Chronic interstitial changes. The patient is post median sternotomy. Chest X-Ray 12/21/17 14:27 CONCLUSION: Endotracheal tube in good position. Probable CHF. Abdomen/Bladder Ultrasound 12/22/17 00:00 CONCLUSION: 1. 5 mm stone in the collecting system of the right kidney. There is no hydronephrosis. 2. 3 cm simple cyst arising from the left kidney. 3. Distention of the bladder. Chest X-Ray 12/23/17 06:00 CONCLUSION: No significant change. A left pleural effusion remains as well as cardiomegaly. Chest X-Ray 12/23/17 09:27 CONCLUSION: Right IJ central line in excellent position. Abdomen X-Ray 12/24/17 00:00 CONCLUSION: No foreign implements identified to contraindicate MRI CT CAD 12/24/17 00:00 CONCLUSION: Physiological brain perfusion parameters with RAPID analysis as above. The decision for consideration of therapy is multi factorial and multi disciplinary relying on subjective and objective clinical data. This data is not construed or intended to be the sole determinant of treatment eligibility. Chest X-Ray 12/24/17 00:00 CONCLUSION: 1. ET tube in good position. 2. Persistent lower lung nonconsolidative opacities and new nonconsolidative infiltrate in the right upper. Head CTA 12/24/17 00:00 CONCLUSION: Atherosclerotic disease of the MCAs but no evidence of high-grade stenosis or occlusion. Report was called by [Dr. Russo to Dr. Prince at [id number] ] Neck CTA 12/24/17 00:00 CONCLUSION: 1. Prominent atherosclerotic disease at the carotid bulbs bilaterally left greater than right with approximately 70% focal stenosis at the origin of the left ICA and 50% stenosis on the right. 2. 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 Chest X-Ray 12/24/17 06:00 CONCLUSION: No significant interval change. Head CT 12/24/17 16:12 CONCLUSION: Multiple acute to subacute infarcts in multiple vascular distributions bilaterally. Pattern suggests embolic infarcts. Results were discussed with Dr. Prince at [id number]. . Chest X-Ray 12/25/17 06:00 CONCLUSION: No significant change. Right greater than left basilar consolidation again noted. Head MRI 12/25/17 06:57 CONCLUSION: 1. Significant areas of restricted diffusion as above. Findings would be consistent with an embolic process at the level of the aortic arch. Abdomen X-Ray 12/26/17 00:00 CONCLUSION: 1. No bowel obstruction, ileus or perforation. 2. Degenerative changes and scoliosis of the thoracolumbar spine. Chest X-Ray 12/26/17 06:00 CONCLUSION: Stable single view the chest with bibasilar areas of consolidation right greater than left. Tubes and catheters in good position Chest X-Ray 12/27/17 06:00 CONCLUSION: Right IJ central line is tip overlying the SVC behind the medial right clavicular head. Left pleural effusion with some left basilar consolidation Abdomen X-Ray 12/28/17 00:00 CONCLUSION: Decrease in gaseous distention of the colon. Chest X-Ray 12/28/17 06:00 CONCLUSION: No significant interval change with persistent mild bilateral lower lung zone opacity. Chest X-Ray 12/29/17 06:00 CONCLUSION: Slight increase in bilateral pulmonary opacity likely representing pulmonary edema. Chest X-Ray 12/30/17 04:00 CONCLUSION: Endotracheal tube and nasogastric tube no longer seen. No significant interval change in bilateral mid to lower lung zone hazy opacity. Head MRI 12/31/17 00:00 CONCLUSION: 1. Persistent numerous areas of subacute infarction in the cerebral and cerebellar hemispheres as described above. New areas of infarction are not seen. The multiplicity of these in multiple vascular territories is suggestive of embolic disease. 2. Cerebral atrophy. Chest X-Ray 12/31/17 10:38 CONCLUSION: Diffuse increased interstitial markings likely related to underlying edema. Alveolar consolidation or atelectasis at the bases. Some increased density at the bases may be related to effusions. When compared to the prior exam, the aeration of the lungs appears somewhat improved. Chest X-Ray 01/01/18 04:00 CONCLUSION: Bilateral mostly basilar airspace disease with small effusions. Previous CABG. Findings similar to December 31. Chest X-Ray 01/05/18 00:00 CONCLUSION: Bilateral mostly basilar airspace disease and small effusions. Findings are similar to prior examination. Assessment and Plan - Plan 82 Y/O male with [place] s/p stent, afib, non compliance with anticoagulation and debilitating stroke. Patient had respiratory failure that is improved. He remains aphasic and oral intake is not consistent. His son reports that he would not want to live in this condition. There is supposed to be a living will with his but there reports that his has dementia. He does have a previously signed DNR in the chart. Palliative care following. If oral intake improves, can consider discharge to rehab soon. 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 CT brain revealed right parietal/occipital, left frontal/occipital and left cerebellar CVA. Likely embolic. CT angiogram revealed atherosclerosis MCA bilaterally. No stenosis. CTA neck revealed bilateral subclavian stenosis 70% left, right 50%. Evaluated by neurology. At high risk of hemorrhagic conversion. F/U MRI 12/31 MRI brain - Cerebrum: Significant periventricular white matter changes are evident with scattered areas of restricted diffusion involving both hemispheres, worse in both occipital lobes. Largest area of restricted diffusion is on the right that does involve the motor strip. There is no associated parenchymal hemorrhage. Posterior Fossa: Scattered areas restricted diffusion are seen in both cerebellar hemispheres largest 1 cm left hemisphere Neurology ok with Eliquis. He is not eating much. Inferior STEMI -2 KIANNA to RCA Coronary artery disease Peripheral vascular disease Abdominal aortic aneurysm Atrial fibrillation Bilateral carotid stenosis with left 70% greater than right percent Elevated troponin Continue aspirin 81 mg daily, Prasugrel 10 mg daily for drug-eluting stent Dopamine discontinued 12/29 Follow up on echocardiogram -EF 50-55%. Hypokinesis inferior posterior and inferior basal recio. Followed by Dr. Maldonado/cardiology Currently on amiodarone 200 mg twice daily oral. Management per cardiology Acute respiratory failure COPD Tobacco abuse Pulmonary edema Albuterol/ipratropium aerosols every 4 hours with albuterol aerosols every 2 hours as needed for dyspnea Budesonide 0.5/2 1 inhalation twice daily Extubated 12/29-continue aggressive pulmonary toileting Pulmonology consult-Dr. Mccann following Scheduled Lasix Elevated AST -cardiac in origin Hypoalbuminemia Severe protein calorie malnutrition Hyperammonemia-resolved Speech therapy following. Diet per speech Pantoprazole for GI prophylaxis Docusate sodium/senna 1 tablet twice daily for bowel regimen Acute kidney injury -resolved Avoid nephrotoxic medications Did receive dye/contrast for cardiac catheterization Normocytic anemia Monitor CBC daily. Follow trends. DNR. Apixaban. Discharge plan: Poor prognosis. Discussed with Palliative care team - they are trying to get more info from family members. Patient would be appropriate for hospice.
--- NOTE | 2018-01-07 18:28 | P.PN ---
Subjective Interval history: Awake and not able to responds well to commands. talks a little. Poor intake. Physical Exam Vital signs: Vital Signs 01/06/18 19:00 01/06/18 19:37 01/06/18 20:00 Temperature 98.0 F Pulse Rate 65 70 Respiratory Rate 17 Blood Pressure 188/86 H Pulse Oximetry 96 96 96 01/06/18 21:00 01/06/18 22:15 01/07/18 00:00 Temperature 97.3 F L 97.6 F Pulse Rate 72 83 60 Respiratory Rate 18 18 Blood Pressure 179/81 H 175/92 H Pulse Oximetry 93 L 96 01/07/18 04:00 01/07/18 07:00 01/07/18 07:46 Temperature 97.1 F L 98.6 F Pulse Rate 69 62 69 Respiratory Rate 18 18 16 Blood Pressure 143/64 H 122/59 L Pulse Oximetry 97 96 96 01/07/18 08:00 01/07/18 11:00 01/07/18 12:00 Temperature 98.2 F Pulse Rate 56 L 63 63 Respiratory Rate 18 Blood Pressure 114/58 L Pulse Oximetry 96 01/07/18 15:22 01/07/18 16:00 Temperature Pulse Rate 70 62 Respiratory Rate 22 Blood Pressure Pulse Oximetry Intake & Output 01/06/18 01/07/18 01/07/18 18:59 06:59 18:59 Intake Total 240 / 240 1101 / 1101 1101 / 1101 Output Total 250 / 250 250 / 250 Balance -10 / -10 851 / 851 1101 / 1101 Weight 68.1 kg Intake: IV 1101 / 1101 1101 / 1101 D5W/1/2NS + KCL 10 mEq Inj 1, 1000 / 1000 1000 / 1000 000 ML @ 100 mls/hr IV.CONT . Q10H [facility] Rx#:[id number] Thiamine Inj 100 MG In NS Inj 101 / 101 101 / 101 100 ML @ 100 mls/hr IV.SIG DAILY [facility] Rx#:[id number] Oral 240 / 240 0 / 0 Output: Urine 250 / 250 Urine Amount (Catheter) 250 / 250 Indwelling Urethral Catheter 250 / 250 Other: Date of Last Bowel Movement 01/03/18 01/03/18 01/03/18 # Bowel Movements 0 Narrative: GENERAL: Resting in bed. Appears comfortable. Able to answer some questions SKIN: Warm and dry. HEAD: Normocephalic. EYES: No scleral icterus. No injection or drainage. NECK: Supple, trachea midline. No JVD. CARDIOVASCULAR: Regular rate and rhythm without murmurs, gallops, or rubs. RESPIRATORY: Breath sounds equal bilaterally. Occ wheeze heard. No accessory muscle use. GASTROINTESTINAL: Abdomen soft, non-tender, nondistended. MUSCULOSKELETAL: No cyanosis, or edema. Weak legs. BACK: Nontender without obvious deformity. No CVA tenderness. - Urinary Catheter Management Condom Cath placed during this visit: no Indwelling Urethral Catheter Cath placed during this visit: yes Reason for continuing: Terminally ill/Comfort care Insertion date: 12/22/17 Insertion time: 11:00 Results - Labs CBC & Chem 7: 01/04/18 05:03 01/06/18 04:50 Assessment and Plan - Assessment (1) Pulmonary edema Code(s): J81.1 - Chronic pulmonary edema Status: Acute (2) ST elevation myocardial infarction (STEMI) Code(s): I21.3 - ST elevation (STEMI) myocardial infarction of unspecified site Status: Acute (3) A-fib Code(s): I48.91 - Unspecified atrial fibrillation Status: Acute (4) Embolic stroke Code(s): I63.9 - Cerebral infarction, unspecified Status: Acute (5) Respiratory failure Code(s): J96.90 - Respiratory failure, unspecified, unspecified whether with hypoxia or hypercapnia Status: Acute - Plan 1. O2 prn 2 L 2. BMP 3. Will use Ventolin HFA , 2 puffs TID PRN 4. Continue Lovenox 40 Mg S/Q Q12H 5. Palliative care to see 6. To rehab soon (2) ST elevation myocardial infarction (STEMI) Qualifiers: Involved coronary artery: unspecified coronary artery Qualified Code(s): I21.3 - ST elevation (STEMI) myocardial infarction of unspecified site
[2018-01-08] MEDS: KCL 10 mEq/D5W/NaCl 0.45% Inj 1,000 ML IV.CONT SCH ×2 (02:26→12:24)
[2018-01-08] MEDS: Oral Hygiene Kit OROPHARYNG SCH ×5 (02:28→23:40)
[2018-01-08] MEDS: Artificial Tears Opth Drops 15 ML Bottle EACH EYE SCH ×3 (02:29→21:53)
[2018-01-08] MEDS: QUEtiapine 25 MG Tablet PO SCH ×2 (06:20→18:39)
--- NOTE | 2018-01-08 07:22 | XR ---
EXAM DATE: 01/08/2018 7:19 AM EST AGE/SEX: 82 years / Male INDICATIONS: Very short of breath, evaluate infiltrate CLINICAL DATA: This is the patient's subsequent encounter. Patient reports that signs and symptoms h ave been present for 2 weeks and indicates a pain score of Nonresponsive. MEDICAL/SURGICAL HISTORY: Cardiovascular disease. A-fib, [place] CABG. COMPARISON: [facility], CHEST 1V SINGLE AP, 01/05/2018. . FINDINGS: Persistent hazy bilateral pleural parenchymal opacity which is unchanged. Cardiac contours are stable . CONCLUSION: No significant change Electronically signed by: Suman Mcgrath MD 01/08/2018 7:20 AM EST
[2018-01-08] MEDS: Metoprolol Tartrate 25 MG Tablet PO SCH ×2 (09:25→21:51)
[2018-01-08] MEDS: Folic Acid 1 MG Tablet PO SCH (09:25)
[2018-01-08] MEDS: Amiodarone 200 MG Tablet NG/OG SCH ×2 (09:26→21:51)
[2018-01-08] MEDS: Famotidine PF Inj 20 MG/2 ML Vial IV.PUSH SCH ×2 (09:29→21:51)
[2018-01-08] MEDS: Sodium Chloride 0.9% 2 ML Flush BID IV.FLUSH SCH ×2 (09:31→21:52)
[2018-01-08] MEDS: Polyethylene Glycol 3350 17 GM Packet PO SCH ×2 (09:34→21:52)
[2018-01-08] MEDS: Thiamine Inj 100 MG in Sodium Chlor 0.9% Inj 100 ML IV.SIG SCH (10:27)
--- NOTE | 2018-01-08 12:58 | P.PN ---
Subjective Interval history: He seems Dyspneic and off O2.Poor intake. Answers some questions. Off O2. CXR shows hazy infiltrates Physical Exam Vital signs: Vital Signs 01/07/18 15:00 01/07/18 15:22 01/07/18 16:00 Temperature 97.3 F L Pulse Rate 63 70 62 Respiratory Rate 18 22 Blood Pressure 171/78 H Pulse Oximetry 96 01/07/18 19:28 01/07/18 20:00 01/07/18 23:56 Temperature 98.6 F 97.8 F Pulse Rate 60 66 Respiratory Rate 18 18 Blood Pressure 134/68 156/90 H Pulse Oximetry 97 97 97 01/08/18 00:00 01/08/18 04:00 01/08/18 07:44 Temperature 97.7 F Pulse Rate 64 66 72 Respiratory Rate 18 20 Blood Pressure 134/65 Pulse Oximetry 97 96 97 01/08/18 07:51 01/08/18 08:00 01/08/18 08:28 Temperature 97.0 F L Pulse Rate 70 73 78 Respiratory Rate 20 36 H Blood Pressure 189/89 H Pulse Oximetry 91 L 01/08/18 11:58 Temperature 98.3 F Pulse Rate 56 L Respiratory Rate 29 H Blood Pressure 95/52 L Pulse Oximetry 99 Intake & Output 01/07/18 01/08/18 01/08/18 18:59 06:59 18:59 Intake Total 1101 / 1101 1030 / 1030 1000 / 1000 Output Total 325 / 325 350 / 350 Balance 776 / 776 680 / 680 1000 / 1000 Weight 67.9 kg Intake: IV 1101 / 1101 1000 / 1000 1000 / 1000 D5W/1/2NS + KCL 10 mEq Inj 1, 1000 / 1000 1000 / 1000 1000 / 1000 000 ML @ 100 mls/hr IV.CONT . Q10H [facility] Rx#:[id number] Thiamine Inj 100 MG In NS Inj 101 / 101 100 ML @ 100 mls/hr IV.SIG DAILY [facility] Rx#:[id number] Oral 0 / 0 30 30 Output: Urine 325 / 325 350 / 350 Other: Date of Last Bowel Movement 01/03/18 01/03/18 01/03/18 # Bowel Movements 0 Narrative: GENERAL: Resting in bed. Appears restless and dyspneic. Able to answer some questions SKIN: Warm and dry. HEAD: Normocephalic. EYES: No scleral icterus. No injection or drainage. NECK: Supple, trachea midline. No JVD. CARDIOVASCULAR: Regular rate and rhythm without murmurs, gallops, or rubs. RESPIRATORY: Breath sounds equal bilaterally. Occ wheeze heard. some accessory muscle use. GASTROINTESTINAL: Abdomen soft, non-tender, nondistended. MUSCULOSKELETAL: No cyanosis, or edema. Weak legs. BACK: Nontender without obvious deformity. No CVA tenderness. - Urinary Catheter Management Condom Cath placed during this visit: no Indwelling Urethral Catheter Cath placed during this visit: yes Reason for continuing: Terminally ill/Comfort care Insertion date: 12/22/17 Insertion time: 11:00 Results - Labs CBC & Chem 7: 01/04/18 05:03 01/06/18 04:50 - Imaging Impressions Chest X-Ray 01/08/18 00:00 CONCLUSION: No significant change Assessment and Plan - Assessment (1) Pulmonary edema Code(s): J81.1 - Chronic pulmonary edema Status: Acute (2) ST elevation myocardial infarction (STEMI) Code(s): I21.3 - ST elevation (STEMI) myocardial infarction of unspecified site Status: Acute (3) A-fib Code(s): I48.91 - Unspecified atrial fibrillation Status: Acute (4) Embolic stroke Code(s): I63.9 - Cerebral infarction, unspecified Status: Acute (5) Respiratory failure Code(s): J96.90 - Respiratory failure, unspecified, unspecified whether with hypoxia or hypercapnia Status: Acute - Plan 1. Cont O2 prn 2 L 2. BMP CBC,CXR 3. Will use Ventolin HFA , 2 puffs TID PRN 4. Continue Lovenox 40 Mg S/Q 5. Palliative care to see 6. IV Hydration at 60 CC 7. Add Rocephin 1 G IV daily (2) ST elevation myocardial infarction (STEMI) Qualifiers: Involved coronary artery: unspecified coronary artery Qualified Code(s): I21.3 - ST elevation (STEMI) myocardial infarction of unspecified site
[2018-01-08] MEDS: Chlorhexidine 0.12% Oral Kit 15 ML UDC OROPHARYNG SCH ×2 (14:03→21:50)
--- NOTE | 2018-01-08 16:14 | P.PN ---
Subjective Interval history: Follow-up for CVA, inferior STEMI. Patient is resting in bed. Denies any acute concerns. Does not talk much. Remains afebrile. Physical Exam Vital signs: Vital Signs 01/07/18 19:28 01/07/18 20:00 01/07/18 23:56 Temperature 98.6 F 97.8 F Pulse Rate 60 66 Respiratory Rate 18 18 Blood Pressure 134/68 156/90 H Pulse Oximetry 97 97 97 01/08/18 00:00 01/08/18 04:00 01/08/18 07:44 Temperature 97.7 F Pulse Rate 64 66 72 Respiratory Rate 18 20 Blood Pressure 134/65 Pulse Oximetry 97 96 97 01/08/18 07:51 01/08/18 08:00 01/08/18 08:28 Temperature 97.0 F L Pulse Rate 70 73 78 Respiratory Rate 20 36 H Blood Pressure 189/89 H Pulse Oximetry 91 L 01/08/18 11:58 Temperature 98.3 F Pulse Rate 56 L Respiratory Rate 29 H Blood Pressure 95/52 L Pulse Oximetry 99 Intake & Output 01/07/18 01/08/18 01/08/18 18:59 06:59 18:59 Intake Total 1101 / 1101 1030 / 1030 1000 / 1000 Output Total 325 / 325 350 / 350 Balance 776 / 776 680 / 680 1000 / 1000 Weight 67.9 kg Intake: IV 1101 / 1101 1000 / 1000 1000 / 1000 D5W/1/2NS + KCL 10 mEq Inj 1, 1000 / 1000 1000 / 1000 1000 / 1000 000 ML @ 100 mls/hr IV.CONT . Q10H [facility] Rx#:[id number] Thiamine Inj 100 MG In NS Inj 101 / 101 100 ML @ 100 mls/hr IV.SIG DAILY [facility]LO Rx#:[id number] Oral 0 / 0 30 Output: Urine 325 / 325 350 / 350 Other: Date of Last Bowel Movement 01/03/18 01/03/18 01/03/18 # Bowel Movements 0 Narrative: GENERAL: Alert, NAD. SKIN: Warm and dry. HEAD: Normocephalic. EYES: No scleral icterus. No injection or drainage. NECK: Supple, trachea midline. No JVD or lymphadenopathy. CARDIOVASCULAR: Regular rate and rhythm without murmurs, gallops, or rubs. RESPIRATORY: Breath sounds equal bilaterally. Some wheezing present. GASTROINTESTINAL: Abdomen soft, non-tender, nondistended. MUSCULOSKELETAL: No cyanosis, or edema. BACK: Nontender without obvious deformity. No CVA tenderness. - Urinary Catheter Management Condom Cath placed during this visit: no Indwelling Urethral Catheter Cath placed during this visit: yes Reason for continuing: Terminally ill/Comfort care Insertion date: 12/22/17 Insertion time: 11:00 Results - Labs CBC & Chem 7: 01/04/18 05:03 01/06/18 04:50 - Imaging Impressions Chest X-Ray 01/08/18 00:00 CONCLUSION: No significant change Assessment and Plan - Plan 82 Y/O male with [place] s/p stent, afib, non compliance with anticoagulation and debilitating stroke. Patient had respiratory failure that is improved. He remains aphasic and oral intake is not consistent. His son reports that he would not want to live in this condition. There is supposed to be a living will with his but there reports that his has dementia. He does have a previously signed DNR in the chart. Palliative care following. If oral intake improves, can consider discharge to rehab soon. 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 CT brain revealed right parietal/occipital, left frontal/occipital and left cerebellar CVA. Likely embolic. CT angiogram revealed atherosclerosis MCA bilaterally. No stenosis. CTA neck revealed bilateral subclavian stenosis 70% left, right 50%. Evaluated by neurology. At high risk of hemorrhagic conversion. F/U MRI 12/31 MRI brain - Cerebrum: Significant periventricular white matter changes are evident with scattered areas of restricted diffusion involving both hemispheres, worse in both occipital lobes. Largest area of restricted diffusion is on the right that does involve the motor strip. There is no associated parenchymal hemorrhage. Posterior Fossa: Scattered areas restricted diffusion are seen in both cerebellar hemispheres largest 1 cm left hemisphere Neurology ok with Eliquis. He is not eating much. Inferior STEMI -2 KIANNA to RCA Coronary artery disease Peripheral vascular disease Abdominal aortic aneurysm Atrial fibrillation Bilateral carotid stenosis with left 70% greater than right percent Elevated troponin Continue aspirin 81 mg daily, Prasugrel 10 mg daily for drug-eluting stent Dopamine discontinued 12/29 Follow up on echocardiogram -EF 50-55%. Hypokinesis inferior posterior and inferior basal recio. Followed by Dr. Sickinger/cardiology Currently on amiodarone 200 mg twice daily oral. Management per cardiology Acute respiratory failure COPD Tobacco abuse Pulmonary edema Albuterol/ipratropium aerosols every 4 hours with albuterol aerosols every 2 hours as needed for dyspnea Budesonide 0.5/2 1 inhalation twice daily Extubated 12/29-continue aggressive pulmonary toileting Pulmonology consult-Dr. Peng following. Dr. Peng started patient on Ceftriaxone today due to concern over pneumonia. Elevated AST -cardiac in origin Hypoalbuminemia Severe protein calorie malnutrition Hyperammonemia-resolved Speech therapy following. Diet per speech Pantoprazole for GI prophylaxis Docusate sodium/senna 1 tablet twice daily for bowel regimen Acute kidney injury -resolved Avoid nephrotoxic medications Did receive dye/contrast for cardiac catheterization Normocytic anemia Hgb stable around 10-11. DNR. Apixaban. Discharge plan: I believe patient would be appropriate for hospice.
[2018-01-09] MEDS: Artificial Tears Opth Drops 15 ML Bottle EACH EYE SCH ×3 (01:47→17:07)
[2018-01-09] MEDS: Oral Hygiene Kit OROPHARYNG SCH ×3 (03:50→17:06)
[2018-01-09] MEDS: QUEtiapine 25 MG Tablet PO SCH ×2 (05:01→17:06)
[2018-01-09] MEDS: Thiamine Inj 100 MG in Sodium Chlor 0.9% Inj 100 ML IV.SIG SCH (08:38)
[2018-01-09] MEDS: Metoprolol Tartrate 25 MG Tablet PO SCH (08:38)
[2018-01-09] MEDS: Folic Acid 1 MG Tablet PO SCH (08:39)
[2018-01-09] MEDS: Amiodarone 200 MG Tablet NG/OG SCH ×2 (08:39→20:24)
[2018-01-09] MEDS: Famotidine PF Inj 20 MG/2 ML Vial IV.PUSH SCH ×2 (08:39→20:25)
[2018-01-09] MEDS: Polyethylene Glycol 3350 17 GM Packet PO SCH ×2 (08:40→20:40)
[2018-01-09] MEDS: Chlorhexidine 0.12% Oral Kit 15 ML UDC OROPHARYNG SCH ×2 (08:40→20:26)
--- NOTE | 2018-01-09 11:54 | P.PN ---
Subjective Interval history: Follow-up for CVA, inferior STEMI. Patient is lying in bed. He does not speak much. However, he denies any acute concerns. Remains afebrile. Physical Exam Vital signs: Vital Signs 01/08/18 11:58 01/08/18 12:00 01/08/18 15:00 Temperature 98.3 F 97.6 F Pulse Rate 56 L 56 L 78 Respiratory Rate 29 H 18 Blood Pressure 95/52 L 177/87 H Pulse Oximetry 99 96 01/08/18 16:00 01/08/18 16:23 01/08/18 18:56 Temperature Pulse Rate 66 63 74 Respiratory Rate 22 24 Blood Pressure Pulse Oximetry 96 01/08/18 20:00 01/09/18 00:00 01/09/18 03:35 Temperature 98.2 F Pulse Rate 66 66 73 Respiratory Rate 17 16 Blood Pressure 114/58 L Pulse Oximetry 100 01/09/18 04:00 01/09/18 07:00 01/09/18 08:00 Temperature 98.7 F Pulse Rate 68 75 73 Respiratory Rate 16 18 Blood Pressure 114/74 Pulse Oximetry 98 94 L 01/09/18 09:38 01/09/18 11:41 Temperature 98.5 F Pulse Rate 69 Respiratory Rate 20 Blood Pressure 165/80 H Pulse Oximetry 93 L 93 L Intake & Output 01/08/18 01/09/18 01/09/18 18:59 06:59 18:59 Intake Total 1201 / 1201 1000 / 1000 Output Total 650 / 650 Balance 1201 / 1201 350 / 350 Weight 69.9 kg Intake: IV 1201 / 1201 1000 / 1000 D5W/1/2NS + KCL 10 mEq Inj 1, 1000 / 1000 1000 / 1000 000 ML @ 100 mls/hr IV.CONT . Q10H [facility] Rx#:[id number] Thiamine Inj 100 MG In NS Inj 101 / 101 100 ML @ 100 mls/hr IV.SIG DAILY [facility] Rx#:[id number] Rocephin Inj 1,000 MG In NS Inj 100 / 100 100 ML @ 200 mls/hr IV.SIG Q24H [facility] Rx#:[id number] Oral 0 / 0 Output: Urine 650 / 650 Other: Date of Last Bowel Movement 01/03/18 01/09/18 # Bowel Movements 1 Narrative: GENERAL: Alert, NAD. SKIN: Warm and dry. HEAD: Normocephalic. EYES: No scleral icterus. No injection or drainage. NECK: Supple, trachea midline. No JVD or lymphadenopathy. CARDIOVASCULAR: Regular rate and rhythm without murmurs, gallops, or rubs. RESPIRATORY: Breath sounds equal bilaterally. Some wheezing present. GASTROINTESTINAL: Abdomen soft, non-tender, nondistended. MUSCULOSKELETAL: No cyanosis, or edema. BACK: Nontender without obvious deformity. No CVA tenderness. - Urinary Catheter Management Condom Cath placed during this visit: no Indwelling Urethral Catheter Cath placed during this visit: yes Reason for continuing: Chronic Urinary Retention Insertion date: 12/22/17 Insertion time: 11:00 Results - Labs CBC & Chem 7: 01/04/18 05:03 01/06/18 04:50 - Imaging Chest X-Ray 12/21/17 08:47 CONCLUSION: Chronic interstitial changes. The patient is post median sternotomy. Chest X-Ray 12/21/17 14:27 CONCLUSION: Endotracheal tube in good position. Probable CHF. Abdomen/Bladder Ultrasound 12/22/17 00:00 CONCLUSION: 1. 5 mm stone in the collecting system of the right kidney. There is no hydronephrosis. 2. 3 cm simple cyst arising from the left kidney. 3. Distention of the bladder. Chest X-Ray 12/23/17 06:00 CONCLUSION: No significant change. A left pleural effusion remains as well as cardiomegaly. Chest X-Ray 12/23/17 09:27 CONCLUSION: Right IJ central line in excellent position. Abdomen X-Ray 12/24/17 00:00 CONCLUSION: No foreign implements identified to contraindicate MRI CT CAD 12/24/17 00:00 CONCLUSION: Physiological brain perfusion parameters with RAPID analysis as above. The decision for consideration of therapy is multi factorial and multi disciplinary relying on subjective and objective clinical data. This data is not construed or intended to be the sole determinant of treatment eligibility. Chest X-Ray 12/24/17 00:00 CONCLUSION: 1. ET tube in good position. 2. Persistent lower lung nonconsolidative opacities and new nonconsolidative infiltrate in the right upper. Head CTA 12/24/17 00:00 CONCLUSION: Atherosclerotic disease of the MCAs but no evidence of high-grade stenosis or occlusion. Report was called by [Dr. Russo to Dr. Prince at 1735 ] Neck CTA 12/24/17 00:00 CONCLUSION: 1. Prominent atherosclerotic disease at the carotid bulbs bilaterally left greater than right with approximately 70% focal stenosis at the origin of the left ICA and 50% stenosis on the right. 2. 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 Chest X-Ray 12/24/17 06:00 CONCLUSION: No significant interval change. Head CT 12/24/17 16:12 CONCLUSION: Multiple acute to subacute infarcts in multiple vascular distributions bilaterally. Pattern suggests embolic infarcts. Results were discussed with Dr. Prince at 1635. . Chest X-Ray 12/25/17 06:00 CONCLUSION: No significant change. Right greater than left basilar consolidation again noted. Head MRI 12/25/17 06:57 CONCLUSION: 1. Significant areas of restricted diffusion as above. Findings would be consistent with an embolic process at the level of the aortic arch. Abdomen X-Ray 12/26/17 00:00 CONCLUSION: 1. No bowel obstruction, ileus or perforation. 2. Degenerative changes and scoliosis of the thoracolumbar spine. Chest X-Ray 12/26/17 06:00 CONCLUSION: Stable single view the chest with bibasilar areas of consolidation right greater than left. Tubes and catheters in good position Chest X-Ray 12/27/17 06:00 CONCLUSION: Right IJ central line is tip overlying the SVC behind the medial right clavicular head. Left pleural effusion with some left basilar consolidation Abdomen X-Ray 12/28/17 00:00 CONCLUSION: Decrease in gaseous distention of the colon. Chest X-Ray 12/28/17 06:00 CONCLUSION: No significant interval change with persistent mild bilateral lower lung zone opacity. Chest X-Ray 12/29/17 06:00 CONCLUSION: Slight increase in bilateral pulmonary opacity likely representing pulmonary edema. Chest X-Ray 12/30/17 04:00 CONCLUSION: Endotracheal tube and nasogastric tube no longer seen. No significant interval change in bilateral mid to lower lung zone hazy opacity. Head MRI 12/31/17 00:00 CONCLUSION: 1. Persistent numerous areas of subacute infarction in the cerebral and cerebellar hemispheres as described above. New areas of infarction are not seen. The multiplicity of these in multiple vascular territories is suggestive of embolic disease. 2. Cerebral atrophy. Chest X-Ray 12/31/17 10:38 CONCLUSION: Diffuse increased interstitial markings likely related to underlying edema. Alveolar consolidation or atelectasis at the bases. Some increased density at the bases may be related to effusions. When compared to the prior exam, the aeration of the lungs appears somewhat improved. Chest X-Ray 01/01/18 04:00 CONCLUSION: Bilateral mostly basilar airspace disease with small effusions. Previous CABG. Findings similar to December 31. Chest X-Ray 01/05/18 00:00 CONCLUSION: Bilateral mostly basilar airspace disease and small effusions. Findings are similar to prior examination. Chest X-Ray 01/08/18 00:00 CONCLUSION: No significant change Assessment and Plan - Plan 82 Y/O male with [place] s/p stent, afib, non compliance with anticoagulation and debilitating stroke. Patient had respiratory failure that is improved. He remains aphasic and oral intake is not consistent. His son reports that he would not want to live in this condition. There is supposed to be a living will with his but there reports that his has dementia. He does have a previously signed DNR in the chart. Palliative care following. If oral intake improves, can consider discharge to rehab soon. 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 CT brain revealed right parietal/occipital, left frontal/occipital and left cerebellar CVA. Likely embolic. CT angiogram revealed atherosclerosis MCA bilaterally. No stenosis. CTA neck revealed bilateral subclavian stenosis 70% left, right 50%. Evaluated by neurology. At high risk of hemorrhagic conversion. F/U MRI 12/31 MRI brain - Cerebrum: Significant periventricular white matter changes are evident with scattered areas of restricted diffusion involving both hemispheres, worse in both occipital lobes. Largest area of restricted diffusion is on the right that does involve the motor strip. There is no associated parenchymal hemorrhage. Posterior Fossa: Scattered areas restricted diffusion are seen in both cerebellar hemispheres largest 1 cm left hemisphere Neurology ok with Eliquis. He is not eating much. Inferior STEMI -2 KIANNA to RCA Coronary artery disease Peripheral vascular disease Abdominal aortic aneurysm Atrial fibrillation Bilateral carotid stenosis with left 70% greater than right percent Elevated troponin Continue aspirin 81 mg daily, Prasugrel 10 mg daily for drug-eluting stent Dopamine discontinued 12/29 Follow up on echocardiogram -EF 50-55%. Hypokinesis inferior posterior and inferior basal recio. Followed by Dr. Maldonado/cardiology Currently on amiodarone 200 mg twice daily oral. Management per cardiology Acute respiratory failure COPD Tobacco abuse Pulmonary edema Albuterol/ipratropium aerosols every 4 hours with albuterol aerosols every 2 hours as needed for dyspnea Budesonide 0.5/2 1 inhalation twice daily Extubated 12/29-continue aggressive pulmonary toileting Pulmonology consult-Dr. Peng following. Dr. Peng started patient on Ceftriaxone on 01/08/2018 due to concern over pneumonia. Elevated AST -cardiac in origin Hypoalbuminemia Severe protein calorie malnutrition Hyperammonemia-resolved Speech therapy following. Diet per speech Pantoprazole for GI prophylaxis Docusate sodium/senna 1 tablet twice daily for bowel regimen Acute kidney injury -resolved Avoid nephrotoxic medications Did receive dye/contrast for cardiac catheterization Normocytic anemia Hgb stable around 10-11. DNR. Apixaban. Discharge plan: I believe patient would be appropriate for hospice.
[2018-01-09] MEDS: Sodium Chloride 0.9% 2 ML Flush BID IV.FLUSH SCH ×2 (12:42→20:39)
[2018-01-09] MEDS: KCL 10 mEq/D5W/NaCl 0.45% Inj 1,000 ML IV.CONT SCH ×3 (12:55→23:02)
[2018-01-10] MEDS: Artificial Tears Opth Drops 15 ML Bottle EACH EYE SCH ×3 (02:00→17:19)
[2018-01-10] MEDS: Oral Hygiene Kit OROPHARYNG SCH ×4 (05:03→17:18)
[2018-01-10] MEDS: QUEtiapine 25 MG Tablet PO SCH ×2 (05:19→17:19)
[2018-01-10] MEDS: Thiamine Inj 100 MG in Sodium Chlor 0.9% Inj 100 ML IV.SIG SCH (08:07)
[2018-01-10] MEDS: Folic Acid 1 MG Tablet PO SCH (08:08)
[2018-01-10] MEDS: Famotidine PF Inj 20 MG/2 ML Vial IV.PUSH SCH ×2 (08:08→20:13)
[2018-01-10] MEDS: Amiodarone 200 MG Tablet NG/OG SCH ×2 (08:08→20:15)
[2018-01-10] MEDS: Chlorhexidine 0.12% Oral Kit 15 ML UDC OROPHARYNG SCH ×2 (08:09→20:13)
[2018-01-10] MEDS: Polyethylene Glycol 3350 17 GM Packet PO SCH ×2 (08:10→20:14)
[2018-01-10] MEDS: Sodium Chloride 0.9% 2 ML Flush BID IV.FLUSH SCH ×2 (08:10→20:14)
[2018-01-10] MEDS: KCL 10 mEq/D5W/NaCl 0.45% Inj 1,000 ML IV.CONT SCH (09:20)
--- NOTE | 2018-01-10 13:10 | P.PN ---
Subjective Interval history: Follow-up for CVA, inferior STEMI. Patient is resting in bed. Breathing is somewhat labored. No fever or chills. Physical Exam Vital signs: Vital Signs 01/09/18 14:53 01/09/18 16:48 01/09/18 20:00 Temperature 98.4 F 97.5 F L Pulse Rate 54 L 65 Respiratory Rate 20 20 Blood Pressure 126/63 173/85 H Pulse Oximetry 91 L 99 100 01/09/18 21:04 01/10/18 00:00 01/10/18 03:00 Temperature 97.9 F 97.8 F Pulse Rate 68 68 63 Respiratory Rate 24 20 19 Blood Pressure 169/74 H 154/82 H Pulse Oximetry 97 97 100 01/10/18 07:00 01/10/18 07:44 01/10/18 08:42 Temperature 98.4 F Pulse Rate 54 L 61 Respiratory Rate 16 16 Blood Pressure 122/68 Pulse Oximetry 100 97 01/10/18 12:00 01/10/18 12:54 Temperature 98.3 F Pulse Rate 63 Respiratory Rate 16 Blood Pressure 93/54 L Pulse Oximetry 97 100 Intake & Output 01/09/18 01/10/18 01/10/18 18:59 06:59 18:59 Intake Total 1201 / 1201 1000 / 1000 1101 / 1101 Output Total 1750 / 1750 Balance 1201 / 1201 -750 / -750 1101 / 1101 Weight 70.3 kg Intake: IV 1201 / 1201 1000 / 1000 1101 / 1101 D5W/1/2NS + KCL 10 mEq Inj 1, 1000 / 1000 1000 / 1000 1000 / 1000 000 ML @ 100 mls/hr IV.CONT . Q10H [facility] Rx#:[id number] Thiamine Inj 100 MG In NS Inj 101 / 101 101 / 101 100 ML @ 100 mls/hr IV.SIG DAILY [facility] Rx#:[id number] Rocephin Inj 1,000 MG In NS Inj 100 / 100 100 ML @ 200 mls/hr IV.SIG Q24H [facility] Rx#:[id number] Oral 0 / 0 Output: Urine 1750 / 1750 Other: # Bowel Movements 1 Narrative: GENERAL: Alert, NAD. SKIN: Warm and dry. HEAD: Normocephalic. EYES: No scleral icterus. No injection or drainage. NECK: Supple, trachea midline. No JVD or lymphadenopathy. CARDIOVASCULAR: Regular rate and rhythm without murmurs, gallops, or rubs. RESPIRATORY: Moderate air entry, somewhat labored breathing. GASTROINTESTINAL: Abdomen soft, non-tender, nondistended. MUSCULOSKELETAL: No cyanosis, or edema. BACK: Nontender without obvious deformity. No CVA tenderness. - Urinary Catheter Management Condom Cath placed during this visit: no Indwelling Urethral Catheter Cath placed during this visit: yes Reason for continuing: Chronic Urinary Retention Insertion date: 12/22/17 Insertion time: 11:00 Results - Labs CBC & Chem 7: 01/04/18 05:03 01/06/18 04:50 Assessment and Plan - Plan 82 Y/O male with [place] s/p stent, afib, non compliance with anticoagulation and debilitating stroke. Patient had respiratory failure that is improved. He remains aphasic and oral intake is not consistent. His son reports that he would not want to live in this condition. There is supposed to be a living will with his but there reports that his has dementia. He does have a previously signed DNR in the chart. Palliative care following. If oral intake improves, can consider discharge to rehab soon. 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 CT brain revealed right parietal/occipital, left frontal/occipital and left cerebellar CVA. Likely embolic. CT angiogram revealed atherosclerosis MCA bilaterally. No stenosis. CTA neck revealed bilateral subclavian stenosis 70% left, right 50%. Evaluated by neurology. At high risk of hemorrhagic conversion. F/U MRI 12/31 MRI brain - Cerebrum: Significant periventricular white matter changes are evident with scattered areas of restricted diffusion involving both hemispheres, worse in both occipital lobes. Largest area of restricted diffusion is on the right that does involve the motor strip. There is no associated parenchymal hemorrhage. Posterior Fossa: Scattered areas restricted diffusion are seen in both cerebellar hemispheres largest 1 cm left hemisphere Neurology ok with Eliquis. He is not eating much. Inferior STEMI -2 KIANNA to RCA Coronary artery disease Peripheral vascular disease Abdominal aortic aneurysm Atrial fibrillation Bilateral carotid stenosis with left 70% greater than right percent Elevated troponin Continue aspirin 81 mg daily, Prasugrel 10 mg daily for drug-eluting stent Dopamine discontinued 12/29 Follow up on echocardiogram -EF 50-55%. Hypokinesis inferior posterior and inferior basal recio. Followed by Dr. Maldonado/cardiology Currently on amiodarone 200 mg twice daily oral. Management per cardiology Acute respiratory failure COPD Tobacco abuse Pulmonary edema Albuterol/ipratropium aerosols every 4 hours with albuterol aerosols every 2 hours as needed for dyspnea Budesonide 0.5/2 1 inhalation twice daily Extubated 12/29-continue aggressive pulmonary toileting Pulmonology consult-Dr. Peng following. Dr. Peng started patient on Ceftriaxone on 01/08/2018 due to concern over pneumonia. Elevated AST -cardiac in origin Hypoalbuminemia Severe protein calorie malnutrition Hyperammonemia-resolved Speech therapy following. Diet per speech Pantoprazole for GI prophylaxis Docusate sodium/senna 1 tablet twice daily for bowel regimen Acute kidney injury -resolved Avoid nephrotoxic medications Did receive dye/contrast for cardiac catheterization Normocytic anemia Hgb stable around 10-11. Nutrition: Speech therapy recommends pured diet with nectar consistency thickened liquid. Patient is not eating much at all. DNR. Apixaban. Discharge plan: I believe patient would be appropriate for hospice.
[2018-01-10 20:21] VITALS: PULSE 82; RESP 16
[2018-01-10 20:36] VITALS: BP 169/82; TEMP 97.8; O2SAT 99
--- NOTE | 2018-01-11 08:26 | P.DS ---
Date of admission: 12/21/17 11:15 Primary care physician: UNKNOWN DS: Summary - Time Spent with Patient Total time spent providing and/or coordinating discharge services: Exam Vital signs: Vital Signs 01/10/18 08:42 01/10/18 12:00 01/10/18 12:54 Temperature 98.4 F 98.3 F Pulse Rate 61 63 Respiratory Rate 16 16 Blood Pressure 122/68 93/54 L Pulse Oximetry 97 97 100 01/10/18 15:19 01/10/18 18:00 01/10/18 19:00 Temperature 97.4 F L 97.8 F Pulse Rate 51 L 60 Respiratory Rate 15 16 Blood Pressure 126/71 169/82 H Pulse Oximetry 100 97 99 01/10/18 20:21 Temperature Pulse Rate 82 Respiratory Rate 16 Blood Pressure Pulse Oximetry Intake & Output 01/10/18 01/11/18 01/11/18 18:59 06:59 18:59 Intake Total 1321 / 1321 1000 / 1000 Output Total 1200 / 1200 Balance 121 / 121 1000 / 1000 Intake: IV 1201 / 1201 1000 / 1000 D5W/1/2NS + KCL 10 mEq Inj 1, 1000 / 1000 1000 / 1000 000 ML @ 100 mls/hr IV.CONT . Q10H [facility] Rx#:[id number] Thiamine Inj 100 MG In NS Inj 101 / 101 100 ML @ 100 mls/hr IV.SIG DAILY [facility] Rx#:[id number] Rocephin Inj 1,000 MG In NS Inj 100 / 100 100 ML @ 200 mls/hr IV.SIG Q24H [facility] Rx#:[id number] Oral 120 / 120 Output: Urine 1200 / 1200 Results - Impressions ITS Impressions Abdomen/Bladder Ultrasound 12/22/17 00:00 CONCLUSION: 1. 5 mm stone in the collecting system of the right kidney. There is no hydronephrosis. 2. 3 cm simple cyst arising from the left kidney. 3. Distention of the bladder. CT CAD 12/24/17 00:00 CONCLUSION: Physiological brain perfusion parameters with RAPID analysis as above. The decision for consideration of therapy is multi factorial and multi disciplinary relying on subjective and objective clinical data. This data is not construed or intended to be the sole determinant of treatment eligibility. Head CTA 12/24/17 00:00 CONCLUSION: Atherosclerotic disease of the MCAs but no evidence of high-grade stenosis or occlusion. Report was called by [Dr. Russo to Dr. Prince at 2442 ] Neck CTA 12/24/17 00:00 CONCLUSION: 1. Prominent atherosclerotic disease at the carotid bulbs bilaterally left greater than right with approximately 70% focal stenosis at the origin of the left ICA and 50% stenosis on the right. 2. 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 Head CT 12/24/17 16:12 CONCLUSION: Multiple acute to subacute infarcts in multiple vascular distributions bilaterally. Pattern suggests embolic infarcts. Results were discussed with Dr. Prince at 4590. . Abdomen X-Ray 12/28/17 00:00 CONCLUSION: Decrease in gaseous distention of the colon. Head MRI 12/31/17 00:00 CONCLUSION: 1. Persistent numerous areas of subacute infarction in the cerebral and cerebellar hemispheres as described above. New areas of infarction are not seen. The multiplicity of these in multiple vascular territories is suggestive of embolic disease. 2. Cerebral atrophy. Chest X-Ray 01/08/18 00:00 CONCLUSION: No significant change Discharge Plan - Discharge Disposition Patient Disposition: [facility] Hospice/Med Facility - Discharge Condition Condition: Fair - Discharge Order Discharge Orders: Discharge Order (Routine); Ordered 01/10/18 Ordered By: Sulma Pelayo - Discharge Details Anticipated Discharge Date: 01/10/18 - Physicians Team Primary Care Provider: UNKNOWN, Attending Provider: Sulma Pelayo Other Providers: Janette Sal MD ; Emmie Menchaca MD ; Suman Cole MD ; Estevan Sarmiento MD ; [facility],Agency ; [facility],[place]
== END 2018-01-10 21:38 | disposition hospice, inpatient (51) ==
LOC: NEPC 08:40 → HCVI 11:15 → HCPC 01-03 16:48 → N04 01-06 22:05
PROVIDERS: ADMIT Hospitalist; ATTEND Hospitalist